=== PATIENT | male | born 1945 | race Caucasian/White ===

== ENCOUNTER → 2017-11-16 10:15 | Outpatient (CLI) | payer MEDICARE, OTHER, SELFPAY ==
[2017-11-16 15:07] LABS: Vitamin D 25 Hydroxy (D3) 57.1 ng/mL (30.0-100.0)
[2017-11-16 15:32] LABS: Appearance Urine UA CLEAR; Bilirubin Urine UA NEGATIVE (NEGATIVE); Color Urine UA YELLOW; Glucose Urine UA NEGATIVE (NEGATIVE); Ketones Urine UA NEGATIVE (NEGATIVE); Leukocyte Esterase Urine UA NEGATIVE (NEGATIVE); Nitrite Urine UA NEGATIVE (NEGATIVE); Occult Blood Urine UA NEGATIVE (NEGATIVE); Protein Urine UA NEGATIVE (NEGATIVE); Urobilinogen Urine UA 0.2 E.U./dL (0.2)
[2017-11-16 15:42] LABS: Culture Indicated Urine Cult Not Indicated; Urine Comments Microscopic Normal
== END ==
PROVIDERS: Family Provider Family Medicine; PCP Internal Medicine Pulmonary Disease; Visit Provider Internal Medicine
DX: N18.3 Chronic kidney disease, stage 3 (moderate) (principal)
CPT/HCPCS: 36415; 81001; 82306

== ENCOUNTER → 2017-12-16 10:58 | Outpatient (CLI) | payer MEDICARE, OTHER, SELFPAY ==
[2017-12-16 13:50] LABS: Alanine Aminotransferase 36 IU/L (21-72); Albumin Globulin Ratio 1.4 (1.0-2.8); Alkaline Phosphatase 66 U/L (38-126); Aspartate Aminotransferase 28 IU/L (17-59); BUN Creatinine Ratio 21.4 (6-22); Bilirubin Total 0.4 mg/dL (0.2-1.3); Blood Urea Nitrogen 45 mg/dL (9-20); Calcium 10.9 mg/dL (8.4-10.2); Carbon Dioxide 27 mmol/L (22-32); Chloride 103 mmol/L (98-107); Estimated Glomerular Filt Rate 31.4 mL/min (>60); Globulin 2.8 g/dL (1.7-4.1); Glucose 79 mg/dL (80-110); HEMOLYSIS < 15 (0-50); Potassium 4.8 mmol/L (3.4-5.1); Sodium 144 mmol/L (137-145); Total Protein 6.8 g/dL (6.3-8.2)
[2017-12-16 19:04] LABS: Creatinine Urine Random 26.7 mg/dL; Protein (Total) Urine Random 11 mg/dL (0-12); Protein Creatinine Ratio Urine 0.41 GRAM/24H
== END ==
PROVIDERS: Family Provider Family Medicine; PCP Internal Medicine Pulmonary Disease; Referring Provider Internal Medicine Pulmonary Disease; Visit Provider Internal Medicine
DX: N18.3 Chronic kidney disease, stage 3 (moderate) (principal)
CPT/HCPCS: 36415; 80053; 82570; 84156

== ENCOUNTER → 2017-12-17 06:54 | Outpatient (CLI) | payer MEDICARE, OTHER, SELFPAY ==
--- NOTE | 2017-12-17 | DI.US.S_ITS ---
PROCEDURE: US RENAL COMPLETE INDICATIONS: CHRONIC KIDNEY DISEASE TECHNIQUE: Real-time scanning was performed of the kidneys and bladder, with image documentation. COMPARISON: [facility], CT, CT ABD PELVIS W CON, 02/14/2017, 13:17. FINDINGS: Kidneys: Kidneys are normal in size. Right kidney measures 11 cm long; left kidney measures 11.9 cm long. Right renal cortical thickness is 1.7 cm; left renal cortical thickness is 2.3 cm. Renal cortical echotexture is normal. No hydronephrosis or nephrolithiasis. No suspicious solid mass lesions. Midpole left renal cyst redemonstrated measuring up to 2.9 cm. Bladder: Pre-void bladder volume is 227 mL. Post-void residual is 0 mL. Pre-void images demonstrate no intraluminal masses or stones. On pre-void images, neither ureteral jets are noted with color Doppler interrogation. (Of note, ureteral jets may not be detectable in up to 25% of cases due to insufficient differences in specific gravity between ureteral and bladder urine). Miscellaneous: No free pelvic fluid. IMPRESSION: Left renal cyst redemonstrated otherwise normal appearance the kidneys. Dictated by: Oliverio RIOS Interpreted: Khris Valentin MD on 12/17/2017 at 9:00 Approved by: Shahzad Valentin M.D. on 12/20/2017 at 9:22
== END ==
PROVIDERS: Family Provider Family Medicine; PCP Internal Medicine Pulmonary Disease; Visit Provider Internal Medicine
DX: N18.9 Chronic kidney disease, unspecified (principal); N28.1 Cyst of kidney, acquired
CPT/HCPCS: 76770

== ENCOUNTER → 2018-01-04 07:06 | Outpatient (CLI) | payer MEDICARE, OTHER, SELFPAY ==
[2018-01-04 09:40] LABS: Calcium 11.4 mg/dL (8.4-10.2); Phosphorous 4.8 mg/dL (2.3-3.7)
[2018-01-04 09:57] LABS: Vitamin D 25 Hydroxy (D3) 63.1 ng/mL (30.0-100.0)
[2018-01-06 13:50] LABS: Parathyroid Hormone Int 10 pg/mL (14-64)
[2018-01-06 20:26] LABS: Alkaline Phosphatase, Bone Spe 8.3 mcg/L
== END ==
PROVIDERS: Family Provider Family Medicine; PCP Internal Medicine Pulmonary Disease; Visit Provider Internal Medicine Endocrinology, Diabetes & Metabolism
DX: M81.8 Other osteoporosis without current pathological fracture (principal)
CPT/HCPCS: 36415; 82306; 82310; 82565; 83970; 84075; 84100

== ENCOUNTER → 2018-01-07 13:50 | Outpatient (CLI) | payer MEDICARE, OTHER, SELFPAY | PROVIDERS: Family Provider Neurological Surgery; PCP Family Medicine; Referring Provider Physical Medicine & Rehabilitation; Visit Provider Internal Medicine Endocrinology, Diabetes & Metabolism | DX: M85.851 Other specified disorders of bone density and structure, right thigh (principal); E11.9 Type 2 diabetes mellitus without complications; R29.890 Loss of height; Z85.118 Personal history of other malignant neoplasm of bronchus and lung | CPT/HCPCS: 77080 ==

== ENCOUNTER 2018-01-10 10:29 | Emergency (ER) | payer MEDICARE, OTHER, SELFPAY ==
[2018-01-10 10:40] VITALS: BP 98/59; PULSE 67; RESP 18; TEMP 36.4; O2SAT 99; BMI 37.7
--- NOTE | 2018-01-10 10:44 | ED_ITS ---
HPI - Skin/Abscess/Foreign Bdy General Chief complaint: Skin/Abscess/Foreign Body Stated complaint: INFECTION IN ABDOMEN,PAINFUL Time Seen by Provider: 01/10/18 10:30 Source: patient Mode of arrival: ambulatory Limitations: no limitations History of Present Illness HPI narrative: 72-year-old male here for evaluation of a skin wound to his left lower abdomen. Patient was seen in the walk-in clinic 2 days ago was diagnosed with a cellulitis. Is on doxycycline. Has been on 1.5 days of that medication. Is here because he feels like the cellulitis is worsening. No fevers. No change in pain. Related Data Home Medications Medication Instructions Recorded Confirmed NITROGLYCERIN (#NITROSTAT) 0.4 mg SUBLINGUAL PRN #0 11/19/10 01/10/18 [CO Q 10] PO QDAY #0 09/16/12 01/08/18 dofetilide [Tikosyn] 0.25 mg PO BID #0 04/08/16 01/10/18 olmesartan [Benicar] 20 mg BID #0 04/08/16 01/08/18 lorazepam [Ativan] 0.5 mg PO PRN PRN #0 06/28/16 01/08/18 vitamin B complex [B 1 tab PO HS #0 06/28/16 01/08/18 Complex-Vitamin B12] modafinil [Provigil] 200 mg PO QDAY #0 01/17/17 01/08/18 [Contour test strips] BID #0 07/30/17 01/08/18 diltiazem HCl 360 mg PO QDAY #0 07/30/17 01/10/18 insulin glargine [Lantus Solostar 50 unit SQ BID 90 Days #0 07/30/17 01/10/18 U-100 Insulin] alendronate [Fosamax] 70 mg PO QWEEK #0 09/01/17 01/10/18 ascorbic acid (vitamin C) 1,000 mg 1 gram PO BID tab 01/04/18 01/08/18 tablet furosemide 20 mg tablet 20 mg PO DAILY 01/04/18 01/08/18 gabapentin 600 mg tablet 600 mg PO TID 01/04/18 01/10/18 Lactobacillus acidophilus capsule 1,000 mmu cells PO DAILY 01/08/18 01/08/18 ascorbic acid (vitamin C) 500 mg mg PO cap 01/08/18 01/08/18 capsule albuterol sulfate [ProAir HFA] 01/10/18 01/10/18 apixaban [Eliquis] 5 mg PO BID 01/10/18 01/10/18 atorvastatin 40 mg PO DAILY 01/10/18 01/10/18 diclofenac sodium DIRECTED 01/10/18 ferrous sulfate 325 mg PO DAILY 01/10/18 01/10/18 metformin 2 tab PO BID 01/10/18 01/10/18 metoprolol tartrate 50 mg PO DAILY 01/10/18 01/10/18 ofloxacin 01/10/18 01/10/18 omeprazole 01/10/18 oxycodone-acetaminophen 01/10/18 01/10/18 prednisolone acetate 01/10/18 01/10/18 torsemide 20 mg PO DAILY 01/10/18 01/10/18 Previous Rx's Medication Instructions Recorded prednisone 10 mg PO SEE INSTRUCTIONS #20 tab 07/30/17 budesonide-formoterol [Symbicort] 2 inh INH BID #1 inh 09/14/17 oxycodone-acetaminophen 5 mg-325 1 tab PO QDAY PRN #30 tab 12/01/17 mg tablet epinephrine 0.3 mg/0.3 mL 0.3 mg IM ONCE #2 each 01/04/18 injection, auto-injector calcitonin (salmon) 200 1 spray INTRANASAL (ALT) DAILY 01/08/18 unit/actuation nasal spray #3.7 ml doxycycline hyclate 100 mg capsule 100 mg PO BID 20 Days #40 cap 01/08/18 Allergies Allergy/AdvReac Type Severity Reaction Status Date / Time venom-honey bee Allergy Unknown Verified 01/04/18 11:20 [BEE VENOM (HONEY BEE)] Sulfa (Sulfonamide AdvReac Unknown KIDNEY Verified 01/04/18 11:20 Antibiotics) FAILURE [SULFA (SULFONAMIDE ANTIBIOTICS)] Review of Systems Constitutional Denies fatigue, Denies fever(s) and Denies headache(s) ENT Ears, Nose, Mouth, and Throat: Denies headache(s) Cardiovascular Denies chest pain Respiratory Denies cough Gastrointestinal Gastrointestinal: Denies diarrhea, Denies nausea and Denies vomiting Integumentary/Breasts Reports lesions ( Left lower abdomen), Denies rash and Denies wounds Neurologic Denies headache(s) Endocrine Denies fatigue [facility] Medical History Renal insufficiency (Acute) Atrial fibrillation (Chronic Unknown) Chronic low back pain (Chronic Unknown) Coronary artery disease (Chronic Unknown) Diabetes (Chronic Unknown) GERD (gastroesophageal reflux disease) (Chronic Unknown) Hearing loss (Chronic Unknown) Hyperlipemia (Chronic Unknown) Hypertension (Chronic Unknown) Sarcoidosis (Chronic 11/2007) Acne (Resolved Unknown) Actinic keratosis (Resolved ~2017) Hx of coronary angiogram (Resolved Unknown) Squamous cell carcinoma (Resolved Unknown) Surgical History History of arthroplasty of left shoulder (Resolved Unknown) History of arthroplasty of right shoulder (Resolved Unknown) Hx of knee surgery (Resolved Unknown) Hx of prior ablation treatment (Resolved ~05/2013) Family History Father Diabetes mellitus Mother No problems noted. Social History Smoking Status: Never smoker alcohol intake: current Exam Initial Vital Signs Initial Vital Signs: Vital Signs Temperature 97.6 F 01/10/18 10:40 Pulse Rate 67 01/10/18 10:40 Respiratory Rate 18 01/10/18 10:40 Blood Pressure 98/59 L 01/10/18 10:40 Pulse Oximetry 99 01/10/18 10:40 Const General: cooperative, healthy appearing, comfortable, well developed, well groomed and No acute distress Orientation: alert, awake and oriented x3 Resp Effort & Inspection: normal respiratory effort and able to speak in complete sentences Skin Other: patient with 2-1/2 cm area is of fluctuation left lower abdomen just under his pannus with a total of 5 cm surrounding erythema. No drainage from these areas. Minimal pain to palpation. Neuro General: alert, awake and oriented x3 Extrem General: normal to inspection, capillary refill normal and normal exam except as noted Course Vital Signs - 8 hr 01/10/18 10:40 Temperature 97.6 F Pulse Rate 67 Respiratory Rate 18 Blood Pressure 98/59 L Pulse Oximetry 99 MDM - Skin/Abscess/Foreign Bdy MDM Narrative Medical decision making narrative: Patient is nontoxic appearing here in the emergency department. Bedside ultrasound over the area in question does not show any fluid collections. I feel that incising this area or doing a needle aspiration would have minimal benefit now. Patient has only been on 1.5 days of the doxycycline which is an appropriate antibiotic for this type of infection. Informed him that we should give this more time before any further interventions are made. He was given return precautions. He expressed understanding and agreement with plan. Discharge Plan Departure Patient Disposition: Home, Self-Care Clinical Impression: Cellulitis Discharge Date/Time: 01/10/18 11:30 Interventions: ED Discharge Assessment Last Done: 01/10/18 11:29 Instructions: DI for Cellulitis -- Adult Activity Restrictions/Additional Instructions: I would recommend that you continue with the doxycycline as prescribed. You can continue to shower like normal. Keep the area covered as needed. If over the next 48 hr your symptoms worsen you do need to return to the emergency department for further evaluation. Call your primary care doctor for follow-up. Prescriptions: No Action furosemide 20 mg tablet 20 mg PO DAILY RF: 0 gabapentin 600 mg tablet 600 mg PO TID RF: 0 ascorbic acid (vitamin C) 1,000 mg tablet 1 gram PO BID RF: 0 epinephrine [EpiPen 2-Abhijeet] 0.3 mg/0.3 mL auto-injector 0.3 mg IM ONCE Qty: 2 RF: 0 ascorbic acid (vitamin C) 500 mg capsule PO RF: 0 Lactobacillus acidophilus capsule 1,000 mmu cells PO DAILY RF: 0 doxycycline hyclate 100 mg capsule 100 mg PO BID 20 Days Qty: 40 RF: 0 calcitonin (salmon) 200 unit/actuation spray,non-aerosol 1 spray Intranasal (ALT) DAILY Qty: 3.7 RF: 0 NITROGLYCERIN (#NITROSTAT) 0.4 mg Sublingual PRN Qty: 0 RF: 0 [CO Q 10] PO QDAY Qty: 0 RF: 0 olmesartan [Benicar] 20 MG tablet 20 mg BID Qty: 0 RF: 0 dofetilide [Tikosyn] 250 MCG capsule 0.25 mg PO BID Qty: 0 RF: 0 lorazepam [Ativan] 0.5 MG tablet 0.5 mg PO PRN PRN (Reason: Anxiety) Qty: 0 RF: 0 vitamin B complex [B Complex-Vitamin B12] 1 EACH tablet 1 tab PO HS Qty: 0 RF: 0 modafinil [Provigil] 200 MG tablet 200 mg PO QDAY Qty: 0 RF: 0 [Contour test strips] BID Qty: 0 RF: 0 insulin glargine [Lantus Solostar U-100 Insulin] 100 UNIT/1 ML insulin pen 50 unit SQ BID 90 Days Qty: 0 RF: 0 diltiazem HCl 360 MG capsule,extended release 24 hr 360 mg PO QDAY Qty: 0 RF: 0 prednisone 10 MG tablet 10 mg PO SEE INSTRUCTIONS Qty: 20 RF: 0 alendronate [Fosamax] 70 MG tablet 70 mg PO QWEEK Qty: 0 RF: 0 budesonide-formoterol [Symbicort] 160 MCG/4.5 MCG HFA aerosol inhaler 2 inh INH BID Qty: 1 RF: 6 oxycodone-acetaminophen [Percocet] 5-325 mg tablet 1 tab PO QDAY PRN (Reason: pain) Qty: 30 RF: 0 atorvastatin 40 mg tablet 40 mg PO DAILY RF: 0 metformin 500 mg tablet 2 tab PO BID RF: 0 torsemide 20 mg tablet 20 mg PO DAILY RF: 0 ofloxacin 0.3 % drops RF: 0 oxycodone-acetaminophen 5-325 mg tablet RF: 0 prednisolone acetate 1 % drops,suspension RF: 0 ferrous sulfate 325 mg (65 mg iron) tablet 325 mg PO DAILY RF: 0 diclofenac sodium 0.1 % drops DIRECTED RF: 0 metoprolol tartrate 50 mg tablet 50 mg PO DAILY RF: 0 omeprazole 20 mg capsule,delayed release(DR/EC) RF: 0 albuterol sulfate [ProAir HFA] 90 mcg/actuation HFA aerosol inhaler RF: 0 apixaban [Eliquis] 5 mg tablet 5 mg PO BID RF: 0
== END 2018-01-10 11:30 | disposition home or self-care (01) ==
PROVIDERS: Emergency Provider Emergency Medicine; Family Provider Neurological Surgery; PCP Family Medicine
DX: L03.311 Cellulitis of abdominal wall (principal)
CPT/HCPCS: 99282

== ENCOUNTER → 2018-03-17 10:28 | Outpatient (CLI) | payer MEDICARE, OTHER, SELFPAY ==
--- NOTE | 2018-03-17 10:43 | DI.RAD.S_ITS ---
PROCEDURE: XR LUMBAR SPINE 2-3V INDICATIONS: back pain TECHNIQUE: 3 views of the lumbar spine were acquired. COMPARISON: [facility], [place], XR LUMBAR SPINE WITH OBLIQUES, 08/04/2017, 7:53. [facility], [place], L-SPINE 2-3 VIEWS, 11/12/2016, 12:12. FINDINGS: Bones: 5 [id number] vertebrae are present. There is stable appearing bony alignment. No new vertebral body compression fractures. Prior vertebroplasty/kyphoplasty bone cement at the thoracolumbar junction appear stable over time No suspicious bony lesions. Soft tissues: Overlying bowel gas pattern is normal. No suspicious soft tissue calcifications. IMPRESSION: Focal kyphosis and slight convex rightward scoliosis centered at the thoracolumbar spine where previously present compression fractures have not worsened in no new fracture has developed. Kyphoplasty bone cement in those areas is visible as has been previously the kidneys. Dictated by: Albino Jean-Baptiste M.D. on 03/17/2018 at 11:54 Approved by: Albino Jean-Baptiste M.D. on 03/17/2018 at 11:55
--- NOTE | 2018-03-17 10:43 | DI.RAD.S_ITS ---
PROCEDURE: XR THORACIC SPINE 3V INDICATIONS: back pain TECHNIQUE: 3 views of the thoracic spine were acquired. COMPARISON: [facility], [place], XR LUMBAR SPINE 2-3V, 03/17/2018, 10:21. FINDINGS: Bones: No new fractures or dislocations. Previously present moderately severe thoracolumbar junction compression fractures are present, most pronounced at T12 where vertebral plana can be seen. No suspicious bony lesions. 12 pairs of ribs are noted, and appear intact where visualized. Soft tissues: No paravertebral stripe thickening. IMPRESSION: Stable appearing compression fractures, most pronounced at T12, with kyphoplasty bone cement stable over time. Source of new pain is not seen. Dictated by: Albino Jean-Baptiste M.D. on 03/17/2018 at 11:55 Approved by: Albino Jean-Baptiste M.D. on 03/17/2018 at 11:56
== END ==
PROVIDERS: Family Provider Neurological Surgery; PCP Family Medicine; Referring Provider Internal Medicine Endocrinology, Diabetes & Metabolism; Visit Provider Family Medicine
DX: M54.9 Dorsalgia, unspecified (principal); G89.29 Other chronic pain; M41.85 Other forms of scoliosis, thoracolumbar region; M48.55XD Collapsed vertebra, not elsewhere classified, thoracolumbar region, subsequent encounter for fracture with routine healing; Z98.890 Other specified postprocedural states
CPT/HCPCS: 72072; 72100

== ENCOUNTER → 2018-03-22 07:39 | Outpatient (CLI) | payer MEDICARE, OTHER, SELFPAY ==
[2018-03-22 08:47] LABS: Hemoglobin A1C% w Est Avg Glu 5.7 % (4.0-6.0)
[2018-03-22 09:26] LABS: Alanine Aminotransferase 22 IU/L (21-72); Albumin 4.1 g/dL (3.5-5.0); Albumin Globulin Ratio 1.3 (1.0-2.8); Alkaline Phosphatase 81 U/L (38-126); Aspartate Aminotransferase 28 IU/L (17-59); BUN Creatinine Ratio 13.8 (6-22); Bilirubin Total 0.5 mg/dL (0.2-1.3); Blood Urea Nitrogen 47 mg/dL (9-20); Carbon Dioxide 32 mmol/L (22-32); Chloride 102 mmol/L (98-107); Cholesterol 97 mg/dL (140-199); Globulin 3.2 g/dL (1.7-4.1); Glucose 49 mg/dL (80-110); HDL Cholesterol 32 mg/dL (40-60); HEMOLYSIS < 15 (0-50); LDL Cholesterol Calculated 37 mg/dL (<100); Sodium 144 mmol/L (137-145); Total Protein 7.3 g/dL (6.3-8.2); Triglycerides 141 mg/dL (35-150)
[2018-03-22 09:46] LABS: Calcium 13.1 mg/dL (8.4-10.2)
== END ==
PROVIDERS: PCP Family Medicine; Visit Provider Family Medicine
DX: E11.22 Type 2 diabetes mellitus with diabetic chronic kidney disease (principal); Z79.4 Long term (current) use of insulin
CPT/HCPCS: 36415; 80053; 80061; 83036

== ENCOUNTER → 2018-04-07 13:15 | Outpatient (CLI) | payer MEDICARE, OTHER, SELFPAY | PROVIDERS: Family Provider Neurological Surgery; PCP Family Medicine; Visit Provider Physician Assistant | DX: S31.809A Unspecified open wound of unspecified buttock, initial encounter (principal) | CPT/HCPCS: 87070; 87075; 87077; 87186; 87205 ==

== ENCOUNTER → 2018-04-14 11:17 | Outpatient (CLI) | payer MEDICARE, OTHER, SELFPAY ==
[2018-04-14 12:55] LABS: BUN Creatinine Ratio 13.2 (6-22); Blood Urea Nitrogen 25 mg/dL (9-20); Calcium 8.6 mg/dL (8.4-10.2); Carbon Dioxide 29 mmol/L (22-32); Chloride 102 mmol/L (98-107); Estimated Glomerular Filt Rate 35.2 mL/min (>60); Glucose 94 mg/dL (80-110); HEMOLYSIS < 15 (0-50); Potassium 3.6 mmol/L (3.4-5.1); Sodium 141 mmol/L (137-145)
== END ==
PROVIDERS: Family Provider Internal Medicine Pulmonary Disease; PCP Family Medicine; Visit Provider Internal Medicine
DX: E83.52 Hypercalcemia (principal)
CPT/HCPCS: 36415; 80048

== ENCOUNTER → 2018-04-22 11:05 | Outpatient (CLI) | payer MEDICARE, OTHER, SELFPAY ==
[2018-04-22 13:00] LABS: Alanine Aminotransferase 29 IU/L (21-72); Albumin Globulin Ratio 1.4 (1.0-2.8); Alkaline Phosphatase 91 U/L (38-126); Aspartate Aminotransferase 27 IU/L (17-59); BUN Creatinine Ratio 11.7 (6-22); Bilirubin Total 0.7 mg/dL (0.2-1.3); Blood Urea Nitrogen 21 mg/dL (9-20); Calcium 9.9 mg/dL (8.4-10.2); Carbon Dioxide 30 mmol/L (22-32); Chloride 101 mmol/L (98-107); Estimated Glomerular Filt Rate 37.5 mL/min (>60); Globulin 2.9 g/dL (1.7-4.1); Glucose 73 mg/dL (80-110); HEMOLYSIS < 15 (0-50); Sodium 144 mmol/L (137-145); Total Protein 6.9 g/dL (6.3-8.2)
== END ==
PROVIDERS: Family Provider Internal Medicine Pulmonary Disease; PCP Family Medicine; Referring Provider Internal Medicine; Visit Provider Family Medicine
DX: N18.3 Chronic kidney disease, stage 3 (moderate) (principal); N17.9 Acute kidney failure, unspecified; E83.52 Hypercalcemia; N28.9 Disorder of kidney and ureter, unspecified; R79.0 Abnormal level of blood mineral
CPT/HCPCS: 36415; 80053

== ENCOUNTER → 2018-04-28 08:56 | Outpatient (CLI) | payer MEDICARE, OTHER, SELFPAY ==
[2018-04-28 10:28] LABS: BUN Creatinine Ratio 13.2 (6-22); Blood Urea Nitrogen 25 mg/dL (9-20); Calcium 9.5 mg/dL (8.4-10.2); Carbon Dioxide 28 mmol/L (22-32); Chloride 102 mmol/L (98-107); Estimated Glomerular Filt Rate 35.2 mL/min (>60); Glucose 68 mg/dL (80-110); HEMOLYSIS < 15 (0-50); Phosphorous 3.9 mg/dL (2.3-3.7); Sodium 143 mmol/L (137-145)
== END ==
PROVIDERS: Family Provider Internal Medicine Pulmonary Disease; PCP Family Medicine; Referring Provider Internal Medicine Endocrinology, Diabetes & Metabolism; Visit Provider Internal Medicine
DX: N17.9 Acute kidney failure, unspecified (principal); E83.52 Hypercalcemia
CPT/HCPCS: 36415; 80048; 84100

== ENCOUNTER → 2018-06-07 09:31 | Outpatient (CLI) | payer MEDICARE, OTHER, SELFPAY ==
[2018-06-07 10:46] LABS: BUN Creatinine Ratio 16.3 (6-22); Blood Urea Nitrogen 26 mg/dL (9-20); Calcium 10.4 mg/dL (8.4-10.2); Carbon Dioxide 28 mmol/L (22-32); Chloride 102 mmol/L (98-107); Estimated Glomerular Filt Rate 42.9 mL/min (>60); Glucose 65 mg/dL (80-110); HEMOLYSIS < 15 (0-50); Potassium 3.9 mmol/L (3.4-5.1); Sodium 145 mmol/L (137-145)
== END ==
PROVIDERS: Family Provider Internal Medicine Pulmonary Disease; PCP Family Medicine; Visit Provider Internal Medicine
DX: N18.3 Chronic kidney disease, stage 3 (moderate) (principal)
CPT/HCPCS: 36415; 80048

== ENCOUNTER → 2018-06-15 11:54 | Outpatient (CLI) | payer MEDICARE, OTHER, SELFPAY ==
[2018-06-15 12:13] LABS: Bacteria Urine None Seen; RBC Urine None Seen (0-5/HPF); WBC Urine None Seen (0-5/HPF)
[2018-06-15 12:55] LABS: Add Manual Diff / Slide Review NO; Basophils Percent Auto 0.4 % (0-2); Eosinophils Percent Auto 4.7 % (2-4); Hematocrit 35.2 % (41-53); Hemoglobin 11.7 g/dL (13.5-17.5); Lymphocytes Percent Auto 16.1 % (25-40); Mean Corpuscular HGB Conc 33.3 % (30-36); Mean Corpuscular Volume 84.2 fL (80-100); Monocytes Percent Auto 10.2 % (3-14); Neutrophils Absolute Auto 6300 /uL (3000-5900); Neutrophils Percent Auto 68.6 % (50-75); Platelet Count 278 X10^3/uL (150-400); Red Blood Cell Count 4.18 X10^6/uL (4.5-5.9); White Blood Cell Count 9.2 X10^3/uL (4.5-11.0)
[2018-06-15 13:05] LABS: Appearance Urine UA CLEAR; Bilirubin Urine UA NEGATIVE (NEGATIVE); Color Urine UA YELLOW; Glucose Urine UA NEGATIVE (Normal); Ketones Urine UA NEGATIVE (NEGATIVE); Leukocyte Esterase Urine UA NEGATIVE (NEGATIVE); Nitrite Urine UA NEGATIVE (Negative); Occult Blood Urine UA NEGATIVE (Negative); Protein Urine UA NEGATIVE (Negative); Urobilinogen Urine UA 0.2 E.U./dL (0.2); pH Urine UA 6.5 (4.5-8.0)
[2018-06-15 13:11] LABS: Culture Indicated Urine Cult Not Indicated; Urine Comments Microscopic Normal
[2018-06-15 13:30] LABS: Alanine Aminotransferase 31 IU/L (21-72); Albumin 4.1 g/dL (3.5-5.0); Albumin Globulin Ratio 1.3 (1.0-2.8); Alkaline Phosphatase 104 U/L (38-126); Aspartate Aminotransferase 28 IU/L (17-59); BUN Creatinine Ratio 12.5 (6-22); Bilirubin Total 0.4 mg/dL (0.2-1.3); Blood Urea Nitrogen 20 mg/dL (9-20); Calcium 9.8 mg/dL (8.4-10.2); Carbon Dioxide 29 mmol/L (22-32); Chloride 100 mmol/L (98-107); Estimated Glomerular Filt Rate 42.9 mL/min (>60); Globulin 3.1 g/dL (1.7-4.1); Glucose 63 mg/dL (80-110); HEMOLYSIS < 15 (0-50); Potassium 3.7 mmol/L (3.4-5.1); Sodium 142 mmol/L (137-145); Total Protein 7.2 g/dL (6.3-8.2)
[2018-06-15 15:43] LABS: Creatinine Urine Random 30.1 mg/dL; Protein (Total) Urine Random 12 mg/dL (0-12); Protein Creatinine Ratio Urine 0.39 GRAM/24H
[2018-06-15 16:38] LABS: Hep C Virus Ab w/Reflex Quant NEGATIVE s/c (NEGATIVE)
[2018-06-18 12:25] LABS: Parathyroid Hormone Int 20 pg/mL (14-64)
== END ==
PROVIDERS: Family Provider Internal Medicine Pulmonary Disease; PCP Family Medicine; Referring Provider Internal Medicine Endocrinology, Diabetes & Metabolism; Visit Provider Internal Medicine
DX: N18.3 Chronic kidney disease, stage 3 (moderate) (principal); Z11.59 Encounter for screening for other viral diseases
CPT/HCPCS: 36415; 80053; 81001; 82306; 82570; 83970; 84156; 85025; 86803

== ENCOUNTER 2018-07-24 18:49 | Emergency (ER) | payer MEDICARE, OTHER, SELFPAY ==
[2018-07-24] VITALS (8 sets, daily range): BP systolic 99–113; BP diastolic 59–70; PULSE 73–86; RESP 12–20; TEMP 37.1; O2SAT 93–99
--- NOTE | 2018-07-24 19:06 | ED.CHESTPAIN ---
HPI - Chest Pain General Chief Complaint: Chest Pain Stated Complaint: Chest Pain Time Seen by Provider: 07/24/18 19:06 Source: patient and EMS Mode of arrival: EMS Limitations: no limitations History of Present Illness HPI narrative: Patient is a 72-year-old male with a known history of acute coronary syndrome with history of stent placement. Patient also has a history of atrial fibrillation and has a pacemaker in place. He is currently on Eliquis. He is also on Tikosyn. Is also an insulin-dependent diabetic here for evaluation of chest pain. Patient states that he started to feel some discomfort last evening. He states that he thought that it was his atrial fibrillation. He states that he did feel the pain last night. It did improve/resolve this morning. He is currently having chest pain. He states this episode started some time around noon. He states that it does get better and worse throughout the day. He says when it was at its maximum it did feel like his prior heart attack. He received nitroglycerin and aspirin and morphine by EMS prior to arrival here in the emergency department. He states that his heart rate is now 4/10 down from an 8/10. 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 He states that the chest pain may get a little worse with palpation but he describes it as a ?ache? does not get worse with a deep breath. Does not get worse with movement. Does not radiate. Related Data Home Medications Medication Instructions Recorded Confirmed NITROGLYCERIN (#NITROSTAT) 0.4 mg SUBLINGUAL PRN #0 11/19/10 05/05/18 [CO Q 10] PO QDAY #0 09/16/12 05/05/18 dofetilide [Tikosyn] 0.25 mg PO BID #0 04/08/16 05/05/18 lorazepam [Ativan] 0.5 mg PO PRN PRN #0 06/28/16 05/05/18 vitamin B complex [B 1 tab PO HS #0 06/28/16 05/05/18 Complex-Vitamin B12] modafinil [Provigil] 200 mg PO QDAY #0 01/17/17 05/05/18 diltiazem HCl 360 mg PO QDAY #0 07/30/17 05/05/18 furosemide 20 mg tablet 20 mg PO DAILY 01/04/18 05/05/18 gabapentin 600 mg tablet 600 mg PO TID 01/04/18 05/05/18 Lactobacillus acidophilus capsule 1,000 mmu cells PO DAILY 01/08/18 05/05/18 albuterol sulfate [ProAir HFA] 01/10/18 05/05/18 apixaban [Eliquis] 5 mg PO BID 01/10/18 05/05/18 torsemide 20 mg PO DAILY 01/10/18 05/05/18 denosumab 60 mg/mL subcutaneous 60 mg SUBCUT [id number] 04/29/18 05/05/18 syringe gabapentin 300 mg capsule 300 mg PO BID 04/29/18 05/05/18 insulin glargine (U-100) 100 30 unit SUBCUT BID 90 Days #54 ml 04/29/18 05/05/18 unit/mL (3 mL) subcutaneous pen Previous Rx's Medication Instructions Recorded budesonide-formoterol [Symbicort] 2 inh INH BID #1 inh 09/14/17 epinephrine 0.3 mg/0.3 mL 0.3 mg IM ONCE #2 each 01/04/18 injection, auto-injector [Contour test strips] #300 each 03/07/18 lidocaine 4 % topical gel 1 applictn TOP QD-BID PRN #30 gram 04/07/18 adjuvant AS01B (PF), component 0.5 ml IM ONCE #0.5 ml 04/29/18 vial 1 of 2 intramuscular suspension oxycodone-acetaminophen 5 mg-325 1 tab PO QDAY PRN #30 tab 04/29/18 mg tablet ferrous sulfate 325 mg (65 mg 325 mg PO DAILY #30 tab 05/31/18 iron) tablet atorvastatin 40 mg tablet 40 mg PO DAILY #90 tab 06/15/18 Allergies Allergy/AdvReac Type Severity Reaction Status Date / Time venom-honey bee Allergy Unknown Verified 05/05/18 15:13 [BEE VENOM (HONEY BEE)] Sulfa (Sulfonamide AdvReac Unknown KIDNEY Verified 05/05/18 15:13 Antibiotics) FAILURE [SULFA (SULFONAMIDE ANTIBIOTICS)] Review of Systems Constitutional Denies fever(s) and Denies headache(s) ENT Ears, Nose, Mouth, and Throat: Denies headache(s) Cardiovascular Reports chest pain, Reports chest pain at rest, Denies diaphoresis, Denies syncope, Reports rapid heart rate, Reports pedal edema, Reports edema, Reports leg edema, Denies lightheadedness, Reports palpitations and Reports dyspnea Respiratory Denies excessive phlegm production, Reports dyspnea and Denies wheezing Gastrointestinal Gastrointestinal: Denies abdominal pain, Denies nausea and Denies vomiting Genitourinary Denies dysuria and Denies flank pain Musculoskeletal Denies myalgias, Denies arthralgias and Denies numbness Integumentary/Breasts Denies lesions and Denies rash Neurologic Denies syncope, Denies headache(s), Denies numbness and Denies paresthesias Endocrine Reports palpitations Hematologic/Lymphatic Comments: On Eliquis Allergic/Immunologic Denies wheezing [facility] Social History Smoking Status: Never smoker alcohol intake: current Exam Initial Vital Signs Initial Vital Signs: Vital Signs Temperature 98.7 F 07/24/18 19:00 Pulse Rate 86 07/24/18 19:00 Respiratory Rate 12 07/24/18 19:00 Blood Pressure 111/70 07/24/18 19:00 Pulse Oximetry 99 07/24/18 19:00 Const General: cooperative, healthy appearing, comfortable, well developed, well groomed and No acute distress Orientation: alert, awake and oriented x3 HENMT Head: normal to inspection and normocephalic Chest Chest: normal inspection of the chest, No crepitus, No tenderness and pacemaker Resp Effort & Inspection: no cough, labored, no respiratory distress, no retractions and not tachypneic Auscultation: rhonchi Cardio Rate: regular rate Rhythm: regular rhythm Heart Sounds: no murmurs Pulses: radial pulses present GI Inspection: non-distended Palpation: soft, No firm and No tender Skin Lesions: lesions noted Rashes: rash noted Neuro General: alert, awake and oriented x3 Cognition: normal cognition Speech: speech normal Motor: muscle tone normal throughout Extrem General: normal to inspection, capillary refill normal and edema Psych Appearance: grossly normal and well kempt Mood: congruent mood Affect: normal affect Course Orders Ordered: ED Orders 07/24/18 18:50 B Type Natriuretic Peptide Stat Complete Blood Count AUTO DIFF Stat Comprehensive Metabolic Panel Stat Prothrombin Time INR Stat Troponin I Stat 07/24/18 19:24 XR chest 1V Stat Discontinued Medications Aspirin (Aspirin Chew) 324 mg PO NOW ONE Stop: 07/24/18 19:57 Last Admin: 07/24/18 20:03 Dose: Nitroglycerin (Nitro-Bid) 0.5 inch TOP NOW ONE Stop: 07/24/18 20:09 Last Admin: 07/24/18 20:17 Dose: 0.5 inch Vital Signs - 8 hr 07/24/18 19:00 07/24/18 19:30 07/24/18 20:04 Temperature 98.7 F Pulse Rate 86 74 74 Respiratory Rate 12 16 14 Blood Pressure 111/70 Blood Pressure [Right Arm] 109/62 113/67 Pulse Oximetry 99 94 99 07/24/18 20:17 Temperature Pulse Rate 73 Respiratory Rate Blood Pressure 113/67 Blood Pressure [Right Arm] Pulse Oximetry MDM - Chest Pain Medical Records Data Attestation: I reviewed the patient's medical records. Lab Data Attestation: I reviewed the patient's lab results. Result diagrams: 07/24/18 18:50 07/24/18 18:50 Lab Results 07/24/18 07/24/18 07/24/18 Range/Units 18:50 18:50 18:50 WBC 9.0 (4.5-11.0) X10^3/uL RBC 4.42 L (4.5-5.9) X10^6/uL Hgb 12.5 L (13.5-17.5) g/dL Hct 37.0 L (41-53) % MCV 83.6 (80-100) fL MCH 28.3 (26-34) PG MCHC 33.8 (30-36) % RDW 15.2 H (11.6-14.8) % Plt Count 244 (150-400) X10^3/uL Neut % (Auto) 65.9 (50-75) % Lymph % (Auto) 16.5 L (25-40) % Coleman % (Auto) 9.7 (3-14) % Eos % (Auto) 7.5 H (2-4) % Baso % (Auto) 0.4 (0-2) % Neut # (Auto) 6000 (3578-4926) /uL Lymph # (Auto) 1500 (5592-6957) /uL Coleman # (Auto) 900 (0-900) /uL Eos # (Auto) 700 H (0-450) /uL Baso # (Auto) 0 (0-100) /uL PT 11.3 (10.1-12.7) SECONDS INR 1.0 (0.9-1.3) Sodium 140 (137-145) mmol/L Potassium 4.1 (3.4-5.1) mmol/L Chloride 102 (98-107) mmol/L Carbon Dioxide 26 (22-32) mmol/L BUN 24 H (9-20) mg/dL Creatinine 1.40 H (0.66-1.25) mg/dL Estimated GFR 50.1 L (>60) mL/min BUN/Creatinine Ratio 17.1 (6-22) Glucose 172 H (80-110) mg/dL Calcium 9.3 (8.4-10.2) mg/dL Total Bilirubin 0.4 (0.2-1.3) mg/dL AST 37 (17-59) IU/L ALT 27 (21-72) IU/L Alkaline Phosphatase 120 (38-126) U/L Troponin I 0.755 H* (0.01-0.034) ng/mL B-Natriuretic Peptide (<100) Total Protein 8.0 (6.3-8.2) g/dL Albumin 4.4 (3.5-5.0) g/dL Globulin 3.6 (1.7-4.1) g/dL Albumin/Globulin Ratio 1.2 (1.0-2.8) 07/24/18 Range/Units 18:50 WBC (4.5-11.0) X10^3/uL RBC (4.5-5.9) X10^6/uL Hgb (13.5-17.5) g/dL Hct (41-53) % MCV (80-100) fL MCH (26-34) PG MCHC (30-36) % RDW (11.6-14.8) % Plt Count (150-400) X10^3/uL Neut % (Auto) (50-75) % Lymph % (Auto) (25-40) % Coleman % (Auto) (3-14) % Eos % (Auto) (2-4) % Baso % (Auto) (0-2) % Neut # (Auto) (7550-1015) /uL Lymph # (Auto) (0045-4540) /uL Coleman # (Auto) (0-900) /uL Eos # (Auto) (0-450) /uL Baso # (Auto) (0-100) /uL PT (10.1-12.7) SECONDS INR (0.9-1.3) Sodium (137-145) mmol/L Potassium (3.4-5.1) mmol/L Chloride (98-107) mmol/L Carbon Dioxide (22-32) mmol/L BUN (9-20) mg/dL Creatinine (0.66-1.25) mg/dL Estimated GFR (>60) mL/min BUN/Creatinine Ratio (6-22) Glucose (80-110) mg/dL Calcium (8.4-10.2) mg/dL Total Bilirubin (0.2-1.3) mg/dL AST (17-59) IU/L ALT (21-72) IU/L Alkaline Phosphatase (38-126) U/L Troponin I (0.01-0.034) ng/mL B-Natriuretic Peptide 429 H (<100) Total Protein (6.3-8.2) g/dL Albumin (3.5-5.0) g/dL Globulin (1.7-4.1) g/dL Albumin/Globulin Ratio (1.0-2.8) Imaging Data Chest x-ray: Radiologist's impression: PROCEDURE: XR CHEST 1V INDICATIONS: chest pain TECHNIQUE: One view of the chest was acquired. COMPARISON: [facility], CHEST 1 VIEW, 01/18/2017, 0:19. FINDINGS: Surgical changes and devices: Left chest wall pacemaker leads are seen in the region of right atrium and right ventricle. Lungs and pleura: Small to moderate bilateral pleural effusion is seen with atelectasis of bilateral upper and middle lobes. There is suggestion of pulmonary edema and pulmonary vascular congestion. No gross pneumothorax.. Mediastinum: Mediastinal contours appear normal. Heart size is enlarged. Bones and chest wall: No suspicious bony lesions. Overlying soft tissues appear unremarkable. IMPRESSION: Findings suggestive of CHF changes. No gross pneumothorax. Dictated by: Zaire Flores M.D. on 07/24/2018 at 19:47 Approved by: Zaire Flores M.D. on 07/24/2018 at 19:48 ECG Data Attestation: I personally reviewed and interpreted this ECG as follows: Prior ECG tracings: not available for review Interpretation: Sinus rhythm Ventricular rate 84 First degree AV block as needed oval 2 when to Right bundle branch block Normal QTC White QRS of [address] depression V2 V3 inverted T-waves in [address] T wave changes MDM Narrative Medical decision making narrative: Patient received nitro and aspirin prior to arrival here in the emergency department also received pain medication. He states that his chest pain is now 4/10 down from an 8/10. Upon re-evaluation patient now states that his heart rate is a 2/10. 0.5 in of nitropaste was placed to see if this does not improve his symptoms further. Patient was not hypertensive. Chest x-ray shows no acute pathology. Patient shows no change in his baseline respiratory status. He does have a history of sarcoid. He is not on home oxygen. Patient does have a history of atrial fibrillation however he is in sinus rhythm on his EKG. Our EKG does not show pacer spikes. Does have P waves. Does have ST depression in V2 and V3 but no other ischemic changes. Patient is on Eliquis and has been taking his Eliquis so will hold on heparin. Discussed the case with Dr. Richardson the hospitalist at [facility] with the patient's review consultant is located. She accepts. Discussed the transfer with the patient. He expressed understanding and agreement. Patient is stable for transport. Discharge Plan Departure Patient Disposition: [facility] Clinical Impression: ACS (acute coronary syndrome) Prescriptions: No Action furosemide 20 mg tablet 20 mg PO DAILY RF: 0 gabapentin 600 mg tablet 600 mg PO TID RF: 0 epinephrine [EpiPen 2-Abhijeet] 0.3 mg/0.3 mL auto-injector 0.3 mg IM ONCE Qty: 2 RF: 0 Lactobacillus acidophilus capsule 1,000 mmu cells PO DAILY RF: 0 denosumab [Prolia] 60 mg/mL syringe 60 mg SUBCUT [id number] RF: 0 gabapentin 300 mg capsule 300 mg PO BID RF: 0 oxycodone-acetaminophen [Percocet] 5-325 mg tablet 1 tab PO QDAY PRN (Reason: pain) Qty: 30 RF: 0 adjuvant AS01B (PF)vial 1 of 2 [Shingrix Adjuvant Component-PF] suspension 0.5 ml IM ONCE Qty: 0.5 RF: 0 lidocaine 4 % gel 1 applictn TOP QD-BID PRN (Reason: pain) Qty: 30 RF: 0 NITROGLYCERIN (#NITROSTAT) 0.4 mg Sublingual PRN Qty: 0 RF: 0 [CO Q 10] PO QDAY Qty: 0 RF: 0 dofetilide [Tikosyn] 250 MCG capsule 0.25 mg PO BID Qty: 0 RF: 0 lorazepam [Ativan] 0.5 MG tablet 0.5 mg PO PRN PRN (Reason: Anxiety) Qty: 0 RF: 0 vitamin B complex [B Complex-Vitamin B12] 1 EACH tablet 1 tab PO HS Qty: 0 RF: 0 modafinil [Provigil] 200 MG tablet 200 mg PO QDAY Qty: 0 RF: 0 diltiazem HCl 360 MG capsule,extended release 24 hr 360 mg PO QDAY Qty: 0 RF: 0 budesonide-formoterol [Symbicort] 160 MCG/4.5 MCG HFA aerosol inhaler 2 inh INH BID Qty: 1 RF: 6 [Contour test strips] .Route .MEDSUPPLY Qty: 300 RF: 3 insulin glargine [Lantus Solostar U-100 Insulin] 100 unit/mL (3 mL) insulin pen 30 unit SUBCUT BID 90 Days Qty: 54 RF: 0 ferrous sulfate 325 mg (65 mg iron) tablet 325 mg PO DAILY Qty: 30 RF: 3 atorvastatin 40 mg tablet 40 mg PO DAILY Qty: 90 RF: 1 torsemide 20 mg tablet 20 mg PO DAILY RF: 0 albuterol sulfate [ProAir HFA] 90 mcg/actuation HFA aerosol inhaler RF: 0 apixaban [Eliquis] 5 mg tablet 5 mg PO BID RF: 0
[2018-07-24 19:10] LABS: Add Manual Diff / Slide Review NO; Basophils Absolute Auto 0 /uL (0-100); Basophils Percent Auto 0.4 % (0-2); Eosinophils Absolute Auto 700 /uL (0-450); Eosinophils Percent Auto 7.5 % (2-4); Hemoglobin 12.5 g/dL (13.5-17.5); Lymphocytes Absolute Auto 1500 /uL (1100-4500); Lymphocytes Percent Auto 16.5 % (25-40); Mean Corpuscular HGB Conc 33.8 % (30-36); Mean Corpuscular Hemoglobin 28.3 PG (26-34); Mean Corpuscular Volume 83.6 fL (80-100); Monocytes Absolute Auto 900 /uL (0-900); Monocytes Percent Auto 9.7 % (3-14); Neutrophils Absolute Auto 6000 /uL (1500-7000); Neutrophils Percent Auto 65.9 % (50-75); Platelet Count 244 X10^3/uL (150-400); Red Blood Cell Count 4.42 X10^6/uL (4.5-5.9); Red Cell Distribution Width 15.2 % (11.6-14.8)
[2018-07-24 19:12] LABS: Prothrombin Time 11.3 SECONDS (10.1-12.7)
[2018-07-24 19:15] LABS: Alanine Aminotransferase 27 IU/L (21-72); Albumin 4.4 g/dL (3.5-5.0); Albumin Globulin Ratio 1.2 (1.0-2.8); Alkaline Phosphatase 120 U/L (38-126); Aspartate Aminotransferase 37 IU/L (17-59); BUN Creatinine Ratio 17.1 (6-22); Bilirubin Total 0.4 mg/dL (0.2-1.3); Blood Urea Nitrogen 24 mg/dL (9-20); Calcium 9.3 mg/dL (8.4-10.2); Carbon Dioxide 26 mmol/L (22-32); Chloride 102 mmol/L (98-107); Estimated Glomerular Filt Rate 50.1 mL/min (>60); Globulin 3.6 g/dL (1.7-4.1); Glucose 172 mg/dL (80-110); HEMOLYSIS < 15 (0-50); Potassium 4.1 mmol/L (3.4-5.1); Sodium 140 mmol/L (137-145)
--- NOTE | 2018-07-24 19:24 | DI.RAD.S_ITS ---
PROCEDURE: XR CHEST 1V INDICATIONS: chest pain TECHNIQUE: One view of the chest was acquired. COMPARISON: [facility], , CHEST 1 VIEW, 01/18/2017, 0:19. FINDINGS: Surgical changes and devices: Left chest wall pacemaker leads are seen in the region of right atrium and right ventricle. Lungs and pleura: Small to moderate bilateral pleural effusion is seen with atelectasis of bilateral upper and middle lobes. There is suggestion of pulmonary edema and pulmonary vascular congestion. No gross pneumothorax.. Mediastinum: Mediastinal contours appear normal. Heart size is enlarged. Bones and chest wall: No suspicious bony lesions. Overlying soft tissues appear unremarkable. IMPRESSION: Findings suggestive of CHF changes. No gross pneumothorax. Dictated by: Zaire Flores M.D. on 07/24/2018 at 19:47 Approved by: Zaire Flores M.D. on 07/24/2018 at 19:48
[2018-07-24 19:47] LABS: B Type Natriuretic Peptide 429 (<100)
[2018-07-24 19:51] LABS: Troponin I 0.755 ng/mL (0.01-0.034)
--- NOTE | 2018-07-24 20:03 | PC.NURSE ---
Pt stated I took asprin about an hour ago. Provider aware, not given.
[2018-07-24] MEDS: NITROGLYCERIN OINT 1 INCH/GM OINT...G. 0.5 INCH TOP (20:17)
== END 2018-07-24 22:49 | disposition short-term general hospital (02) ==
PROVIDERS: Emergency Provider Emergency Medicine; Family Provider Internal Medicine Pulmonary Disease; PCP Family Medicine
DX: I24.9 Acute ischemic heart disease, unspecified (principal)
CPT/HCPCS: 36591; 71045; 80053; 83880; 84484; 85025; 85610; 93005; 93010; 99283; 99285

== ENCOUNTER → 2018-08-06 09:07 | Outpatient (CLI) | payer MEDICARE, OTHER, SELFPAY ==
[2018-08-06 09:39] LABS: Hemoglobin 11.7 g/dL (13.5-17.5); Mean Corpuscular HGB Conc 33.4 % (30-36); Mean Corpuscular Hemoglobin 28.3 PG (26-34); Mean Corpuscular Volume 84.8 fL (80-100); Platelet Count 244 X10^3/uL (150-400); Red Blood Cell Count 4.13 X10^6/uL (4.5-5.9); Red Cell Distribution Width 15.9 % (11.6-14.8); White Blood Cell Count 7.5 X10^3/uL (4.5-11.0)
[2018-08-06 09:53] LABS: BUN Creatinine Ratio 20.6 (6-22); Blood Urea Nitrogen 35 mg/dL (9-20); Carbon Dioxide 28 mmol/L (22-32); Chloride 102 mmol/L (98-107); Glucose 114 mg/dL (80-110); HEMOLYSIS < 15 (0-50); Potassium 4.4 mmol/L (3.4-5.1); Sodium 141 mmol/L (137-145)
[2018-08-06 09:55] LABS: Hemoglobin A1C% w Est Avg Glu 5.4 % (4.0-6.0)
[2018-08-06 10:23] LABS: Cholesterol 99 mg/dL (140-199); HDL Cholesterol 37 mg/dL (40-60); LDL Cholesterol Calculated 41 mg/dL (<100); Triglycerides 105 mg/dL (35-150)
[2018-08-06 10:26] LABS: Creatinine Urine Random 103.2 mg/dL
[2018-08-06 10:31] LABS: Microalbumin Urine Random 3.2 mg/dL (0-1.6)
[2018-08-09 15:03] LABS: Parathyroid Hormone Int 9 pg/mL (14-64)
[2018-08-09 17:54] LABS: Ionized Calcium 5.6 mg/dL (4.8-5.6)
== END ==
PROVIDERS: Physician Assistant; Family Provider Internal Medicine Pulmonary Disease; PCP Family Medicine; Referring Provider Internal Medicine Cardiovascular Disease; Visit Provider Student in an Organized Health Care Education/Training Program
DX: E11.22 Type 2 diabetes mellitus with diabetic chronic kidney disease (principal); D86.9 Sarcoidosis, unspecified; M81.0 Age-related osteoporosis without current pathological fracture; Z79.4 Long term (current) use of insulin; Z01.810 Encounter for preprocedural cardiovascular examination
CPT/HCPCS: 36415; 80048; 80061; 82043; 82330; 82570; 83036; 83970; 85027

== ENCOUNTER → 2018-09-19 17:01 | Outpatient (CLI) | payer MEDICARE, OTHER, SELFPAY ==
[2018-09-19 17:17] LABS: Bacteria Urine None Seen; RBC Urine None Seen (0-5/HPF)
[2018-09-19 17:54] LABS: Appearance Urine UA CLEAR; Bilirubin Urine UA NEGATIVE (NEGATIVE); Color Urine UA YELLOW; Glucose Urine UA NEGATIVE (Negative); Ketones Urine UA NEGATIVE (NEGATIVE); Leukocyte Esterase Urine UA NEGATIVE (NEGATIVE); Nitrite Urine UA NEGATIVE (Negative); Occult Blood Urine UA NEGATIVE (Negative); Protein Urine UA NEGATIVE (Negative); Specific Gravity Urine UA 1.015 (1.000-1.035); Urobilinogen Urine UA 0.2 E.U./dL (0.2)
[2018-09-19 17:56] LABS: Alanine Aminotransferase 31 IU/L (21-72); Albumin 4.2 g/dL (3.5-5.0); Albumin Globulin Ratio 1.2 (1.0-2.8); Alkaline Phosphatase 99 U/L (38-126); Aspartate Aminotransferase 28 IU/L (17-59); BUN Creatinine Ratio 21.2 (6-22); Bilirubin Total 0.3 mg/dL (0.2-1.3); Blood Urea Nitrogen 36 mg/dL (9-20); Calcium 9.5 mg/dL (8.4-10.2); Carbon Dioxide 28 mmol/L (22-32); Chloride 101 mmol/L (98-107); Globulin 3.4 g/dL (1.7-4.1); Glucose 168 mg/dL (80-110); HEMOLYSIS < 15 (0-50); Potassium 4.1 mmol/L (3.4-5.1); Sodium 141 mmol/L (137-145); Total Protein 7.6 g/dL (6.3-8.2)
[2018-09-19 18:00] LABS: Hemoglobin A1C% w Est Avg Glu 5.5 % (4.0-6.0)
[2018-09-19 18:02] LABS: Add Manual Diff / Slide Review NO; Basophils Absolute Auto 0 /uL (0-100); Basophils Percent Auto 0.6 % (0-2); Culture Indicated Urine Cult Not Indicated; Eosinophils Absolute Auto 600 /uL (0-450); Eosinophils Percent Auto 7.6 % (2-4); Hematocrit 36.1 % (41-53); Hemoglobin 12.1 g/dL (13.5-17.5); Lymphocytes Absolute Auto 1900 /uL (1100-4500); Mean Corpuscular HGB Conc 33.5 % (30-36); Mean Corpuscular Hemoglobin 28.6 PG (26-34); Mean Corpuscular Volume 85.5 fL (80-100); Monocytes Absolute Auto 900 /uL (0-900); Monocytes Percent Auto 11.6 % (3-14); Neutrophils Absolute Auto 4500 /uL (1500-7000); Neutrophils Percent Auto 56.2 % (50-75); Platelet Count 223 X10^3/uL (150-400); Red Blood Cell Count 4.22 X10^6/uL (4.5-5.9); Red Cell Distribution Width 14.8 % (11.6-14.8); Squamous Epithelial Cell Urine 0-1 /HPF; WBC Urine 0-1/HPF (0-5/HPF)
== END ==
PROVIDERS: Family Provider Family Medicine; PCP Family Medicine; Visit Provider Internal Medicine
DX: E11.49 Type 2 diabetes mellitus with other diabetic neurological complication (principal); N18.3 Chronic kidney disease, stage 3 (moderate)
CPT/HCPCS: 36415; 80053; 81001; 83036; 85025

== ENCOUNTER → 2018-11-21 14:20 | Outpatient (CLI) | payer MEDICARE, OTHER, SELFPAY ==
[2018-11-21 15:29] LABS: Calcium 9.8 mg/dL (8.4-10.2)
== END ==
PROVIDERS: Family Provider Family Medicine; PCP Family Medicine; Visit Provider Internal Medicine Endocrinology, Diabetes & Metabolism
DX: M81.0 Age-related osteoporosis without current pathological fracture (principal)
CPT/HCPCS: 36415; 82310

== ENCOUNTER → 2018-12-22 12:47 | Outpatient (CLI) | payer MEDICARE, OTHER, SELFPAY ==
[2018-12-22 13:35] LABS: Add Manual Diff / Slide Review NO; Basophils Absolute Auto 100 /uL (0-100); Basophils Percent Auto 0.7 % (0-2); Eosinophils Absolute Auto 500 /uL (0-450); Hematocrit 33.4 % (41-53); Hemoglobin 11.8 g/dL (13.5-17.5); Lymphocytes Absolute Auto 1700 /uL (1100-4500); Lymphocytes Percent Auto 23.1 % (25-40); Mean Corpuscular HGB Conc 35.5 % (30-36); Mean Corpuscular Volume 84.7 fL (80-100); Monocytes Absolute Auto 900 /uL (0-900); Monocytes Percent Auto 11.4 % (3-14); Neutrophils Absolute Auto 4500 /uL (1500-7000); Neutrophils Percent Auto 58.8 % (50-75); Platelet Count 228 X10^3/uL (150-400); Red Blood Cell Count 3.95 X10^6/uL (4.5-5.9); White Blood Cell Count 7.6 X10^3/uL (4.5-11.0)
[2018-12-22 13:49] LABS: Alanine Aminotransferase 15 IU/L (21-72); Albumin 4.1 g/dL (3.5-5.0); Albumin Globulin Ratio 1.2 (1.0-2.8); Alkaline Phosphatase 106 U/L (38-126); Aspartate Aminotransferase 24 IU/L (17-59); BUN Creatinine Ratio 18.1 (6-22); Bilirubin Total 0.5 mg/dL (0.2-1.3); Blood Urea Nitrogen 29 mg/dL (9-20); Calcium 9.7 mg/dL (8.4-10.2); Carbon Dioxide 31 mmol/L (22-32); Chloride 98 mmol/L (98-107); Cholesterol 98 mg/dL (140-199); Estimated Glomerular Filt Rate 42.8 mL/min (>60); Globulin 3.5 g/dL (1.7-4.1); Glucose 146 mg/dL (80-110); HDL Cholesterol 28 mg/dL (40-60); HEMOLYSIS < 15 (0-50); LDL Cholesterol Calculated 14 mg/dL (<100); Potassium 3.9 mmol/L (3.4-5.1); Sodium 140 mmol/L (137-145); Total Protein 7.6 g/dL (6.3-8.2); Triglycerides 279 mg/dL (35-150)
[2018-12-22 14:09] LABS: Hemoglobin A1C% w Est Avg Glu 5.7 % (4.0-6.0)
[2018-12-22 14:38] LABS: Thyroid Stimulating Hormone 1.54 uIU/mL (0.47-4.68)
== END ==
PROVIDERS: PCP Family Medicine; Visit Provider Internal Medicine
DX: N18.3 Chronic kidney disease, stage 3 (moderate) (principal); E11.22 Type 2 diabetes mellitus with diabetic chronic kidney disease; N28.9 Disorder of kidney and ureter, unspecified; Z51.81 Encounter for therapeutic drug level monitoring; Z79.4 Long term (current) use of insulin
CPT/HCPCS: 36415; 80053; 80061; 83036; 84443; 85025

== ENCOUNTER → 2019-03-21 10:04 | Outpatient (CLI) | payer MEDICARE, OTHER, SELFPAY ==
[2019-03-21 11:32] LABS: BUN Creatinine Ratio 18.8 (6-22); Blood Urea Nitrogen 30 mg/dL (9-20); Calcium 10.2 mg/dL (8.4-10.2); Carbon Dioxide 31 mmol/L (22-32); Chloride 101 mmol/L (98-107); Estimated Glomerular Filt Rate 42.8 mL/min (>60); Glucose 81 mg/dL (80-110); HEMOLYSIS < 15 (0-50); Potassium 3.9 mmol/L (3.4-5.1); Sodium 141 mmol/L (137-145)
== END ==
PROVIDERS: PCP Family Medicine; Visit Provider Internal Medicine Cardiovascular Disease
DX: Z51.81 Encounter for therapeutic drug level monitoring (principal); Z79.899 Other long term (current) drug therapy
CPT/HCPCS: 36415; 80048

== ENCOUNTER → 2019-03-23 09:03 | Outpatient (CLI) | payer MEDICARE, OTHER, SELFPAY ==
[2019-03-23 09:13] LABS: Bacteria Urine None Seen; RBC Urine None Seen (0-5/HPF); WBC Urine None Seen (0-5/HPF)
[2019-03-23 09:32] LABS: Appearance Urine UA CLEAR; Bilirubin Urine UA NEGATIVE (NEGATIVE); Color Urine UA YELLOW; Glucose Urine UA NEGATIVE (Negative); Ketones Urine UA NEGATIVE (NEGATIVE); Leukocyte Esterase Urine UA NEGATIVE (NEGATIVE); Nitrite Urine UA NEGATIVE (Negative); Occult Blood Urine UA NEGATIVE (Negative); Protein Urine UA NEGATIVE (Negative); Urobilinogen Urine UA 0.2 E.U./dL (0.2); pH Urine UA 5.5 (4.5-8.0)
[2019-03-23 09:38] LABS: Add Manual Diff / Slide Review NO; Basophils Absolute Auto 0 /uL (0-100); Basophils Percent Auto 0.4 % (0-2); Eosinophils Absolute Auto 400 /uL (0-450); Eosinophils Percent Auto 5.3 % (2-4); Hematocrit 33.8 % (41-53); Hemoglobin 11.7 g/dL (13.5-17.5); Lymphocytes Absolute Auto 1400 /uL (1100-4500); Lymphocytes Percent Auto 16.9 % (25-40); Mean Corpuscular HGB Conc 34.7 % (30-36); Mean Corpuscular Hemoglobin 30.2 PG (26-34); Mean Corpuscular Volume 87.1 fL (80-100); Monocytes Absolute Auto 900 /uL (0-900); Monocytes Percent Auto 10.9 % (3-14); Neutrophils Absolute Auto 5500 /uL (1500-7000); Neutrophils Percent Auto 66.5 % (50-75); Platelet Count 219 X10^3/uL (150-400); Red Blood Cell Count 3.87 X10^6/uL (4.5-5.9); Red Cell Distribution Width 14.5 % (11.6-14.8); White Blood Cell Count 8.2 X10^3/uL (4.5-11.0)
[2019-03-23 09:50] LABS: Culture Indicated Urine Cult Not Indicated; Urine Comments Microscopic Normal
[2019-03-23 10:13] LABS: Alanine Aminotransferase 18 IU/L (21-72); Albumin Globulin Ratio 1.3 (1.0-2.8); Alkaline Phosphatase 118 U/L (38-126); Aspartate Aminotransferase 26 IU/L (17-59); BUN Creatinine Ratio 21.3 (6-22); Bilirubin Total 0.4 mg/dL (0.2-1.3); Blood Urea Nitrogen 34 mg/dL (9-20); Calcium 10.1 mg/dL (8.4-10.2); Carbon Dioxide 29 mmol/L (22-32); Chloride 98 mmol/L (98-107); Estimated Glomerular Filt Rate 42.8 mL/min (>60); Globulin 3.2 g/dL (1.7-4.1); Glucose 106 mg/dL (80-110); HEMOLYSIS < 15 (0-50); Potassium 4.1 mmol/L (3.4-5.1); Sodium 140 mmol/L (137-145); Total Protein 7.2 g/dL (6.3-8.2)
== END ==
PROVIDERS: PCP Family Medicine; Visit Provider Internal Medicine
DX: N18.3 Chronic kidney disease, stage 3 (moderate) (principal); E11.49 Type 2 diabetes mellitus with other diabetic neurological complication
CPT/HCPCS: 36415; 80053; 81001; 83036; 85025

== ENCOUNTER → 2019-04-12 12:38 | Outpatient (CLI) | payer MEDICARE, OTHER, SELFPAY ==
[2019-04-12 13:56] LABS: BUN Creatinine Ratio 17.3 (6-22); Blood Urea Nitrogen 26 mg/dL (9-20); Calcium 9.6 mg/dL (8.4-10.2); Carbon Dioxide 29 mmol/L (22-32); Chloride 100 mmol/L (98-107); Estimated Glomerular Filt Rate 46.1 mL/min (>60); Glucose 150 mg/dL (80-110); HEMOLYSIS < 15 (0-50); Sodium 140 mmol/L (137-145)
== END ==
PROVIDERS: Family Provider Family Medicine; PCP Family Medicine
DX: Z51.81 Encounter for therapeutic drug level monitoring (principal); Z79.899 Other long term (current) drug therapy
CPT/HCPCS: 36415; 80048

== ENCOUNTER 2019-04-12 16:25 | Emergency (ER) | payer MEDICARE, OTHER, SELFPAY ==
[2019-04-12 16:34] VITALS: BP 113/63; PULSE 71; RESP 16; TEMP 36.3; O2SAT 99; BMI 29.6
--- NOTE | 2019-04-12 16:40 | DI.RAD.S_ITS ---
PROCEDURE: XR RIBS LT MIN 3V W CXR1V INDICATIONS: fall TECHNIQUE: 2 views of the left ribs were acquired, along with a single view chest. COMPARISON: [facility], CR, XR CHEST 1VW (PORTABLE), 02/12/2017, 19:53. [facility], CR, XR CHEST 1V, 07/24/2018, 19:54. FINDINGS: Surgical changes and devices: Dual-lead cardiac pacer Bones and chest wall: No fractures or dislocations. No suspicious bony lesions. Overlying soft tissues appear unremarkable. Lungs and pleura: No pleural effusions or pneumothorax. Bilateral perihilar and lower lobe ill-defined and patchy groundglass opacities Mediastinum: Mediastinal contours appear normal. Heart size is normal. IMPRESSION: Ill-defined bilateral perihilar and lower lobe opacities, some of which is related to chronic atelectasis and scarring however cannot exclude superimposed pulmonary edema or infection. If there is persistent clinical diagnostic uncertainty, continued surveillance with short interval chest radiographs after treatment is recommended. No fracture. Dictated by: Johann Wiseman M.D. on 04/12/2019 at 17:31 Approved by: Johann Wiseman M.D. on 04/12/2019 at 17:34
--- NOTE | 2019-04-12 16:41 | DI.RAD.S_ITS ---
PROCEDURE: XR SHOULDER LT MIN 2V INDICATIONS: fall TECHNIQUE: 3 views of the shoulder were acquired. COMPARISON: None. FINDINGS: Bones: No fractures or dislocations. No suspicious bony lesions. Visualized ribs appear intact. 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 Soft tissues: No suspicious soft tissue calcifications. IMPRESSION: No fracture identified. Degenerative changes as above. Dictated by: Johann Wiseman M.D. on 04/12/2019 at 17:29 Approved by: Johann Wiseman M.D. on 04/12/2019 at 17:31
--- NOTE | 2019-04-12 16:43 | DI.RAD.S_ITS ---
PROCEDURE: XR KNEE RT 3V INDICATIONS: fall TECHNIQUE: 3 views of the knee were acquired. COMPARISON: None. FINDINGS: Bones: No fractures or dislocations. No suspicious bony lesions. Expected postoperative alignment of right knee arthroplasty Soft tissues: Small joint effusion. No suspicious soft tissue calcifications. IMPRESSION: No fracture. Expected postoperative alignment Dictated by: Johann Wiseman M.D. on 04/12/2019 at 17:44 Approved by: Johann Wiseman M.D. on 04/12/2019 at 17:45
[2019-04-12] MEDS: ALBUTEROL/IPRATROPIUM 3 ML AMPUL INH (19:11)
[2019-04-12] MEDS: CYCLOBENZAPRINE 5 MG TABLET PO (19:14)
[2019-04-12] MEDS: OXYCODONE/ACETAMINOPHEN 5/325 TABLET 1 TAB PO (19:14)
[2019-04-12] MEDS: ACETAMINOPHEN 325 MG TABLET 650 MG PO (19:14)
--- NOTE | 2019-04-12 19:16 | PC.NURSE ---
RT in for neb and IS teaching. pt medicated for pain per EMR. NAD
[2019-04-12 19:36] VITALS: PULSE 68; RESP 16; O2SAT 98
[2019-04-12 19:59] VITALS: BP 116/78; PULSE 68; RESP 16; O2SAT 97
--- NOTE | 2019-04-13 03:43 | ED.FALL ---
HPI - Fall <Ralf KENISHA Michaels - Last Filed: 04/13/19 04:02> General Chief Complaint: Fall Stated Complaint: lt rib to knee pain s/p fall Time Seen by Provider: 04/12/19 18:41 Source: patient Mode of arrival: Wheelchair Limitations: other (Hard of hearing) History of Present Illness HPI Narrative: This is a 73-year-old gentleman, nonsmoker, who presents with spouse to with chief complain of left rib pain left shoulder pain and right knee pain after he sustained a mechanical fall after his foot got tangled up and landed on his left side body. Patient currently takes anticoagulants due to AFib. He did not his head or injured other areas. He denies headache, neck pain. According to his spouse, patient has neuropathy and decreased sensation on lower extremities. Patient reports pain is severe in his wrist and has difficult time breathing due to pain. Spouse reports patient had not taken any medications at home but has oxycodone which he does not use routinely. Patient has history of bilateral knee surgery. Related Data Home Medications Medication Instructions Recorded Confirmed NITROGLYCERIN (#NITROSTAT) 0.4 mg SUBLINGUAL PRN #0 11/19/10 04/04/19 lorazepam [Ativan] 0.5 mg PO PRN PRN #0 06/28/16 04/04/19 Lactobacillus acidophilus 1,000 mmu cells PO DAILY 01/08/18 04/04/19 CALCIUM 600 mg PO .QDAY 08/03/18 04/04/19 albuterol sulfate 90 mcg/actuation 2 puff INHALATION BID PRN gram 08/03/18 04/04/19 aerosol inhaler clopidogrel 75 mg tablet 75 mg PO DAILY 08/03/18 04/04/19 dofetilide 125 mcg capsule 125 mcg PO BID cap 08/03/18 04/04/19 metoprolol tartrate 25 mg tablet 25 mg PO BID 08/03/18 04/04/19 urea 40 % topical cream 1 applictn TOP BID 08/03/18 04/04/19 torsemide 20 mg tablet 30 mg PO DAILY tab 10/04/18 04/04/19 apixaban 5 mg tablet 5 mg PO BID 01/03/19 04/04/19 cyclobenzaprine 10 mg tablet 10 mg PO BEDTIME 01/03/19 04/04/19 gabapentin 600 mg tablet 1,800 mg PO BID tab 01/03/19 04/04/19 teriparatide 20 mcg/dose (600 20 mcg SUBCUT DAILY 01/03/19 04/04/19 mcg/2.4 mL) subcutaneous pen injector Previous Rx's Medication Instructions Recorded budesonide-formoterol [Symbicort] 2 inh INH BID #1 inh 09/14/17 [Contour test strips] #300 each 03/07/18 adjuvant AS01B (PF)vial 1 of 2 0.5 ml IM ONCE #0.5 ml 04/29/18 pen needle, diabetic 29 gauge x #30 each 09/29/18/ Fast click lancet cartridge #1 ea 10/04/18 atorvastatin 40 mg tablet 40 mg PO DAILY #90 tab 10/04/18 ferrous sulfate 325 mg (65 mg 325 mg PO DAILY #90 tab 10/04/18 iron) tablet insulin glargine 100 unit/mL (3 30 unit SUBCUT DAILY #15 ml 10/04/18 mL) subcutaneous pen Lactobacil rhamnosus GG 10 billion 1 tab PO .QD #100 tab 01/03/19 cell-inulin 200 mg chewable tablet vitamin B complex 1 tab PO HS #100 tab 01/03/19 epinephrine 0.3 mg/0.3 mL 0.3 mg IM ONCE #2 each 04/04/19 injection, auto-injector oxycodone-acetaminophen 5 mg-325 1 tab PO QDAY PRN #30 tab 04/04/19 mg tablet Allergies Allergy/AdvReac Type Severity Reaction Status Date / Time venom-honey bee Allergy Severe shut down Verified 04/04/19 10:04 [BEE VENOM (HONEY BEE)] my respiratory system. Sulfa (Sulfonamide AdvReac Severe KIDNEY Verified 04/04/19 10:04 Antibiotics) FAILURE [SULFA (SULFONAMIDE ANTIBIOTICS)] Review of Systems <KENISHA Felder - Last Filed: 04/13/19 04:02> Review of Systems ROS Unobtainable: All systems reviewed & are unremarkable except as noted in HPI and below Exam <HATTIE FelderP - Last Filed: 04/13/19 04:02> Narrative Exam Narrative: General appearance: well developed, well nourished, in moderate distress. Head: normocephalic, atraumatic, no scalp lesions, non-tender. Eye: pupil equal, round. EOMI. Nose: nares patent. Oral: mucosa moist. Neck/Thyroid: neck supple, full range of motion, no visible masses. Skin: no suspicious rashes, lesions over visible areas. Warm and dry. Heart: no clubbing, no cyanosis, no edema. Lungs: Breathing even and unlabored. Fine wheezing on bilateral lower lobes. No stridor. No accessory muscles used. Chest: normal shape and expansion. Tender to palpate and left lateral ribs without ecchymosis, crepitus or swelling Abdomen: non-obese, non-distended. Neurologic: alert and oriented. 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 Psych: good eye contact, normal affect. Initial Vital Signs Initial Vital Signs: Vital Signs Temperature 97.4 F L 04/12/19 16:34 Pulse Rate 71 04/12/19 16:34 Respiratory Rate 16 04/12/19 16:34 Blood Pressure 113/63 04/12/19 16:34 Pulse Oximetry 99 04/12/19 16:34 Extrem Right upper extremity: shoulder/upper arm Details: normal to inspection, tenderness, axillary nerve sensory function normal and abnormal ROM Details: pain with active ROM and pain with passive ROM; no swelling, no ecchymosis, no crepitus and no unusual warmth Left upper extremity: normal to inspection and full ROM Right lower extremity: knee Details: abnormal to inspection (Healed surgical wound), tenderness, swelling, normal ROM and abrasion; no ecchymosis, no crepitus and no unusual warmth Left lower extremity: normal to inspection and full ROM <Helena Dorsey DO - Last Filed: 04/17/19 19:40> Initial Vital Signs Initial Vital Signs: Vital Signs Temperature 97.4 F L 04/12/19 16:34 Pulse Rate 71 04/12/19 16:34 Respiratory Rate 16 04/12/19 16:34 Blood Pressure 113/63 04/12/19 16:34 Pulse Oximetry 99 04/12/19 16:34 PFSH <KENISHA Felder - Last Filed: 04/13/19 04:02> Medical History Acne (Resolved Unknown) Actinic keratosis (Resolved ~2017) Atrial fibrillation (Chronic Unknown) Chronic low back pain (Chronic Unknown) Coronary artery disease (Chronic Unknown) Diabetes (Chronic Unknown) GERD (gastroesophageal reflux disease) (Chronic Unknown) Hearing loss (Chronic Unknown) Hx of coronary angiogram (Resolved Unknown) Hyperlipemia (Chronic Unknown) Hypertension (Chronic Unknown) Renal insufficiency (Acute) Sarcoidosis (Chronic 11/2007) Squamous cell carcinoma (Resolved Unknown) Surgical History History of arthroplasty of left shoulder (Resolved Unknown) History of arthroplasty of right shoulder (Resolved Unknown) Hx of knee surgery (Resolved Unknown) Hx of prior ablation treatment (Resolved ~05/2013) Family History Father Diabetes mellitus Mother No problems noted. Social History Smoking Status: Never smoker second hand exposure: Yes alcohol intake: current substance use type: does not use Family History Father Diabetes mellitus Mother No problems noted. Social History Smoking Status: Never smoker second hand exposure: Yes alcohol intake: current substance use type: does not use Course <KENISHA Felder - Last Filed: 04/13/19 04:02> Orders Ordered: Discontinued Medications Acetaminophen (Tylenol) 650 mg PO NOW ONE Stop: 04/12/19 18:52 Last Admin: 04/12/19 19:14 Dose: 650 mg Documented by: ESTUARDO Albuterol/Ipratropium (Duoneb) 3 ml INH NOW ONE Stop: 04/12/19 18:52 Last Admin: 04/12/19 19:11 Dose: 3 ml Documented by: REINA Cyclobenzaprine HCl (Flexeril) 5 mg PO NOW ONE Stop: 04/12/19 18:52 Last Admin: 04/12/19 19:14 Dose: 5 mg Documented by: ESTUARDO Oxycodone/Acetaminophen (Percocet 5/325) 1 tab PO NOW ONE Stop: 04/12/19 18:52 Last Admin: 04/12/19 19:14 Dose: 1 tab Documented by: ESTUARDO Vital Signs Vital signs: Vital Signs - 8 hr 04/12/19 19:59 Pulse Rate 68 Respiratory Rate 16 Blood Pressure 116/78 Pulse Oximetry 97 <DO Mary Sweeney Last Filed: 04/17/19 19:40> Orders Ordered: Discontinued Medications Acetaminophen (Tylenol) 650 mg PO NOW ONE Stop: 04/12/19 18:52 Last Admin: 04/12/19 19:14 Dose: 650 mg Documented by: ESTUARDO Albuterol/Ipratropium (Duoneb) 3 ml INH NOW ONE Stop: 04/12/19 18:52 Last Admin: 04/12/19 19:11 Dose: 3 ml Documented by: REINA Cyclobenzaprine HCl (Flexeril) 5 mg PO NOW ONE Stop: 04/12/19 18:52 Last Admin: 04/12/19 19:14 Dose: 5 mg Documented by: ESTUARDO Oxycodone/Acetaminophen (Percocet 5/325) 1 tab PO NOW ONE Stop: 04/12/19 18:52 Last Admin: 04/12/19 19:14 Dose: 1 tab Documented by: ESTUARDO Vital Signs Vital signs: Vital Signs - 8 hr 04/12/19 19:59 Pulse Rate 68 Respiratory Rate 16 Blood Pressure 116/78 Pulse Oximetry 97 MDM - Fall <[facility] - Last Filed: 04/13/19 04:02> Differential Diagnosis Differential diagnosis: Likely other (Mechanical fall, contusion to left rib, pneumothorax, rib fracture, right knee contusion, left shoulder strain, Dislocation of shoulder) Medical Records Attestation: I reviewed the patient's medical records. Imaging Data XR-Knee RT: Radiologist's impression: [address] [address] XRay Report Signed Patient: Berny Ott [facility]#: [id number] : 8Acct:[id number] Age/Sex: 73 / MDate of Service: 04/12/19 Loc: ED Accession Number: [id number] Procedure: XR knee RT 3V Ordering Provider: Helena Dorsey D.O. PROCEDURE: XR KNEE RT 3V INDICATIONS: fall TECHNIQUE: 3 views of the knee were acquired. COMPARISON: None. FINDINGS: Bones: No fractures or dislocations. No suspicious bony lesions. Expected postoperative alignment of right knee arthroplasty Soft tissues: Small joint effusion. No suspicious soft tissue calcifications. IMPRESSION: No fracture. Expected postoperative alignment Dictated by: Johann Wiseman M.D. on 04/12/2019 at 17:44 Approved by: Johann Wiseman M.D. on 04/12/2019 at 17:45 XR-Shoulder LT: Radiologist's impression: [address] [address] XRay Report Signed Patient: Berny Ott [facility]#: [id number] : 8Acct:[id number] Age/Sex: 73 / MDate of Service: 04/12/19 Loc: ED Accession Number: [id number] Procedure: XR shoulder LT min 2V Ordering Provider: Helena Dorsey D.O. PROCEDURE: XR SHOULDER LT MIN 2V INDICATIONS: fall TECHNIQUE: 3 views of the shoulder were acquired. COMPARISON: None. FINDINGS: Bones: No fractures or dislocations. No suspicious bony lesions. Visualized ribs appear intact. 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 Soft tissues: No suspicious soft tissue calcifications. IMPRESSION: No fracture identified. Degenerative changes as above. Dictated by: Johann Wiseman M.D. on 04/12/2019 at 17:29 Approved by: Johann Wiseman M.D. on 04/12/2019 at 17:31 XR-Ribs LT: Radiologist's impression: [address] [address] XRay Report Signed Patient: Berny Ott [facility]#: [id number] : 8Acct:[id number] Age/Sex: 73 / MDate of Service: 04/12/19 Loc: ED Accession Number: [id number] Procedure: XR ribs LT min 3V w CXR1V Ordering Provider: Helena Dorsey D.O. PROCEDURE: XR RIBS LT MIN 3V W CXR1V INDICATIONS: fall TECHNIQUE: 2 views of the left ribs were acquired, along with a single view chest. COMPARISON: [facility], , XR CHEST 1VW (PORTABLE), 02/12/2017, 19:53. [facility], CR, XR CHEST 1V, 07/24/2018, 19:54. FINDINGS: Surgical changes and devices: Dual-lead cardiac pacer Bones and chest wall: No fractures or dislocations. No suspicious bony lesions. Overlying soft tissues appear unremarkable. Lungs and pleura: No pleural effusions or pneumothorax. Bilateral perihilar and lower lobe ill-defined and patchy groundglass opacities Mediastinum: Mediastinal contours appear normal. Heart size is normal. IMPRESSION: Ill-defined bilateral perihilar and lower lobe opacities, some of which is related to chronic atelectasis and scarring however cannot exclude superimposed pulmonary edema or infection. If there is persistent clinical diagnostic uncertainty, continued surveillance with short interval chest radiographs after treatment is recommended. No fracture. Dictated by: Johann Wiseman M.D. on 04/12/2019 at 17:31 Approved by: Johann Wiseman M.D. on 04/12/2019 at 17:34 MDM Narrative Medical decision making narrative: This is a 73-year-old gentleman who presents to ED with spouse after sustained a mechanical fall and landed on his left side of upper body and right knee due to his history of diabetes and neuropathy. Patient is taking currently anticoagulants and modified trauma was called. Patient denies hitting his head or injuring other areas. There is no headache or cervical tenderness to report. Knee and shoulder x-ray does not show any acute findings such as fractures or dislocation. There is a small effusion in right knee joint. Patient states painful to taking a deep breath due to the rib pain. Find wheezing was auscultated in bilateral lower lobes and patient has history of sarcodosis. Provided on neb treatment to patient as requested and patient reports breathing is easier at this time. Rib x-ray shows no for bony fractures or lesions but ill-defined bilateral perihilar and lower lobe opacities. Patient does not endorses constitutional symptoms or respiratory distress and patient has not prescribed with antibiotic medications at this time. Patient teaching provided to use I/S machine 10 time every hour while awake to prevent pneumonia and atelectasis and the machine provided for home use. The patient and spouse to declines crutches, walker or [place] wraps at this time. Patient was medicated with oxycodone and Tylenol while in ED. Ice pack was used on affected sites for pain and inflammation. Return precautions were discussed with the patient and spouse and advised to follow up with PCP in 2-3 days and patient and spouse verbalized the understanding and agree with treatment plan. Discharge Plan Departure Patient Disposition: Home Clinical Impression: Contusion of rib Qualifiers: Encounter type: initial encounter Laterality: left Qualified Code(s): S20.212A - Contusion of left front wall of thorax, initial encounter Acute knee pain Qualifiers: Laterality: right Qualified Code(s): M25.561 - Pain in right knee Acute shoulder pain Qualifiers: Laterality: left Qualified Code(s): M25.512 - Pain in left shoulder Discharge Date/Time: 04/12/19 20:00 Instructions: DI for Contusion, How to Prevent Falls Activity Restrictions/Additional Instructions: You have been diagnosed with [contusion to left ribs, left shoulder, right knee from fall. Per x-ray tests today, there was no acute findings such as fractures. Your chest x-ray showed lower lobe-defined patchy opacities and this may due to the your chronic lung conditions. ]. What to do: *Take your medications as directed. You can take your own Percocet that you have 1-2 tabs for severe pain or [id number] Tylenol for mild to moderate pain as needed. You can take upto 4000 mg/24 hr period for Tylenol. Please use breathing I/S machine that has been provided for every hour 10x while awake. Use RICE therapy for knee and shoulder injuries. *Follow up with your primary care provider in 2-3 days, call for an appointment. Let them know you were seen in the ED and that we asked you to be seen in follow up. *Return to ED if you have any new, worsening, or concerning symptoms, such as [increasing chest pain, breathing difficulty, productive cough, fever, unable to tolerate fluids, weakness/numbness/tingling on extremities, or any acute concerns]. Prescriptions: No Action gabapentin 600 mg tablet 1,800 mg PO BID RF: 0 Lactobacillus acidophilus capsule 1,000 mmu cells PO DAILY RF: 0 adjuvant AS01B (PF)vial 1 of 2 [Shingrix Adjuvant Component-PF] suspension 0.5 ml IM ONCE Qty: 0.5 RF: 0 albuterol sulfate 90 mcg/actuation HFA aerosol inhaler 2 puff INHALATION BID PRNRF: 0 dofetilide [Tikosyn] 125 mcg capsule 125 mcg PO BID RF: 0 clopidogrel [Plavix] 75 mg tablet 75 mg PO DAILY RF: 0 metoprolol tartrate 25 mg tablet 25 mg PO BID RF: 0 urea 40 % cream 1 applictn TOP BID RF: 0 CALCIUM 600 mg PO .QDAY RF: 0 Lantus Solostar U-100 Insulin 100 unit/mL (3 mL) insulin pen 30 unit SUBCUT DAILY Qty: 15 RF: 6 ferrous sulfate 325 mg (65 mg iron) tablet 325 mg PO DAILY Qty: 90 RF: 3 atorvastatin 40 mg tablet 40 mg PO DAILY Qty: 90 RF: 3 (DME) Fast click lancet cartridge Qty: 1 RF: 0 NITROGLYCERIN (#NITROSTAT) 0.4 mg Sublingual PRN Qty: 0 RF: 0 lorazepam [Ativan] 0.5 MG tablet 0.5 mg PO PRN PRN (Reason: Anxiety) Qty: 0 RF: 0 budesonide-formoterol [Symbicort] 160 MCG/4.5 MCG HFA aerosol inhaler 2 inh INH BID Qty: 1 RF: 6 (DME) [Contour test strips] 0 .Route .MEDSUPPLY Qty: 300 RF: 3 (DME) pen needle, diabetic [BD Ultra-Fine Orig Pen Needle] 29 gauge x 1/2 needle See Dose Instructions .ROUTE .MEDSUPPLY Qty: 30 RF: 5 Forteo 20 mcg/dose - 600 mcg/2.4 mL pen injector 20 mcg SUBCUT DAILY RF: 0 Eliquis 5 mg tablet 5 mg PO BID RF: 0 cyclobenzaprine 10 mg tablet 10 mg PO BEDTIME RF: 0 vitamin B complex [B Complex-Vitamin B12] tablet 1 tab PO HS Qty: 100 RF: 4 Culturelle [employer] 10 billion cell -200 mg tablet,chewable 1 tab PO .QD Qty: 100 RF: 4 epinephrine [EpiPen 2-Abhijeet] 0.3 mg/0.3 mL auto-injector 0.3 mg IM ONCE Qty: 2 RF: 0 oxycodone-acetaminophen [Percocet] 5-325 mg tablet 1 tab PO QDAY PRN (Reason: pain) Qty: 30 RF: 0 torsemide 20 mg tablet 30 mg PO DAILY RF: 0 Referrals: Jordin,Nay, DO [Primary Care Provider] -
== END 2019-04-12 20:00 | disposition home or self-care (01) ==
PROVIDERS: Emergency Provider Nurse Practitioner Family; Family Provider Family Medicine; PCP Family Medicine
DX: S20.212A Contusion of left front wall of thorax, initial encounter (principal); M25.561 Pain in right knee; M25.512 Pain in left shoulder; W18.30XA Fall on same level, unspecified, initial encounter; Z79.01 Long term (current) use of anticoagulants
CPT/HCPCS: 71101; 73030; 73562; 94640; 99283

== ENCOUNTER → 2019-04-19 12:14 | Outpatient (CLI) | payer MEDICARE, OTHER, SELFPAY ==
--- NOTE | 2019-04-19 12:19 | DI.RAD.S_ITS ---
PROCEDURE: XR THORACIC SPINE 3V INDICATIONS: Thoracic Back Pain TECHNIQUE: 3 views of the thoracic spine were acquired. COMPARISON: [facility], CR, XR LUMBAR SPINE 2-3V, 03/17/2018, 10:21. [facility], CR, XR THORACIC SPINE 3V, 03/17/2018, 10:21. FINDINGS: Bones: Unchanged T12 compression fracture, status post vertebroplasty. Additional L1 vertebroplasty also unchanged. Mild anterior wedging of the T11 vertebral body which appears unchanged. The remaining visualized vertebral body heights demonstrate no definite change. Soft tissues: No paravertebral stripe thickening. IMPRESSION: Unchanged examination since 03/17/18. Redemonstration of severe T12 compression fracture, status post kyphoplasty/vertebroplasty. If the patient's pain or other symptoms persist, consider further evaluation with MRI Dictated by: Johann Wiseman M.D. on 04/19/2019 at 12:47 Approved by: Johann Wiseman M.D. on 04/19/2019 at 12:49
== END ==
PROVIDERS: Family Provider Family Medicine; PCP Family Medicine; Visit Provider Family Medicine
DX: M54.6 Pain in thoracic spine (principal); M48.54XA Collapsed vertebra, not elsewhere classified, thoracic region, initial encounter for fracture
CPT/HCPCS: 72072

== ENCOUNTER → 2019-05-30 10:50 | Outpatient (CLI) | payer MEDICARE, OTHER, SELFPAY ==
[2019-05-30 11:05] LABS: RBC Urine None Seen (0-5/HPF); WBC Urine None Seen (0-5/HPF)
[2019-05-30 11:58] LABS: Add Manual Diff / Slide Review NO; Basophils Absolute Auto 0 /uL (0-100); Basophils Percent Auto 0.4 % (0-2); Eosinophils Absolute Auto 600 /uL (0-450); Eosinophils Percent Auto 6.3 % (2-4); Hematocrit 36.8 % (41-53); Hemoglobin 12.7 g/dL (13.5-17.5); Lymphocytes Absolute Auto 1800 /uL (1100-4500); Lymphocytes Percent Auto 19.2 % (25-40); Mean Corpuscular HGB Conc 34.6 % (30-36); Mean Corpuscular Hemoglobin 30.2 PG (26-34); Mean Corpuscular Volume 87.2 fL (80-100); Monocytes Absolute Auto 900 /uL (0-900); Monocytes Percent Auto 9.8 % (3-14); Neutrophils Absolute Auto 6200 /uL (1500-7000); Neutrophils Percent Auto 64.3 % (50-75); Platelet Count 237 X10^3/uL (150-400); Red Blood Cell Count 4.22 X10^6/uL (4.5-5.9); Red Cell Distribution Width 14.2 % (11.6-14.8); White Blood Cell Count 9.6 X10^3/uL (4.5-11.0)
[2019-05-30 12:04] LABS: Appearance Urine UA CLEAR; Bilirubin Urine UA NEGATIVE (NEGATIVE); Color Urine UA YELLOW; Glucose Urine UA NEGATIVE (Negative); Ketones Urine UA NEGATIVE (NEGATIVE); Leukocyte Esterase Urine UA NEGATIVE (NEGATIVE); Nitrite Urine UA NEGATIVE (Negative); Occult Blood Urine UA NEGATIVE (Negative); Protein Urine UA NEGATIVE (Negative); Specific Gravity Urine UA <=1.005 (1.000-1.035); Urobilinogen Urine UA 0.2 E.U./dL (0.2)
[2019-05-30 12:10] LABS: Hemoglobin A1C% w Est Avg Glu 5.8 % (4.0-6.0)
[2019-05-30 12:21] LABS: Bacteria Urine Occasional (0-1); Culture Indicated Urine Cult Not Indicated; Hyaline Casts Urine 1-5/LPF
[2019-05-30 13:25] LABS: Alanine Aminotransferase 15 IU/L (<50); Albumin 4.2 g/dL (3.5-5.0); Albumin Globulin Ratio 1.2 (1.0-2.8); Alkaline Phosphatase 172 U/L (38-126); Aspartate Aminotransferase 28 IU/L (17-59); BUN Creatinine Ratio 24.1 (6-22); Bilirubin Total 0.6 mg/dL (0.2-1.3); Blood Urea Nitrogen 41 mg/dL (9-20); Carbon Dioxide 32 mmol/L (22-32); Chloride 98 mmol/L (98-107); Estimated Glomerular Filt Rate 39.9 mL/min (>60); Globulin 3.4 g/dL (1.7-4.1); Glucose 178 mg/dL (80-110); HEMOLYSIS < 15 (0-50); Potassium 4.2 mmol/L (3.4-5.1); Sodium 141 mmol/L (137-145); Total Protein 7.6 g/dL (6.3-8.2)
== END ==
PROVIDERS: Family Provider Family Medicine; PCP Family Medicine; Visit Provider Internal Medicine
DX: E11.49 Type 2 diabetes mellitus with other diabetic neurological complication (principal); N18.3 Chronic kidney disease, stage 3 (moderate)
CPT/HCPCS: 36415; 80053; 81001; 83036; 85025

== ENCOUNTER → 2019-06-21 11:15 | Outpatient (CLI) | payer MEDICARE, OTHER, SELFPAY ==
[2019-06-21 12:27] LABS: Vitamin D 25 Hydroxy (D3) 42.7 ng/mL (30.0-100.0)
[2019-06-21 16:20] LABS: Microalbumi Creatinin Ratio Ur 35.8 ug/mg CR (<30); Microalbumin Urine Random 1.9 mg/dL (0-1.6)
[2019-06-24 14:09] LABS: Parathyroid Hormone Int 15 pg/mL (14-64)
== END ==
PROVIDERS: PCP Family Medicine; Visit Provider Internal Medicine
DX: N18.3 Chronic kidney disease, stage 3 (moderate) (principal)
CPT/HCPCS: 36415; 82043; 82306; 82570; 83970

== ENCOUNTER → 2019-08-08 14:22 | Outpatient (CLI) | payer MEDICARE, OTHER, SELFPAY | PROVIDERS: PCP Family Medicine; Visit Provider Family Medicine | DX: E11.622 Type 2 diabetes mellitus with other skin ulcer (principal); L89.153 Pressure ulcer of sacral region, stage 3; L89.323 Pressure ulcer of left buttock, stage 3; E11.40 Type 2 diabetes mellitus with diabetic neuropathy, unspecified; Z79.4 Long term (current) use of insulin | CPT/HCPCS: 87070; 87075; 87077; 87186; 87205; 97597; 99203; 99214 ==

== ENCOUNTER → 2019-08-15 08:58 | Outpatient (CLI) | payer MEDICARE, OTHER, SELFPAY | PROVIDERS: PCP Family Medicine; Referring Provider Family Medicine; Visit Provider Family Medicine | DX: E11.622 Type 2 diabetes mellitus with other skin ulcer (principal); L89.323 Pressure ulcer of left buttock, stage 3; L89.153 Pressure ulcer of sacral region, stage 3; E11.40 Type 2 diabetes mellitus with diabetic neuropathy, unspecified; Z79.4 Long term (current) use of insulin | CPT/HCPCS: 97597 ==

== ENCOUNTER → 2019-08-22 08:39 | Outpatient (CLI) | payer MEDICARE, OTHER, SELFPAY | PROVIDERS: PCP Family Medicine; Referring Provider Family Medicine; Visit Provider Family Medicine | DX: E11.622 Type 2 diabetes mellitus with other skin ulcer (principal); L89.153 Pressure ulcer of sacral region, stage 3; L89.323 Pressure ulcer of left buttock, stage 3; Z79.4 Long term (current) use of insulin | CPT/HCPCS: 99212; 99214 ==

== ENCOUNTER → 2019-09-23 08:34 | Outpatient (CLI) | payer MEDICARE, OTHER, SELFPAY ==
[2019-09-23 09:36] LABS: Hemoglobin A1C% w Est Avg Glu 5.7 % (4.0-6.0)
[2019-09-23 09:41] LABS: Alanine Aminotransferase 16 IU/L (<50); Albumin 4.4 g/dL (3.5-5.0); Albumin Globulin Ratio 1.2 (1.0-2.8); Alkaline Phosphatase 140 U/L (38-126); Aspartate Aminotransferase 28 IU/L (17-59); BUN Creatinine Ratio 22.1 (6-22); Bilirubin Total 0.3 mg/dL (0.2-1.3); Blood Urea Nitrogen 31 mg/dL (9-20); Calcium 10.3 mg/dL (8.4-10.2); Carbon Dioxide 28 mmol/L (22-32); Chloride 102 mmol/L (98-107); Cholesterol 107 mg/dL (140-199); Globulin 3.7 g/dL (1.7-4.1); Glucose 119 mg/dL (80-110); HDL Cholesterol 33 mg/dL (40-60); HEMOLYSIS < 15 (0-50); LDL Cholesterol Calculated 49 mg/dL (<100); Potassium 4.8 mmol/L (3.4-5.1); Sodium 139 mmol/L (137-145); Total Protein 8.1 g/dL (6.3-8.2); Triglycerides 125 mg/dL (35-150)
[2019-09-23 10:13] LABS: TSH w/ Reflex to FT4 1.57 uIU/mL (0.47-4.68)
== END ==
PROVIDERS: PCP Family Medicine; Referring Provider Family Medicine; Visit Provider Family Medicine
DX: Z51.81 Encounter for therapeutic drug level monitoring (principal); E11.22 Type 2 diabetes mellitus with diabetic chronic kidney disease; Z79.4 Long term (current) use of insulin; N28.9 Disorder of kidney and ureter, unspecified
CPT/HCPCS: 36415; 80053; 80061; 83036; 84443

== ENCOUNTER → 2019-09-30 08:41 | Outpatient (CLI) | payer MEDICARE, OTHER, SELFPAY ==
[2019-09-30 10:41] LABS: Creatinine Urine Random 50.5 mg/dL
[2019-09-30 10:47] LABS: Microalbumi Creatinin Ratio Ur 45.5 ug/mg CR (<30); Microalbumin Urine Random 2.3 mg/dL (0-1.6)
[2019-09-30 11:00] LABS: Vitamin D 25 Hydroxy (D3) 30.4 ng/mL (30.0-100.0)
[2019-10-01 12:22] LABS: Parathyroid Hormone Int 19 pg/mL (15-65)
== END ==
PROVIDERS: PCP Family Medicine; Referring Provider Internal Medicine; Visit Provider Internal Medicine
DX: N18.3 Chronic kidney disease, stage 3 (moderate) (principal)
CPT/HCPCS: 36415; 82043; 82306; 82570; 83970

== ENCOUNTER → 2019-11-01 11:43 | Outpatient (CLI) | payer MEDICARE, OTHER, SELFPAY ==
[2019-11-01 13:20] LABS: BUN Creatinine Ratio 23.7 (6-22); Blood Urea Nitrogen 36 mg/dL (9-20); Calcium 10.4 mg/dL (8.4-10.2); Carbon Dioxide 27 mmol/L (22-32); Chloride 104 mmol/L (98-107); Estimated Glomerular Filt Rate 45.4 mL/min (>60); Glucose 120 mg/dL (80-110); HEMOLYSIS < 15 (0-50); Potassium 4.1 mmol/L (3.4-5.1); Sodium 141 mmol/L (137-145)
== END ==
PROVIDERS: PCP Family Medicine; Referring Provider Family Medicine; Visit Provider Nurse Practitioner Family
DX: Z51.81 Encounter for therapeutic drug level monitoring (principal); Z79.899 Other long term (current) drug therapy
CPT/HCPCS: 36415; 80048

== ENCOUNTER → 2019-11-22 11:59 | Outpatient (CLI) | payer MEDICARE, OTHER, SELFPAY ==
[2019-11-22 12:50] LABS: Bacteria Urine None Seen; RBC Urine None Seen (0-5/HPF); WBC Urine None Seen (0-5/HPF)
[2019-11-22 13:22] LABS: Add Manual Diff / Slide Review NO; Basophils Absolute Auto 100 /uL (0-100); Basophils Percent Auto 0.7 % (0-2); Eosinophils Absolute Auto 500 /uL (0-450); Eosinophils Percent Auto 6.3 % (2-4); Hematocrit 35.9 % (41-53); Hemoglobin 12.1 g/dL (13.5-17.5); Lymphocytes Absolute Auto 1700 /uL (1100-4500); Mean Corpuscular HGB Conc 33.7 % (30-36); Mean Corpuscular Hemoglobin 28.9 PG (26-34); Mean Corpuscular Volume 85.6 fL (80-100); Monocytes Absolute Auto 800 /uL (0-900); Monocytes Percent Auto 10.7 % (3-14); Neutrophils Absolute Auto 4600 /uL (1500-7000); Neutrophils Percent Auto 60.3 % (50-75); Platelet Count 213 X10^3/uL (150-400); White Blood Cell Count 7.6 X10^3/uL (4.5-11.0)
[2019-11-22 13:40] LABS: Hemoglobin A1C% w Est Avg Glu 6.1 % (4.0-6.0)
[2019-11-22 13:45] LABS: Appearance Urine UA CLEAR; Bilirubin Urine UA NEGATIVE (NEGATIVE); Color Urine UA YELLOW; Glucose Urine UA NEGATIVE (Negative); Ketones Urine UA NEGATIVE (NEGATIVE); Leukocyte Esterase Urine UA NEGATIVE (NEGATIVE); Nitrite Urine UA NEGATIVE (Negative); Occult Blood Urine UA NEGATIVE (Negative); Protein Urine UA NEGATIVE (Negative); Urobilinogen Urine UA 0.2 E.U./dL (0.2)
[2019-11-22 13:47] LABS: Culture Indicated Urine Cult Not Indicated
[2019-11-22 15:04] LABS: Alanine Aminotransferase 19 IU/L (<50); Albumin 4.2 g/dL (3.5-5.0); Albumin Globulin Ratio 1.2 (1.0-2.8); Alkaline Phosphatase 112 U/L (38-126); Aspartate Aminotransferase 30 IU/L (17-59); BUN Creatinine Ratio 19.2 (6-22); Bilirubin Total 0.4 mg/dL (0.2-1.3); Blood Urea Nitrogen 29 mg/dL (9-20); Calcium 10.1 mg/dL (8.4-10.2); Carbon Dioxide 26 mmol/L (22-32); Chloride 104 mmol/L (98-107); Estimated Glomerular Filt Rate 45.8 mL/min (>60); Globulin 3.4 g/dL (1.7-4.1); Glucose 139 mg/dL (80-110); HEMOLYSIS < 15 (0-50); Sodium 139 mmol/L (137-145); Total Protein 7.6 g/dL (6.3-8.2)
[2019-11-22 16:27] LABS: Vitamin D 25 Hydroxy (D3) 36.6 ng/mL (30.0-100.0)
== END ==
PROVIDERS: PCP Family Medicine; Referring Provider Internal Medicine; Visit Provider Internal Medicine
DX: E83.52 Hypercalcemia (principal); M81.0 Age-related osteoporosis without current pathological fracture; E11.21 Type 2 diabetes mellitus with diabetic nephropathy
CPT/HCPCS: 36415; 80053; 81001; 82306; 83036; 85025

== ENCOUNTER → 2020-01-23 10:49 | Outpatient (CLI) | payer MEDICARE, OTHER, SELFPAY ==
[2020-01-23 11:37] LABS: Add Manual Diff / Slide Review NO; Basophils Absolute Auto 0 /uL (0-100); Basophils Percent Auto 0.5 % (0-2); Eosinophils Absolute Auto 500 /uL (0-450); Eosinophils Percent Auto 5.9 % (2-4); Hematocrit 34.9 % (41-53); Hemoglobin 11.9 g/dL (13.5-17.5); Lymphocytes Absolute Auto 1500 /uL (1100-4500); Mean Corpuscular HGB Conc 34.2 % (30-36); Mean Corpuscular Hemoglobin 29.8 PG (26-34); Mean Corpuscular Volume 87.2 fL (80-100); Monocytes Absolute Auto 700 /uL (0-900); Monocytes Percent Auto 8.5 % (3-14); Neutrophils Absolute Auto 5900 /uL (1500-7000); Neutrophils Percent Auto 68.1 % (50-75); Platelet Count 200 X10^3/uL (150-400); Red Cell Distribution Width 15.4 % (11.6-14.8); White Blood Cell Count 8.7 X10^3/uL (4.5-11.0)
[2020-01-23 11:48] LABS: Hemoglobin A1C% w Est Avg Glu 5.8 % (4.0-6.0)
[2020-01-23 12:06] LABS: Alanine Aminotransferase 19 IU/L (<50); Albumin 4.1 g/dL (3.5-5.0); Albumin Globulin Ratio 1.5 (1.0-2.8); Alkaline Phosphatase 112 U/L (38-126); Aspartate Aminotransferase 28 IU/L (17-59); Bilirubin Total 0.5 mg/dL (0.2-1.3); Blood Urea Nitrogen 35 mg/dL (9-20); Calcium 10.3 mg/dL (8.4-10.2); Carbon Dioxide 29 mmol/L (22-32); Chloride 101 mmol/L (98-107); Estimated Glomerular Filt Rate 45.3 mL/min (>60); Globulin 2.8 g/dL (1.7-4.1); Glucose 223 mg/dL (80-110); HEMOLYSIS < 15 (0-50); Potassium 4.1 mmol/L (3.4-5.1); Sodium 138 mmol/L (137-145); Total Protein 6.9 g/dL (6.3-8.2)
[2020-01-23 12:38] LABS: Prostate Specific Antigen 0.332 ng/mL (0.10-4.00)
== END ==
PROVIDERS: PCP Family Medicine; Referring Provider Family Medicine; Visit Provider Family Medicine
DX: E78.5 Hyperlipidemia, unspecified (principal); R52 Pain, unspecified
CPT/HCPCS: 36415; 80053; 83036; 84153; 85025

== ENCOUNTER → 2020-04-11 08:58 | Outpatient (CLI) | payer MEDICARE, OTHER, SELFPAY ==
[2020-04-11 10:12] LABS: BUN Creatinine Ratio 21.1 (6-22); Blood Urea Nitrogen 30 mg/dL (9-20); Calcium 9.7 mg/dL (8.4-10.2); Carbon Dioxide 26 mmol/L (22-32); Chloride 104 mmol/L (98-107); Glucose 90 mg/dL (80-110); HEMOLYSIS < 15 (0-50); Potassium 4.1 mmol/L (3.4-5.1); Sodium 140 mmol/L (137-145)
[2020-04-12 11:10] LABS: Parathyroid Hormone Int 14 pg/mL (15-65)
== END ==
PROVIDERS: PCP Family Medicine; Referring Provider Nurse Practitioner Family; Visit Provider Nurse Practitioner Family
DX: Z51.81 Encounter for therapeutic drug level monitoring (principal); Z79.899 Other long term (current) drug therapy; E83.52 Hypercalcemia
CPT/HCPCS: 36415; 80048; 83970

== ENCOUNTER → 2020-06-12 11:07 | Outpatient (CLI) | payer MEDICARE, OTHER, SELFPAY ==
[2020-06-12 11:44] LABS: Add Manual Diff / Slide Review NO; Basophils Absolute Auto 100 /uL (0-100); Basophils Percent Auto 0.7 % (0-2); Eosinophils Absolute Auto 500 /uL (0-450); Eosinophils Percent Auto 6.3 % (2-4); Hematocrit 33.6 % (41-53); Hemoglobin 10.9 g/dL (13.5-17.5); Lymphocytes Absolute Auto 1200 /uL (1100-4500); Lymphocytes Percent Auto 13.7 % (25-40); Mean Corpuscular HGB Conc 32.4 % (30-36); Mean Corpuscular Hemoglobin 28.1 PG (26-34); Mean Corpuscular Volume 86.8 fL (80-100); Monocytes Absolute Auto 800 /uL (0-900); Neutrophils Absolute Auto 5900 /uL (1500-7000); Neutrophils Percent Auto 69.3 % (50-75); Platelet Count 271 X10^3/uL (150-400); Red Blood Cell Count 3.87 X10^6/uL (4.5-5.9); Red Cell Distribution Width 15.4 % (11.6-14.8); White Blood Cell Count 8.5 X10^3/uL (4.5-11.0)
[2020-06-12 12:01] LABS: Alanine Aminotransferase 17 IU/L (<50); Albumin 4.1 g/dL (3.5-5.0); Albumin Globulin Ratio 1.1 (1.0-2.8); Alkaline Phosphatase 136 U/L (38-126); Aspartate Aminotransferase 28 IU/L (17-59); BUN Creatinine Ratio 19.1 (6-22); Bilirubin Total 0.5 mg/dL (0.2-1.3); Blood Urea Nitrogen 26 mg/dL (9-20); Calcium 9.8 mg/dL (8.4-10.2); Carbon Dioxide 30 mmol/L (22-32); Chloride 103 mmol/L (98-107); Estimated Glomerular Filt Rate 51.5 mL/min (>60); Globulin 3.6 g/dL (1.7-4.1); Glucose 123 mg/dL (80-110); HEMOLYSIS < 15 (0-50); Phosphorous 4.2 mg/dL (2.3-3.7); Potassium 4.5 mmol/L (3.4-5.1); Sodium 138 mmol/L (137-145); Total Protein 7.7 g/dL (6.3-8.2)
[2020-06-12 12:27] LABS: Creatinine Urine Random 64.9 mg/dL
[2020-06-12 12:31] LABS: Microalbumi Creatinin Ratio Ur 21.5 ug/mg CR (<30); Microalbumin Urine Random 1.4 mg/dL (0-1.6)
[2020-06-12 12:40] LABS: Vitamin D 25 Hydroxy (D3) 33.2 ng/mL (30.0-100.0)
[2020-06-13 07:09] LABS: Parathyroid Hormone Int 18 pg/mL (15-65)
== END ==
PROVIDERS: PCP Family Medicine; Referring Provider Internal Medicine; Visit Provider Internal Medicine
DX: N18.30 Chronic kidney disease, stage 3 unspecified (principal)
CPT/HCPCS: 36415; 80053; 82043; 82306; 82570; 83970; 84100; 85025

== ENCOUNTER → 2020-09-03 13:38 | Outpatient (CLI) | payer MEDICARE, OTHER, SELFPAY ==
[2020-09-03 14:59] LABS: BUN Creatinine Ratio 18.7 (6-22); Blood Urea Nitrogen 26 mg/dL (9-20); Carbon Dioxide 32 mmol/L (22-32); Chloride 104 mmol/L (98-107); Estimated Glomerular Filt Rate 50.2 mL/min (>60); Glucose 152 mg/dL (80-110); HEMOLYSIS < 15 (0-50); Potassium 4.3 mmol/L (3.4-5.1); Sodium 139 mmol/L (137-145)
== END ==
PROVIDERS: PCP Family Medicine; Referring Provider Internal Medicine Cardiovascular Disease; Visit Provider Internal Medicine Cardiovascular Disease
DX: Z51.81 Encounter for therapeutic drug level monitoring (principal); Z79.899 Other long term (current) drug therapy
CPT/HCPCS: 36415; 80048

== ENCOUNTER → 2020-11-26 08:59 | Outpatient (CLI) | payer MEDICARE, OTHER, SELFPAY ==
[2020-11-26 10:24] LABS: Blood Urea Nitrogen 27 mg/dL (9-20); Calcium 9.8 mg/dL (8.4-10.2); Carbon Dioxide 24 mmol/L (22-32); Chloride 107 mmol/L (98-107); Estimated Glomerular Filt Rate 42.9 mL/min (>60); Glucose 97 mg/dL (80-110); HEMOLYSIS < 15 (0-50); Potassium 4.1 mmol/L (3.4-5.1); Sodium 141 mmol/L (137-145)
== END ==
PROVIDERS: PCP Family Medicine; Referring Provider Internal Medicine Cardiovascular Disease; Visit Provider Internal Medicine Cardiovascular Disease
DX: Z51.81 Encounter for therapeutic drug level monitoring (principal); Z79.899 Other long term (current) drug therapy
CPT/HCPCS: 36415; 80048

== ENCOUNTER → 2021-01-27 12:09 | Outpatient (CLI) | payer MEDICARE, OTHER, SELFPAY ==
[2021-01-27 13:19] LABS: BUN Creatinine Ratio 22.7 (6-22); Blood Urea Nitrogen 35 mg/dL (9-20); Calcium 9.6 mg/dL (8.4-10.2); Carbon Dioxide 25 mmol/L (22-32); Chloride 105 mmol/L (98-107); Estimated Glomerular Filt Rate 44.5 mL/min (>60); Glucose 139 mg/dL (80-110); HEMOLYSIS < 15 (0-50); Potassium 4.2 mmol/L (3.4-5.1); Sodium 138 mmol/L (137-145)
== END ==
PROVIDERS: PCP Family Medicine; Referring Provider Internal Medicine Cardiovascular Disease; Visit Provider Internal Medicine Cardiovascular Disease
DX: Z51.81 Encounter for therapeutic drug level monitoring (principal); Z79.899 Other long term (current) drug therapy
CPT/HCPCS: 36415; 80048

== ENCOUNTER → 2021-03-31 12:54 | Outpatient (CLI) | payer MEDICARE, OTHER, SELFPAY ==
[2021-03-31 13:47] LABS: BUN Creatinine Ratio 19.3 (6-22); Blood Urea Nitrogen 31 mg/dL (9-20); Carbon Dioxide 30 mmol/L (22-32); Chloride 106 mmol/L (98-107); Estimated Glomerular Filt Rate 42.3 mL/min (>60); Glucose 166 mg/dL (80-110); HEMOLYSIS < 15 (0-50); Potassium 4.1 mmol/L (3.4-5.1); Sodium 141 mmol/L (137-145)
== END ==
PROVIDERS: PCP Family Medicine; Referring Provider Nurse Practitioner Acute Care; Visit Provider Nurse Practitioner Acute Care
DX: Z51.81 Encounter for therapeutic drug level monitoring (principal); Z79.899 Other long term (current) drug therapy
CPT/HCPCS: 36415; 80048

== ENCOUNTER → 2021-04-30 08:56 | Outpatient (CLI) | payer MEDICARE, OTHER, SELFPAY ==
[2021-04-30 11:15] LABS: BUN Creatinine Ratio 15.3 (6-22); Blood Urea Nitrogen 26 mg/dL (9-20); Calcium 10.4 mg/dL (8.4-10.2); Carbon Dioxide 30 mmol/L (22-32); Chloride 102 mmol/L (98-107); Estimated Glomerular Filt Rate 39.7 mL/min (>60); Glucose 76 mg/dL (80-110); HEMOLYSIS < 15 (0-50); Potassium 4.7 mmol/L (3.4-5.1); Sodium 140 mmol/L (137-145)
== END ==
PROVIDERS: PCP Family Medicine; Referring Provider Nurse Practitioner Acute Care; Visit Provider Nurse Practitioner Acute Care
DX: Z51.81 Encounter for therapeutic drug level monitoring (principal); Z79.899 Other long term (current) drug therapy
CPT/HCPCS: 36415; 80048

== ENCOUNTER → 2021-05-08 08:06 | Outpatient (CLI) | payer MEDICARE, OTHER, SELFPAY ==
[2021-05-08 09:17] LABS: Add Manual Diff / Slide Review NO; Basophils Absolute Auto 0 /uL (0-100); Basophils Percent Auto 0.4 % (0-2); Eosinophils Absolute Auto 400 /uL (0-450); Hematocrit 34.8 % (41-53); Hemoglobin 11.6 g/dL (13.5-17.5); Lymphocytes Absolute Auto 1200 /uL (1100-4500); Lymphocytes Percent Auto 13.8 % (25-40); Mean Corpuscular HGB Conc 33.3 % (30-36); Mean Corpuscular Hemoglobin 29.5 PG (26-34); Mean Corpuscular Volume 88.7 fL (80-100); Monocytes Absolute Auto 900 /uL (0-900); Monocytes Percent Auto 10.5 % (3-14); Neutrophils Absolute Auto 6100 /uL (1500-7000); Neutrophils Percent Auto 70.3 % (50-75); Platelet Count 201 X10^3/uL (150-400); Red Blood Cell Count 3.92 X10^6/uL (4.5-5.9); Red Cell Distribution Width 14.6 % (11.6-14.8); White Blood Cell Count 8.6 X10^3/uL (4.5-11.0)
[2021-05-08 09:34] LABS: Albumin 3.9 g/dL (3.5-5.0); BUN Creatinine Ratio 18.5 (6-22); Blood Urea Nitrogen 27 mg/dL (9-20); Calcium 10.2 mg/dL (8.4-10.2); Carbon Dioxide 24 mmol/L (22-32); Chloride 108 mmol/L (98-107); Estimated Glomerular Filt Rate 47.3 mL/min (>60); Glucose 99 mg/dL (80-110); HEMOLYSIS < 15 (0-50); Phosphorous 3.3 mg/dL (2.3-3.7); Potassium 4.5 mmol/L (3.4-5.1); Sodium 142 mmol/L (137-145)
[2021-05-08 09:49] LABS: Vitamin D 25 Hydroxy (D3) 41.1 ng/mL (30.0-100.0)
[2021-05-08 15:20] LABS: Creatinine Urine Random 195.3 mg/dL
[2021-05-08 15:24] LABS: Microalbumi Creatinin Ratio Ur 33.2 ug/mg CR (<30); Microalbumin Urine Random 6.5 mg/dL (0-1.6)
[2021-05-09 07:43] LABS: Parathyroid Hormone Int 14 pg/mL (15-65)
== END ==
PROVIDERS: PCP Family Medicine; Referring Provider Internal Medicine Nephrology; Visit Provider Internal Medicine Nephrology
DX: E83.39 Other disorders of phosphorus metabolism (principal); N25.81 Secondary hyperparathyroidism of renal origin; N18.32 Chronic kidney disease, stage 3b; D63.1 Anemia in chronic kidney disease
CPT/HCPCS: 36415; 80069; 82043; 82306; 82570; 83970; 85025

== ENCOUNTER → 2021-05-15 18:22 | Outpatient (CLI) | payer MEDICARE, OTHER, SELFPAY ==
--- NOTE | 2021-05-15 | DI.RAD.S_ITS ---
PROCEDURE: XR CHEST 2V INDICATIONS: shortness of breath TECHNIQUE: 2 views of the chest were acquired. COMPARISON: [facility], , XR CHEST 1V, 07/24/2018, 19:54. FINDINGS: Surgical changes and devices: Left chest wall pacemaker leads are in the region of right atrium and right ventricle. Extensive fixation of mid to lower thoracic spine and lumbar spine is seen with multiple level of prior vertebroplasty. Lungs and pleura: There is blunting of right costophrenic angle suggestive of trace right pleural effusion. Ill-defined airspace opacities are noted scattered in bilateral lung velasquez more prominent in bilateral lower lobes suggestive of multilobar infiltrates. There is no gross pneumothorax. Mild pulmonary edema is also seen. Mediastinum: Mediastinal contours are normal. Heart size is enlarged. Bones and chest wall: No suspicious bony abnormalities. Soft tissues appear unremarkable. IMPRESSION: Trace right pleural effusion and patchy infiltrate/atelectasis scattered in bilateral lung velasquez more prominent in lower lobes. There is also suggestion of pulmonary edema. No gross pneumothorax. Dictated by: Zaire Flores M.D. on 05/15/2021 at 21:32 Approved by: Zaire Flores M.D. on 05/15/2021 at 21:34
== END ==
PROVIDERS: PCP Family Medicine; Referring Provider Internal Medicine Pulmonary Disease; Visit Provider Internal Medicine Pulmonary Disease
DX: R06.02 Shortness of breath (principal); D86.9 Sarcoidosis, unspecified
CPT/HCPCS: 71046

== ENCOUNTER 2021-05-17 10:41 | Inpatient (IN) | payer MEDICARE, OTHER, SELFPAY ==
[2021-05-17] VITALS (37 sets, daily range): BP systolic 98–168; BP diastolic 55–83; PULSE 68–130; RESP 16–36; TEMP 36.8–37; O2SAT 89–99; BMI 28.7
--- NOTE | 2021-05-17 11:07 | DI.RAD.S_ITS ---
PROCEDURE: XR CHEST 1V INDICATIONS: COVID TECHNIQUE: One view of the chest was acquired. COMPARISON: [facility], CR, XR CHEST 2V, 05/15/2021, 18:23. FINDINGS: Surgical changes and devices: A pacer device is seen. The leads are seen in stable positions. Thoracolumbar fixation hardware is partially seen. Lungs and pleura: Low lung volumes can be seen, with patchy/confluent interstitial infiltrates, left worse than right. Likely small pleural effusions are seen. No large pneumothorax can be seen on this semiupright study. Mediastinum: Cardiac and mediastinal silhouettes are partially obscured, yet are regarded to be stable. Bones and chest wall: No suspicious bony lesions. Age-appropriate bony degenerative changes are seen. Overlying soft tissues appear unremarkable. IMPRESSION: Bilateral interstitial infiltrates are seen, which are slightly more prominent on the current study than on the prior and are consistent with worsening COVID pneumonia. Likely small bilateral pleural effusions. Postoperative and degenerative changes are seen. Dictated by: Efraín Briones M.D. on 05/17/2021 at 10:39 Approved by: Efraín Briones M.D. on 05/17/2021 at 10:40
[2021-05-17 11:32] LABS: D Dimer 818 ng/mL (<230); Lactate (Lactic Acid) 1.4 mmol/L (0.7-2.1)
[2021-05-17 11:34] LABS: Add Manual Diff / Slide Review NO; Basophils Absolute Auto 0 /uL (0-100); Basophils Percent Auto 0.9 % (0-2); Eosinophils Absolute Auto 0 /uL (0-450); Hematocrit 37.1 % (41-53); Hemoglobin 12.5 g/dL (13.5-17.5); Lymphocytes Absolute Auto 700 /uL (1100-4500); Mean Corpuscular HGB Conc 33.7 % (30-36); Mean Corpuscular Hemoglobin 29.5 PG (26-34); Mean Corpuscular Volume 87.7 fL (80-100); Monocytes Absolute Auto 300 /uL (0-900); Monocytes Percent Auto 6.3 % (3-14); Neutrophils Absolute Auto 3900 /uL (1500-7000); Neutrophils Percent Auto 78.8 % (50-75); Platelet Count 168 X10^3/uL (150-400); Red Blood Cell Count 4.23 X10^6/uL (4.5-5.9); Red Cell Distribution Width 14.7 % (11.6-14.8); White Blood Cell Count 4.9 X10^3/uL (4.5-11.0)
[2021-05-17 11:36] LABS: Alanine Aminotransferase 28 IU/L (<50); Albumin 4.3 g/dL (3.5-5.0); Albumin Globulin Ratio 1.2 (1.0-2.8); Alkaline Phosphatase 97 U/L (38-126); Aspartate Aminotransferase 62 IU/L (17-59); Bilirubin Total 0.5 mg/dL (0.2-1.3); Blood Urea Nitrogen 38 mg/dL (9-20); C-Reactive Protein Quant 4.4 mg/dL (<1.0); Calcium 8.8 mg/dL (8.4-10.2); Carbon Dioxide 21 mmol/L (22-32); Chloride 107 mmol/L (98-107); Creatine Kinase 277 U/L (55-170); Estimated Glomerular Filt Rate 41.1 mL/min (>60); Globulin 3.7 g/dL (1.7-4.1); Glucose 84 mg/dL (80-110); HEMOLYSIS < 15 (0-50); Lactate Dehydrogenase 813 U/L (313-618); Sodium 139 mmol/L (137-145)
[2021-05-17] MEDS: ALBUTEROL 2.5 MG/3 ML NEB (ADULT) INH (11:43)
[2021-05-17 11:46] LABS: NT-proBNP (BNP-Adult 18+) 2450 pg/mL (<125); Troponin I 0.047 ng/mL (0.01-0.034)
--- NOTE | 2021-05-17 11:46 | ED.SOB ---
HPI - SOB/Dyspnea General Chief Complaint: Shortness of Breath/Dyspnea Stated Complaint: COVID+ Resp distress, trouble walking Time Seen by Provider: 05/17/21 11:06 Source: patient and family Mode of arrival: Family Vehicle Limitations: no limitations History of Present Illness HPI Narrative: Patient is a male history of sarcoidosis currently on prednisone, renal insufficiency, coronary artery disease, atrial fibrillation on Eliquis presenting today with known COVID positive and increasing shortness of breath. He was found to be 88% on 4 L of oxygen with acute respiratory distress. 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 He has had 3 shots of Moderna vaccine. However over the last evening why says that he has increasing shortness of breath and has progressively gone down. Related Data Home Medications Medication Instructions Recorded Confirmed CALCIUM 600 mg PO .QDAY 08/03/18 03/25/21 albuterol sulfate 90 mcg/actuation 2 puff INHALATION BID PRN gram 08/03/18 03/25/21 aerosol inhaler dofetilide 125 mcg capsule 125 mcg PO BID cap 08/03/18 03/25/21 (Tikosyn) apixaban 5 mg tablet (Eliquis) 5 mg PO BID 01/03/19 03/25/21 teriparatide 20 mcg/dose (600 20 mcg SUBCUT DAILY 01/03/19 03/25/21 mcg/2.4 mL) subcutaneous pen injector (Forteo) aspirin 81 mg tablet,delayed 81 mg PO DAILY 08/02/19 03/25/21 release torsemide 20 mg tablet 20 mg PO DAILY tab 12/25/19 03/25/21 metoprolol succinate 50 mg 50 mg PO BID tab 03/25/21 03/25/21 tablet,extended release 24 hr nitroglycerin 0.4 mg sublingual 0.4 mg SUBLINGUAL Q5-15M PRN 03/25/21 03/25/21 tablet (Nitrostat) Previous Rx's Medication Instructions Recorded budesonide-formoterol HFA 160 2 inh INH BID #1 inh 09/14/17 mcg-4.5 mcg/actuation aerosol inhaler (Symbicort) Fast click lancet cartridge #1 ea 10/04/18 epinephrine 0.3 mg/0.3 mL 0.3 mg IM ONCE #2 each 04/04/19 injection, auto-injector (EpiPen 2-Abhijeet) epinephrine 0.3 mg/0.3 mL 0.3 mg IM ONCE #1 each 09/26/19 injection, auto-injector (EpiPen 2-Abhijeet) alprazolam 0.5 mg tablet (Xanax) 0.25 mg PO BID PRN #60 tab 03/13/20 atorvastatin 40 mg tablet 40 mg PO DAILY #90 tab 06/28/20 metoprolol succinate 25 mg 25 mg PO BID #180 tab 07/08/20 tablet,extended release 24 hr [Contour test strips] #300 each 08/20/20 tramadol 50 mg tablet 50 mg PO QID PRN #120 tab 08/28/20 pen needle, diabetic 29 gauge x #30 each 09/17/2007/13 (BD Ultra-Fine Original Pen Needle) insulin glargine 100 unit/mL (3 30 unit SUBCUT DAILY #15 ml 10/07/20 mL) subcutaneous pen (Lantus Solostar U-100 Insulin) Disabled Parking Permit #1 ea 10/22/20 Lactobacil rhamnosus GG 10 billion See Rx Instructions .ROUTE 01/16/21 cell-inulin 200 mg sprinkle .COMPLEX #100 cap capsule ([facility]) ferrous sulfate 325 mg (65 mg See Rx Instructions .ROUTE 03/10/21 iron) tablet .COMPLEX #90 tab gel-matrix pad dress, silicone 2 #4 ea 03/25/21 X 5.5 topical pads pregabalin 100 mg capsule (Lyrica) 100 mg PO BID #180 cap 03/31/21 vitamin B complex (B 1 tab PO HS #100 tab 03/31/21 Complex-Vitamin B12) polydimethylsiloxanes-silicon See Rx Instructions TOPICAL 04/03/21 dioxide topical gel (Kelo-Anton) .COMPLEX #10 g Allergies Allergy/AdvReac Type Severity Reaction Status Date / Time venom-honey bee Allergy Severe shut down Verified 07/03/20 13:12 [BEE VENOM (HONEY BEE)] my respiratory system. Sulfa (Sulfonamide AdvReac Severe KIDNEY Verified 07/03/20 13:12 Antibiotics) FAILURE [SULFA (SULFONAMIDE ANTIBIOTICS)] Review of Systems Review of Systems Narrative: GENERAL: Denies chills, fatigue, malaise, fever, sweats, travel HEENT: Denies sinus pain, ear pain, sore throat, difficulty swallowing, neck pain RESPIRATORY: See HPI CARDIOVASCULAR: Denies chest pain, palpitations, orthopnea, edema GASTROINTESTINAL: Denies nausea, vomiting, abdominal pain, diarrhea, constipation, melena. : Denies dysuria, frequency, incontinence, hematuria, urinary retention, flank pain. MUSCULOSKELETAL: Denies weakness, joint pain, or bony pain SKIN: No rash, no erythema, no pruritus NEUROLOGIC: Denies weakness, dizziness, headache, numbness, change in speech, confusion PSYCHIATRIC: No concerning psychosocial issues. 12 point review of systems is negative except for those stated above and HPI Patient History Medical History (Updated 05/17/21 @ 17:19 by Padmaja Keating DO) Acne (Unknown) Actinic keratosis (~2017) Anemia Atrial fibrillation (Unknown) Chronic low back pain (Unknown) Closed compression fracture of third lumbar vertebra Coronary artery disease (Unknown) Diabetes (Unknown) GERD (gastroesophageal reflux disease) (Unknown) Hearing loss (Unknown) Hx of coronary angiogram (Unknown) Hyperlipemia (Unknown) Hypertension (Unknown) Keloid Osteoporosis Pacemaker Renal insufficiency Sarcoidosis (11/2007) Squamous cell carcinoma (Unknown) Visit for suture removal Surgical History H/O left wrist surgery H/O toe surgery History of arthroplasty of left shoulder (Unknown) History of arthroplasty of right shoulder (Unknown) History of fusion of thoracic spine History of lumbar fusion Hx of knee surgery (Unknown) Hx of left knee surgery Hx of prior ablation treatment (~05/2013) Status post lumbar and lumbosacral fusion by anterior technique Family History Father Diabetes mellitus Mother No problems noted. Social History Smoking Status: Never smoker second hand exposure: Yes alcohol intake: current substance use type: does not use Smoking Status: Never smoker alcohol intake frequency: holidays/special occasions only Substance Use Type: does not use Exam Initial Vital Signs Initial Vital Signs: Vital Signs Blood Pressure 168/77 H 05/17/21 10:52 GENERAL: The patient 75-year-old male in acute respiratory distress HEENT: Head atraumatic,EOMI, pupils reactive, face symmetric, moist mucous membranes CARDIOVASCULAR: Regular rate and rhythm without murmurs, rubs or gallops. RESPIRATORY: Tachypneic audible coarse breath sounds mode rales bilaterally no wheezing unable to speak in full sentence ABDOMEN: Soft, nontender. Normoactive bowel sounds all 4 quadrants. No guarding or rebound. EXTREMITIES: Normal range of motion, no clubbing or edema. Neurovascularly intact NEUROLOGICAL: Alert and oriented x4.Normal gait and speech. SKIN: Warm, dry, no laceration, no petechiae, no rashes or lesions. Course Orders Ordered: ED Orders 05/17/21 11:05 C-Reactive Protein Quant Stat COVID19 - ADMIT (OTHER SPATIAL SCIENTIST swab/PCR) Stat Complete Blood Count AUTO DIFF Stat Comprehensive Metabolic Panel Stat D Dimer Stat Ferritin Stat Lactate (Lactic Acid) Stat Lactate Dehydrogenase Stat NT-proBNP (BNP-Adult 18+) Stat Procalcitonin Stat Troponin & CK Cardiac Panel Stat 05/17/21 11:06 High flow/High humidity nasal STAT 05/17/21 11:07 XR chest 1V Stat EKG-12 Lead Stat 05/17/21 11:48 Blood Culture Stat 05/17/21 12:35 COVID19 -Nasal swab/Pre-Proc Stat 05/17/21 13:53 Troponin I Stat 05/17/21 17:02 EKG-12 Lead Stat 05/17/21 17:15 Troponin I Stat Acetaminophen (Acetaminophen 325 Mg Tablet) 650 mg PO Q6HR PRN PRN Reason: Fever Albuterol (Albuterol Hfa Mdi 60 Puff/8 Gm Inhaler) 2 puff INH BID PRN PRN Reason: Shortness Of Breath Apixaban (Apixaban 5 Mg Tablet) 5 mg PO BID [facility] Aspirin (Aspirin Ec 81 Mg Tablet) 81 mg PO DAILY [facility] Atorvastatin Calcium (Atorvastatin 20 Mg Tablet) 40 mg PO DAILY [facility] Dexamethasone (Dexamethasone 10 Mg/Ml Vial) 6 mg IV DAILY [facility] Stop: 05/27/21 12:00 Ferrous Sulfate (Ferrous Sulfate 325 Mg Tablet) 0 mg PO .COMPLEX JUAREZ Sodium Chloride (Normal Saline 0.9%) 1,000 mls @ 75 mls/hr IV CONT JUAREZ Remdesivir 100 mg/ Sodium (Chloride) 250 mls @ 250 mls/hr IV DAILY [facility] Stop: 05/21/21 09:59 Insulin Glargine (Insulin Glargine 100 Unit/Ml 3ml Pen) 15 unit SUBCUT BID [facility] Metoprolol Succinate (Metoprolol Er 50 Mg Tablet) 50 mg PO BID [facility] Naloxone HCl (Naloxone 0.4 Mg/Ml Vial) 0.2 mg IV Q2MIN PRN PRN Reason: Opiate Reversal Nitroglycerin (Nitroglycerin 0.4 Mg Sl Tab) 0.4 mg SL Q5-15M PRN PRN Reason: Chest Pain Non-Formulary Medication (Dofetilide [Tikosyn]) 125 mcg PO BID JUAREZ Non-Formulary Medication (Budesonide-Formoterol [Symbicort]) 2 inhalation INH BID JU[facility]Z Torsemide (Torsemide 10 Mg Tablet) 20 mg PO DAILY JUAREZ Discontinued Medications Albuterol (Albuterol 2.5 Mg/3 Ml Neb (Adult)) 2.5 mg INH NOW ONE Stop: 05/17/21 11:22 Last Admin: 05/17/21 11:43 Dose: 2.5 mg Documented by: ROMANA Dexamethasone (Dexamethasone 10 Mg/Ml Vial) 6 mg IV NOW ONE Stop: 05/17/21 11:12 Last Admin: 05/17/21 11:49 Dose: 6 mg Documented by: CINDY Furosemide (Furosemide 40 Mg/4 Ml Vial) 40 mg IV NOW ONE Stop: 05/17/21 12:04 Last Admin: 05/17/21 12:32 Dose: 40 mg Documented by: CINDY Remdesivir 200 mg/ Sodium (Chloride) 250 mls @ 250 mls/hr IV NOW ONE Stop: 05/17/21 11:12 Last Infusion: 05/17/21 12:50 Dose: 0 mls/hr Documented by: Admin: 05/17/21 11:48 Dose: 250 mls/hr Documented by: CINDY Ondansetron HCl (Ondansetron 4 Mg/2 Ml Inj) 4 mg IV NOW ONE Stop: 05/17/21 12:35 Last Admin: 05/17/21 12:36 Dose: 4 mg Documented by: ZEFERINO Pantoprazole Sodium (Pantoprazole 40 Mg Vial) 40 mg IV NOW ONE Stop: 05/17/21 17:03 Last Admin: 05/17/21 17:06 Dose: 40 mg Documented by: CINDY Vital Signs Vital signs: Vital Signs - 8 hr 05/17/21 10:52 05/17/21 10:58 05/17/21 11:00 Temperature 98.3 F Pulse Rate 77 79 Respiratory Rate 18 36 H Blood Pressure 168/77 H 168/77 H 157/78 H Pulse Oximetry 89 L 97 05/17/21 11:30 05/17/21 11:45 05/17/21 11:48 Temperature Pulse Rate 74 76 76 Respiratory Rate 23 32 H 32 H Blood Pressure 148/69 H 148/69 H Pulse Oximetry 98 96 96 05/17/21 12:00 05/17/21 12:30 05/17/21 13:00 Temperature Pulse Rate 75 75 79 Respiratory Rate 26 H 21 21 Blood Pressure 136/66 138/66 165/83 H Pulse Oximetry 98 99 97 05/17/21 13:30 05/17/21 13:47 05/17/21 14:00 Temperature Pulse Rate 77 77 74 Respiratory Rate 20 20 17 Blood Pressure 130/74 130/74 121/65 Pulse Oximetry 97 97 95 05/17/21 14:30 05/17/21 15:00 05/17/21 15:30 Temperature Pulse Rate 73 72 71 Respiratory Rate 17 18 17 Blood Pressure 124/67 121/59 L 98/57 L Pulse Oximetry 95 90 L 05/17/21 15:37 05/17/21 15:44 05/17/21 16:00 Temperature Pulse Rate 68 73 69 Respiratory Rate 19 17 19 Blood Pressure 101/59 L 124/67 111/60 Pulse Oximetry 97 97 96 05/17/21 16:30 05/17/21 16:31 05/17/21 17:00 Temperature Pulse Rate 68 68 68 Respiratory Rate 20 18 19 Blood Pressure 128/62 119/62 Pulse Oximetry 96 96 97 05/17/21 17:30 Temperature Pulse Rate 68 Respiratory Rate 16 Blood Pressure 118/61 Pulse Oximetry 96 MDM - SOB/Dyspnea Lab Data Result diagrams: 05/17/21 11:05 05/17/21 11:05 Labs: Lab Results 05/17/21 05/17/21 05/17/21 Range/Units 11:05 11:05 11:05 WBC 4.9 (4.5-11.0) X10^3/uL RBC 4.23 L (4.5-5.9) X10^6/uL Hgb 12.5 L (13.5-17.5) g/dL Hct 37.1 L (41-53) % MCV 87.7 (80-100) fL MCH 29.5 (26-34) PG MCHC 33.7 (30-36) % RDW 14.7 (11.6-14.8) % Plt Count 168 (150-400) X10^3/uL Neut % (Auto) 78.8 H (50-75) % Lymph % (Auto) 14.0 L (25-40) % [place] % (Auto) 6.3 (3-14) % Eos % (Auto) 0.0 L (2-4) % Baso % (Auto) 0.9 (0-2) % Neut # (Auto) 3900 (7881-0545) /uL Lymph # (Auto) 700 L (6629-9950) /uL [place] # (Auto) 300 (0-900) /uL Eos # (Auto) 0 (0-450) /uL Baso # (Auto) 0 (0-100) /uL D-Dimer 818 H (<230) ng/mL Sodium (137-145) mmol/L Potassium (3.4-5.1) mmol/L Chloride (98-107) mmol/L Carbon Dioxide (22-32) mmol/L BUN (9-20) mg/dL Creatinine (0.66-1.25) mg/dL Estimated GFR (>60) mL/min BUN/Creatinine Ratio (6-22) Glucose (80-110) mg/dL Lactate (0.7-2.1) mmol/L Calcium (8.4-10.2) mg/dL Ferritin (18-464) ng/mL Total Bilirubin (0.2-1.3) mg/dL AST (17-59) IU/L ALT (<50) IU/L Alkaline Phosphatase (38-126) U/L Lactate Dehydrogenase (313-618) U/L Total Creatine Kinase (55-170) U/L CK-MB (CK-2) (<2.37) ng/mL CK-MB (CK-2) Rel Index (1.5-5.0) % Troponin I (0.01-0.034) ng/mL C-Reactive Protein (<1.0) mg/dL NT-Pro-B Natriuret Pep (<125) pg/mL Total Protein (6.3-8.2) g/dL Albumin (3.5-5.0) g/dL Globulin (1.7-4.1) g/dL Albumin/Globulin Ratio (1.0-2.8) Procalcitonin 0.15 (<0.5) ng/mL SARS-CoV-2 (PCR) (Negative) 05/17/21 05/17/21 05/17/21 Range/Units 11:05 11:05 11:05 WBC (4.5-11.0) X10^3/uL RBC (4.5-5.9) X10^6/uL Hgb (13.5-17.5) g/dL Hct (41-53) % MCV (80-100) fL MCH (26-34) PG MCHC (30-36) % RDW (11.6-14.8) % Plt Count (150-400) X10^3/uL Neut % (Auto) (50-75) % Lymph % (Auto) (25-40) % [place] % (Auto) (3-14) % Eos % (Auto) (2-4) % Baso % (Auto) (0-2) % Neut # (Auto) (1345-3584) /uL Lymph # (Auto) (1532-2585) /uL [place] # (Auto) (0-900) /uL Eos # (Auto) (0-450) /uL Baso # (Auto) (0-100) /uL D-Dimer (<230) ng/mL Sodium 139 (137-145) mmol/L Potassium 5.0 (3.4-5.1) mmol/L Chloride 107 (98-107) mmol/L Carbon Dioxide 21 L (22-32) mmol/L BUN 38 H (9-20) mg/dL Creatinine 1.65 H (0.66-1.25) mg/dL Estimated GFR 41.1 L (>60) mL/min BUN/Creatinine Ratio 23.0 H (6-22) Glucose 84 (80-110) mg/dL Lactate 1.4 (0.7-2.1) mmol/L Calcium 8.8 (8.4-10.2) mg/dL Ferritin 908 H (18-464) ng/mL Total Bilirubin 0.5 (0.2-1.3) mg/dL AST 62 H (17-59) IU/L ALT 28 (<50) IU/L Alkaline Phosphatase 97 (38-126) U/L Lactate Dehydrogenase 813 H (313-618) U/L Total Creatine Kinase 277 H (55-170) U/L CK-MB (CK-2) 2.21 (<2.37) ng/mL CK-MB (CK-2) Rel Index 0.8 L (1.5-5.0) % Troponin I 0.047 H (0.01-0.034) ng/mL C-Reactive Protein 4.4 H (<1.0) mg/dL NT-Pro-B Natriuret Pep 2450 H (<125) pg/mL Total Protein 8.0 (6.3-8.2) g/dL Albumin 4.3 (3.5-5.0) g/dL Globulin 3.7 (1.7-4.1) g/dL Albumin/Globulin Ratio 1.2 (1.0-2.8) Procalcitonin (<0.5) ng/mL SARS-CoV-2 (PCR) Positive H (Negative) 05/17/21 05/17/21 05/17/21 Range/Units 12:35 13:53 17:15 WBC (4.5-11.0) X10^3/uL RBC (4.5-5.9) X10^6/uL Hgb (13.5-17.5) g/dL Hct (41-53) % MCV (80-100) fL MCH (26-34) PG MCHC (30-36) % RDW (11.6-14.8) % Plt Count (150-400) X10^3/uL Neut % (Auto) (50-75) % Lymph % (Auto) (25-40) % [place] % (Auto) (3-14) % Eos % (Auto) (2-4) % Baso % (Auto) (0-2) % Neut # (Auto) (3925-4469) /uL Lymph # (Auto) (9769-1230) /uL [place] # (Auto) (0-900) /uL Eos # (Auto) (0-450) /uL Baso # (Auto) (0-100) /uL D-Dimer (<230) ng/mL Sodium (137-145) mmol/L Potassium (3.4-5.1) mmol/L Chloride (98-107) mmol/L Carbon Dioxide (22-32) mmol/L BUN (9-20) mg/dL Creatinine (0.66-1.25) mg/dL Estimated GFR (>60) mL/min BUN/Creatinine Ratio (6-22) Glucose (80-110) mg/dL Lactate (0.7-2.1) mmol/L Calcium (8.4-10.2) mg/dL Ferritin (18-464) ng/mL Total Bilirubin (0.2-1.3) mg/dL AST (17-59) IU/L ALT (<50) IU/L Alkaline Phosphatase (38-126) U/L Lactate Dehydrogenase (313-618) U/L Total Creatine Kinase (55-170) U/L CK-MB (CK-2) (<2.37) ng/mL CK-MB (CK-2) Rel Index (1.5-5.0) % Troponin I 0.071 H 0.080 H (0.01-0.034) ng/mL C-Reactive Protein (<1.0) mg/dL NT-Pro-B Natriuret Pep (<125) pg/mL Total Protein (6.3-8.2) g/dL Albumin (3.5-5.0) g/dL Globulin (1.7-4.1) g/dL Albumin/Globulin Ratio (1.0-2.8) Procalcitonin (<0.5) ng/mL SARS-CoV-2 (PCR) Positive H (Negative) Imaging Data Chest x-ray: Radiologist's Impression: PROCEDURE:? XR CHEST 1V ? INDICATIONS:? COVID ? TECHNIQUE:? One view of the chest was acquired.? ? COMPARISON:? [facility], , XR CHEST 2V, 05/15/2021, 18:23. ? FINDINGS:? ? Surgical changes and devices:? A pacer device is seen.? The leads are seen in stable positions.? Thoracolumbar fixation hardware is partially seen. ? Lungs and pleura:? Low lung volumes can be seen, with patchy/confluent interstitial infiltrates, left worse than right.? Likely small pleural effusions are seen.? No large pneumothorax can be seen on this semiupright study. ? Mediastinum:? Cardiac and mediastinal silhouettes are partially obscured, yet are regarded to be stable. ? Bones and chest wall:? No suspicious bony lesions.? Age-appropriate bony degenerative changes are seen. ? Overlying soft tissues appear unremarkable.? ? ? IMPRESSION:? Bilateral interstitial infiltrates are seen, which are slightly more prominent on the current study than on the prior and are consistent with worsening COVID pneumonia. ? Likely small bilateral pleural effusions. ? Postoperative and degenerative changes are seen.? ? Dictated by: Efraín Briones M.D. on 05/17/2021 at 10:39 ? ? Approved by: Efraín Briones M.D. on 05/17/2021 at 10:40 ECG Data Interpretation: Sinus rhythm rate 70 [place] interval 196 QRS [address] changes PVC noted right bundle-branch block similar to previous EKG MDM Narrative Medical decision making narrative: The patient overall is doing much better with high-flow nasal cannula. BNP slightly elevated 2400 he is given 1 dose of Lasix he has urinated almost a liter, is overall appearing better. Unlikely pulmonary embolism on Eliquis. Patient is certainly high risk for decompensation. The patient's FiO2 was decreased from 45-40%. Indeterminate troponin rising at the 2nd 1. Significant bed shortage multiple phone calls have been placed waiting list at [facility] and [facility] 1700 patient complaining of heart burn and would like something for acid reflux. At that time repeat EKG repeat troponin is given along with Protonix. Still awaiting bed placement. No change in repeat ekg. Slight increase in troponin. Bed open here, Dr. Rudolph in ED to see and evaluate and accept patient. Discharge Plan Departure Patient Disposition: Admitted As Inpatient Clinical Impression: COVID-19 Admit Date/Time: 05/17/21 17:50 Admit Provider: Earline Rudolph
[2021-05-17] MEDS: REMDESIVIR 200 MG in SODIUM CHLORIDE 0.9% 210 ML 250 ML IV (11:48)
[2021-05-17] MEDS: DEXAMETHASONE 10 MG/ML VIAL 6 MG IV (11:49)
[2021-05-17 11:50] LABS: Procalcitonin 0.15 ng/mL (<0.5)
[2021-05-17 12:03] LABS: CKMB % Relative Index 0.8 % (1.5-5.0); Creatine Kinase MB 2.21 ng/mL (<2.37)
[2021-05-17 12:09] LABS: Ferritin 908 ng/mL (18-464)
[2021-05-17] MEDS: FUROSEMIDE 40 MG/4 ML VIAL IV (12:32)
[2021-05-17] MEDS: ONDANSETRON 4 MG/2 ML INJ IV (12:36)
[2021-05-17 13:05] LABS: COVID19 - ADMIT (NP swab/PCR) POSITIVE (Negative)
[2021-05-17 13:08] LABS: COVID19 -Nasal RAPID POSITIVE (Negative)
[2021-05-17 14:27] LABS: Troponin I 0.071 ng/mL (0.01-0.034)
[2021-05-17] MEDS: PANTOPRAZOLE 40 MG VIAL IV (17:06)
--- NOTE | 2021-05-17 18:29 | P.HP_ITS ---
History of Present Illness History of Present Illness Date Patient Seen: 05/17/21 Time Patient Seen: 18:30 Chief complaint: COVID+ Resp distress, trouble walking Narrative: This is a 75-year-old male chronically ill with sarcoidosis, diabetes mellitus type 2, chronic kidney disease, coronary artery disease, osteoporosis, hyperlipidemia and congestive heart failure who presents now with COVID pneumonia. He is fully immunized x3 with Moderna. 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 Bueno in [place]. He was celebrating his anniversary with his and 2 close friends at a restaurant about 1 week ago. Otherwise he has no other idea where he might have been exposed. His is not ill and the other 2 people at the table are also not ill. His shortness of breath, coughing and intolerance of activity worsened con siderably until this morning when he was unable to speak in normal sentences or to catch his breath. On arrival he was noted to be saturating in the 80s on 4 L nasal cannula. With application of 40 L high-flow nasal cannula his saturations came up into the low 90s. He is feeling much better. He has been started on remdesivir, Baricitinib and dexamethasone. He is full code. His Patient History Medical History (Updated 05/17/21 @ 17:19 by Padmaja Keating DO) Acne (Unknown) Actinic keratosis (~2018) Anemia Atrial fibrillation (Unknown) Chronic low back pain (Unknown) Closed compression fracture of third lumbar vertebra Coronary artery disease (Unknown) Diabetes (Unknown) GERD (gastroesophageal reflux disease) (Unknown) Hearing loss (Unknown) Hx of coronary angiogram (Unknown) Hyperlipemia (Unknown) Hypertension (Unknown) Keloid Osteoporosis Pacemaker Renal insufficiency Sarcoidosis (11/2007) Squamous cell carcinoma (Unknown) Visit for suture removal Surgical History H/O left wrist surgery H/O toe surgery History of arthroplasty of left shoulder (Unknown) History of arthroplasty of right shoulder (Unknown) History of fusion of thoracic spine History of lumbar fusion Hx of knee surgery (Unknown) Hx of left knee surgery Hx of prior ablation treatment (~05/2013) Status post lumbar and lumbosacral fusion by anterior technique Family & Social History Family History Father Diabetes mellitus Mother No problems noted. Safety & Behavioral: Feels Safe in Current Yes Environment Been Physically Hurt or No Threatened By a Person Tobacco & Substance use: Smoking Status Never smoker alcohol intake current alcohol intake frequency holiday/special occasion Substance Use Type does not use Comment: His Nay Leong is his backup decision maker. He Meds Home Medications and Allergies Home Medications Medication Instructions Recorded Confirmed Type budesonide-formoterol HFA 160 2 inh INH BID #1 inh 09/14/17 03/25/21 Rx mcg-4.5 mcg/actuation aerosol inhaler (Symbicort) CALCIUM 600 mg PO .QDAY 08/03/18 03/25/21 History albuterol sulfate 90 mcg/actuation 2 puff INHALATION BID PRN gram 08/03/18 03/25/21 History aerosol inhaler dofetilide 125 mcg capsule 125 mcg PO BID cap 08/03/18 03/25/21 History (Tikosyn) Fast click lancet cartridge #1 ea 10/04/18 03/25/21 Rx apixaban 5 mg tablet (Eliquis) 5 mg PO BID 01/03/19 03/25/21 History teriparatide 20 mcg/dose (600 20 mcg SUBCUT DAILY 01/03/19 03/25/21 History mcg/2.4 mL) subcutaneous pen injector (Forteo) epinephrine 0.3 mg/0.3 mL 0.3 mg IM ONCE #2 each 04/04/19 03/25/21 Rx injection, auto-injector (EpiPen 2-Abhijeet) aspirin 81 mg tablet,delayed 81 mg PO DAILY 08/02/19 03/25/21 History release epinephrine 0.3 mg/0.3 mL 0.3 mg IM ONCE #1 each 09/26/19 03/25/21 Rx injection, auto-injector (EpiPen 2-Abhijeet) torsemide 20 mg tablet 20 mg PO DAILY tab 12/25/19 03/25/21 History alprazolam 0.5 mg tablet (Xanax) 0.25 mg PO BID PRN #60 tab 03/13/20 03/25/21 Rx atorvastatin 40 mg tablet 40 mg PO DAILY #90 tab 06/28/20 03/25/21 Rx metoprolol succinate 25 mg 25 mg PO BID #180 tab 07/08/20 03/25/21 Rx tablet,extended release 24 hr [Contour test strips] #300 each 08/20/20 03/25/21 Rx tramadol 50 mg tablet 50 mg PO QID PRN #120 tab 08/28/20 03/25/21 Rx pen needle, diabetic 29 gauge x #30 each 09/17/20 03/25/21 Rx 1/2 (BD Ultra-Fine Original Pen Needle) insulin glargine 100 unit/mL (3 30 unit SUBCUT DAILY #15 ml 10/07/20 03/25/21 Rx mL) subcutaneous pen (Lantus Solostar U-100 Insulin) Disabled Parking Permit #1 ea 10/22/20 03/25/21 Rx Lactobacil rhamnosus GG 10 billion See Rx Instructions .ROUTE 01/16/21 03/25/21 Rx cell-inulin 200 mg sprinkle .COMPLEX #100 cap capsule ([facility]) ferrous sulfate 325 mg (65 mg See Rx Instructions .ROUTE 03/10/21 03/25/21 Rx iron) tablet .COMPLEX #90 tab gel-matrix pad dress, silicone 2 #4 ea 03/25/21 03/25/21 Rx X 5.5 topical pads metoprolol succinate 50 mg 50 mg PO BID tab 03/25/21 03/25/21 History tablet,extended release 24 hr nitroglycerin 0.4 mg sublingual 0.4 mg SUBLINGUAL Q5-15M PRN 03/25/21 03/25/21 History tablet (Nitrostat) pregabalin 100 mg capsule (Lyrica) 100 mg PO BID #180 cap 03/31/21 Rx vitamin B complex (B 1 tab PO HS #100 tab 03/31/21 Rx Complex-Vitamin B12) polydimethylsiloxanes-silicon See Rx Instructions TOPICAL 04/03/21 Rx dioxide topical gel (Kelo-Anton) .COMPLEX #10 g Allergies Allergy/AdvReac Type Severity Reaction Status Date / Time venom-honey bee Allergy Severe shut down Verified 07/03/20 13:12 [BEE VENOM (HONEY BEE)] my respiratory system. Sulfa (Sulfonamide AdvReac Severe KIDNEY Verified 07/03/20 13:12 Antibiotics) FAILURE [SULFA (SULFONAMIDE ANTIBIOTICS)] Review of Systems Review of Systems Narrative: Positive for shortness of breath, coughing, activity intolerance Negative for fevers, chills, sweats, chest pain, nausea, vomiting, seizures, rashes, headache, sore throat, paralysis. Exam Vital Signs (past 8 hours): - 05/17/21 10:52 05/17/21 10:58 05/17/21 11:00 Temperature 98.3 F Pulse Rate 77 79 Respiratory Rate 18 36 H Blood Pressure 168/77 H 168/77 H 157/78 H Pulse Oximetry 89 L 97 05/17/21 11:30 05/17/21 11:45 05/17/21 11:48 Temperature Pulse Rate 74 76 76 Respiratory Rate 23 32 H 32 H Blood Pressure 148/69 H 148/69 H Pulse Oximetry 98 96 96 05/17/21 12:00 05/17/21 12:30 05/17/21 13:00 Temperature Pulse Rate 75 75 79 Respiratory Rate 26 H 21 21 Blood Pressure 136/66 138/66 165/83 H Pulse Oximetry 98 99 97 05/17/21 13:30 05/17/21 13:47 05/17/21 14:00 Temperature Pulse Rate 77 77 74 Respiratory Rate 20 20 17 Blood Pressure 130/74 130/74 121/65 Pulse Oximetry 97 97 95 05/17/21 14:30 05/17/21 15:00 05/17/21 15:30 Temperature Pulse Rate 73 72 71 Respiratory Rate 17 18 17 Blood Pressure 124/67 121/59 L 98/57 L Pulse Oximetry 95 90 L 05/17/21 15:37 05/17/21 15:44 05/17/21 16:00 Temperature Pulse Rate 68 73 69 Respiratory Rate 19 17 19 Blood Pressure 101/59 L 124/67 111/60 Pulse Oximetry 97 97 96 05/17/21 16:30 05/17/21 16:31 05/17/21 17:00 Temperature Pulse Rate 68 68 68 Respiratory Rate 20 18 19 Blood Pressure 128/62 119/62 Pulse Oximetry 96 96 97 Fraction of Inspired Oxygen 45 Oxygen Delivery Method High Flow Nasal Cannula Oxygen Flow Rate 50 Narrative Exam Narrative: Alert and oriented x3. No apparent distress. Is able to talk in full sentences, conversing with his , understanding the gravity of the situation. Pupils are equally round reactive to light and accommodation. Extraocular muscles are intact. Sclerae are pink and nonicteric. No lymph nodes are felt head, neck, supraclavicular area There is no thyromegaly JVD is less than 6 cm Heart is regular rate and rhythm without murmur No carotid bruits are heard Lungs have wheezing bilaterally Abdomen is soft, bowel sounds positive, nontender, no organomegaly Extremities have no ankle edema Neurological exam Deep tendon reflexes are symmetric Motor function is 5/5 throughout Cranial nerves 2-12 test normally There is no tremor Skin has no rash or jaundice. Objective Labs Result Diagrams: 05/17/21 11:05 05/17/21 11:05 Labs: Laboratory Results - last 24 hr 05/17/21 05/17/21 05/17/21 11:05 11:05 11:05 WBC 4.9 RBC 4.23 L Hgb 12.5 L Hct 37.1 L MCV 87.7 MCH 29.5 MCHC 33.7 RDW 14.7 Plt Count 168 Neut % (Auto) 78.8 H Lymph % (Auto) 14.0 L [place] % (Auto) 6.3 Eos % (Auto) 0.0 L Baso % (Auto) 0.9 Neut # (Auto) 3900 Lymph # (Auto) 700 L [place] # (Auto) 300 Eos # (Auto) 0 Baso # (Auto) 0 D-Dimer 818 H Sodium Potassium Chloride Carbon Dioxide BUN Creatinine Estimated GFR BUN/Creatinine Ratio Glucose Lactate Calcium Ferritin Total Bilirubin AST ALT Alkaline Phosphatase Lactate Dehydrogenase Total Creatine Kinase CK-MB (CK-2) CK-MB (CK-2) Rel Index Troponin I C-Reactive Protein NT-Pro-B Natriuret Pep Total Protein Albumin Globulin Albumin/Globulin Ratio Procalcitonin 0.15 SARS-CoV-2 (PCR) 05/17/21 05/17/21 05/17/21 11:05 11:05 11:05 WBC RBC Hgb Hct MCV MCH MCHC RDW Plt Count Neut % (Auto) Lymph % (Auto) [place] % (Auto) Eos % (Auto) Baso % (Auto) Neut # (Auto) Lymph # (Auto) [place] # (Auto) Eos # (Auto) Baso # (Auto) D-Dimer Sodium 139 Potassium 5.0 Chloride 107 Carbon Dioxide 21 L BUN 38 H Creatinine 1.65 H Estimated GFR 41.1 L BUN/Creatinine Ratio 23.0 H Glucose 84 Lactate 1.4 Calcium 8.8 Ferritin 908 H Total Bilirubin 0.5 AST 62 H ALT 28 Alkaline Phosphatase 97 Lactate Dehydrogenase 813 H Total Creatine Kinase 277 H CK-MB (CK-2) 2.21 CK-MB (CK-2) Rel Index 0.8 L Troponin I 0.047 H C-Reactive Protein 4.4 H NT-Pro-B Natriuret Pep 2450 H Total Protein 8.0 Albumin 4.3 Globulin 3.7 Albumin/Globulin Ratio 1.2 Procalcitonin SARS-CoV-2 (PCR) Positive H 05/17/21 05/17/21 05/17/21 12:35 13:53 17:15 WBC RBC Hgb Hct MCV MCH MCHC RDW Plt Count Neut % (Auto) Lymph % (Auto) [place] % (Auto) Eos % (Auto) Baso % (Auto) Neut # (Auto) Lymph # (Auto) [place] # (Auto) Eos # (Auto) Baso # (Auto) D-Dimer Sodium Potassium Chloride Carbon Dioxide BUN Creatinine Estimated GFR BUN/Creatinine Ratio Glucose Lactate Calcium Ferritin Total Bilirubin AST ALT Alkaline Phosphatase Lactate Dehydrogenase Total Creatine Kinase CK-MB (CK-2) CK-MB (CK-2) Rel Index Troponin I 0.071 H 0.080 H C-Reactive Protein NT-Pro-B Natriuret Pep Total Protein Albumin Globulin Albumin/Globulin Ratio Procalcitonin SARS-CoV-2 (PCR) Positive H Assessment & Plan Assessment & Plan narrative: This is a 75-year-old male with COVID pneumonia. He has significant hypoxemia and is needing significant amounts of high-flow nasal cannula to maintain saturations in the low 90's. He has a history of steroid dependent sarcoidosis, coronary artery disease, CHF and atrial fibrillation. COVID pneumonia, present on admission. Active. -Bilateral viral pneumonia infiltrates on CXR -LDH 813, D-dimer 818 on admission - on Eliquis -High flow NC Oxygen at 40% on admission -IV Remdesivir, Baricitinb, Dexamethasone -Tele-print manager Consult -Full Code Hypoxemic respiratory failure, present on admission. Active. -HFNC oxygen with improved oxygenation and stabilization/improvement of his respiratory distress -Continue Symbicort and Albuterol -Full Code Paroxysmal atrial fibrillation, present on admission. Active. -Continue home medicines of Tikosyn, Metoprolol, Eliquis Coronary Artery Disease, present on admission. Active -Continue Aspirin and Lipitor. -Troponin 0.08 with BNP 2,450 on admission Congestive heart failure, present on admission. Chronic stable -Continue Furosemide and Metoprolol -BNP 2.450 on admission -cautious hydration Diabetes Mellitus Type 2, present on admission. Active. -Continue Glargine 15 units BID and follow blood sugars -Add correctional scale Lispro if needed CKD, present on admission. Active -Creatinine 1.65 on admission History of sarcoidosis, currently in remission. Chronic stable -he had been off Prednisone (finally) until he was resumed at 40 mg daily 4 days ago by Pulmonology -Continue Symbicort and Albuterol Eliquis for DVT/PE prevention His Nay Ott is hs backup decision maker. Time Spent With Patient Critical Care time: I spent a total of [] minutes of critical care time on this patient's care today; this time is exclusive of procedural time.
--- NOTE | 2021-05-17 21:41 | PM.CN.EICU ---
History of Present Illness Consult details Chief complaint: COVID+ Resp distress, trouble walking :: This patient was seen via real time interactive two-way audiovisual telecommunication. 75 y.o. male wih multiple medical co-morbidities admitted to ICU with acute hypoxic respiratory failure due to COVID-19 pneumonia. Treatment has been started with HFNC (which is currently at 50 L/min 40%), remdesivir, dexamethasone and baricitinib. Of note, patient had been immunized with Moderna x 2. Medical comorbidities notable for followin. Pulmonary sarcoidosis 2. HFpEF with mild AI/ on 01/2021 2-D echo. RV was normal and no pulmonary HTN present. 3. Paroxysmal AF on apixaban 4. T2DM complicated by CKD (looks like stage 3) w/ long-term insulin use 5. Hyperlipidemia 6. PPM [facility] Medical History Acne (Unknown) Actinic keratosis (~2017) Anemia Atrial fibrillation (Unknown) Chronic low back pain (Unknown) Closed compression fracture of third lumbar vertebra Coronary artery disease (Unknown) Diabetes (Unknown) GERD (gastroesophageal reflux disease) (Unknown) Hearing loss (Unknown) Hx of coronary angiogram (Unknown) Hyperlipemia (Unknown) Hypertension (Unknown) Keloid Osteoporosis Pacemaker Renal insufficiency Sarcoidosis (11/2007) Squamous cell carcinoma (Unknown) Visit for suture removal Surgical History H/O left wrist surgery H/O toe surgery History of arthroplasty of left shoulder (Unknown) History of arthroplasty of right shoulder (Unknown) History of fusion of thoracic spine History of lumbar fusion Hx of knee surgery (Unknown) Hx of left knee surgery Hx of prior ablation treatment (~05/2013) Status post lumbar and lumbosacral fusion by anterior technique Family History Father Diabetes mellitus Mother No problems noted. Social History household members: spouse and children Smoking Status: Never smoker second hand exposure: Yes alcohol intake: current substance use type: does not use Current Medications Current Medications Medications: Home Medications budesonide-formoterol HFA 160 mcg-4.5 mcg/actuation aerosol inhaler (Symbicort) 2 inh INH BID #1 inh 09/14/17 [Rx Confirmed 05/17/21] CALCIUM 600 mg PO .QDAY 08/03/18 [History Confirmed 05/17/21] albuterol sulfate 90 mcg/actuation aerosol inhaler 2 puff INHALATION BID PRN gram 08/03/18 [History Confirmed 05/17/21] dofetilide 125 mcg capsule (Tikosyn) 125 mcg PO BID cap 08/03/18 [History Confirmed 05/17/21] Fast click lancet cartridge #1 ea 10/04/18 [Rx Confirmed 03/25/21] apixaban 5 mg tablet (Eliquis) 5 mg PO BID 01/03/19 [History Confirmed 05/17/21] teriparatide 20 mcg/dose (600 mcg/2.4 mL) subcutaneous pen injector (Forteo) 20 mcg SUBCUT DAILY 01/03/19 [History Confirmed 03/25/21] epinephrine 0.3 mg/0.3 mL injection, auto-injector (EpiPen 2-Abhijeet) 0.3 mg IM ONCE #2 each 04/04/19 [Rx Confirmed 05/17/21] aspirin 81 mg tablet,delayed release 81 mg PO DAILY 08/02/19 [History Confirmed 05/17/21] epinephrine 0.3 mg/0.3 mL injection, auto-injector (EpiPen 2-Abhijeet) 0.3 mg IM ONCE #1 each 09/26/19 [Rx Confirmed 03/25/21] torsemide 20 mg tablet 20 mg PO DAILY tab 12/25/19 [History Confirmed 05/17/21] alprazolam 0.5 mg tablet (Xanax) 0.25 mg PO BID PRN #60 tab 03/13/20 [Rx Confirmed 03/25/21] atorvastatin 40 mg tablet 40 mg PO DAILY #90 tab 06/28/20 [Rx Confirmed 05/17/21] metoprolol succinate 25 mg tablet,extended release 24 hr 25 mg PO BID #180 tab 07/08/20 [Rx Confirmed 03/25/21] [Contour test strips] #300 each 08/20/20 [Rx Confirmed 03/25/21] tramadol 50 mg tablet 50 mg PO QID PRN #120 tab 08/28/20 [Rx Confirmed 05/17/21] pen needle, diabetic 29 gauge x 1/2 (BD Ultra-Fine Original Pen Needle) #30 each 09/17/20 [Rx Confirmed 03/25/21] insulin glargine 100 unit/mL (3 mL) subcutaneous pen (Lantus Solostar U-100 Insulin) 30 unit SUBCUT DAILY #15 ml 10/07/20 [Rx Confirmed 05/17/21] Disabled Parking Permit #1 ea 10/22/20 [Rx Confirmed 03/25/21] Lactobacil rhamnosus GG 10 billion cell-inulin 200 mg sprinkle capsule ([facility] [facility]) See Rx Instructions .ROUTE .COMPLEX #100 cap 01/16/21 [Rx Confirmed 05/17/21] ferrous sulfate 325 mg (65 mg iron) tablet See Rx Instructions .ROUTE .COMPLEX #90 tab 03/10/21 [Rx Confirmed 05/17/21] gel-matrix pad dress, silicone 2 X 5.5 topical pads #4 ea 03/25/21 [Rx Confirmed 03/25/21] metoprolol succinate 50 mg tablet,extended release 24 hr 50 mg PO BID tab 03/25/21 [History Confirmed 05/17/21] nitroglycerin 0.4 mg sublingual tablet (Nitrostat) 0.4 mg SUBLINGUAL Q5-15M PRN 03/25/21 [History Confirmed 05/17/21] pregabalin 100 mg capsule (Lyrica) 100 mg PO BID #180 cap 03/31/21 [Rx Confirmed 05/17/21] vitamin B complex (B Complex-Vitamin B12) 1 tab PO HS #100 tab 03/31/21 [Rx Confirmed 05/17/21] polydimethylsiloxanes-silicon dioxide topical gel (Kelo-Anton) See Rx Instructions TOPICAL .COMPLEX #10 g 04/03/21 [Rx] Exam Vital Signs (past 8 hours): - 05/17/21 13:47 05/17/21 14:00 05/17/21 14:30 Pulse Rate 77 74 73 Respiratory Rate 20 17 17 Blood Pressure 130/74 121/65 124/67 Pulse Oximetry 97 95 95 05/17/21 15:00 05/17/21 15:30 05/17/21 15:37 Pulse Rate 72 71 68 Respiratory Rate 18 17 19 Blood Pressure 121/59 L 98/57 L 101/59 L Pulse Oximetry 90 L 97 05/17/21 15:44 05/17/21 16:00 05/17/21 16:30 Pulse Rate 73 69 68 Respiratory Rate 17 19 20 Blood Pressure 124/67 111/60 Pulse Oximetry 97 96 96 05/17/21 16:31 05/17/21 17:00 05/17/21 17:30 Pulse Rate 68 68 68 Respiratory Rate 18 19 16 Blood Pressure 128/62 119/62 118/61 Pulse Oximetry 96 97 96 05/17/21 18:00 05/17/21 18:30 05/17/21 19:00 Pulse Rate 69 68 68 Respiratory Rate 20 16 17 Blood Pressure 127/61 119/62 132/58 L Pulse Oximetry 96 96 97 05/17/21 19:03 05/17/21 19:30 05/17/21 20:00 Pulse Rate 68 69 68 Respiratory Rate 24 20 18 Blood Pressure 132/68 115/62 121/63 Pulse Oximetry 97 96 96 05/17/21 20:30 Pulse Rate 91 H Respiratory Rate 21 Blood Pressure 117/67 Pulse Oximetry 95 Fraction of Inspired Oxygen 45 Oxygen Delivery Method High Flow Nasal Cannula Oxygen Flow Rate 50 Narrative Exam Narrative: Just arrived to ICU upon camera activation. RT reports that patient was transported on 15 L/min NRB; currently on HFNC 50L/min 40% FiO2. Does appears to be mildly cushingoid? Chest Other: RT reports diffuse wheezing Resp Other: irregular rhythm seen on monitor; HR in low 100s Neuro Other: alert with fluid speech and normal attention span Objective Imaging Chest x-ray: My impression: Independently reviewed Labs Result Diagrams: 05/17/21 11:05 05/17/21 11:05 Labs: Laboratory Results - last 24 hr 05/17/21 05/17/21 05/17/21 11:05 11:05 11:05 WBC 4.9 RBC 4.23 L Hgb 12.5 L Hct 37.1 L MCV 87.7 MCH 29.5 MCHC 33.7 RDW 14.7 Plt Count 168 Neut % (Auto) 78.8 H Lymph % (Auto) 14.0 L [place] % (Auto) 6.3 Eos % (Auto) 0.0 L Baso % (Auto) 0.9 Neut # (Auto) 3900 Lymph # (Auto) 700 L [place] # (Auto) 300 Eos # (Auto) 0 Baso # (Auto) 0 D-Dimer 818 H Sodium Potassium Chloride Carbon Dioxide BUN Creatinine Estimated GFR BUN/Creatinine Ratio Glucose Lactate Calcium Ferritin Total Bilirubin AST ALT Alkaline Phosphatase Lactate Dehydrogenase Total Creatine Kinase CK-MB (CK-2) CK-MB (CK-2) Rel Index Troponin I C-Reactive Protein NT-Pro-B Natriuret Pep Total Protein Albumin Globulin Albumin/Globulin Ratio Procalcitonin 0.15 SARS-CoV-2 (PCR) 05/17/21 05/17/21 05/17/21 11:05 11:05 11:05 WBC RBC Hgb Hct MCV MCH MCHC RDW Plt Count Neut % (Auto) Lymph % (Auto) [place] % (Auto) Eos % (Auto) Baso % (Auto) Neut # (Auto) Lymph # (Auto) [place] # (Auto) Eos # (Auto) Baso # (Auto) D-Dimer Sodium 139 Potassium 5.0 Chloride 107 Carbon Dioxide 21 L BUN 38 H Creatinine 1.65 H Estimated GFR 41.1 L BUN/Creatinine Ratio 23.0 H Glucose 84 Lactate 1.4 Calcium 8.8 Ferritin 908 H Total Bilirubin 0.5 AST 62 H ALT 28 Alkaline Phosphatase 97 Lactate Dehydrogenase 813 H Total Creatine Kinase 277 H CK-MB (CK-2) 2.21 CK-MB (CK-2) Rel Index 0.8 L Troponin I 0.047 H C-Reactive Protein 4.4 H NT-Pro-B Natriuret Pep 2450 H Total Protein 8.0 Albumin 4.3 Globulin 3.7 Albumin/Globulin Ratio 1.2 Procalcitonin SARS-CoV-2 (PCR) Positive H 05/17/21 05/17/21 05/17/21 12:35 13:53 17:15 WBC RBC Hgb Hct MCV MCH MCHC RDW Plt Count Neut % (Auto) Lymph % (Auto) [place] % (Auto) Eos % (Auto) Baso % (Auto) Neut # (Auto) Lymph # (Auto) [place] # (Auto) Eos # (Auto) Baso # (Auto) D-Dimer Sodium Potassium Chloride Carbon Dioxide BUN Creatinine Estimated GFR BUN/Creatinine Ratio Glucose Lactate Calcium Ferritin Total Bilirubin AST ALT Alkaline Phosphatase Lactate Dehydrogenase Total Creatine Kinase CK-MB (CK-2) CK-MB (CK-2) Rel Index Troponin I 0.071 H 0.080 H C-Reactive Protein NT-Pro-B Natriuret Pep Total Protein Albumin Globulin Albumin/Globulin Ratio Procalcitonin SARS-CoV-2 (PCR) Positive H Assessment & Plan Assessment and plan (1) Type 2 diabetes mellitus with chronic kidney disease, with long-term current use of insulin: Status: Chronic Plan: -Continue SUBQ insulin regimen; watch for dexamethasone-induced hyperglycemia -Watch renal function closely; if deterioriates, may need to be transferred for renal replacement therapy (2) Paroxysmal atrial fibrillation: Status: Chronic Plan: -Continue apixaban, metoprolol, dofetilide (3) Hyperlipemia: Status: Chronic Plan: -Continue statin (4) Acute hypoxemic respiratory failure due to COVID-19: Status: Acute Plan: -Contiue HFNC, remdesevir, dexamethason, baricitinib (5) (HFpEF) heart failure with preserved ejection fraction: Status: Acute Plan: -See AF/CAD plan -Agree with holding of outpatient diuretics for now; would aim for even fluid balance with PRN diuretics (6) Coronary artery disease: Status: Acute Plan: -Continue ASA -See HFpEF (7) Goals of care, counseling/discussion: Status: Acute Plan: -Recommend that this occur at the earliest opportunity (if it has not yet occurred). Given history of Moderna vaccination, mechanical ventilation, if necessary, may prove to be short (hopefully). However his age and co-morbidities (particularly the pulmonary sarcoidosis) put him at high risk for prolonged mechanical ventilation which would probably necessitate tracheostomy/PEG. Therefore, I recommend that initial discussions be oriented towards a time-limited trial invasive mechanical ventilation (if need be) and a DNR status. Time Spent With Patient Critical Care time: I spent a total of 35 minutes of critical care time on this patient's care today; this time is exclusive of procedural time.
[2021-05-17] MEDS: FERROUS SULFATE 325 MG TABLET PO (22:02)
[2021-05-17] MEDS: SODIUM CHLORIDE 0.9% 1,000 ML 75 ML IV (22:02)
[2021-05-17] MEDS: APIXABAN 5 MG TABLET PO (22:03)
[2021-05-17] MEDS: METOPROLOL ER 50 MG TABLET PO (22:05)
[2021-05-17] MEDS: INSULIN GLARGINE 100 UNIT/ML 3ML PEN 15 UNIT SUBCUT (22:05)
--- NOTE | 2021-05-17 23:06 | PC.NURSE ---
Pt admitted to rm 231 from ED per stretcher with dx Covid pneumonia, CHF. Pt with history of Sarcodosis, multiple surgeries on back, shoulders, knees, feet and DMII. Admission assessment completed, pt seems somewhat anxious about diagnosis given history of sarcodosis. Lungs sounds with loud Ins wheezing throughout, on HHFNC 50L 40% sats 95-96%. Pt noted to be in afib and has a pacemaker. Pt instructed to use the call light if he needs the urinal and bed alarms on. SCD's in place, call light in reach.
[2021-05-18] VITALS (35 sets, daily range): BP systolic 89–110; BP diastolic 52–65; PULSE 64–94; RESP 16–28; TEMP 36.8–37.4; O2SAT 90–99
[2021-05-18] MEDS: ALBUTEROL 2.5 MG/3 ML NEB (ADULT) INH ×2 (02:21→11:32)
[2021-05-18 04:48] LABS: Alanine Aminotransferase 28 IU/L (<50); Albumin 3.6 g/dL (3.5-5.0); Albumin Globulin Ratio 1.1 (1.0-2.8); Alkaline Phosphatase 72 U/L (38-126); Aspartate Aminotransferase 62 IU/L (17-59); BUN Creatinine Ratio 24.5 (6-22); Bilirubin Total 0.4 mg/dL (0.2-1.3); Blood Urea Nitrogen 40 mg/dL (9-20); Calcium 8.1 mg/dL (8.4-10.2); Carbon Dioxide 20 mmol/L (22-32); Chloride 107 mmol/L (98-107); Estimated Glomerular Filt Rate 41.7 mL/min (>60); Globulin 3.4 g/dL (1.7-4.1); Glucose 74 mg/dL (80-110); HEMOLYSIS < 15 (0-50); Potassium 4.9 mmol/L (3.4-5.1); Sodium 137 mmol/L (137-145)
[2021-05-18] MEDS: METOPROLOL ER 50 MG TABLET PO ×2 (08:42→20:44)
[2021-05-18] MEDS: APIXABAN 5 MG TABLET PO ×2 (08:42→20:45)
[2021-05-18] MEDS: ASPIRIN EC 81 MG TABLET PO (08:42)
[2021-05-18] MEDS: DOFETILIDE 125 MCG 125 EACH PO ×2 (08:42→20:45)
[2021-05-18] MEDS: DEXAMETHASONE 10 MG/ML VIAL 6 MG IV (08:43)
[2021-05-18] MEDS: FERROUS SULFATE 325 MG TABLET PO (08:43)
[2021-05-18] MEDS: BARICITINIB 2 MG TABLET 4 MG PO (08:44)
[2021-05-18] MEDS: INSULIN GLARGINE 100 UNIT/ML 3ML PEN 15 UNIT SUBCUT ×2 (08:45→20:46)
[2021-05-18 08:49] LABS: Add Manual Diff / Slide Review NO; Basophils Absolute Auto 0 /uL (0-100); Basophils Percent Auto 0.1 % (0-2); Eosinophils Absolute Auto 0 /uL (0-450); Hematocrit 36.2 % (41-53); Hemoglobin 12.1 g/dL (13.5-17.5); Lymphocytes Absolute Auto 1200 /uL (1100-4500); Lymphocytes Percent Auto 21.6 % (25-40); Mean Corpuscular HGB Conc 33.3 % (30-36); Mean Corpuscular Hemoglobin 29.4 PG (26-34); Mean Corpuscular Volume 88.1 fL (80-100); Monocytes Absolute Auto 500 /uL (0-900); Monocytes Percent Auto 9.4 % (3-14); Neutrophils Absolute Auto 3800 /uL (1500-7000); Neutrophils Percent Auto 68.9 % (50-75); Platelet Count 148 X10^3/uL (150-400); Red Blood Cell Count 4.11 X10^6/uL (4.5-5.9); Red Cell Distribution Width 15.3 % (11.6-14.8); White Blood Cell Count 5.5 X10^3/uL (4.5-11.0)
[2021-05-18] MEDS: REMDESIVIR 100 MG in SODIUM CHLORIDE 0.9% 230 ML 250 ML IV (09:55)
[2021-05-18] MEDS: TORSEMIDE 10 MG TABLET 20 MG PO (11:20)
[2021-05-18] MEDS: BUDESONIDE 0.5 MG/2 ML NEB INH (11:32)
--- NOTE | 2021-05-18 12:37 | CM.DANOTE ---
DCP: Case received, EMR reviewed. Patient is positive for COVID 19. Was able to call patient's room and talk to him. Introduced self and role. Was able to obtain information regarding patient's baseline activity level prior to his hospitalization. DCP assessment completed with information currently available. Patient is a 75 year old male who admitted yesterday afternoon to the care of the hospitalist team. PCP: Dr. Palomares. Payer: confirmed: Medicare/[employer]. Patient came to the hospital via private vehicle secondary to some complications of COVID. Patient had been recently diagnosed with COVID by his corporate legal secretary. Patient had already received his three COVID vaccinations, but due his medical history, for patient has history of sarcodosis, renal insufficiancy, and a-fib, he obtained the virus. According to notes, his has not contracted the virus. Patient is here for COVID pneumonia, and is currently on oxygen. Spoke to patient on the phone briefly. He is alert and oriented, and independent at his baseline. He resides here in [place] with his spouse, Nay. He has a corporate legal secretary that he currently sees, and his primary provider, Dr. Palomares, is at [facility]. P: DCP to continue to follow. Patient should be able to go home when he is deemed medically stable. Nay Miller RN/Configurator Discharge Planning/Care Management CM Discharge Assessment Start: 05/18/21 12:34 Freq: Status: Active Protocol: Document 05/18/21 12:34 (Rec: 05/18/21 12:37 [id number]) Discharge Planning Assessment Assigned Middle [employer] Technology Teacher Nay Miller RN/Configurator Advance Directives? No History Provided By Patient,Medical Record Prior Living Arrangements House Household Members spouse,children Type of transporation used prior to Drives own vehicle admit Independent with ADL's Yes Is patient alert and oriented? Yes Discharge Plan Home Transportation Arrangement Spouse Referrals Initiated None needed Whiteboard Updated in Patient Room with No name and ext. # of Middle School Technology Teacher Comment Patient is COVID positive Review Status In Process Next Review Type Continued Stay Review
--- NOTE | 2021-05-18 13:38 | P.TELICUPN_ITS ---
Subjective Subjective :: This patient was seen via real time interactive two-way audiovisual telecommunication. patient remains on high flow at 50%. is comfortable, and on a diet. on appropriate reigmen for COVID Current Medications Current Medications Medications: Home Medications budesonide-formoterol HFA 160 mcg-4.5 mcg/actuation aerosol inhaler (Symbicort) 2 inh INH BID #1 inh 09/14/17 [Rx Confirmed 05/17/21] CALCIUM 600 mg PO .QDAY 08/03/18 [History Confirmed 05/17/21] albuterol sulfate 90 mcg/actuation aerosol inhaler 2 puff INHALATION BID PRN gram 08/03/18 [History Confirmed 05/17/21] dofetilide 125 mcg capsule (Tikosyn) 125 mcg PO BID cap 08/03/18 [History Confirmed 05/17/21] Fast click lancet cartridge #1 ea 10/04/18 [Rx Confirmed 03/25/21] apixaban 5 mg tablet (Eliquis) 5 mg PO BID 01/03/19 [History Confirmed 05/17/21] epinephrine 0.3 mg/0.3 mL injection, auto-injector (EpiPen 2-Abhijeet) 0.3 mg IM ONCE #2 each 04/04/19 [Rx Confirmed 05/17/21] aspirin 81 mg tablet,delayed release 81 mg PO DAILY 08/02/19 [History Confirmed 05/17/21] torsemide 20 mg tablet 20 mg PO DAILY tab 12/25/19 [History Confirmed 05/17/21] alprazolam 0.5 mg tablet (Xanax) 0.25 mg PO BID PRN #60 tab 03/13/20 [Rx Confirmed 05/18/21] atorvastatin 40 mg tablet 40 mg PO DAILY #90 tab 06/28/20 [Rx Confirmed 05/17/21] [Contour test strips] #300 each 08/20/20 [Rx Confirmed 03/25/21] tramadol 50 mg tablet 50 mg PO QID PRN #120 tab 08/28/20 [Rx Confirmed 05/17/21] pen needle, diabetic 29 gauge x 1/2 (BD Ultra-Fine Original Pen Needle) #30 each 09/17/20 [Rx Confirmed 03/25/21] insulin glargine 100 unit/mL (3 mL) subcutaneous pen (Lantus Solostar U-100 Insulin) 30 unit SUBCUT DAILY #15 ml 10/07/20 [Rx Confirmed 05/17/21] Disabled Parking Permit #1 ea 10/22/20 [Rx Confirmed 03/25/21] Lactobacil rhamnosus GG 10 billion cell-inulin 200 mg sprinkle capsule ([facility] [employer] [facility]) See Rx Instructions .ROUTE .COMPLEX #100 cap 01/16/21 [Rx Confirmed 05/17/21] ferrous sulfate 325 mg (65 mg iron) tablet See Rx Instructions .ROUTE .COMPLEX #90 tab 03/10/21 [Rx Confirmed 05/17/21] gel-matrix pad dress, silicone 2 X 5.5 topical pads #4 ea 03/25/21 [Rx Confirmed 03/25/21] metoprolol succinate 50 mg tablet,extended release 24 hr 50 mg PO BID tab 03/25/21 [History Confirmed 05/17/21] nitroglycerin 0.4 mg sublingual tablet (Nitrostat) 0.4 mg SUBLINGUAL Q5-15M PRN 03/25/21 [History Confirmed 05/17/21] pregabalin 100 mg capsule (Lyrica) 100 mg PO BID #180 cap 03/31/21 [Rx Confirmed 05/17/21] vitamin B complex (B Complex-Vitamin B12) 1 tab PO HS #100 tab 03/31/21 [Rx Confirmed 05/17/21] Visit Medications (administered) Generic Name Dose Route Start Last Admin Trade Name Freq PRN Reason Stop Dose Admin Albuterol 2.5 mg 05/18/21 02:00 05/18/21 11:32 Albuterol 2.5 Mg/3 Ml Neb (Adult) INH 2.5 mg [id number] JUAREZ Administration Apixaban 5 mg 05/17/21 21:00 05/18/21 08:42 Apixaban 5 Mg Tablet PO 5 mg BID JUAREZ Administration Aspirin 81 mg 05/18/21 09:00 05/18/21 08:42 Aspirin Ec 81 Mg Tablet PO 81 mg DAILY JUAREZ Administration Atorvastatin Calcium 40 mg 05/18/21 09:00 05/18/21 08:42 Atorvastatin 20 Mg Tablet PO 40 mg DAILY JUAREZ Administration Budesonide 0.5 mg 05/18/21 08:00 05/18/21 11:32 Budesonide 0.5 Mg/2 Ml Neb INH 0.5 mg RTBID JUAREZ Administration Dexamethasone 6 mg 05/18/21 09:00 05/18/21 08:43 Dexamethasone 10 Mg/Ml Vial IV 05/27/21 12:00 6 mg DAILY JUAREZ Administration Ferrous Sulfate 325 mg 05/17/21 18:30 05/18/21 08:43 Ferrous Sulfate 325 Mg Tablet PO 325 mg DAILY JUAREZ Administration Sodium Chloride 1,000 mls @ 75 mls/hr 05/17/21 18:30 05/17/21 22:02 Normal Saline 0.9% IV 75 mls/hr CONT JUAREZ Administration Remdesivir 100 mg/ Sodium 250 mls @ 250 mls/hr 05/18/21 09:00 05/18/21 09:55 Chloride IV 05/21/21 09:59 250 mls/hr DAILY JUAREZ Administration Insulin Glargine 15 unit 05/17/21 21:00 05/18/21 08:45 Insulin Glargine 100 Unit/Ml 3ml Pen SUBCUT 15 unit BID JUAREZ Administration Metoprolol Succinate 50 mg 05/17/21 21:00 05/18/21 08:42 Metoprolol Er 50 Mg Tablet PO 50 mg BID JUAREZ Administration Nf - Dofetilide ( 125 mcg 05/17/21 21:00 05/18/21 08:42 Tikosyn) 125 Mcg PO 125 mcg Capsule BID JUAREZ Administration Torsemide 20 mg 05/18/21 09:00 05/18/21 11:20 Torsemide 10 Mg Tablet PO 20 mg DAILY JUAREZ Administration Objective Ventilator Parameters: Ventilator Settings FiO2 40 Labs Result Diagrams: 05/18/21 08:40 05/18/21 04:15 Labs: Laboratory Results - last 24 hr 05/17/21 05/17/21 05/18/21 17:15 21:30 04:15 WBC RBC Hgb Hct MCV MCH MCHC RDW Plt Count Neut % (Auto) Lymph % (Auto) [place] % (Auto) Eos % (Auto) Baso % (Auto) Neut # (Auto) Lymph # (Auto) [place] # (Auto) Eos # (Auto) Baso # (Auto) Sodium 137 Potassium 4.9 Chloride 107 Carbon Dioxide 20 L BUN 40 H Creatinine 1.63 H Estimated GFR 41.7 L BUN/Creatinine Ratio 24.5 H Glucose 74 L Calcium 8.1 L Total Bilirubin 0.4 AST 62 H ALT 28 Alkaline Phosphatase 72 Troponin I 0.080 H Total Protein 7.0 Albumin 3.6 Globulin 3.4 Albumin/Globulin Ratio 1.1 Nasal Screen MRSA (PCR) Negative for mrsa 05/18/21 08:40 WBC 5.5 RBC 4.11 L Hgb 12.1 L Hct 36.2 L MCV 88.1 MCH 29.4 MCHC 33.3 RDW 15.3 H Plt Count 148 L Neut % (Auto) 68.9 Lymph % (Auto) 21.6 L [place] % (Auto) 9.4 Eos % (Auto) 0.0 L Baso % (Auto) 0.1 Neut # (Auto) 3800 Lymph # (Auto) 1200 [place] # (Auto) 500 Eos # (Auto) 0 Baso # (Auto) 0 Sodium Potassium Chloride Carbon Dioxide BUN Creatinine Estimated GFR BUN/Creatinine Ratio Glucose Calcium Total Bilirubin AST ALT Alkaline Phosphatase Troponin I Total Protein Albumin Globulin Albumin/Globulin Ratio Nasal Screen MRSA (PCR) Exam Vital Signs (past 8 hours): - 05/18/21 06:00 05/18/21 08:00 05/18/21 08:42 Temperature 98.8 F Pulse Rate 89 80 66 Respiratory Rate 17 22 Blood Pressure 99/56 L 90/65 Pulse Oximetry 96 05/18/21 09:44 05/18/21 09:55 05/18/21 10:00 Temperature Pulse Rate 79 74 68 Respiratory Rate 24 18 Blood Pressure 100/52 L Pulse Oximetry 98 93 05/18/21 11:33 05/18/21 11:36 05/18/21 12:00 Temperature Pulse Rate 64 64 80 Respiratory Rate 18 18 18 Blood Pressure 100/52 L 96/54 L Pulse Oximetry 96 93 93 05/18/21 13:00 Temperature Pulse Rate 83 Respiratory Rate 18 Blood Pressure 97/52 L Pulse Oximetry 93 Fraction of Inspired Oxygen 40 Oxygen Delivery Method Room Air Oxygen Flow Rate 50 Narrative Exam Narrative: surrogate for exam is primary team Quality TeleICU VTE Deep Vein Thrombosis/Pulmonary Embolism Present on Admission: No Assessment & Plan Assessment & Plan narrative: Assessment ARDS acute hypoxemic resp failure pulmonary sardoicsos HFpEF - no PH, RV normal as of january DM CKD stage 3 HLD PPM ( unclear if this is due to possible cardiac involement of his sarcoid) afib - on eloiquis Plan continue high flow NC maintain spo2 > 88% mao goal > 65 enrouage po intake tremd bmp cbc monitor UO goal euvolemia, ibrahima need diretics prn, may need to increase diuresis if his hypoxemia worsens on eliquis if his fio2 requiements worsen, I woukd have a low threshold to start empric coverage trend FS inuslin basal bolus CCT 35 min He is at high risk for decompenation given his co-corbidities. If he bebgins to deterioate further I believe GOC should be readdressed Time Spent With Patient Critical Care time: I spent a total of [] minutes of critical care time on this patient's care today; this time is exclusive of procedural time.
--- NOTE | 2021-05-18 18:50 | PC.NURSE ---
Pt Ra with Spo2 93-95% occasional dry cough. Pt states, feeling better, like I am gonna make it PIV flushing well. Call light in reach
--- NOTE | 2021-05-18 19:15 | PM.PN.1 ---
Subjective Subjective Date Patient Seen: 05/18/21 Interval history: 75-year-old male with sarcoidosis, type 2 diabetes, CKD, CAD, AFib fully vaccinated but presented with COVID pneumonia. Patient has had substantial improvement and now off of supplemental O2 with sats of 93% on room air. Breathing remains labored with respiratory rate in the 30s, however. Exam Vital Signs (past 8 hours): - 05/18/21 11:33 05/18/21 11:36 05/18/21 12:00 Temperature Pulse Rate 64 64 80 Respiratory Rate 18 18 18 Blood Pressure 100/52 L 96/54 L Pulse Oximetry 96 93 93 05/18/21 13:00 05/18/21 14:00 05/18/21 15:00 Temperature 98.8 F Pulse Rate 83 64 64 Respiratory Rate 18 18 20 Blood Pressure 97/52 L 102/58 L 99/54 L Pulse Oximetry 93 94 94 05/18/21 15:30 05/18/21 16:00 05/18/21 16:30 Temperature Pulse Rate 64 64 64 Respiratory Rate 26 H 27 H 26 H Blood Pressure 110/59 L Pulse Oximetry 94 92 92 05/18/21 16:56 05/18/21 17:00 05/18/21 17:30 Temperature Pulse Rate 64 64 64 Respiratory Rate 25 H 27 H 25 H Blood Pressure 97/52 L Pulse Oximetry 93 95 93 05/18/21 18:00 05/18/21 18:30 05/18/21 19:00 Temperature Pulse Rate 64 64 64 Respiratory Rate 28 H 25 H 26 H Blood Pressure Pulse Oximetry 90 L 92 92 Fraction of Inspired Oxygen 40 Oxygen Delivery Method Heated High Flow Oxygen Flow Rate 50 Narrative Exam Narrative: General: Alert pleasant with labored breathing and difficulty completing sentences Objective Labs Result Diagrams: 05/18/21 08:40 05/18/21 04:15 Labs: Laboratory Results - last 24 hr 05/17/21 05/18/21 05/18/21 21:30 04:15 08:40 WBC 5.5 RBC 4.11 L Hgb 12.1 L Hct 36.2 L MCV 88.1 MCH 29.4 MCHC 33.3 RDW 15.3 H Plt Count 148 L Neut % (Auto) 68.9 Lymph % (Auto) 21.6 L [place] % (Auto) 9.4 Eos % (Auto) 0.0 L Baso % (Auto) 0.1 Neut # (Auto) 3800 Lymph # (Auto) 1200 [place] # (Auto) 500 Eos # (Auto) 0 Baso # (Auto) 0 Sodium 137 Potassium 4.9 Chloride 107 Carbon Dioxide 20 L BUN 40 H Creatinine 1.63 H Estimated GFR 41.7 L BUN/Creatinine Ratio 24.5 H Glucose 74 L Calcium 8.1 L Total Bilirubin 0.4 AST 62 H ALT 28 Alkaline Phosphatase 72 Total Protein 7.0 Albumin 3.6 Globulin 3.4 Albumin/Globulin Ratio 1.1 Nasal Screen MRSA (PCR) Negative for mrsa COUNTS INCLUDE 234 BEDS AT THE [facility] Medical History Acne (Unknown) Actinic keratosis (~2018) Anemia Atrial fibrillation (Unknown) Chronic low back pain (Unknown) Closed compression fracture of third lumbar vertebra Coronary artery disease (Unknown) Diabetes (Unknown) GERD (gastroesophageal reflux disease) (Unknown) Hearing loss (Unknown) Hx of coronary angiogram (Unknown) Hyperlipemia (Unknown) Hypertension (Unknown) Keloid Osteoporosis Pacemaker Renal insufficiency Sarcoidosis (11/2007) Squamous cell carcinoma (Unknown) Visit for suture removal Surgical History H/O left wrist surgery H/O toe surgery History of arthroplasty of left shoulder (Unknown) History of arthroplasty of right shoulder (Unknown) History of fusion of thoracic spine History of lumbar fusion Hx of knee surgery (Unknown) Hx of left knee surgery Hx of prior ablation treatment (~05/2013) Status post lumbar and lumbosacral fusion by anterior technique Family History Father Diabetes mellitus Mother No problems noted. Social History household members: spouse and children Smoking Status: Never smoker second hand exposure: Yes alcohol intake: current substance use type: does not use Assessment & Plan Assessment & Plan narrative: COVID pneumonia, present on admission. Active. -Bilateral viral pneumonia infiltrates on CXR -LDH 813, D-dimer 818 on admission - on Eliquis -High flow NC Oxygen at 40% on admission--now on room air -IV Remdesivir, Baricitinb, Dexamethasone -Tele-soybean grower Consult -Full Code Hypoxemic respiratory failure, present on admission. Active. -HFNC oxygen with improved oxygenation and stabilization/improvement of his respiratory distress -Continue Symbicort and Albuterol -Full Code Paroxysmal atrial fibrillation, present on admission. Active. -Continue home medicines of Tikosyn, Metoprolol, Eliquis Coronary Artery Disease, present on admission. Active -Continue Aspirin and Lipitor. -Troponin 0.08 with BNP 2,450 on admission Congestive heart failure, present on admission. Chronic stable -Continue torsemide and Metoprolol home meds -BNP 2.450 on admission -cautious hydration Diabetes Mellitus Type 2, present on admission. Active. -Continue Glargine 15 units BID and follow blood sugars -Add correctional scale Lispro if needed CKD, present on admission. Active -Creatinine 1.65 on admission, stable History of sarcoidosis, currently in remission. Chronic stable -he had been off Prednisone (finally) until he was resumed at 40 mg daily 4 days ago by Pulmonology -Continue Symbicort and Albuterol Eliquis for DVT/PE prevention His Nay Ott is hs backup decision maker. Time Spent With Patient Critical Care time: I spent a total of [] minutes of critical care time on this patient's care today; this time is exclusive of procedural time. Quality VTE Deep Vein Thrombosis/Pulmonary Embolism Present on Admission: No
[2021-05-18] MEDS: ATORVASTATIN 20 MG TABLET 40 MG PO (20:45)
[2021-05-19] VITALS: BP 108/59; PULSE 90; RESP 24; TEMP 36.8; O2SAT 93
[2021-05-19 02:16] VITALS: O2SAT 94
[2021-05-19 04:00] VITALS: BP 110/66; PULSE 82; RESP 18; TEMP 36.5; O2SAT 94
[2021-05-19] MEDS: BUDESONIDE 0.5 MG/2 ML NEB INH (07:04)
[2021-05-19] MEDS: ALBUTEROL 2.5 MG/3 ML NEB (ADULT) INH (07:05)
[2021-05-19 07:23] VITALS: PULSE 64; RESP 14
[2021-05-19 07:30] VITALS: O2SAT 93
[2021-05-19 08:00] VITALS: BP 95/55; PULSE 67; RESP 22; TEMP 37.1; O2SAT 94
[2021-05-19] MEDS: TORSEMIDE 10 MG TABLET 20 MG PO (10:16)
[2021-05-19] MEDS: DOFETILIDE 125 MCG 125 EACH PO (10:16)
[2021-05-19] MEDS: APIXABAN 5 MG TABLET PO (10:16)
[2021-05-19] MEDS: ASPIRIN EC 81 MG TABLET PO (10:16)
[2021-05-19] MEDS: DEXAMETHASONE 10 MG/ML VIAL 6 MG IV (10:17)
[2021-05-19] MEDS: BARICITINIB 2 MG TABLET PO (10:17)
[2021-05-19] MEDS: FERROUS SULFATE 325 MG TABLET PO (10:17)
[2021-05-19] MEDS: REMDESIVIR 100 MG in SODIUM CHLORIDE 0.9% 230 ML 250 ML IV (11:57)
[2021-05-19] MEDS: INSULIN GLARGINE 100 UNIT/ML 3ML PEN 15 UNIT SUBCUT (11:58)
--- NOTE | 2021-05-19 12:39 | CM.DPC ---
DCP Discharge Home Per MD, pt is medically stable to d/c home today and discussed O2 concerns with RN and placed orders for RT home assessment for oxygen and RT esau completed assessment and will set up home oxygen for home use for pt prior to d/c home today. No identified barriers to discharge. Plan: Patient to d/c home today via spouse POV and new home oxygen set up for ongoing COVID+ symptoms. KIERA Waddell
--- NOTE | 2021-05-19 12:57 | PC.NURSE ---
Pt is feeling better and will dc home, home 02 set up by RT for use with activity. IV removed. Pt waiting for ride.
--- NOTE | 2021-05-19 15:32 | PM.DS.1 ---
History of Present Illness History of Present Illness Chief complaint: COVID+ Resp distress, trouble walking Narrative: This is a 75-year-old male chronically ill with sarcoidosis, diabetes mellitus type 2, chronic kidney disease, coronary artery disease, osteoporosis, hyperlipidemia and congestive heart failure who presents now with COVID pneumonia.? He is fully immunized x3 with Moderna.? His 1st positive test was about 4 days ago at his featheredge machine operator's office, Dr. uBeno in [place].? He was celebrating his anniversary with his and 2 close friends at a restaurant about 1 week ago.? Otherwise he has no other idea where he might have been exposed.? His is not ill and the other 2 people at the table are also not ill.? His shortness of breath, coughing and intolerance of activity worsened considerably until this morning when he was unable to speak in normal sentences or to catch his breath.? On arrival he was noted to be saturating in the 80s on 4 L nasal cannula.? With application of 40 L high-flow nasal cannula his saturations came up into the low 90s.? He is feeling much better.? He has been started on remdesivir, Baricitinib and dexamethasone.? He is full code.? Discharge Providers Provider Date of admission: 05/17/21 17:50 Discharge Date: 05/19/21 Primary care physician: Alvaro Palomares DO Consults: 05/17/21 18:19 Consult to Tele-shipfitter helper Routine Comment: Consulting Provider: Mary Tele-intensivists Reason for consultation: Site Superintendent services 05/18/21 05:39 Consult to Tele-shipfitter helper Routine Comment: Consulting Provider: Mary Tele-intensivists Reason for consultation: Site Superintendent services Discharge provider: Manuel Rothman MD Summary Hospital Course Discharge Diagnosis: 1. COVID-19 pneumonia with acute hypoxic respiratory failure 2. Congestive heart failure with preserved EF with exacerbation 3. Permanent atrial fibrillation 4. Coronary artery disease 5. Type 2 diabetes insulin required 6. History of sarcoidosis 7. CKD Patient admitted for primary diagnosis of COVID-19 pneumonia with acute hypoxic respiratory failure. He also appeared to have some degree of volume overload with small pleural effusions noted on chest x-ray. For COVID he was treated with dexamethasone, remdesivir and baracitinib. He also got initial IV Lasix with good diuresis. His condition improved from requiring high-flow nasal cannula to where now he has O2 sats of 94% on room air. He does desaturate into low 80s with exertion in room and RT arranged for portable home O2. Status at Discharge Cognitive/behavioral status at discharge: oriented Functional status at discharge: independent ambulation Overall status at discharge: patient is progressing back to baseline Time Spent with Patient Time spent: Greater than 30 minutes Exam Vital Signs (past 8 hours): - 05/19/21 08:00 Temperature 98.8 F Pulse Rate 67 Respiratory Rate 22 Blood Pressure 95/55 L Pulse Oximetry 94 Fraction of Inspired Oxygen 40 Oxygen Delivery Method Room Air Oxygen Flow Rate 0 Narrative Exam Narrative: General: Alert and oriented male appearing comfortable Lungs: Breathing nonlabored and able to speak in full sentences Extremities: No edema Objective Labs Result Diagrams: 05/18/21 08:40 05/18/21 04:15 [facility] Medical History Acne (Unknown) Actinic keratosis (~2017) Anemia Atrial fibrillation (Unknown) Chronic low back pain (Unknown) Closed compression fracture of third lumbar vertebra Coronary artery disease (Unknown) Diabetes (Unknown) GERD (gastroesophageal reflux disease) (Unknown) Hearing loss (Unknown) Hx of coronary angiogram (Unknown) Hyperlipemia (Unknown) Hypertension (Unknown) Keloid Osteoporosis Pacemaker Renal insufficiency Sarcoidosis (11/2007) Squamous cell carcinoma (Unknown) Visit for suture removal Surgical History H/O left wrist surgery H/O toe surgery History of arthroplasty of left shoulder (Unknown) History of arthroplasty of right shoulder (Unknown) History of fusion of thoracic spine History of lumbar fusion Hx of knee surgery (Unknown) Hx of left knee surgery Hx of prior ablation treatment (~05/2013) Status post lumbar and lumbosacral fusion by anterior technique Family History Father Diabetes mellitus Mother No problems noted. Social History household members: spouse and children Smoking Status: Never smoker second hand exposure: Yes alcohol intake: current substance use type: does not use Discharge Plan Discharge Plan Patient Disposition: Home Provider Discharge Comment: You were treated with dexamethasone, Remdesivir and baracitinib for COVID pneumonia and respiratory failure. We also gave you IV Lasix initially to get extra fluid off. You should finish the 2 days of prednisone that you have left over from last Rx (next dose tomorrow AM). You can use your albuterol inhaler every 4 hours as needed. You should quarantine for 10 days from time of your positive COVID test. Monitor your oxygen levels at home if possible. Tele helath follow up with your PCP, featheredge machine operator and advertising director. Discharge orders & Medications Prescriptions: Continued dofetilide [Tikosyn] 125 mcg capsule 125 mcg PO BID RF: 0 CALCIUM 600 mg PO .QDAY RF: 0 budesonide-formoterol [Symbicort] 160 MCG/4.5 MCG HFA aerosol inhaler 2 inh INH BID Qty: 1 RF: 6 atorvastatin 40 mg tablet 40 mg PO DAILY Qty: 90 RF: 3 tramadol 50 mg tablet 50 mg PO QID PRN (Reason: pain) Qty: 120 RF: 1 Lantus Solostar U-100 Insulin 100 unit/mL (3 mL) insulin pen 30 unit SUBCUT DAILY Qty: 15 RF: 6 [facility] 10 billion cell -200 mg capsule, sprinkle See Rx Instructions .ROUTE .COMPLEX Qty: 100 RF: 1 ferrous sulfate 325 mg (65 mg iron) tablet See Rx Instructions .ROUTE .COMPLEX Qty: 90 RF: 0 vitamin B complex [B Complex-Vitamin B12] Tablet 1 tab PO HS Qty: 100 RF: 4 pregabalin [Lyrica] 100 mg capsule 100 mg PO BID Qty: 180 RF: 1 Eliquis 5 mg tablet 5 mg PO BID RF: 0 epinephrine [EpiPen 2-Abhijeet] 0.3 mg/0.3 mL auto-injector 0.3 mg IM ONCE Qty: 2 RF: 0 aspirin 81 mg tablet,delayed release (DR/EC) 81 mg PO DAILY RF: 0 torsemide 20 mg tablet 20 mg PO DAILY RF: 0 metoprolol succinate 50 mg tablet extended release 24 hr 50 mg PO BID RF: 0 nitroglycerin [Nitrostat] 0.4 mg tablet, sublingual 0.4 mg sublingual Q5-15M PRN (Reason: Chest Pain) RF: 0 alprazolam [Xanax] 0.5 mg tablet 0.25 mg PO BID PRN (Reason: anxiety) Qty: 60 RF: 1 Changed albuterol sulfate 90 mcg/actuation HFA aerosol inhaler 2 puff INHALATION Q4H PRN (Reason: wheezing) Qty: 0 RF: 0 No Action (DME) Fast click lancet cartridge Qty: 1 RF: 0 (DME) [Contour test strips] 0 .Route .MEDSUPPLY Qty: 300 RF: 6 (DME) pen needle, diabetic [BD Ultra-Fine Orig Pen Needle] 29 gauge x 1/2 needle See Dose Instructions .ROUTE .MEDSUPPLY Qty: 30 RF: 6 (DME) Disabled Parking Permit See Rx Instructions .ROUTE .MEDSUPPLY Qty: 1 RF: 0 (DME) gel-matrix pad dress, silicone 2 X 5.5 pad See Rx Instructions .Route Qty: 4 RF: 2 Follow up/Referrals: Alvaro Palomares, [Primary Care Provider] - (*Appt on May 28 via Jiberish 3:30pm with . ) Diet/Activity/Treatments Diet: Diet as Tolerated Visit Report/Discharge Packet Instructions: Heart Failure, DI for Respiratory Failure, DI for COVID-19 (Suspected or Confirmed ) Discharge Data Primary Care Provider: Alvaro Palomares Quality VTE Deep Vein Thrombosis/Pulmonary Embolism Present on Admission: No
== END 2021-05-19 14:29 | disposition home or self-care (01) | DRG 177 ==
LOC: ED 17:19 → AC 17:51 → ICU 21:21
PROVIDERS: Internal Medicine; Admitting Provider Family Medicine; Emergency Provider Emergency Medicine; PCP Family Medicine; Referring Provider Emergency Medicine; Visit Provider Family Medicine
DX: U07.1 COVID-19 (principal); J12.82 Pneumonia due to coronavirus disease 2019; J96.01 Acute respiratory failure with hypoxia; I50.23 Acute on chronic systolic (congestive) heart failure; I13.0 Hypertensive heart and chronic kidney disease with heart failure and stage 1 through stage 4 chronic kidney disease, or unspecified chronic kidney disease; I48.21 Permanent atrial fibrillation; N18.9 Chronic kidney disease, unspecified; E11.22 Type 2 diabetes mellitus with diabetic chronic kidney disease; D86.0 Sarcoidosis of lung; I25.10 Atherosclerotic heart disease of native coronary artery without angina pectoris; E78.5 Hyperlipidemia, unspecified; D64.9 Anemia, unspecified; Z79.4 Long term (current) use of insulin; R06.02 Shortness of breath; D86.9 Sarcoidosis, unspecified
CPT/HCPCS: 36415; 71045; 71046; 80053; 82550; 82553; 82728; 82962; 83605; 83615; 83880; 84145; 84484; 85025; 85379; 86140; 87040; 87635; 87797; 93005; 93010; 94618; 94640; 94762; 96365; 96375; 99284; 99285; C9803; C9113; J1100; J1940; J2405; J7613

== ENCOUNTER 2021-05-27 20:12 | Inpatient (IN) | payer MEDICARE, OTHER, SELFPAY ==
[2021-05-17 21:59] VITALS: BMI 28.7
[2021-05-27] VITALS (14 sets, daily range): BP systolic 98–134; BP diastolic 57–75; PULSE 87–132; RESP 22–32; TEMP 36.5–36.9; O2SAT 88–94; BMI 28.0
--- NOTE | 2021-05-27 20:25 | ED_ITS ---
HPI - SOB/Dyspnea General Chief Complaint: Shortness of Breath/Dyspnea Stated Complaint: Covid+, SOB Time Seen by Provider: 05/27/21 20:34 Source: patient and EMS Mode of arrival: EMS Limitations: no limitations History of Present Illness HPI Narrative: This is a 75-year-old male comes emergency department with history of COPD a diagnosed in 2005 and sarcoid and is normally on 2 L nasal cannula. Patient states he tested positive for coronavirus May 14, he had repeat testing 1- 2 weeks later and was still positive. He has had increasing shortness of breath which is rest doubly worsened in the last 2 or 3 days. Patient states he is normally on a steroid inhaler he uses daily. He typically uses his albuterol rescue inhaler 1 to 2 times a week but has been using it 5-6 times daily. He states he is quite short of breath. He has not had fevers or chills. He denies any chest pain or pressure. He does feel very short of breath and wheezy. He did receive partial DuoNeb EN route with EMS which he states was helpful. Patient has had some nausea and some dry heaves. He denies diarrhea or constip ation. Denies any urinary symptoms. No swelling in his lower extremities. Patient denies any abdominal, back or flank pain. Patient states he does not have any known cardiac history. He is allergic to sulfa drugs. Related Data Home Medications Medication Instructions Recorded Confirmed dofetilide 125 mcg capsule 125 mcg PO BID cap 08/03/18 05/27/21 (Tikosyn) apixaban 5 mg tablet (Eliquis) 5 mg PO BID 01/03/19 05/27/21 aspirin 81 mg tablet,delayed 81 mg PO DAILY 08/02/19 05/27/21 release torsemide 20 mg tablet 20 mg PO DAILY tab 12/25/19 05/27/21 metoprolol succinate 50 mg 50 mg PO BID tab 03/25/21 05/27/21 tablet,extended release 24 hr nitroglycerin 0.4 mg sublingual 0.4 mg SUBLINGUAL Q5-15M PRN 03/25/21 05/27/21 tablet (Nitrostat) atorvastatin 40 mg tablet 40 mg PO Q OTHER DAY 05/27/21 05/27/21 calcium carbonate 600 mg (1,500 1 tab PO DAILY 05/27/21 05/27/21 mg)-vitamin D3 200 unit tablet insulin glargine 100 unit/mL (3 15 unit SUBCUT BID 05/27/21 05/27/21 mL) subcutaneous pen (Lantus Solostar U-100 Insulin) lorazepam 0.5 mg tablet (Ativan) 0.5 mg PO TID PRN 05/27/21 05/27/21 oxycodone-acetaminophen 5 mg-325 1 tab PO Q4H PRN 05/27/21 05/27/21 mg tablet tramadol 50 mg tablet 50 mg PO TID 05/27/21 05/27/21 vitamin B complex (B 1 tab PO DAILY 05/27/21 05/27/21 Complex-Vitamin B12) Previous Rx's Medication Instructions Recorded budesonide-formoterol HFA 160 2 inh INH BID #1 inh 09/14/17 mcg-4.5 mcg/actuation aerosol inhaler (Symbicort) Fast click lancet cartridge #1 ea 10/04/18 epinephrine 0.3 mg/0.3 mL 0.3 mg (0.3 mL) IM ONCE #2 each 04/04/19 injection, auto-injector (EpiPen 2-Abhijeet) alprazolam 0.5 mg tablet (Xanax) 0.25 mg PO BID PRN #60 tab 03/13/20 [Contour test strips] #300 each 08/20/20 pen needle, diabetic 29 gauge x #30 each 09/17/2007/13 (BD Ultra-Fine Original Pen Needle) Disabled Parking Permit #1 ea 10/22/20 Lactobacil rhamnosus GG 10 billion See Rx Instructions .ROUTE 01/16/21 cell-inulin 200 mg sprinkle .COMPLEX #100 cap capsule ([employer]) ferrous sulfate 325 mg (65 mg See Rx Instructions .ROUTE 03/10/21 iron) tablet .COMPLEX #90 tab gel-matrix pad dress, silicone 2 #4 ea 03/25/21 X 5.5 topical pads pregabalin 100 mg capsule (Lyrica) 100 mg PO BID #180 cap 03/31/21 albuterol sulfate 90 mcg/actuation 2 puff INHALATION Q4H PRN #0 gram 05/19/21 aerosol inhaler Bleed in valve for CPAP connection #1 ea 05/20/21 to oxygen Allergies Allergy/AdvReac Type Severity Reaction Status Date / Time venom-honey bee Allergy Severe shut down Verified 05/27/21 22:00 [BEE VENOM (HONEY BEE)] my respiratory system. Sulfa (Sulfonamide AdvReac Severe KIDNEY Verified 05/27/21 22:00 Antibiotics) FAILURE [SULFA (SULFONAMIDE ANTIBIOTICS)] Review of Systems Review of Systems ROS Unobtainable: All systems reviewed & are unremarkable except as noted in HPI and below Patient History Medical History Acne (Unknown) Actinic keratosis (~2017) Anemia Atrial fibrillation (Unknown) Chronic low back pain (Unknown) Closed compression fracture of third lumbar vertebra Coronary artery disease (Unknown) Diabetes (Unknown) GERD (gastroesophageal reflux disease) (Unknown) Hearing loss (Unknown) Hx of coronary angiogram (Unknown) Hyperlipemia (Unknown) Hypertension (Unknown) Keloid Osteoporosis Pacemaker Renal insufficiency Sarcoidosis (11/2007) Squamous cell carcinoma (Unknown) Visit for suture removal Surgical History H/O left wrist surgery H/O toe surgery History of arthroplasty of left shoulder (Unknown) History of arthroplasty of right shoulder (Unknown) History of fusion of thoracic spine History of lumbar fusion Hx of knee surgery (Unknown) Hx of left knee surgery Hx of prior ablation treatment (~05/2013) Status post lumbar and lumbosacral fusion by anterior technique Family History Father Diabetes mellitus Mother No problems noted. Social History household members: spouse and children Smoking Status: Never smoker second hand exposure: Yes alcohol intake: current substance use type: does not use Smoking Status: Never smoker alcohol intake frequency: holidays/special occasions only Substance Use Type: does not use Exam Narrative Exam Narrative: GEN: Elderly, ill-appearing male, alert and oriented x 3, patient appears to be in moderate distress. HEENT: Atraumatic, pupils are equal round reactive to light, extraocular movements are intact, nares are clear. HEART: Regular rate and rhythm without murmur, clicks, rubs. LUNGS:Lungs bilateral wheezes, rales, crackles, chest moves symmetrically, positive for tachypnea. Patient speaks in 3-4 word sentences. ABD:bowel sounds normal, soft, non-tender, no guarding, rebound, rigidity, no masses noted, no hepatosplenomegaly :No CVA tenderness MSCL: Non-tender, full range of motion NEURO:CN 2-12 intact, sensation normal SKIN: No rash, erythema or other skin changes noted. Initial Vital Signs Initial Vital Signs: Vital Signs Temperature 98.4 F 05/27/21 20:12 Pulse Rate 87 05/27/21 20:12 Respiratory Rate 32 H 05/27/21 20:12 Blood Pressure 112/71 05/27/21 20:12 Pulse Oximetry 91 05/27/21 20:12 Course Orders Ordered: Acetaminophen (Acetaminophen 325 Mg Tablet) 650 mg PO Q6HR PRN PRN Reason: Fever/Mild Pain (1-3) Last Admin: 06/05/21 15:36 Dose: 650 mg Documented by: Admin: 06/04/21 21:33 Dose: 650 mg Documented by: BELINDA Albuterol/Ipratropium (Albuterol/Ipratropium 3 Ml Ampul) 3 ml INH [id number] JUAREZ Last Admin: 06/08/21 08:59 Dose: 3 ml Documented by: Admin: 06/08/21 01:25 Dose: Not Given Documented by: JOSÉ MIGUEL Admin: 06/07/21 20:20 Dose: 3 ml Documented by: Admin: 06/07/21 15:06 Dose: 3 ml Documented by: Admin: 06/07/21 12:30 Dose: Not Given Documented by: Admin: 06/07/21 10:15 Dose: Not Given Documented by: Admin: 06/07/21 09:49 Dose: 3 ml Documented by: Admin: 06/06/21 17:30 Dose: 3 ml Documented by: Admin: 06/06/21 17:27 Dose: Not Given Documented by: Admin: 06/06/21 12:36 Dose: 3 ml Documented by: Admin: 06/06/21 08:40 Dose: 3 ml Documented by: Admin: 06/06/21 00:18 Dose: 3 ml Documented by: Admin: 06/05/21 20:10 Dose: 3 ml Documented by: Admin: 06/05/21 16:28 Dose: 3 ml Documented by: Admin: 06/05/21 11:25 Dose: 3 ml Documented by: Admin: 06/05/21 06:57 Dose: 3 ml Documented by: Admin: 06/04/21 22:32 Dose: 3 ml Documented by: Admin: 06/04/21 20:20 Dose: 3 ml Documented by: Admin: 06/04/21 15:23 Dose: 3 ml Documented by: Admin: 06/04/21 11:08 Dose: Not Given Documented by: Admin: 06/04/21 08:16 Dose: 3 ml Documented by: Admin: 06/03/21 22:50 Dose: 3 ml Documented by: Admin: 06/03/21 21:22 Dose: 3 ml Documented by: Admin: 06/03/21 15:28 Dose: 3 ml Documented by: Admin: 06/03/21 12:08 Dose: 3 ml Documented by: Admin: 06/03/21 08:32 Dose: 3 ml Documented by: Admin: 06/02/21 22:16 Dose: Not Given Documented by: Admin: 06/02/21 20:04 Dose: 3 ml Documented by: Admin: 06/02/21 17:23 Dose: Not Given Documented by: Admin: 06/02/21 11:50 Dose: 3 ml Documented by: Admin: 06/02/21 05:58 Dose: 3 ml Documented by: Admin: 06/01/21 23:49 Dose: 3 ml Documented by: Admin: 06/01/21 19:28 Dose: 3 ml Documented by: Admin: 06/01/21 15:34 Dose: 3 ml Documented by: Admin: 06/01/21 11:18 Dose: 3 ml Documented by: Admin: 06/01/21 07:59 Dose: 3 ml Documented by: Admin: 06/01/21 00:26 Dose: 3 ml Documented by: Admin: 05/31/21 20:34 Dose: 3 ml Documented by: Admin: 05/31/21 15:17 Dose: 3 ml Documented by: Admin: 05/31/21 10:48 Dose: 3 ml Documented by: Admin: 05/31/21 07:13 Dose: 3 ml Documented by: Admin: 05/31/21 01:22 Dose: Not Given Documented by: Admin: 05/31/21 00:33 Dose: 3 ml Documented by: Admin: 05/30/21 21:40 Dose: 3 ml Documented by: Admin: 05/30/21 08:50 Dose: 3 ml Documented by: Admin: 05/30/21 02:27 Dose: 3 ml Documented by: Admin: 05/29/21 22:28 Dose: 3 ml Documented by: Admin: 05/29/21 19:29 Dose: 3 ml Documented by: Admin: 05/29/21 14:25 Dose: 3 ml Documented by: DHARMESH Apixaban (Apixaban 5 Mg Tablet) 5 mg PO BID JUAREZ Last Admin: 06/08/21 08:47 Dose: 5 mg Documented by: Admin: 06/07/21 22:12 Dose: 5 mg Documented by: Admin: 06/07/21 10:41 Dose: 5 mg Documented by: Admin: 06/06/21 20:03 Dose: 5 mg Documented by: Admin: 06/06/21 08:52 Dose: 5 mg Documented by: Admin: 06/05/21 20:43 Dose: 5 mg Documented by: Admin: 06/05/21 08:16 Dose: 5 mg Documented by: Admin: 06/04/21 20:58 Dose: 5 mg Documented by: Admin: 06/04/21 08:52 Dose: 5 mg Documented by: Admin: 06/03/21 20:53 Dose: 5 mg Documented by: Admin: 06/03/21 08:28 Dose: 5 mg Documented by: Admin: 06/02/21 21:03 Dose: 5 mg Documented by: Admin: 06/02/21 08:56 Dose: 5 mg Documented by: Admin: 06/01/21 21:04 Dose: 5 mg Documented by: Admin: 06/01/21 08:57 Dose: 5 mg Documented by: Admin: 05/31/21 21:08 Dose: 5 mg Documented by: Admin: 05/31/21 08:53 Dose: 5 mg Documented by: Admin: 05/30/21 21:30 Dose: 5 mg Documented by: BELINDA Ascorbic Acid (Ascorbic Acid 500 Mg Tablet) 500 mg PO BID [facility] Admin: 06/08/21 08:49 Dose: 500 mg Documented by: Admin: 06/07/21 22:31 Dose: 500 mg Documented by: Admin: 06/07/21 10:41 Dose: 500 mg Documented by: Admin: 06/06/21 20:04 Dose: 500 mg Documented by: Admin: 06/06/21 08:52 Dose: 500 mg Documented by: Admin: 06/05/21 20:46 Dose: 500 mg Documented by: Admin: 06/05/21 08:15 Dose: 500 mg Documented by: Admin: 06/04/21 20:58 Dose: 500 mg Documented by: Admin: 06/04/21 08:52 Dose: 500 mg Documented by: Admin: 06/03/21 21:22 Dose: 500 mg Documented by: Admin: 06/03/21 09:56 Dose: 500 mg Documented by: Admin: 06/02/21 21:05 Dose: 500 mg Documented by: Admin: 06/02/21 08:56 Dose: 500 mg Documented by: REBECCA Aspirin (Aspirin Ec 81 Mg Tablet) 81 mg PO DAILY [facility] Admin: 06/08/21 08:47 Dose: 81 mg Documented by: Admin: 06/07/21 10:41 Dose: 81 mg Documented by: Admin: 06/06/21 08:52 Dose: 81 mg Documented by: Admin: 06/05/21 08:14 Dose: 81 mg Documented by: Admin: 06/04/21 08:52 Dose: 81 mg Documented by: Admin: 06/03/21 08:28 Dose: 81 mg Documented by: Admin: 06/02/21 08:57 Dose: 81 mg Documented by: Admin: 06/01/21 08:56 Dose: 81 mg Documented by: Admin: 05/31/21 08:53 Dose: 81 mg Documented by: Admin: 05/30/21 10:36 Dose: 81 mg Documented by: Admin: 05/29/21 09:08 Dose: 81 mg Documented by: Admin: 05/28/21 10:19 Dose: 81 mg Documented by: REBECCA Atorvastatin Calcium (Atorvastatin 20 Mg Tablet) 40 mg PO Q48H [facility] Last Admin: 06/06/21 23:58 Dose: 40 mg Documented by: Admin: 06/04/21 20:58 Dose: 40 mg Documented by: Admin: 06/03/21 07:43 Dose: Not Given Documented by: Admin: 05/31/21 21:16 Dose: 40 mg Documented by: Admin: 05/29/21 21:56 Dose: 40 mg Documented by: BELINDA Bisacodyl (Bisacodyl 10 Mg Supp) 10 mg NH DAILY PRN PRN Reason: Constipation Last Admin: 06/05/21 15:37 Dose: 10 mg Documented by: ALPHONSO Budesonide (Budesonide 0.5 Mg/2 Ml Neb) 0.5 mg INH RTBID [facility] Last Admin: 06/08/21 08:59 Dose: 0.5 mg Documented by: Admin: 06/07/21 20:20 Dose: 0.5 mg Documented by: Admin: 06/07/21 09:49 Dose: 0.5 mg Documented by: Admin: 06/06/21 17:30 Dose: 0.5 mg Documented by: Admin: 06/06/21 08:41 Dose: 0.5 mg Documented by: Admin: 06/05/21 20:10 Dose: 0.5 mg Documented by: Admin: 06/05/21 06:57 Dose: 0.5 mg Documented by: Admin: 06/04/21 20:20 Dose: 0.5 mg Documented by: Admin: 06/04/21 08:16 Dose: 0.5 mg Documented by: Admin: 06/03/21 21:22 Dose: 0.5 mg Documented by: Admin: 06/03/21 08:32 Dose: 0.5 mg Documented by: Admin: 06/02/21 20:04 Dose: 0.5 mg Documented by: Admin: 06/02/21 06:00 Dose: 0.5 mg Documented by: Admin: 06/01/21 19:28 Dose: 0.5 mg Documented by: Admin: 06/01/21 08:00 Dose: 0.5 mg Documented by: Admin: 05/31/21 20:34 Dose: 0.5 mg Documented by: Admin: 05/31/21 07:13 Dose: 0.5 mg Documented by: Admin: 05/30/21 21:40 Dose: 0.5 mg Documented by: Admin: 05/30/21 08:55 Dose: 0.5 mg Documented by: Admin: 05/29/21 19:29 Dose: 0.5 mg Documented by: Admin: 05/29/21 11:08 Dose: Not Given Documented by: Admin: 05/28/21 20:31 Dose: 0.5 mg Documented by: Admin: 05/28/21 09:15 Dose: 0.5 mg Documented by: DHARMESH Buspirone HCl (Buspirone 5 Mg Tablet) 10 mg PO BID [facility] Admin: 06/08/21 08:46 Dose: 10 mg Documented by: Admin: 06/07/21 22:00 Dose: 10 mg Documented by: Admin: 06/07/21 10:41 Dose: 10 mg Documented by: Admin: 06/06/21 23:56 Dose: 10 mg Documented by: LETY Cefdinir (Cefdinir 300 Mg Capsule) 300 mg PO BID [facility] Last Admin: 06/08/21 08:48 Dose: 300 mg Documented by: Admin: 06/07/21 22:15 Dose: 300 mg Documented by: Admin: 06/07/21 10:42 Dose: 300 mg Documented by: COURT Dextrose (Dextrose 50 % In Water 25 Gm/50 Ml Syringe) 25 gm IV PRN PRN PRN Reason: Hypoglycemia Last Admin: 06/08/21 06:42 Dose: 25 gm Documented by: Admin: 06/06/21 05:27 Dose: 25 gm Documented by: SUKHJINDER Docusate Sodium (Docusate 100 Mg Capsule) 100 mg PO BID [facility] Last Admin: 06/08/21 08:47 Dose: 100 mg Documented by: Admin: 06/07/21 22:18 Dose: 100 mg Documented by: Admin: 06/07/21 10:42 Dose: 100 mg Documented by: Admin: 06/06/21 20:03 Dose: 100 mg Documented by: Admin: 06/06/21 08:53 Dose: 100 mg Documented by: Admin: 06/05/21 20:43 Dose: 100 mg Documented by: Admin: 06/05/21 08:15 Dose: 100 mg Documented by: Admin: 06/04/21 20:58 Dose: 100 mg Documented by: Admin: 06/04/21 08:54 Dose: 100 mg Documented by: Admin: 06/03/21 20:55 Dose: 100 mg Documented by: Admin: 06/03/21 08:28 Dose: 100 mg Documented by: Admin: 06/02/21 21:03 Dose: 100 mg Documented by: Admin: 06/02/21 08:57 Dose: 100 mg Documented by: REBECCA Doxycycline Hyclate (Doxycycline Hyclate 100 Mg Tablet) 100 mg PO BID JUAREZ Stop: 06/10/21 21:01 Last Admin: 06/08/21 08:48 Dose: 100 mg Documented by: Admin: 06/07/21 22:17 Dose: 100 mg Documented by: Admin: 06/07/21 10:42 Dose: 100 mg Documented by: Admin: 06/06/21 20:02 Dose: 100 mg Documented by: Admin: 06/06/21 08:53 Dose: 100 mg Documented by: Admin: 06/05/21 20:42 Dose: 100 mg Documented by: Admin: 06/05/21 08:16 Dose: 100 mg Documented by: Admin: 06/04/21 20:58 Dose: 100 mg Documented by: Admin: 06/04/21 08:55 Dose: 100 mg Documented by: CARTER Famotidine (Famotidine 20 Mg Tablet) 20 mg PO BID [facility] Admin: 06/08/21 08:46 Dose: 20 mg Documented by: Admin: 06/07/21 22:17 Dose: 20 mg Documented by: Admin: 06/07/21 10:42 Dose: 20 mg Documented by: Admin: 06/06/21 20:03 Dose: 20 mg Documented by: Admin: 06/06/21 08:53 Dose: 20 mg Documented by: Admin: 06/05/21 20:42 Dose: 20 mg Documented by: Admin: 06/05/21 08:16 Dose: 20 mg Documented by: Admin: 06/04/21 21:00 Dose: 20 mg Documented by: BELINDA Ferrous Sulfate (Ferrous Sulfate 325 Mg Tablet) 325 mg PO DAILY [facility] Admin: 06/08/21 08:48 Dose: 325 mg Documented by: Admin: 06/07/21 10:42 Dose: 325 mg Documented by: Admin: 06/06/21 08:51 Dose: 325 mg Documented by: Admin: 06/05/21 08:16 Dose: 325 mg Documented by: Admin: 06/04/21 08:55 Dose: 325 mg Documented by: Admin: 06/03/21 08:26 Dose: 325 mg Documented by: Admin: 06/02/21 08:57 Dose: 325 mg Documented by: Admin: 06/01/21 08:57 Dose: 325 mg Documented by: Admin: 05/31/21 08:53 Dose: 325 mg Documented by: Admin: 05/30/21 10:37 Dose: 325 mg Documented by: Admin: 05/29/21 09:10 Dose: 325 mg Documented by: Admin: 05/28/21 10:22 Dose: 325 mg Documented by: REBECCA Insulin Human Lispro (Insulin Lispro 100 Unit/Ml 3ml Vial) 0 unit [facility]; Protocol Last Admin: 06/08/21 07:57 Dose: Not Given Documented by: Admin: 06/05/21 20:55 Dose: 2 unit Documented by: SUKHJINDER Cosigned by: MIKE Admin: 06/05/21 16:50 Dose: 3 unit Documented by: ALPHONSO Cosigned by: CLIF Admin: 06/05/21 12:24 Dose: 1 unit Documented by: CLIF Cosigned by: ALPHONSO Admin: 06/05/21 08:17 Dose: Not Given Documented by: Admin: 06/04/21 21:11 Dose: Not Given Documented by: Admin: 06/04/21 17:00 Dose: Not Given Documented by: Admin: 06/04/21 12:39 Dose: Not Given Documented by: Admin: 06/04/21 08:51 Dose: Not Given Documented by: Admin: 06/03/21 21:26 Dose: Not Given Documented by: Admin: 06/03/21 16:39 Dose: 3 unit Documented by: ELEANOR Cosigned by: JOHN Admin: 06/03/21 11:56 Dose: 5 unit Documented by: ELEANOR Cosigned by: JOHN Admin: 06/03/21 08:25 Dose: 1 unit Documented by: ELEANOR Cosigned by: CARTER Admin: 06/02/21 21:06 Dose: 2 unit Documented by: BELINDA Cosigned by: SHADI Admin: 06/02/21 17:16 Dose: 3 unit Documented by: REBECCA Cosigned by: JOHN Admin: 06/02/21 12:49 Dose: 5 unit Documented by: REBECCA Cosigned by: JOHN Admin: 06/02/21 08:45 Dose: 1 unit Documented by: REBECCA Cosigned by: JOHN Admin: 06/01/21 21:02 Dose: 3 unit Documented by: CHRISTIN Cosigned by: RUBÉN Admin: 06/01/21 16:51 Dose: 7 unit Documented by: REBECCA Cosigned by: CLIF Admin: 06/01/21 12:31 Dose: 5 unit Documented by: REBECCA Cosigned by: CLIF Admin: 06/01/21 08:12 Dose: Not Given Documented by: Admin: 05/31/21 21:02 Dose: 5 unit Documented by: CHRISTIN Cosigned by: RUBÉN Admin: 05/31/21 17:32 Dose: 8 unit Documented by: REBECCA Cosigned by: CLIF Lactobacillus Acidophilus (Lactobacillus Acidophilus Tablet) 1 each PO TIDWM [facility] Last Admin: 06/07/21 18:22 Dose: Not Given Documented by: Admin: 06/07/21 15:44 Dose: Not Given Documented by: Admin: 06/07/21 13:44 Dose: Not Given Documented by: Admin: 06/06/21 16:13 Dose: 1 each Documented by: Admin: 06/06/21 12:53 Dose: 1 each Documented by: Admin: 06/06/21 08:51 Dose: 1 each Documented by: Admin: 06/05/21 17:35 Dose: 1 each Documented by: Admin: 06/05/21 12:21 Dose: 1 each Documented by: Admin: 06/05/21 08:15 Dose: 1 each Documented by: Admin: 06/04/21 17:16 Dose: 1 each Documented by: Admin: 06/04/21 12:42 Dose: 1 each Documented by: CARTER Lorazepam (Lorazepam 0.5 Mg Tablet) 0.5 mg PO QID PRN PRN Reason: Anxiety Last Admin: 06/08/21 08:48 Dose: 0.5 mg Documented by: Admin: 06/07/21 19:46 Dose: 0.5 mg Documented by: Admin: 06/07/21 10:55 Dose: 0.5 mg Documented by: COURT Melatonin (Melatonin 3 Mg Tablet) 6 mg PO BEDTIME [facility] Last Admin: 06/07/21 22:13 Dose: 6 mg Documented by: Admin: 06/06/21 23:56 Dose: 6 mg Documented by: LETY Metoprolol Succinate (Metoprolol Er 50 Mg Tablet) 50 mg PO BID JUAREZ Last Admin: 06/08/21 08:46 Dose: 50 mg Documented by: Admin: 06/07/21 22:13 Dose: 50 mg Documented by: Admin: 06/07/21 10:42 Dose: 50 mg Documented by: Admin: 06/06/21 20:04 Dose: 50 mg Documented by: Admin: 06/06/21 08:53 Dose: 50 mg Documented by: Admin: 06/05/21 20:42 Dose: 50 mg Documented by: Admin: 06/05/21 08:16 Dose: 50 mg Documented by: Admin: 06/04/21 20:58 Dose: 50 mg Documented by: Admin: 06/04/21 09:25 Dose: Not Given Documented by: Admin: 06/03/21 20:56 Dose: 50 mg Documented by: Admin: 06/03/21 08:26 Dose: 50 mg Documented by: Admin: 06/02/21 21:04 Dose: 50 mg Documented by: Admin: 06/02/21 08:59 Dose: 50 mg Documented by: Admin: 06/01/21 21:04 Dose: 50 mg Documented by: Admin: 06/01/21 08:56 Dose: 50 mg Documented by: Admin: 05/31/21 21:08 Dose: 50 mg Documented by: Admin: 05/31/21 08:53 Dose: 50 mg Documented by: Admin: 05/30/21 21:31 Dose: 50 mg Documented by: Admin: 05/30/21 10:37 Dose: 50 mg Documented by: Admin: 05/29/21 21:46 Dose: 50 mg Documented by: Admin: 05/29/21 09:08 Dose: 50 mg Documented by: Admin: 05/28/21 21:32 Dose: 50 mg Documented by: Admin: 05/28/21 10:20 Dose: 50 mg Documented by: REBECCA Metronidazole (Metronidazole 500 Mg Tablet) 250 mg PO TID JUAREZ Stop: 06/10/21 21:01 Last Admin: 06/07/21 22:30 Dose: 250 mg Documented by: Admin: 06/07/21 15:43 Dose: 250 mg Documented by: Admin: 06/07/21 10:43 Dose: 250 mg Documented by: Admin: 06/06/21 23:59 Dose: 250 mg Documented by: Admin: 06/06/21 16:13 Dose: 250 mg Documented by: Admin: 06/06/21 08:53 Dose: 250 mg Documented by: Admin: 06/05/21 20:49 Dose: 250 mg Documented by: Admin: 06/05/21 15:37 Dose: 250 mg Documented by: Admin: 06/05/21 08:14 Dose: 250 mg Documented by: Admin: 06/04/21 20:57 Dose: 250 mg Documented by: Admin: 06/04/21 14:13 Dose: 250 mg Documented by: Admin: 06/04/21 08:56 Dose: 250 mg Documented by: CARTER Morphine Sulfate (Morphine 4 Mg/Ml Inj) 4 mg IV Q4HR PRN PRN Reason: Pain, Severe (7-10) Last Admin: 06/07/21 22:11 Dose: 4 mg Documented by: Admin: 06/07/21 10:55 Dose: 4 mg Documented by: Admin: 06/06/21 23:53 Dose: 4 mg Documented by: Admin: 06/06/21 20:15 Dose: 4 mg Documented by: Admin: 06/05/21 12:20 Dose: 4 mg Documented by: CLIF Naloxone HCl (Naloxone 0.4 Mg/Ml Vial) 0.2 mg IV Q2MIN PRN PRN Reason: Opiate Reversal Tikosyn 125 Mcg 125 mcg PO BID [facility] Last Admin: 06/08/21 08:52 Dose: 125 mcg Documented by: Admin: 06/07/21 22:11 Dose: 125 mcg Documented by: Admin: 06/07/21 10:49 Dose: 125 mcg Documented by: Admin: 06/06/21 23:55 Dose: 125 mcg Documented by: Admin: 06/06/21 09:00 Dose: 125 mcg Documented by: Admin: 06/05/21 20:44 Dose: 125 mcg Documented by: Admin: 06/05/21 08:17 Dose: 125 mcg Documented by: Admin: 06/04/21 20:58 Dose: 125 mcg Documented by: Admin: 06/04/21 08:59 Dose: 125 mcg Documented by: Admin: 06/03/21 21:27 Dose: 125 mcg Documented by: Admin: 06/03/21 10:03 Dose: 125 mcg Documented by: Admin: 06/02/21 21:02 Dose: 125 mcg Documented by: Admin: 06/02/21 08:53 Dose: 125 mcg Documented by: Admin: 06/01/21 21:05 Dose: 125 mcg Documented by: Admin: 06/01/21 08:55 Dose: 125 mcg Documented by: Admin: 05/31/21 21:10 Dose: 125 mcg Documented by: Admin: 05/31/21 08:52 Dose: 125 mcg Documented by: Admin: 05/30/21 21:33 Dose: 125 mcg Documented by: Admin: 05/30/21 10:41 Dose: 125 mcg Documented by: Admin: 05/29/21 21:45 Dose: 125 mcg Documented by: Admin: 05/29/21 09:10 Dose: 125 mcg Documented by: Admin: 05/28/21 21:33 Dose: 125 mcg Documented by: Admin: 05/28/21 10:25 Dose: 125 mcg Documented by: REBECCA Oxycodone/Acetaminophen (Oxycodone/Acetaminophen 5/325 Tablet) 1 tab PO Q4H PRN PRN Reason: Pain, Moderate Last Admin: 06/08/21 08:48 Dose: 1 tab Documented by: Admin: 06/04/21 21:33 Dose: 1 tab Documented by: Admin: 06/03/21 16:31 Dose: 1 tab Documented by: Admin: 06/03/21 09:55 Dose: 1 tab Documented by: Admin: 05/31/21 01:22 Dose: 1 tab Documented by: Admin: 05/30/21 17:14 Dose: 1 tab Documented by: Admin: 05/29/21 16:52 Dose: 1 tab Documented by: Admin: 05/29/21 10:55 Dose: 1 tab Documented by: ELEANOR Polyethylene Glycol (Polyethylene Glycol 3350 17 Gm Powd.Pack) 17 gm PO BID [facility] Admin: 06/08/21 08:50 Dose: 17 gm Documented by: Admin: 06/07/21 22:12 Dose: 17 gm Documented by: Admin: 06/07/21 10:46 Dose: 17 gm Documented by: Admin: 06/06/21 20:04 Dose: 17 gm Documented by: Admin: 06/06/21 08:51 Dose: 17 gm Documented by: Admin: 06/05/21 20:41 Dose: 17 gm Documented by: Admin: 06/05/21 08:16 Dose: 17 gm Documented by: Admin: 06/04/21 21:01 Dose: 17 gm Documented by: Admin: 06/04/21 08:58 Dose: 17 gm Documented by: Admin: 06/03/21 20:52 Dose: 17 gm Documented by: Admin: 06/03/21 09:55 Dose: 17 gm Documented by: Admin: 06/03/21 02:43 Dose: Not Given Documented by: Admin: 06/02/21 08:55 Dose: 17 gm Documented by: REBECCA Prednisone (Prednisone 20 Mg Tablet) 10 mg PO DAILY [facility] Admin: 06/08/21 08:49 Dose: 10 mg Documented by: Admin: 06/07/21 10:46 Dose: 10 mg Documented by: Admin: 06/06/21 08:52 Dose: 10 mg Documented by: Admin: 06/05/21 08:16 Dose: 10 mg Documented by: ALPHONSO Pregabalin (Pregabalin 50 Mg Capsule) 100 mg PO BID [facility] Admin: 06/08/21 08:49 Dose: 100 mg Documented by: Admin: 06/07/21 22:23 Dose: 100 mg Documented by: Admin: 06/07/21 10:48 Dose: 100 mg Documented by: Admin: 06/06/21 20:03 Dose: 100 mg Documented by: Admin: 06/06/21 08:53 Dose: 100 mg Documented by: Admin: 06/05/21 20:42 Dose: 100 mg Documented by: Admin: 06/05/21 08:15 Dose: 100 mg Documented by: Admin: 06/04/21 20:59 Dose: 100 mg Documented by: Admin: 06/04/21 08:59 Dose: 100 mg Documented by: Admin: 06/03/21 20:55 Dose: 100 mg Documented by: Admin: 06/03/21 08:26 Dose: 100 mg Documented by: Admin: 06/02/21 21:02 Dose: 100 mg Documented by: Admin: 06/02/21 08:56 Dose: 100 mg Documented by: Admin: 06/01/21 21:04 Dose: 100 mg Documented by: Admin: 06/01/21 08:56 Dose: 100 mg Documented by: Admin: 05/31/21 21:08 Dose: 100 mg Documented by: Admin: 05/31/21 08:53 Dose: 100 mg Documented by: Admin: 05/30/21 21:30 Dose: 100 mg Documented by: Admin: 05/30/21 10:38 Dose: 100 mg Documented by: Admin: 05/29/21 21:45 Dose: 100 mg Documented by: Admin: 05/29/21 09:09 Dose: 100 mg Documented by: Admin: 05/28/21 21:34 Dose: 100 mg Documented by: Admin: 05/28/21 10:20 Dose: 100 mg Documented by: REBECCA Quetiapine Fumarate (Quetiapine 25 Mg Tablet) 12.5 mg PO BEDTIME [facility] Last Admin: 06/07/21 22:17 Dose: 12.5 mg Documented by: Admin: 06/07/21 00:00 Dose: Not Given Documented by: LETY Risperidone (Risperidone 0.25 Mg Tablet) 0.25 mg PO BID [facility] Last Admin: 06/07/21 22:39 Dose: 0.25 mg Documented by: Admin: 06/07/21 10:52 Dose: 0.25 mg Documented by: Admin: 06/06/21 23:54 Dose: 0.25 mg Documented by: LETY Sennosides (Sennosides 8.6 Mg Tablet) 17.2 mg PO DAILY [facility] Last Admin: 06/07/21 10:48 Dose: 17.2 mg Documented by: Admin: 06/06/21 08:52 Dose: 17.2 mg Documented by: Admin: 06/05/21 08:14 Dose: 17.2 mg Documented by: Admin: 06/04/21 08:59 Dose: 17.2 mg Documented by: Admin: 06/03/21 09:55 Dose: 17.2 mg Documented by: Admin: 06/02/21 08:56 Dose: 17.2 mg Documented by: REBECCA Sertraline HCl (Sertraline 50 Mg Tablet) 50 mg PO BEDTIME [facility] Last Admin: 06/07/21 22:13 Dose: 50 mg Documented by: Admin: 06/06/21 23:55 Dose: 50 mg Documented by: LETY Sodium Biphosphate/Sodium Phosphate (Fleets Enema) 1 each [place] DAILY PRN PRN Reason: Constipation Sodium Chloride (Sodium Chloride 0.9% Flush) 10 ml IV PRN PRN PRN Reason: Flush Last Admin: 06/06/21 08:54 Dose: 10 ml Documented by: Admin: 05/30/21 05:52 Dose: 10 ml Documented by: BELINDA Sodium Chloride (Sodium Chloride 0.9% Flush) 10 ml IV BID [facility] Last Admin: 06/08/21 06:43 Dose: 10 ml Documented by: Admin: 06/07/21 22:35 Dose: 10 ml Documented by: Admin: 06/07/21 10:50 Dose: 10 ml Documented by: Admin: 06/07/21 00:00 Dose: 10 ml Documented by: Admin: 06/06/21 08:54 Dose: 10 ml Documented by: Admin: 06/05/21 20:45 Dose: 10 ml Documented by: Admin: 06/05/21 08:17 Dose: 10 ml Documented by: Admin: 06/04/21 21:00 Dose: 10 ml Documented by: Admin: 06/04/21 08:59 Dose: 10 ml Documented by: Admin: 06/03/21 21:04 Dose: 10 ml Documented by: Admin: 06/03/21 10:01 Dose: 10 ml Documented by: Admin: 06/02/21 21:02 Dose: 10 ml Documented by: Admin: 06/02/21 08:59 Dose: 10 ml Documented by: Admin: 06/01/21 21:05 Dose: 10 ml Documented by: Admin: 06/01/21 08:55 Dose: 10 ml Documented by: Admin: 05/31/21 21:08 Dose: 10 ml Documented by: Admin: 05/31/21 08:52 Dose: 10 ml Documented by: Admin: 05/30/21 21:32 Dose: 10 ml Documented by: Admin: 05/30/21 10:42 Dose: 10 ml Documented by: Admin: 05/29/21 21:49 Dose: 10 ml Documented by: Admin: 05/29/21 10:45 Dose: Not Given Documented by: Admin: 05/28/21 21:35 Dose: 10 ml Documented by: BELINDA Sucralfate (Sucralfate 1 Gm Tablet) 1 gm PO ACHS [facility] Admin: 06/08/21 08:00 Dose: 1 gm Documented by: Admin: 06/07/21 22:39 Dose: 1 gm Documented by: Admin: 06/07/21 18:23 Dose: 1 gm Documented by: Admin: 06/07/21 15:43 Dose: 1 gm Documented by: Admin: 06/07/21 13:43 Dose: Not Given Documented by: Admin: 06/06/21 20:03 Dose: 1 gm Documented by: Admin: 06/06/21 16:13 Dose: 1 gm Documented by: Admin: 06/06/21 12:53 Dose: 1 gm Documented by: Admin: 06/06/21 08:52 Dose: 1 gm Documented by: Admin: 06/05/21 20:41 Dose: 1 gm Documented by: Admin: 06/05/21 16:50 Dose: 1 gm Documented by: Admin: 06/05/21 12:20 Dose: 1 gm Documented by: Admin: 06/05/21 08:16 Dose: 1 gm Documented by: Admin: 06/04/21 20:58 Dose: 1 gm Documented by: Admin: 06/04/21 17:16 Dose: 1 gm Documented by: Admin: 06/04/21 12:42 Dose: 1 gm Documented by: Admin: 06/04/21 08:52 Dose: 1 gm Documented by: Admin: 06/03/21 20:52 Dose: 1 gm Documented by: Admin: 06/03/21 16:30 Dose: 1 gm Documented by: Admin: 06/03/21 11:51 Dose: 1 gm Documented by: Admin: 06/03/21 08:27 Dose: 1 gm Documented by: Admin: 06/03/21 02:41 Dose: Not Given Documented by: Admin: 06/02/21 16:13 Dose: Not Given Documented by: Admin: 06/02/21 12:47 Dose: Not Given Documented by: Admin: 06/02/21 08:53 Dose: 1 gm Documented by: REBECCA Tramadol HCl (Tramadol 50 Mg Tablet) 50 mg PO TID [facility] Last Admin: 06/08/21 08:49 Dose: 50 mg Documented by: Admin: 06/07/21 22:16 Dose: 50 mg Documented by: Admin: 06/07/21 15:45 Dose: 50 mg Documented by: Admin: 06/07/21 10:49 Dose: 50 mg Documented by: Admin: 06/06/21 20:02 Dose: 50 mg Documented by: Admin: 06/06/21 16:14 Dose: 50 mg Documented by: Admin: 06/06/21 08:52 Dose: 50 mg Documented by: Admin: 06/05/21 20:42 Dose: 50 mg Documented by: Admin: 06/05/21 15:37 Dose: 50 mg Documented by: Admin: 06/05/21 08:15 Dose: 50 mg Documented by: Admin: 06/04/21 20:59 Dose: 50 mg Documented by: Admin: 06/04/21 14:14 Dose: 50 mg Documented by: Admin: 06/04/21 08:59 Dose: 50 mg Documented by: Admin: 06/03/21 20:56 Dose: 50 mg Documented by: Admin: 06/03/21 15:28 Dose: 50 mg Documented by: Admin: 06/03/21 08:27 Dose: 50 mg Documented by: Admin: 06/02/21 21:04 Dose: 50 mg Documented by: Admin: 06/02/21 16:13 Dose: 50 mg Documented by: Admin: 06/02/21 08:57 Dose: 50 mg Documented by: Admin: 06/01/21 21:04 Dose: 50 mg Documented by: Admin: 06/01/21 16:52 Dose: 50 mg Documented by: Admin: 06/01/21 08:57 Dose: 50 mg Documented by: Admin: 05/31/21 21:09 Dose: 50 mg Documented by: Admin: 05/31/21 14:54 Dose: 50 mg Documented by: Admin: 05/31/21 08:54 Dose: 50 mg Documented by: Admin: 05/30/21 21:30 Dose: 50 mg Documented by: Admin: 05/30/21 15:00 Dose: Not Given Documented by: Admin: 05/30/21 10:38 Dose: 50 mg Documented by: Admin: 05/29/21 21:47 Dose: 50 mg Documented by: Admin: 05/29/21 16:05 Dose: Not Given Documented by: LUANAESEQUIEL Admin: 05/29/21 09:10 Dose: 50 mg Documented by: Admin: 05/28/21 21:34 Dose: 50 mg Documented by: Admin: 05/28/21 17:30 Dose: 50 mg Documented by: Admin: 05/28/21 10:21 Dose: 50 mg Documented by: REBECCA Trazodone HCl (Trazodone 50 Mg Tablet) 25 mg PO BEDTIME [facility] Admin: 06/07/21 22:15 Dose: 25 mg Documented by: Admin: 06/07/21 00:01 Dose: 25 mg Documented by: LETY Vitamin D (Cholecalciferol (Vitamin D3) 400 Unit Tablet) 400 unit PO BID [facility] Admin: 06/08/21 08:48 Dose: 400 unit Documented by: Admin: 06/07/21 22:31 Dose: 400 unit Documented by: Admin: 06/07/21 10:42 Dose: 400 unit Documented by: Admin: 06/06/21 20:02 Dose: 400 unit Documented by: Admin: 06/06/21 08:52 Dose: 400 unit Documented by: Admin: 06/05/21 20:42 Dose: 400 unit Documented by: Admin: 06/05/21 08:15 Dose: 400 unit Documented by: Admin: 06/04/21 21:00 Dose: 400 unit Documented by: Admin: 06/04/21 08:53 Dose: 400 unit Documented by: Admin: 06/03/21 21:22 Dose: 400 unit Documented by: Admin: 06/03/21 09:55 Dose: 400 unit Documented by: Admin: 06/02/21 21:05 Dose: 400 unit Documented by: Admin: 06/02/21 08:56 Dose: 400 unit Documented by: REBECCA Discontinued Medications Hydrocodone Bitart/Acetaminophen (Hydrocodone/Acet 5/325 Tablet) 2 tab PO Q4HR PRN PRN Reason: Pain, Moderate (4-6) Albuterol (Albuterol Hfa Mdi 60 Puff/8 Gm Inhaler) 2 puff INH RTQ4HR PRN PRN Reason: Shortness Of Breath Albuterol (Albuterol Hfa Mdi 60 Puff/8 Gm Inhaler) 2 puff INH Q4H PRN PRN Reason: wheezing Albuterol (Albuterol Hfa Mdi 60 Puff/8 Gm Inhaler) 2 puff INH Q4HRWA [facility] Last Admin: 05/28/21 09:12 Dose: 2 puff Documented by: DHARMESH Albuterol (Albuterol Hfa Mdi 60 Puff/8 Gm Inhaler) 2 puff INH Q2H PRN PRN Reason: Shortness Of Breath Albuterol/Ipratropium (Albuterol/Ipratropium 3 Ml Ampul) 3 ml INH NOW ONE Stop: 05/27/21 20:36 Last Admin: 05/27/21 21:17 Dose: 3 ml Documented by: FARHAT Apixaban (Apixaban 5 Mg Tablet) 5 mg PO BID [facility] Last Admin: 05/28/21 11:00 Dose: Not Given Documented by: Admin: 05/28/21 02:45 Dose: 5 mg Documented by: REGGIE Dexamethasone (Dexamethasone 10 Mg/Ml Vial) 6 mg IV NOW ONE Stop: 05/27/21 20:45 Last Admin: 05/27/21 21:01 Dose: 6 mg Documented by: AUSTIN Dexamethasone (Dexamethasone 4 Mg Tablet) 6 mg PO DAILY [facility] Stop: 06/04/21 08:59 Last Admin: 05/28/21 11:00 Dose: Not Given Documented by: REBECCA Dexamethasone (Dexamethasone 4 Mg Tablet) 6 mg PO BID [facility] Stop: 06/04/21 09:44 Last Admin: 06/04/21 08:53 Dose: 6 mg Documented by: Admin: 06/03/21 20:55 Dose: 6 mg Documented by: Admin: 06/03/21 08:28 Dose: 6 mg Documented by: Admin: 06/02/21 21:03 Dose: 6 mg Documented by: Admin: 06/02/21 08:56 Dose: 6 mg Documented by: Admin: 06/01/21 21:03 Dose: 6 mg Documented by: Admin: 06/01/21 08:55 Dose: 6 mg Documented by: Admin: 05/31/21 21:09 Dose: 6 mg Documented by: Admin: 05/31/21 08:53 Dose: 6 mg Documented by: Admin: 05/30/21 21:31 Dose: 6 mg Documented by: Admin: 05/30/21 10:38 Dose: 6 mg Documented by: Admin: 05/29/21 21:47 Dose: 6 mg Documented by: Admin: 05/29/21 09:10 Dose: 6 mg Documented by: Admin: 05/28/21 21:32 Dose: 6 mg Documented by: Admin: 05/28/21 10:20 Dose: 6 mg Documented by: REBECCA Diltiazem HCl (Diltiazem 5 Mg/Ml Sdv) 20 mg IV NOW ONE Stop: 05/27/21 21:12 Last Admin: 05/27/21 21:14 Dose: 20 mg Documented by: AUSTIN Famotidine (Famotidine 20 Mg Tablet) 20 mg PO BID [facility] Last Admin: 06/03/21 20:56 Dose: 20 mg Documented by: Admin: 06/03/21 08:27 Dose: 20 mg Documented by: Admin: 06/02/21 21:03 Dose: 20 mg Documented by: Admin: 06/02/21 08:56 Dose: 20 mg Documented by: REBECCA Famotidine (Famotidine 20 Mg Tablet) 40 mg PO BID [facility] Last Admin: 06/04/21 08:55 Dose: 40 mg Documented by: CARTER Furosemide (Furosemide 100 Mg/10 Ml Vial) 60 mg IV NOW ONE Stop: 05/27/21 21:12 Last Admin: 05/27/21 21:16 Dose: 60 mg Documented by: AUSTIN Furosemide (Furosemide 20 Mg/2 Ml Vial) 40 mg IV BID [facility] Last Admin: 05/29/21 21:45 Dose: 40 mg Documented by: Admin: 05/29/21 09:11 Dose: 40 mg Documented by: Admin: 05/28/21 21:33 Dose: 40 mg Documented by: Admin: 05/28/21 10:28 Dose: 40 mg Documented by: REBECCA Furosemide (Furosemide 40 Mg/4 Ml Vial) 40 mg IV BID [facility] Last Admin: 05/30/21 21:32 Dose: 40 mg Documented by: Admin: 05/30/21 10:40 Dose: Not Given Documented by: ELEANOR Heparin Sodium (Porcine) (Heparin 5,000 Unit/Ml Vial) 6,600 unit 80 unit/kg (6600 unit) IV NOW ONE Stop: 05/28/21 07:29 Last Admin: 05/28/21 10:27 Dose: 6,600 unit Documented by: REBECCA Remdesivir 200 mg/ Sodium (Chloride) 250 mls @ 250 mls/hr IV NOW ONE Stop: 05/27/21 21:43 Last Infusion: 05/27/21 22:27 Dose: 0 mls/hr Documented by: Admin: 05/27/21 21:01 Dose: 250 mls/hr Documented by: AUSTIN Diltiazem HCl 125 mg/ Dextrose 125 mls @ 5 mls/hr IV TITRATE [facility]; Protocol Last Titration: 05/28/21 06:38 Dose: 2.5 mg/hr, 2.5 mls/hr Documented by: Titration: 05/27/21 23:22 Dose: 0 mg/hr, 0 mls/hr Documented by: Admin: 05/27/21 21:15 Dose: 5 mg/hr, 5 mls/hr Documented by: AUSTIN Remdesivir 100 mg/ Sodium (Chloride) 250 mls @ 250 mls/hr IV DAILY [facility] Stop: 06/04/21 08:59 Last Infusion: 05/30/21 11:43 Dose: 0 mls/hr Documented by: Admin: 05/30/21 10:43 Dose: 250 mls/hr Documented by: Infusion: 05/30/21 10:43 Dose: 0 mls/hr Documented by: Infusion: 05/29/21 11:15 Dose: 0 mls/hr Documented by: Admin: 05/29/21 10:55 Dose: 250 mls/hr Documented by: Infusion: 05/28/21 16:47 Dose: 0 mls/hr Documented by: Admin: 05/28/21 10:22 Dose: 250 mls/hr Documented by: CSHOOK Heparin Sodium/Dextrose (Heparin Drip) 25,000 unit in 500 mls @ 29.7 mls/hr IV CONT [facility]; Protocol Last Admin: 05/30/21 04:17 Dose: 14.36 units/kg/hr, 23.7 mls/hr Documented by: Titration: 05/30/21 04:17 Dose: 14.36 units/kg/hr, 23.7 mls/hr Documented by: Admin: 05/29/21 08:11 Dose: 14.36 units/kg/hr, 23.7 mls/hr Documented by: Titration: 05/29/21 08:04 Dose: 14.36 units/kg/hr, 23.7 mls/hr Documented by: Titration: 05/28/21 16:40 Dose: 14.36 units/kg/hr, 23.7 mls/hr Documented by: Titration: 05/28/21 15:40 Dose: 0 units/kg/hr, 0 mls/hr Documented by: Admin: 05/28/21 10:26 Dose: 18 units/kg/hr, 29.7 mls/hr Documented by: REBECCA Azithromycin 500 mg/ Dextrose 250 mls @ 250 mls/hr IV Q24H [facility] Stop: 06/03/21 10:59 Last Admin: 06/03/21 09:56 Dose: 250 mls/hr Documented by: Infusion: 06/02/21 17:07 Dose: 0 mls/hr Documented by: Admin: 06/02/21 10:21 Dose: 250 mls/hr Documented by: Infusion: 06/01/21 12:59 Dose: 0 mls/hr Documented by: Admin: 06/01/21 10:52 Dose: 250 mls/hr Documented by: ERENDIRALANDENTON Infusion: 05/31/21 14:27 Dose: 0 mls/hr Documented by: Admin: 05/31/21 10:36 Dose: 250 mls/hr Documented by: Infusion: 05/30/21 14:53 Dose: 0 mls/hr Documented by: Admin: 05/30/21 13:51 Dose: 250 mls/hr Documented by: MSTEWART Ceftriaxone Sodium 1,000 mg/ (Sodium Chloride) 100 mls @ 200 mls/hr IV Q24H [facility] Stop: 06/03/21 09:29 Last Infusion: 06/03/21 10:43 Dose: 0 mls/hr Documented by: Admin: 06/03/21 10:02 Dose: 200 mls/hr Documented by: Infusion: 06/02/21 09:26 Dose: 0 mls/hr Documented by: Admin: 06/02/21 08:54 Dose: 200 mls/hr Documented by: Infusion: 06/01/21 12:59 Dose: 0 mls/hr Documented by: Admin: 06/01/21 08:57 Dose: 200 mls/hr Documented by: Infusion: 05/31/21 10:36 Dose: 0 mls/hr Documented by: Admin: 05/31/21 08:55 Dose: 200 mls/hr Documented by: Infusion: 05/30/21 11:03 Dose: 0 mls/hr Documented by: Admin: 05/30/21 10:33 Dose: 200 mls/hr Documented by: ELEANOR Insulin Glargine (Insulin Glargine 100 Unit/Ml 3ml Pen) 15 unit SUBCUT BID [facility] Last Admin: 05/31/21 07:30 Dose: Not Given Documented by: Admin: 05/29/21 21:48 Dose: 15 unit Documented by: BELINDA Cosigned by: GALINA Admin: 05/29/21 09:11 Dose: 15 unit Documented by: ELEANOR Cosigned by: ALPHONSO Admin: 05/28/21 21:35 Dose: 15 unit Documented by: BELINDA Cosigned by: SUKHJINDER Admin: 05/28/21 10:24 Dose: 15 unit Documented by: REBECCA Cosigned by: ALPHONSO Insulin Glargine (Insulin Glargine 100 Unit/Ml 3ml Pen) 20 unit SUBCUT BID [facility] Last Admin: 05/31/21 08:51 Dose: 20 unit Documented by: REBECCA Cosigned by: CLIF Admin: 05/30/21 21:33 Dose: 20 unit Documented by: BELINDA Cosigned by: GALINA Insulin Glargine (Insulin Glargine 100 Unit/Ml 3ml Pen) 30 unit SUBCUT BID [facility] Last Admin: 06/01/21 21:00 Dose: 30 unit Documented by: CHRISTIN Cosigned by: RUBÉN Admin: 06/01/21 08:56 Dose: 30 unit Documented by: REBECCA Cosigned by: CLIF Admin: 05/31/21 21:00 Dose: 30 unit Documented by: CHRISTIN Cosoracio by: RUBÉN Insulin Glargine (Insulin Glargine 100 Unit/Ml 3ml Pen) 40 unit SUBCUT BID [facility] Last Admin: 06/06/21 08:59 Dose: Not Given Documented by: Admin: 06/04/21 21:02 Dose: 40 unit Documented by: BELINDA Cosigned by: REGLA Admin: 06/04/21 08:48 Dose: 40 unit Documented by: CARTER Cosigned by: CLIF Admin: 06/03/21 21:23 Dose: 40 unit Documented by: REGGIE Cosigned by: DUSTY Admin: 06/03/21 09:57 Dose: 40 unit Documented by: ELEANOR Cosigned by: JOHN Admin: 06/02/21 21:06 Dose: 40 unit Documented by: BELINDA Cosigned by: SHADI Admin: 06/02/21 08:49 Dose: 40 unit Documented by: REBECCA Cosigned by: JOHN Insulin Human Lispro (Insulin Lispro 100 Unit/Ml 3ml Vial) 0 unit SUBCUT ACHS [facility]; Protocol Last Admin: 05/31/21 13:03 Dose: 5 unit Documented by: CLIF Cosigned by: REBECCA Admin: 05/31/21 08:51 Dose: 2 unit Documented by: REBECCA Cosigned by: CLIF Admin: 05/30/21 21:34 Dose: 1 unit Documented by: BELINDA Cosigned by: GALINA Admin: 05/30/21 17:14 Dose: 2 unit Documented by: ELEANOR Cosigned by: ALPHONSO Admin: 05/30/21 13:37 Dose: Not Given Documented by: Admin: 05/30/21 08:30 Dose: 3 unit Documented by: ELEANOR Cosigned by: ALPHONSO Admin: 05/29/21 21:48 Dose: 1 unit Documented by: BELINDA Kinney by: GALINA Admin: 05/29/21 16:52 Dose: 3 unit Documented by: ELEANOR Cosigned by: ALPHONSO Admin: 05/29/21 12:43 Dose: Not Given Documented by: Admin: 05/29/21 07:50 Dose: 2 unit Documented by: ELEANOR Cosigned by: ALPHONSO Admin: 05/28/21 21:35 Dose: 1 unit Documented by: BELINDA Cosoracio by: SUKHJINDER Admin: 05/28/21 17:29 Dose: 2 unit Documented by: REBECCA Kinney by: ALPHONSO Admin: 05/28/21 12:48 Dose: 3 unit Documented by: REBECCA Kinney by: ALPHONSO Admin: 05/28/21 10:32 Dose: 2 unit Documented by: REBECCA Kinney by: ALPHONSO Insulin Human Regular (Insulin Regular 100 Unit/Ml 3 Ml Vial) 3 unit SUBCUT TIDWM [facility] Admin: 06/04/21 17:23 Dose: Not Given Documented by: Admin: 06/04/21 12:43 Dose: Not Given Documented by: Admin: 06/04/21 08:50 Dose: 3 unit Documented by: CARTER Cosoracio by: CLIF Admin: 06/03/21 16:31 Dose: 3 unit Documented by: ELEANOR Cosigned by: JOHN Admin: 06/03/21 12:04 Dose: 3 unit Documented by: ELEANOR Kinney by: JOHN Admin: 06/03/21 09:13 Dose: 3 unit Documented by: ELEANOR Cosigned by: CARTER Admin: 06/02/21 17:16 Dose: 3 unit Documented by: REBECCA Kinney by: JOHN Admin: 06/02/21 12:48 Dose: 3 unit Documented by: REBECCA Kinney by: JOHN Admin: 06/02/21 08:49 Dose: 3 unit Documented by: REBECCA Kinney by: JOHN Ipratropium [place] (Ipratropium 0.5 Mg/2.5 Ml Neb) 0.5 mg INH RTQ4HR [facility] Last Admin: 05/29/21 10:45 Dose: Not Given Documented by: Admin: 05/29/21 10:20 Dose: 0.5 mg Documented by: Admin: 05/29/21 03:46 Dose: Not Given Documented by: Admin: 05/28/21 23:33 Dose: 0.5 mg Documented by: Admin: 05/28/21 20:30 Dose: 0.5 mg Documented by: Admin: 05/28/21 15:24 Dose: 0.5 mg Documented by: Admin: 05/28/21 12:39 Dose: 0.5 mg Documented by: DHARMESH Levofloxacin (Levofloxacin 250 Mg Tablet) 750 mg PO 0700 [facility] Stop: 06/11/21 07:01 Last Admin: 06/05/21 10:32 Dose: Not Given Documented by: ALPHONSO Levofloxacin (Levofloxacin 250 Mg Tablet) 750 mg PO 1500 [facility] Stop: 06/11/21 15:01 Last Admin: 06/06/21 16:14 Dose: 750 mg Documented by: Admin: 06/05/21 15:37 Dose: 750 mg Documented by: ALPHONSO Lorazepam (Lorazepam 0.5 Mg Tablet) 0.5 mg PO Q4HR PRN PRN Reason: Anxiety Lorazepam (Lorazepam 0.5 Mg Tablet) 0.5 mg PO TID PRN PRN Reason: Anxiety Last Admin: 05/29/21 10:55 Dose: 0.5 mg Documented by: ELEANOR Lorazepam (Lorazepam 0.5 Mg Tablet) 0.5 mg PO NOW ONE Stop: 05/29/21 13:17 Last Admin: 05/29/21 13:22 Dose: 0.5 mg Documented by: ELEANOR Lorazepam (Lorazepam 0.5 Mg Tablet) 0.5 mg PO QID [facility] Last Admin: 06/06/21 16:13 Dose: 0.5 mg Documented by: Admin: 06/06/21 12:54 Dose: 0.5 mg Documented by: Admin: 06/06/21 08:53 Dose: 0.5 mg Documented by: Admin: 06/05/21 20:41 Dose: 0.5 mg Documented by: Admin: 06/05/21 17:35 Dose: 0.5 mg Documented by: Admin: 06/05/21 12:20 Dose: 0.5 mg Documented by: Admin: 06/05/21 08:16 Dose: 0.5 mg Documented by: Admin: 06/04/21 21:00 Dose: 0.5 mg Documented by: Admin: 06/04/21 17:16 Dose: 0.5 mg Documented by: Admin: 06/04/21 14:14 Dose: 0.5 mg Documented by: Admin: 06/04/21 08:55 Dose: 0.5 mg Documented by: Admin: 06/03/21 20:55 Dose: 0.5 mg Documented by: Admin: 06/03/21 16:31 Dose: 0.5 mg Documented by: Admin: 06/03/21 14:08 Dose: Not Given Documented by: Admin: 06/03/21 09:55 Dose: 0.5 mg Documented by: Admin: 06/02/21 21:03 Dose: 0.5 mg Documented by: Admin: 06/02/21 16:13 Dose: 0.5 mg Documented by: Admin: 06/02/21 12:48 Dose: 0.5 mg Documented by: Admin: 06/02/21 08:56 Dose: 0.5 mg Documented by: Admin: 06/01/21 21:03 Dose: 0.5 mg Documented by: Admin: 06/01/21 16:53 Dose: 0.5 mg Documented by: Admin: 06/01/21 12:33 Dose: 0.5 mg Documented by: Admin: 06/01/21 08:57 Dose: 0.5 mg Documented by: Admin: 05/31/21 21:09 Dose: 0.5 mg Documented by: Admin: 05/31/21 16:53 Dose: Not Given Documented by: Admin: 05/31/21 14:55 Dose: 0.5 mg Documented by: Admin: 05/31/21 08:54 Dose: 0.5 mg Documented by: Admin: 05/30/21 21:30 Dose: 0.5 mg Documented by: Admin: 05/30/21 17:14 Dose: 0.5 mg Documented by: Admin: 05/30/21 13:52 Dose: 0.5 mg Documented by: Admin: 05/30/21 10:36 Dose: 0.5 mg Documented by: Admin: 05/29/21 21:46 Dose: 0.5 mg Documented by: Admin: 05/29/21 16:51 Dose: 0.5 mg Documented by: ELEANOR Lorazepam (Lorazepam 0.5 Mg Tablet) 0.5 mg PO NOW ONE Stop: 06/02/21 06:19 Last Admin: 06/02/21 06:32 Dose: 0.5 mg Documented by: CHRISTIN Magnesium Citrate (Magnesium Citrate 300 Ml Solution) 150 ml PO NOW ONE Stop: 05/28/21 09:43 Last Admin: 05/28/21 10:18 Dose: 150 ml Documented by: REBECCA Magnesium Citrate (Magnesium Citrate 300 Ml Solution) 150 ml PO NOW ONE Stop: 05/29/21 08:49 Last Admin: 05/29/21 09:16 Dose: 150 ml Documented by: ELEANOR Morphine Sulfate (Morphine 4 Mg/Ml Inj) 4 mg IV TID PRN PRN Reason: Shortness Of Breath Or Wheezing Last Admin: 06/03/21 23:39 Dose: 4 mg Documented by: Admin: 05/30/21 13:52 Dose: 4 mg Documented by: Admin: 05/30/21 05:51 Dose: 4 mg Documented by: Admin: 05/29/21 21:47 Dose: 4 mg Documented by: Admin: 05/29/21 13:47 Dose: 4 mg Documented by: ELEANOR Morphine Sulfate (Morphine 4 Mg/Ml Inj) 4 mg IV Q4HR JUAREZ Last Admin: 06/04/21 08:56 Dose: 4 mg Documented by: CARTER Non-Formulary Medication (Budesonide-Formoterol [Symbicort]) 2 inhalation INH BID JUAREZ Pantoprazole Sodium (Pantoprazole Dr 20 Mg Tablet) 20 mg PO 0600 JUAREZ Last Admin: 05/30/21 05:51 Dose: 20 mg Documented by: Admin: 05/29/21 06:18 Dose: 20 mg Documented by: Admin: 05/28/21 10:21 Dose: 20 mg Documented by: REBECCA Pantoprazole Sodium (Pantoprazole 40 Mg Vial) 20 mg IV DAILY [facility] Last Admin: 05/31/21 08:54 Dose: 20 mg Documented by: Admin: 05/30/21 10:36 Dose: 20 mg Documented by: ELEANOR Pantoprazole Sodium (Pantoprazole Dr 20 Mg Tablet) 20 mg PO 0600 [facility] Last Admin: 06/02/21 05:30 Dose: 20 mg Documented by: Admin: 06/01/21 05:14 Dose: 20 mg Documented by: CHRISTIN Pantoprazole Sodium (Pantoprazole Dr 20 Mg Tablet) 20 mg PO 0600 ONE Stop: 06/02/21 06:24 Last Admin: 06/02/21 06:59 Dose: 20 mg Documented by: CHRISTIN Potassium Phos/Sodium Phos (Sodium,Potassium Phosphates Packet) 2 each PO NOW ONE Stop: 06/03/21 11:18 Last Admin: 06/03/21 11:51 Dose: 2 each Documented by: ELEANOR Potassium Phos/Sodium Phos (Sodium,Potassium Phosphates Packet) 2 each PO Q4H [facility] Stop: 06/06/21 12:46 Last Admin: 06/06/21 12:54 Dose: 2 each Documented by: Admin: 06/06/21 08:59 Dose: 2 each Documented by: AVIVA Potassium Phos/Sodium Phos (Sodium,Potassium Phosphates Packet) 2 each PO NOW ONE Stop: 06/07/21 15:23 Last Admin: 06/07/21 15:45 Dose: 2 each Documented by: COURT Prednisone (Prednisone 20 Mg Tablet) 20 mg PO DAILY [facility] Last Admin: 06/04/21 08:59 Dose: 20 mg Documented by: CARTER Tramadol HCl (Tramadol 50 Mg Tablet) 50 mg PO NOW ONE Stop: 06/02/21 06:18 Last Admin: 06/02/21 06:31 Dose: 50 mg Documented by: CHRISTIN Trazodone HCl (Trazodone 100 Mg Tablet) 100 mg PO BEDTIME [facility] Vital Signs Vital signs: Vital Signs - 8 hr 05/27/21 20:12 05/27/21 20:40 Temperature 98.4 F Pulse Rate 87 Respiratory Rate 32 H Blood Pressure 112/71 Pulse Oximetry 91 92 MDM - SOB/Dyspnea Lab Data Result diagrams: 06/08/21 05:03 06/08/21 05:03 Labs: Lab Results 05/27/21 05/27/21 05/27/21 Range/Units 20:20 20:20 20:20 WBC 22.0 H (4.5-11.0) X10^3/uL RBC 4.23 L (4.5-5.9) X10^6/uL Hgb 12.2 L (13.5-17.5) g/dL Hct 36.2 L (41-53) % MCV 85.7 (80-100) fL MCH 28.8 (26-34) PG MCHC 33.7 (30-36) % RDW 14.4 (11.6-14.8) % Plt Count 527 H (150-400) X10^3/uL Neut % (Auto) 90.5 H (50-75) % Lymph % (Auto) 4.7 L (25-40) % Pacific % (Auto) 4.0 (3-14) % Eos % (Auto) 0.2 L (2-4) % Baso % (Auto) 0.6 (0-2) % Neut # (Auto) 28911 H (8939-7048) /uL Lymph # (Auto) 1000 L (1711-4491) /uL Pacific # (Auto) 900 (0-900) /uL Eos # (Auto) 0 (0-450) /uL Baso # (Auto) 100 (0-100) /uL D-Dimer 2221 H (<230) ng/mL Sodium 132 L (137-145) mmol/L Potassium 4.1 (3.4-5.1) mmol/L Chloride 92 L (98-107) mmol/L Carbon Dioxide 30 (22-32) mmol/L BUN 40 H (9-20) mg/dL Creatinine 1.48 H (0.66-1.25) mg/dL Estimated GFR 46.6 L (>60) mL/min BUN/Creatinine Ratio 27.0 H (6-22) Glucose 167 H (80-110) mg/dL Lactate (0.7-2.1) mmol/L Calcium 8.8 (8.4-10.2) mg/dL Magnesium (1.6-2.3) mg/dL Ferritin 2080 H (18-464) ng/mL Total Bilirubin 1.3 (0.2-1.3) mg/dL AST 42 (17-59) IU/L ALT 27 (<50) IU/L Alkaline Phosphatase 106 (38-126) U/L Lactate Dehydrogenase (313-618) U/L Total Creatine Kinase 98 (55-170) U/L CK-MB (CK-2) TNP CK-MB (CK-2) Rel Index TNP Troponin I 0.038 H (0.01-0.034) ng/mL C-Reactive Protein 24.8 H (<1.0) mg/dL NT-Pro-B Natriuret Pep 5660 H (<125) pg/mL Total Protein 8.0 (6.3-8.2) g/dL Albumin 3.9 (3.5-5.0) g/dL Globulin 4.1 (1.7-4.1) g/dL Albumin/Globulin Ratio 1.0 (1.0-2.8) Procalcitonin 0.21 (<0.5) ng/mL Chlamy pneumoniae PCR (Not Detect) Adenovirus (PCR) (Not Detect) B. pertussis DNA (PCR) (Not Detecte) B.parapertussis DNA PCR (Not Detecte) Coronavirus OC43 (PCR) (Not Detect) Coronavirus HKU1 (PCR) (Not Detect) Coronavirus 229E (PCR) (Not Detect) SARS-CoV-2 (PCR) (Not Detecte) Coronavirus NL63 (PCR) (Not Detect) Human Metapneumovir PCR (Not Detect) Influenza Type A (PCR) (Not Detect) Influenza Type B (PCR) (Not Detect) M. pneumoniae (PCR) (Not Detect) Parainfluenza 1 (PCR) (Not Detect) Parainfluenza 2 (PCR) (Not Detect) Parainfluenza 3 (PCR) (Not Detect) Parainfluenza 4 (PCR) (Not Detect) RSV (PCR) (Not Detect) Entero/Rhino (PCR) (Not Detect) 05/27/21 05/27/21 05/27/21 Range/Units 20:20 20:20 20:20 WBC (4.5-11.0) X10^3/uL RBC (4.5-5.9) X10^6/uL Hgb (13.5-17.5) g/dL Hct (41-53) % MCV (80-100) fL MCH (26-34) PG MCHC (30-36) % RDW (11.6-14.8) % Plt Count (150-400) X10^3/uL Neut % (Auto) (50-75) % Lymph % (Auto) (25-40) % Pacific % (Auto) (3-14) % Eos % (Auto) (2-4) % Baso % (Auto) (0-2) % Neut # (Auto) (8416-4507) /uL Lymph # (Auto) (6767-1507) /uL Pacific # (Auto) (0-900) /uL Eos # (Auto) (0-450) /uL Baso # (Auto) (0-100) /uL D-Dimer (<230) ng/mL Sodium (137-145) mmol/L Potassium (3.4-5.1) mmol/L Chloride (98-107) mmol/L Carbon Dioxide (22-32) mmol/L BUN (9-20) mg/dL Creatinine (0.66-1.25) mg/dL Estimated GFR (>60) mL/min BUN/Creatinine Ratio (6-22) Glucose (80-110) mg/dL Lactate 2.9 H (0.7-2.1) mmol/L Calcium (8.4-10.2) mg/dL Magnesium 2.3 (1.6-2.3) mg/dL Ferritin (18-464) ng/mL Total Bilirubin (0.2-1.3) mg/dL AST (17-59) IU/L ALT (<50) IU/L Alkaline Phosphatase (38-126) U/L Lactate Dehydrogenase 1053 H (313-618) U/L Total Creatine Kinase (55-170) U/L CK-MB (CK-2) CK-MB (CK-2) Rel Index Troponin I (0.01-0.034) ng/mL C-Reactive Protein (<1.0) mg/dL NT-Pro-B Natriuret Pep (<125) pg/mL Total Protein (6.3-8.2) g/dL Albumin (3.5-5.0) g/dL Globulin (1.7-4.1) g/dL Albumin/Globulin Ratio (1.0-2.8) Procalcitonin (<0.5) ng/mL Chlamy pneumoniae PCR (Not Detect) Adenovirus (PCR) (Not Detect) B. pertussis DNA (PCR) (Not Detecte) B.parapertussis DNA PCR (Not Detecte) Coronavirus OC43 (PCR) (Not Detect) Coronavirus HKU1 (PCR) (Not Detect) Coronavirus 229E (PCR) (Not Detect) SARS-CoV-2 (PCR) (Not Detecte) Coronavirus NL63 (PCR) (Not Detect) Human Metapneumovir PCR (Not Detect) Influenza Type A (PCR) (Not Detect) Influenza Type B (PCR) (Not Detect) M. pneumoniae (PCR) (Not Detect) Parainfluenza 1 (PCR) (Not Detect) Parainfluenza 2 (PCR) (Not Detect) Parainfluenza 3 (PCR) (Not Detect) Parainfluenza 4 (PCR) (Not Detect) RSV (PCR) (Not Detect) Entero/Rhino (PCR) (Not Detect) 05/27/21 Range/Units 20:43 WBC (4.5-11.0) X10^3/uL RBC (4.5-5.9) X10^6/uL Hgb (13.5-17.5) g/dL Hct (41-53) % MCV (80-100) fL MCH (26-34) PG MCHC (30-36) % RDW (11.6-14.8) % Plt Count (150-400) X10^3/uL Neut % (Auto) (50-75) % Lymph % (Auto) (25-40) % Pacific % (Auto) (3-14) % Eos % (Auto) (2-4) % Baso % (Auto) (0-2) % Neut # (Auto) (9269-8293) /uL Lymph # (Auto) (7865-0675) /uL Pacific # (Auto) (0-900) /uL Eos # (Auto) (0-450) /uL Baso # (Auto) (0-100) /uL D-Dimer (<230) ng/mL Sodium (137-145) mmol/L Potassium (3.4-5.1) mmol/L Chloride (98-107) mmol/L Carbon Dioxide (22-32) mmol/L BUN (9-20) mg/dL Creatinine (0.66-1.25) mg/dL Estimated GFR (>60) mL/min BUN/Creatinine Ratio (6-22) Glucose (80-110) mg/dL Lactate (0.7-2.1) mmol/L Calcium (8.4-10.2) mg/dL Magnesium (1.6-2.3) mg/dL Ferritin (18-464) ng/mL Total Bilirubin (0.2-1.3) mg/dL AST (17-59) IU/L ALT (<50) IU/L Alkaline Phosphatase (38-126) U/L Lactate Dehydrogenase (313-618) U/L Total Creatine Kinase (55-170) U/L CK-MB (CK-2) CK-MB (CK-2) Rel Index Troponin I (0.01-0.034) ng/mL C-Reactive Protein (<1.0) mg/dL NT-Pro-B Natriuret Pep (<125) pg/mL Total Protein (6.3-8.2) g/dL Albumin (3.5-5.0) g/dL Globulin (1.7-4.1) g/dL Albumin/Globulin Ratio (1.0-2.8) Procalcitonin (<0.5) ng/mL Chlamy pneumoniae PCR Not detected (Not Detect) Adenovirus (PCR) Not detected (Not Detect) B. pertussis DNA (PCR) Not detected (Not Detecte) B.parapertussis DNA PCR Not detected (Not Detecte) Coronavirus OC43 (PCR) Not detected (Not Detect) Coronavirus HKU1 (PCR) Not detected (Not Detect) Coronavirus 229E (PCR) Not detected (Not Detect) SARS-CoV-2 (PCR) Detected H (Not Detecte) Coronavirus NL63 (PCR) Not detected (Not Detect) Human Metapneumovir PCR Not detected (Not Detect) Influenza Type A (PCR) Not detected (Not Detect) Influenza Type B (PCR) Not detected (Not Detect) M. pneumoniae (PCR) Not detected (Not Detect) Parainfluenza 1 (PCR) Not detected (Not Detect) Parainfluenza 2 (PCR) Not detected (Not Detect) Parainfluenza 3 (PCR) Not detected (Not Detect) Parainfluenza 4 (PCR) Not detected (Not Detect) RSV (PCR) Not detected (Not Detect) Entero/Rhino (PCR) Not detected (Not Detect) Imaging Data CT scan - chest: Radiologist's Impression: [address] [address] [address] Scan Report Signed Patient: Berny Ott MR#: [id number] : 1945 Acct:[id number] Age/Sex: 75 / M Date of Service: 05/27/21 Loc: [facility] 230-1 Accession Number: [id number] ?? Procedure: CT angio chest PE protocol Ordering Provider: Helena Dorsey D.O. PROCEDURE:? CT ANGIO CHEST PE PROTOCOL ? INDICATIONS:? COVID, congestive heart failure, elevated D-dimer ? TECHNIQUE:? After the administration of intravenous contrast, 2 mm thick sections acquired from the pulmonary apices to the posterior costophrenic angles.? 3-dimensional maximum intensity projection (MIP) coronal and sagittal reformats were then acquired through the thorax.? For radiation dose reduction, the following was used:? automated exposure control, adjustment of mA and/or kV according to patient size.? ? COMPARISON:? [facility], CT, PE STUDY (CTA CHEST), 09/27/2012, 15:43.? [facility], CT, PE STUDY (CTA CHEST), 06/28/2016, 14:57.? [facility], CT, CT CHEST WO CON, 11/17/2016, 20:26.? [facility], CR, XR CHEST 1V, 05/17/2021, 11:10.? [facility], CR, XR CHEST 1V, 05/27/2021, 20:51. ? FINDINGS:? Image quality:? Excellent.? ? Pulmonary arteries:? Pulmonary arteries are normal in size, and demonstrate no intraluminal filling defects to suggest central pulmonary embolism.? ? Lungs and pleura:? Patchy bilateral interstitial type) classify opacities can be seen, which are worst peripherally.? Small bilateral pleural effusions are seen, right worse than left.? No pneumothorax is seen.? The central airways are patent.? Several calcified pulmonary granulomas are seen. ? Mediastinum:? Heart size is normal, without pericardial effusion.? Moderate to prominent coronary artery calcification is seen.? No mediastinal or hilar adenopathy.? Extensive lymph node calcifications can be seen.? Thoracic aorta is normal in caliber and enhancement.? Prominent tortuosity is seen involving the descending thoracic aorta.? Esophagus is normal in caliber, without hiatal hernia.? ? Bones and chest wall:? No suspicious bony lesions.? A left-sided pacer device is seen.? Thoracolumbar fixation hardware is partially seen.? Several levels of vertebroplasty cement can be seen.? Age-appropriate bony degenerative changes are seen.? ? Ribs and thoracic spine appear intact throughout.? Accentuated thoracic kyphosis is seen.? Thyroid gland demonstrates no significant abnormality.? No axillary or supraclavicular adenopathy.? ? Abdomen:? Visualized upper abdominal solid organs appear normal in the early arterial phase of enhancement.? ? ? IMPRESSION:? Negative for pulmonary embolism. ? Patchy bilateral interstitial infiltrates are seen, which are consistent with the known clinical history of COVID pneumonia.? ? Small bilateral pleural effusions are seen, right worse than left. ? ? ? Incidental note is made of: Prior granulomatous exposure.? Moderate to prominent coronary artery calcification Pacer device Prominent tortuosity of the descending thoracic aorta focal Thoracolumbar fixation hardware ? Dictated by: Efraín Briones M.D. on 05/27/2021 at 22:09 ? ? Approved by: Efraín Briones M.D. on 05/27/2021 at 22:15?? ECG Data Attestation: I personally reviewed and interpreted this ECG as follows: Prior ECG tracings: not available for review Interpretation: Sinus rhythm, right bundle branch. Left intake alert fascicular block. MDM Narrative Medical decision making narrative: This is a 75-year-old male with acute on chronic respiratory failure he does normally require 2 L O2 but is requiring significantly more. He is positive for COVID, BNP is elevated at 5000 range D-dimer is also significantly elevated in the [address] angio does not show PE. Patient was admitted to the hospitalist given Lasix started on appropriate medications. Discharge Plan Departure Patient Disposition: Admitted As Inpatient Clinical Impression: 2019 novel coronavirus-infected pneumonia (NCIP), Acute exacerbation of congestive heart failure, Acute and chronic respiratory failure with hypoxia Admit Date/Time: 05/27/21 23:04 Admit Provider: Veronica Quiñones
[2021-05-27 20:39] LABS: Add Manual Diff / Slide Review NO; Basophils Absolute Auto 100 /uL (0-100); Basophils Percent Auto 0.6 % (0-2); Eosinophils Absolute Auto 0 /uL (0-450); Eosinophils Percent Auto 0.2 % (2-4); Hematocrit 36.2 % (41-53); Hemoglobin 12.2 g/dL (13.5-17.5); Lymphocytes Absolute Auto 1000 /uL (1100-4500); Lymphocytes Percent Auto 4.7 % (25-40); Mean Corpuscular HGB Conc 33.7 % (30-36); Mean Corpuscular Hemoglobin 28.8 PG (26-34); Mean Corpuscular Volume 85.7 fL (80-100); Monocytes Absolute Auto 900 /uL (0-900); Neutrophils Absolute Auto 19900 /uL (1500-7000); Neutrophils Percent Auto 90.5 % (50-75); Platelet Count 527 X10^3/uL (150-400); Red Blood Cell Count 4.23 X10^6/uL (4.5-5.9); Red Cell Distribution Width 14.4 % (11.6-14.8)
[2021-05-27 20:48] LABS: Lactate Dehydrogenase 1053 U/L (313-618)
[2021-05-27 20:49] LABS: Lactate (Lactic Acid) 2.9 mmol/L (0.7-2.1)
[2021-05-27 20:50] LABS: Alanine Aminotransferase 27 IU/L (<50); Albumin 3.9 g/dL (3.5-5.0); Alkaline Phosphatase 106 U/L (38-126); Aspartate Aminotransferase 42 IU/L (17-59); Bilirubin Total 1.3 mg/dL (0.2-1.3); Blood Urea Nitrogen 40 mg/dL (9-20); Calcium 8.8 mg/dL (8.4-10.2); Carbon Dioxide 30 mmol/L (22-32); Chloride 92 mmol/L (98-107); Creatine Kinase 98 U/L (55-170); Estimated Glomerular Filt Rate 46.6 mL/min (>60); Globulin 4.1 g/dL (1.7-4.1); Glucose 167 mg/dL (80-110); HEMOLYSIS < 15 (0-50); Potassium 4.1 mmol/L (3.4-5.1); Sodium 132 mmol/L (137-145)
[2021-05-27 20:53] LABS: D Dimer 2221 ng/mL (<230)
[2021-05-27 21:00] LABS: NT-proBNP (BNP-Adult 18+) 5660 pg/mL (<125); Troponin I 0.038 ng/mL (0.01-0.034)
[2021-05-27 21:01] LABS: C-Reactive Protein Quant 24.8 mg/dL (<1.0)
[2021-05-27] MEDS: DEXAMETHASONE 10 MG/ML VIAL 6 MG IV (21:01)
[2021-05-27] MEDS: REMDESIVIR 200 MG in SODIUM CHLORIDE 0.9% 210 ML 250 ML IV (21:01)
[2021-05-27 21:05] LABS: Procalcitonin 0.21 ng/mL (<0.5)
[2021-05-27] MEDS: dilTIAZem 5 MG/ML SDV 20 MG IV (21:14)
[2021-05-27] MEDS: dilTIAZem 125 MG in DEXTROSE 5 % IN WATER 100 ML IV (21:15)
[2021-05-27] MEDS: FUROSEMIDE 100 MG/10 ML VIAL 60 MG IV (21:16)
[2021-05-27] MEDS: ALBUTEROL/IPRATROPIUM 3 ML AMPUL INH (21:17)
[2021-05-27 21:37] LABS: Adenovirus Not Detected (Not Detect); B. parapertussis Not Detected (Not Detecte); Bordetella pertussis Not Detected (Not Detecte); Chlamydophila pneumoniae Not Detected (Not Detect); Coronavirus 229E Not Detected (Not Detect); Coronavirus HKU1 Not Detected (Not Detect); Coronavirus NL 63 Not Detected (Not Detect); Coronavirus OC43 Not Detected (Not Detect); Human Metapneumovirus Not Detected (Not Detect); Human Rhinovirus/Enterovirus Not Detected (Not Detect); Influenza A Not Detected (Not Detect); Influenza B Not Detected (Not Detect); Parainfluenza Virus 1 Not Detected (Not Detect); Parainfluenza Virus 2 Not Detected (Not Detect); Parainfluenza Virus 3 Not Detected (Not Detect); Parainfluenza Virus 4 Not Detected (Not Detect); Respiratory Syncytial Virus Not Detected (Not Detect); SARS- CoV-2 Detected (Not Detecte)
[2021-05-27 21:38] LABS: Mycoplasma pneumoniae Not Detected (Not Detect)
[2021-05-27 22:16] LABS: Ferritin 2080 ng/mL (18-464)
[2021-05-27 22:27] LABS: Reflexed Lactate in 2 Hours Y
--- NOTE | 2021-05-27 22:27 | DI.CT.S_ITS ---
PROCEDURE: CT ANGIO CHEST PE PROTOCOL INDICATIONS: COVID, congestive heart failure, elevated D-dimer TECHNIQUE: After the administration of intravenous contrast, 2 mm thick sections acquired from the pulmonary apices to the posterior costophrenic angles. 3-dimensional maximum intensity projection (MIP) coronal and sagittal reformats were then acquired through the thorax. For radiation dose reduction, the following was used: automated exposure control, adjustment of mA and/or kV according to patient size. COMPARISON: [facility], CT, PE STUDY (CTA CHEST), 09/27/2012, 15:43. [facility], CT, PE STUDY (CTA CHEST), 06/28/2016, 14:57. [facility], CT, CT CHEST WO CON, 11/17/2016, 20:26. [facility], CR, XR CHEST 1V, 05/17/2021, 11:10. [facility], CR, XR CHEST 1V, 05/27/2021, 20:51. FINDINGS: Image quality: Excellent. Pulmonary arteries: Pulmonary arteries are normal in size, and demonstrate no intraluminal filling defects to suggest central pulmonary embolism. Lungs and pleura: Patchy bilateral interstitial type) classify opacities can be seen, which are worst peripherally. Small bilateral pleural effusions are seen, right worse than left. No pneumothorax is seen. The central airways are patent. Several calcified pulmonary granulomas are seen. Mediastinum: Heart size is normal, without pericardial effusion. Moderate to prominent coronary artery calcification is seen. No mediastinal or hilar adenopathy. Extensive lymph node calcifications can be seen. Thoracic aorta is normal in caliber and enhancement. Prominent tortuosity is seen involving the descending thoracic aorta. Esophagus is normal in caliber, without hiatal hernia. Bones and chest wall: No suspicious bony lesions. A left-sided pacer device is seen. Thoracolumbar fixation hardware is partially seen. Several levels of vertebroplasty cement can be seen. Age-appropriate bony degenerative changes are seen. Ribs and thoracic spine appear intact throughout. Accentuated thoracic kyphosis is seen. Thyroid gland demonstrates no significant abnormality. No axillary or supraclavicular adenopathy. Abdomen: Visualized upper abdominal solid organs appear normal in the early arterial phase of enhancement. IMPRESSION: Negative for pulmonary embolism. Patchy bilateral interstitial infiltrates are seen, which are consistent with the known clinical history of COVID pneumonia. Small bilateral pleural effusions are seen, right worse than left. Incidental note is made of: Prior granulomatous exposure. Moderate to prominent coronary artery calcification Pacer device Prominent tortuosity of the descending thoracic aorta focal Thoracolumbar fixation hardware Dictated by: Efraín Briones M.D. on 05/27/2021 at 22:09 Approved by: Efraín Briones M.D. on 05/27/2021 at 22:15
--- NOTE | 2021-05-27 23:22 | PC.NURSE ---
Diltiazem continued upon transfer to ICU and passed off to Caterina SEAMAN.
--- NOTE | 2021-05-27 23:30 | PC.NURSE ---
PATIENT ARRIVED ON STRETCHER FROM ER WITH RN. ARRIVED TO BED 230 IN ICU. HOME MEDICATION TIKOSYN BROUGHT WITH PATIENT AND LEFT IN ROOM. CALL CLAUDIO PROVIDED. BED IN LOW POSITION, 30 DEGREES HEAD OF BED ELEVATED. ORIENTED PATIENT TO ROOM AND EXPLAINED ISOLATION PRECAUTIONS TO PATIENT. PATIENT VERBALIZED UNDERSTANDING.
[2021-05-27 23:43] LABS: Magnesium 2.3 mg/dL (1.6-2.3)
--- NOTE | 2021-05-27 23:55 | P.TELICUCN_ITS ---
History of Present Illness Consult details Chief complaint: Covid+, SOB :: This patient was seen via real time interactive two-way audiovisual telecommunication. Narrative: Patient is a 75 year old male with history of sarcoidosis, DM, CKD, CAD, and CHF who was vaccinated with the Moderna vaccine and recently admitted to [facility] on 05/17/2021-05/19/2021 for acute hypoxemia respiratory failure failure secondary to COVID pneumonia. He was treated with baricitinib, decadron, and remdesivir therapy. He was discharged home on 4 liters NC. Since hospital [facility] he developed worsening shortness of breath which he presents back to ER. In ER, he was found to have worsening hypoxemia requiring 7 liters nasal cannula. CTA chest showed patchy bilateral periphery alveolar filling process, small bilateral pleural effusion, and no evidence of filling defect. Tele- radio mechanic helper consulted for further management. [facility] Medical History Acne (Unknown) Actinic keratosis (~2017) Anemia Atrial fibrillation (Unknown) Chronic low back pain (Unknown) Closed compression fracture of third lumbar vertebra Coronary artery disease (Unknown) Diabetes (Unknown) GERD (gastroesophageal reflux disease) (Unknown) Hearing loss (Unknown) Hx of coronary angiogram (Unknown) Hyperlipemia (Unknown) Hypertension (Unknown) Keloid Osteoporosis Pacemaker Renal insufficiency Sarcoidosis (11/2007) Squamous cell carcinoma (Unknown) Visit for suture removal Surgical History H/O left wrist surgery H/O toe surgery History of arthroplasty of left shoulder (Unknown) History of arthroplasty of right shoulder (Unknown) History of fusion of thoracic spine History of lumbar fusion Hx of knee surgery (Unknown) Hx of left knee surgery Hx of prior ablation treatment (~05/2013) Status post lumbar and lumbosacral fusion by anterior technique Family History Father Diabetes mellitus Mother No problems noted. Social History household members: spouse and children Smoking Status: Never smoker second hand exposure: Yes alcohol intake: current substance use type: does not use Current Medications Current Medications Medications: Home Medications budesonide-formoterol HFA 160 mcg-4.5 mcg/actuation aerosol inhaler (Symbicort) 2 inh INH BID #1 inh 09/14/17 [Rx Confirmed 05/27/21] CALCIUM 600 mg PO .QDAY 08/03/18 [History Confirmed 05/17/21] dofetilide 125 mcg capsule (Tikosyn) 125 mcg PO BID cap 08/03/18 [History Confirmed 05/27/21] Fast click lancet cartridge #1 ea 10/04/18 [Rx Confirmed 03/25/21] apixaban 5 mg tablet (Eliquis) 5 mg PO BID 01/03/19 [History Confirmed 05/27/21] epinephrine 0.3 mg/0.3 mL injection, auto-injector (EpiPen 2-Abhijeet) 0.3 mg (0.3 mL) IM ONCE #2 each 04/04/19 [Rx Confirmed 05/27/21] aspirin 81 mg tablet,delayed release 81 mg PO DAILY 08/02/19 [History Confirmed 05/27/21] torsemide 20 mg tablet 20 mg PO DAILY tab 12/25/19 [History Confirmed 05/27/21] alprazolam 0.5 mg tablet (Xanax) 0.25 mg PO BID PRN #60 tab 03/13/20 [Rx Confirmed 05/18/21] [Contour test strips] #300 each 08/20/20 [Rx Confirmed 03/25/21] pen needle, diabetic 29 gauge x 1/2 (BD Ultra-Fine Original Pen Needle) #30 each 09/17/20 [Rx Confirmed 03/25/21] Disabled Parking Permit #1 ea 10/22/20 [Rx Confirmed 03/25/21] Lactobacil rhamnosus GG 10 billion cell-inulin 200 mg sprinkle capsule ([facility] Ancera) See Rx Instructions .ROUTE .COMPLEX #100 cap 01/16/21 [Rx Confirmed 05/27/21] ferrous sulfate 325 mg (65 mg iron) tablet See Rx Instructions .ROUTE .COMPLEX #90 tab 03/10/21 [Rx Confirmed 05/27/21] gel-matrix pad dress, silicone 2 X 5.5 topical pads #4 ea 03/25/21 [Rx Confirmed 03/25/21] metoprolol succinate 50 mg tablet,extended release 24 hr 50 mg PO BID tab 03/25/21 [History Confirmed 05/27/21] nitroglycerin 0.4 mg sublingual tablet (Nitrostat) 0.4 mg SUBLINGUAL Q5-15M PRN 03/25/21 [History Confirmed 05/27/21] pregabalin 100 mg capsule (Lyrica) 100 mg PO BID #180 cap 03/31/21 [Rx Confirmed 05/27/21] vitamin B complex (B Complex-Vitamin B12) 1 tab PO HS #100 tab 03/31/21 [Rx Confirmed 05/17/21] albuterol sulfate 90 mcg/actuation aerosol inhaler 2 puff INHALATION Q4H PRN #0 gram 05/19/21 [Rx Confirmed 05/27/21] Bleed in valve for CPAP connection to oxygen #1 ea 05/20/21 [Rx] atorvastatin 40 mg tablet 40 mg PO Q OTHER DAY 05/27/21 [History Confirmed 05/27/21] calcium carbonate 600 mg (1,500 mg)-vitamin D3 200 unit tablet 1 tab PO DAILY 05/27/21 [History Confirmed 05/27/21] insulin glargine 100 unit/mL (3 mL) subcutaneous pen (Lantus Solostar U-100 Insulin) 15 unit SUBCUT BID 05/27/21 [History Confirmed 05/27/21] lorazepam 0.5 mg tablet (Ativan) 0.5 mg PO TID PRN 05/27/21 [History Confirmed 05/27/21] oxycodone-acetaminophen 5 mg-325 mg tablet 1 tab PO Q4H PRN 05/27/21 [History Confirmed 05/27/21] tramadol 50 mg tablet 50 mg PO TID 05/27/21 [History Confirmed 05/27/21] vitamin B complex (B Complex-Vitamin B12) 1 tab PO DAILY 05/27/21 [History Confirmed 05/27/21] Visit Medications (administered) Generic Name Dose Route Start Last Admin Trade Name Freq PRN Reason Stop Dose Admin Diltiazem HCl 125 mg/ Dextrose 125 mls @ 5 mls/hr 05/27/21 21:11 05/27/21 23:22 IV Infused TITRATE JUAREZ Titration Protocol 5 MG/HR Exam Vital Signs (past 8 hours): - 05/27/21 20:12 05/27/21 20:38 05/27/21 20:40 Temperature 98.4 F Pulse Rate 87 118 H Respiratory Rate 32 H Blood Pressure 112/71 Pulse Oximetry 91 94 92 05/27/21 20:49 05/27/21 21:00 05/27/21 21:18 Temperature Pulse Rate 123 H 132 H 102 H Respiratory Rate 27 H 29 H 26 H Blood Pressure 112/71 113/74 98/64 Pulse Oximetry 91 91 88 L 05/27/21 21:22 05/27/21 21:24 05/27/21 21:30 Temperature Pulse Rate 112 H 106 H 116 H Respiratory Rate 28 H 27 H 28 H Blood Pressure 103/69 115/69 125/60 Pulse Oximetry 88 L 88 L 88 L 05/27/21 21:45 05/27/21 22:00 05/27/21 22:15 Temperature Pulse Rate 109 H 95 H 95 H Respiratory Rate 29 H 28 H 27 H Blood Pressure 134/75 111/57 L 131/62 Pulse Oximetry 89 L 90 L 92 05/27/21 22:30 05/27/21 23:05 Temperature 97.9 F Pulse Rate 87 103 H Respiratory Rate 22 27 H Blood Pressure 131/64 132/67 Pulse Oximetry 90 L Oxygen Delivery Method Nasal Cannula Oxygen Flow Rate 7 Narrative Exam Narrative: Sleeping comfortably on HFNC with signs of respiratory distress Objective Labs Result Diagrams: 05/27/21 20:20 05/27/21 20:20 Labs: Laboratory Results - last 24 hr 05/27/21 05/27/21 05/27/21 20:20 20:20 20:20 WBC 22.0 H RBC 4.23 L Hgb 12.2 L Hct 36.2 L MCV 85.7 MCH 28.8 MCHC 33.7 RDW 14.4 Plt Count 527 H Neut % (Auto) 90.5 H Lymph % (Auto) 4.7 L Evangeline % (Auto) 4.0 Eos % (Auto) 0.2 L Baso % (Auto) 0.6 Neut # (Auto) 62892 H Lymph # (Auto) 1000 L Evangeline # (Auto) 900 Eos # (Auto) 0 Baso # (Auto) 100 D-Dimer 2221 H Sodium 132 L Potassium 4.1 Chloride 92 L Carbon Dioxide 30 BUN 40 H Creatinine 1.48 H Estimated GFR 46.6 L BUN/Creatinine Ratio 27.0 H Glucose 167 H Lactate Calcium 8.8 Magnesium Ferritin 2080 H Total Bilirubin 1.3 AST 42 ALT 27 Alkaline Phosphatase 106 Lactate Dehydrogenase Total Creatine Kinase 98 CK-MB (CK-2) TNP CK-MB (CK-2) Rel Index TNP Troponin I 0.038 H C-Reactive Protein 24.8 H NT-Pro-B Natriuret Pep 5660 H Total Protein 8.0 Albumin 3.9 Globulin 4.1 Albumin/Globulin Ratio 1.0 Procalcitonin 0.21 Chlamy pneumoniae PCR Adenovirus (PCR) B. pertussis DNA (PCR) B.parapertussis DNA PCR Coronavirus OC43 (PCR) Coronavirus HKU1 (PCR) Coronavirus 229E (PCR) SARS-CoV-2 (PCR) Coronavirus NL63 (PCR) Human Metapneumovir PCR Influenza Type A (PCR) Influenza Type B (PCR) M. pneumoniae (PCR) Parainfluenza 1 (PCR) Parainfluenza 2 (PCR) Parainfluenza 3 (PCR) Parainfluenza 4 (PCR) RSV (PCR) Entero/Rhino (PCR) 05/27/21 05/27/21 05/27/21 20:20 20:20 20:20 WBC RBC Hgb Hct MCV MCH MCHC RDW Plt Count Neut % (Auto) Lymph % (Auto) Evangeline % (Auto) Eos % (Auto) Baso % (Auto) Neut # (Auto) Lymph # (Auto) Evangeline # (Auto) Eos # (Auto) Baso # (Auto) D-Dimer Sodium Potassium Chloride Carbon Dioxide BUN Creatinine Estimated GFR BUN/Creatinine Ratio Glucose Lactate 2.9 H Calcium Magnesium 2.3 Ferritin Total Bilirubin AST ALT Alkaline Phosphatase Lactate Dehydrogenase 1053 H Total Creatine Kinase CK-MB (CK-2) CK-MB (CK-2) Rel Index Troponin I C-Reactive Protein NT-Pro-B Natriuret Pep Total Protein Albumin Globulin Albumin/Globulin Ratio Procalcitonin Chlamy pneumoniae PCR Adenovirus (PCR) B. pertussis DNA (PCR) B.parapertussis DNA PCR Coronavirus OC43 (PCR) Coronavirus HKU1 (PCR) Coronavirus 229E (PCR) SARS-CoV-2 (PCR) Coronavirus NL63 (PCR) Human Metapneumovir PCR Influenza Type A (PCR) Influenza Type B (PCR) M. pneumoniae (PCR) Parainfluenza 1 (PCR) Parainfluenza 2 (PCR) Parainfluenza 3 (PCR) Parainfluenza 4 (PCR) RSV (PCR) Entero/Rhino (PCR) 05/27/21 20:43 WBC RBC Hgb Hct MCV MCH MCHC RDW Plt Count Neut % (Auto) Lymph % (Auto) Evangeline % (Auto) Eos % (Auto) Baso % (Auto) Neut # (Auto) Lymph # (Auto) Evangeline # (Auto) Eos # (Auto) Baso # (Auto) D-Dimer Sodium Potassium Chloride Carbon Dioxide BUN Creatinine Estimated GFR BUN/Creatinine Ratio Glucose Lactate Calcium Magnesium Ferritin Total Bilirubin AST ALT Alkaline Phosphatase Lactate Dehydrogenase Total Creatine Kinase CK-MB (CK-2) CK-MB (CK-2) Rel Index Troponin I C-Reactive Protein NT-Pro-B Natriuret Pep Total Protein Albumin Globulin Albumin/Globulin Ratio Procalcitonin Chlamy pneumoniae PCR Not detected Adenovirus (PCR) Not detected B. pertussis DNA (PCR) Not detected B.parapertussis DNA PCR Not detected Coronavirus OC43 (PCR) Not detected Coronavirus HKU1 (PCR) Not detected Coronavirus 229E (PCR) Not detected SARS-CoV-2 (PCR) Detected H Coronavirus NL63 (PCR) Not detected Human Metapneumovir PCR Not detected Influenza Type A (PCR) Not detected Influenza Type B (PCR) Not detected M. pneumoniae (PCR) Not detected Parainfluenza 1 (PCR) Not detected Parainfluenza 2 (PCR) Not detected Parainfluenza 3 (PCR) Not detected Parainfluenza 4 (PCR) Not detected RSV (PCR) Not detected Entero/Rhino (PCR) Not detected Assessment & Plan Assessment & Plan narrative: NEURO: # At risk for decondition -- Seek PT/OT and OOB as tolerated RESP: # Acute hypoxemia respiratory failure -- Secondary to COVID pneumonia and query component of pulmonary edema -- On HFNC 50/50% -- Recommend starting lasix 40 mg IV BID to seek net negative fluid balance -- COVID rx as below -- RT to titrate flpw and FiO2 to maintain goal SpO2 > 88% -- Monitor closely for need for endotracheal intubation # Sarcoidosis -- On decadron CVS: # Hx of CHF -- Start diuresis to seek net negative fluid balance -- Strict I/O -- Check TTE # Hx of A fib -- Resume apixiban and diltiazem -- High lytes goal -- Monitor on telemetry ID: #COVID Pneumonia -- Restart decadron and baricitinib -- Check CRP, D dimer, ferritin, and LFTs -- PCT negative, making bacterial PNA less likely -- Check venous duplex -- On strict contact and airbrone precautions : # CKD -- Start diuresis to seek net negative fluid balance -- Avoid nephrotoxin agents -- Daily BMP -- Monitor UOP ENDO: -- Goal BS < 180 Time Spent With Patient Critical Care time: I spent a total of [] minutes of critical care time on this patient's care today; this time is exclusive of procedural time.
[2021-05-28] VITALS (67 sets, daily range): BP systolic 84–121; BP diastolic 55–76; PULSE 64–110; RESP 17–30; TEMP 35.8–37; O2SAT 88–96
--- NOTE | 2021-05-28 00:15 | DI.US.S_ITS ---
PROCEDURE: US PERIPH VENOUS LOW EXTREM BI INDICATIONS: EDEMA TECHNIQUE: Real-time imaging, as well as color and pulse Doppler interrogation, were performed of the deep veins of both legs from the inguinal ligament to the popliteal fossa. COMPARISON: None. FINDINGS: Right: The common femoral, femoral and popliteal veins are normally compressible, and free of intraluminal thrombus. Color and pulse Doppler demonstrate normal phasic intravascular flow. There is normal augmentation response to distal compression maneuver. Left: The common femoral, femoral and popliteal veins are normally compressible, and free of intraluminal thrombus. Color and pulse Doppler demonstrate normal phasic intravascular flow. There is normal augmentation response to distal compression maneuver. IMPRESSION: Negative for deep venous thrombosis. Dictated by: Efraín Briones M.D. on 05/28/2021 at 9:23 Approved by: Efraín Briones M.D. on 05/28/2021 at 9:24
--- NOTE | 2021-05-28 01:15 | PM.HP.1 ---
History of Present Illness History of Present Illness Date Patient Seen: 05/27/21 Time Patient Seen: 23:13 Chief complaint: Covid+, SOB Narrative: Berny Ott is a 75-year-old male chronically ill with sarcoidosis, diabetes mellitus type 2, chronic kidney disease, coronary artery disease, osteoporosis, hyperlipidemia and congestive heart failure who presents now with COVID pneumonia for the second time.? He is fully immunized x3 with Moderna.? His 1st positive test was about 2 weeks ago at his principal trainer's office, Dr. Bueno in [place].? Which was followed by his admit for COVID ammonia from 05/17-05/19/21. His shortness of breath, coughing and intolerance of activity worsened considerably until this morning when he was unable to speak in normal sentences or to catch his breath.? On arrival he was noted to be saturating in the 80s on 4 L nasal cannula.? Upon admit to the floorpatient with application of 50L/50% high-flow nasal cannula his saturations came up into the low 90s.? He is feeling much better.? He has been restarted on remdesivir, Baricitinib and dexamethasone.? He had completed 3 days on previous admission will restart him for a 7 day course. Patient states that he had been previously on prednisone per his principal trainer but stopped over a week ago. Patient has notably increased work of breathing, shortness of breath, and is extremely fatigued. Upon admit patient's vitals were stable temp 98.4?, BP 131/62, HR 95, RR 27, O2 saturation 96 2% on 50 L at the 50%. Patient's ABGs on high-flow pH 7.436, pCO2 37.8, PO2 85, HC03 25.5, total CO2 27, O2 saturation 97%. Patient's WBC 22, with a left shift neutrophils 19,900, HGB 122, HCT 36.2, PLT 527. Noted ROSA, Sodium 132, chloride 92, BUN 40, creatinine 1.48, glucose 167, GFR 46.6. Patient's baseline chemistries BUN 25-35, creatinine 1.3 9-1.70, GFR 39.7-50.2. Patient had a normal but slightly elevated troponin 0.038 on last admit peaked at 0.080. Patient's D-dimer 2221, CTA was negative for PE, lactate 2.9, ferritin 2080, lactate D 1053, CRP 24.8, BNP 5660, procalcitonin WNL, respiratory panel WNL. Patient admitted for COVID pneumonia secondary to acute on chronic respiratory failure in the setting of sarcoidosis. Patient History Medical History Acne (Unknown) Actinic keratosis (~2018) Anemia Atrial fibrillation (Unknown) Chronic low back pain (Unknown) Closed compression fracture of third lumbar vertebra Coronary artery disease (Unknown) Diabetes (Unknown) GERD (gastroesophageal reflux disease) (Unknown) Hearing loss (Unknown) Hx of coronary angiogram (Unknown) Hyperlipemia (Unknown) Hypertension (Unknown) Keloid Osteoporosis Pacemaker Renal insufficiency Sarcoidosis (11/2007) Squamous cell carcinoma (Unknown) Visit for suture removal Surgical History H/O left wrist surgery H/O toe surgery History of arthroplasty of left shoulder (Unknown) History of arthroplasty of right shoulder (Unknown) History of fusion of thoracic spine History of lumbar fusion Hx of knee surgery (Unknown) Hx of left knee surgery Hx of prior ablation treatment (~05/2013) Status post lumbar and lumbosacral fusion by anterior technique Family & Social History Family History Father Diabetes mellitus Mother No problems noted. Social History: household members spouse,children Prior Living Arrangements House Safety & Behavioral: Feels Safe in Current Yes Environment Been Physically Hurt or No Threatened By a Person Suicidal Ideation Description None Suicide Plan Description No Plan Tobacco & Substance use: Smoking Status Never smoker alcohol intake current alcohol intake frequency holiday/special occasion Substance Use Type does not use Meds Home Medications and Allergies Home Medications Medication Instructions Recorded Confirmed Type budesonide-formoterol HFA 160 2 inh INH BID #1 inh 09/14/17 05/27/21 Rx mcg-4.5 mcg/actuation aerosol inhaler (Symbicort) dofetilide 125 mcg capsule 125 mcg PO BID cap 08/03/18 05/27/21 History (Tikosyn) Fast click lancet cartridge #1 ea 10/04/18 05/28/21 Rx apixaban 5 mg tablet (Eliquis) 5 mg PO BID 01/03/19 05/27/21 History epinephrine 0.3 mg/0.3 mL 0.3 mg (0.3 mL) IM ONCE #2 each 04/04/19 05/27/21 Rx injection, auto-injector (EpiPen 2-Abhijeet) aspirin 81 mg tablet,delayed 81 mg PO DAILY 08/02/19 05/27/21 History release torsemide 20 mg tablet 20 mg PO DAILY tab 12/25/19 05/27/21 History alprazolam 0.5 mg tablet (Xanax) 0.25 mg PO BID PRN #60 tab 03/13/20 05/28/21 Rx [Contour test strips] #300 each 08/20/20 05/28/21 Rx pen needle, diabetic 29 gauge x #30 each 09/17/20 05/28/21 Rx 1/2 (BD Ultra-Fine Original Pen Needle) Disabled Parking Permit #1 ea 10/22/20 05/28/21 Rx Lactobacil rhamnosus GG 10 billion See Rx Instructions .ROUTE 01/16/21 05/27/21 Rx cell-inulin 200 mg sprinkle .COMPLEX #100 cap [facility]) ferrous sulfate 325 mg (65 mg See Rx Instructions .ROUTE 03/10/21 05/27/21 Rx iron) tablet .COMPLEX #90 tab gel-matrix pad dress, silicone 2 #4 ea 03/25/21 05/28/21 Rx X 5.5 topical pads metoprolol succinate 50 mg 50 mg PO BID tab 03/25/21 05/27/21 History tablet,extended release 24 hr nitroglycerin 0.4 mg sublingual 0.4 mg SUBLINGUAL Q5-15M PRN 03/25/21 05/27/21 History tablet (Nitrostat) pregabalin 100 mg capsule (Lyrica) 100 mg PO BID #180 cap 03/31/21 05/27/21 Rx albuterol sulfate 90 mcg/actuation 2 puff INHALATION Q4H PRN #0 gram 05/19/21 05/27/21 Rx aerosol inhaler Bleed in valve for CPAP connection #1 ea 05/20/21 05/28/21 Rx to oxygen atorvastatin 40 mg tablet 40 mg PO Q OTHER DAY 05/27/21 05/27/21 History calcium carbonate 600 mg (1,500 1 tab PO DAILY 05/27/21 05/27/21 History mg)-vitamin D3 200 unit tablet insulin glargine 100 unit/mL (3 15 unit SUBCUT BID 05/27/21 05/27/21 History mL) subcutaneous pen (Lantus Solostar U-100 Insulin) lorazepam 0.5 mg tablet (Ativan) 0.5 mg PO TID PRN 05/27/21 05/27/21 History oxycodone-acetaminophen 5 mg-325 1 tab PO Q4H PRN 05/27/21 05/27/21 History mg tablet tramadol 50 mg tablet 50 mg PO TID 05/27/21 05/27/21 History vitamin B complex (B 1 tab PO DAILY 05/27/21 05/27/21 History Complex-Vitamin B12) Allergies Allergy/AdvReac Type Severity Reaction Status Date / Time venom-honey bee Allergy Severe shut down Verified 05/27/21 22:00 [BEE VENOM (HONEY BEE)] my respiratory system. Sulfa (Sulfonamide AdvReac Severe KIDNEY Verified 05/27/21 22:00 Antibiotics) FAILURE [SULFA (SULFONAMIDE ANTIBIOTICS)] Review of Systems Review of Systems Narrative: All 12 point systems reviewed with the patient and are negative except otherwise documented. Exam Vital Signs (past 8 hours): - 05/27/21 20:12 05/27/21 20:38 05/27/21 20:40 Temperature 98.4 F Pulse Rate 87 118 H Respiratory Rate 32 H Blood Pressure 112/71 Pulse Oximetry 91 94 92 05/27/21 20:49 05/27/21 21:00 05/27/21 21:18 Temperature Pulse Rate 123 H 132 H 102 H Respiratory Rate 27 H 29 H 26 H Blood Pressure 112/71 113/74 98/64 Pulse Oximetry 91 91 88 L 05/27/21 21:22 05/27/21 21:24 05/27/21 21:30 Temperature Pulse Rate 112 H 106 H 116 H Respiratory Rate 28 H 27 H 28 H Blood Pressure 103/69 115/69 125/60 Pulse Oximetry 88 L 88 L 88 L 05/27/21 21:45 05/27/21 22:00 05/27/21 22:15 Temperature Pulse Rate 109 H 95 H 95 H Respiratory Rate 29 H 28 H 27 H Blood Pressure 134/75 111/57 L 131/62 Pulse Oximetry 89 L 90 L 92 05/27/21 22:30 05/27/21 23:05 05/28/21 00:06 Temperature 97.9 F Pulse Rate 87 103 H Respiratory Rate 22 27 H Blood Pressure 131/64 132/67 Pulse Oximetry 90 L 94 Fraction of Inspired Oxygen 50 Oxygen Delivery Method High Flow Nasal Cannula,Heated High Flow Oxygen Flow Rate 50 Narrative Exam Narrative: General: Patient is a well-developed, well-nourished male in moderate distress at this time. HEENT: Normocephalic, atraumatic, extraocular muscles intact, oral pharynx is clear and mucous membranes are dry. Neck is supple and symmetric, trachea is midline, no adenopathy, no thyroid enlargement, nontender, no masses palpated. Negative for JVD Chest: Positive nasal flaring, retractions, tachypneic labored breathing, increased work of breathing. Lungs: Auscultation of all lung velasquez are decreased, coarse with poor air exchange gross expiratory wheezing. Cardio: Irregular rate and rhythm without murmur, rubs, or gallops, no carotid bruit, no cardiac pulsations present. Abdomen: Soft nontender, negative for organomegaly, or masses. Bowel sounds are present in all 4 quadrants without guarding or rebound, no CVA tenderness. Musculoskeletal: Muscle strength and tone are equal, decreased, no deformity, crepitus, effusions, cyanosis, clubbing or edema present. Full range of motion intact radial and pedal pulses are normal. Skin: Warm dry and intact without rashes, ulcerations or petechiae. Neuro: Alert and orientated x3, sensation to touch intact, no gross deficits noted of cranial nerves. Psych: Patient has a well-kept appearance, appropriate affect, mental status attitude thought context and judgment are appropriate for age. Objective Labs Result Diagrams: 05/28/21 05:00 05/28/21 05:00 Labs: Laboratory Results - last 24 hr 05/27/21 05/27/21 05/27/21 20:20 20:20 20:20 WBC 22.0 H RBC 4.23 L Hgb 12.2 L Hct 36.2 L MCV 85.7 MCH 28.8 MCHC 33.7 RDW 14.4 Plt Count 527 H Neut % (Auto) 90.5 H Lymph % (Auto) 4.7 L Montgomery % (Auto) 4.0 Eos % (Auto) 0.2 L Baso % (Auto) 0.6 Neut # (Auto) 80167 H Lymph # (Auto) 1000 L Montgomery # (Auto) 900 Eos # (Auto) 0 Baso # (Auto) 100 D-Dimer 2221 H Sodium 132 L Potassium 4.1 Chloride 92 L Carbon Dioxide 30 BUN 40 H Creatinine 1.48 H Estimated GFR 46.6 L BUN/Creatinine Ratio 27.0 H Glucose 167 H Lactate Calcium 8.8 Magnesium Ferritin 2080 H Total Bilirubin 1.3 AST 42 ALT 27 Alkaline Phosphatase 106 Lactate Dehydrogenase Total Creatine Kinase 98 CK-MB (CK-2) TNP CK-MB (CK-2) Rel Index TNP Troponin I 0.038 H C-Reactive Protein 24.8 H NT-Pro-B Natriuret Pep 5660 H Total Protein 8.0 Albumin 3.9 Globulin 4.1 Albumin/Globulin Ratio 1.0 Procalcitonin 0.21 Chlamy pneumoniae PCR Adenovirus (PCR) B. pertussis DNA (PCR) B.parapertussis DNA PCR Coronavirus OC43 (PCR) Coronavirus HKU1 (PCR) Coronavirus 229E (PCR) SARS-CoV-2 (PCR) Coronavirus NL63 (PCR) Human Metapneumovir PCR Influenza Type A (PCR) Influenza Type B (PCR) M. pneumoniae (PCR) Parainfluenza 1 (PCR) Parainfluenza 2 (PCR) Parainfluenza 3 (PCR) Parainfluenza 4 (PCR) RSV (PCR) Entero/Rhino (PCR) 05/27/21 05/27/21 05/27/21 20:20 20:20 20:20 WBC RBC Hgb Hct MCV MCH MCHC RDW Plt Count Neut % (Auto) Lymph % (Auto) Montgomery % (Auto) Eos % (Auto) Baso % (Auto) Neut # (Auto) Lymph # (Auto) Montgomery # (Auto) Eos # (Auto) Baso # (Auto) D-Dimer Sodium Potassium Chloride Carbon Dioxide BUN Creatinine Estimated GFR BUN/Creatinine Ratio Glucose Lactate 2.9 H Calcium Magnesium 2.3 Ferritin Total Bilirubin AST ALT Alkaline Phosphatase Lactate Dehydrogenase 1053 H Total Creatine Kinase CK-MB (CK-2) CK-MB (CK-2) Rel Index Troponin I C-Reactive Protein NT-Pro-B Natriuret Pep Total Protein Albumin Globulin Albumin/Globulin Ratio Procalcitonin Chlamy pneumoniae PCR Adenovirus (PCR) B. pertussis DNA (PCR) B.parapertussis DNA PCR Coronavirus OC43 (PCR) Coronavirus HKU1 (PCR) Coronavirus 229E (PCR) SARS-CoV-2 (PCR) Coronavirus NL63 (PCR) Human Metapneumovir PCR Influenza Type A (PCR) Influenza Type B (PCR) M. pneumoniae (PCR) Parainfluenza 1 (PCR) Parainfluenza 2 (PCR) Parainfluenza 3 (PCR) Parainfluenza 4 (PCR) RSV (PCR) Entero/Rhino (PCR) 05/27/21 20:43 WBC RBC Hgb Hct MCV MCH MCHC RDW Plt Count Neut % (Auto) Lymph % (Auto) Montgomery % (Auto) Eos % (Auto) Baso % (Auto) Neut # (Auto) Lymph # (Auto) Montgomery # (Auto) Eos # (Auto) Baso # (Auto) D-Dimer Sodium Potassium Chloride Carbon Dioxide BUN Creatinine Estimated GFR BUN/Creatinine Ratio Glucose Lactate Calcium Magnesium Ferritin Total Bilirubin AST ALT Alkaline Phosphatase Lactate Dehydrogenase Total Creatine Kinase CK-MB (CK-2) CK-MB (CK-2) Rel Index Troponin I C-Reactive Protein NT-Pro-B Natriuret Pep Total Protein Albumin Globulin Albumin/Globulin Ratio Procalcitonin Chlamy pneumoniae PCR Not detected Adenovirus (PCR) Not detected B. pertussis DNA (PCR) Not detected B.parapertussis DNA PCR Not detected Coronavirus OC43 (PCR) Not detected Coronavirus HKU1 (PCR) Not detected Coronavirus 229E (PCR) Not detected SARS-CoV-2 (PCR) Detected H Coronavirus NL63 (PCR) Not detected Human Metapneumovir PCR Not detected Influenza Type A (PCR) Not detected Influenza Type B (PCR) Not detected M. pneumoniae (PCR) Not detected Parainfluenza 1 (PCR) Not detected Parainfluenza 2 (PCR) Not detected Parainfluenza 3 (PCR) Not detected Parainfluenza 4 (PCR) Not detected RSV (PCR) Not detected Entero/Rhino (PCR) Not detected Assessment & Plan Assessment & Plan narrative: Berny Ott is a 75-year-old male chronically ill with sarcoidosis, diabetes mellitus type 2, chronic kidney disease, coronary artery disease, osteoporosis, hyperlipidemia and congestive heart failure who presents now with COVID pneumonia for the second time.? He is fully immunized x3 with Moderna.? His 1st positive test was about 2 weeks ago at his principal trainer's office, Dr. Bueno in [place].? Which was followed by his admit for COVID from 05/17-05/19/21. His shortness of breath, coughing and intolerance of activity worsened considerably until this morning when he was unable to speak in normal sentences or to catch his breath.? On arrival he was noted to be saturating in the 80s on 4 L nasal cannula.? Upon admit to the floorpatient with application of 50L/50% high-flow nasal cannula his saturations came up into the low 90s.? Patient Readmitted for COVID pneumonia secondary to acute on chronic respiratory failure in the setting of sarcoidosis, proximal fibrillation and CHF exacerbation, resulting in ROSA. 1. COVID pneumonia with secondary acute on chronic respiratory failure, in the setting of sarcoidosis, resulting in ROSA, acute, present on admission - RR 27, O2 saturation 96% on 50 L at the 50%. -ABGs on high-flow pH 7.436, pCO2 37.8, PO2 85, HC03 25.5, total CO2 27, O2 saturation 94%. - Resp. consult -WBC 22, with a left shift neutrophils 19,900, possibly r/t chronic pulse steriod use? HGB 12.2, HCT 36.2- baseline, PLT 527-elevated. -lactate 2.9, ferritin 2080, lactate D 1053, CRP 24.8. Possibly r/t to chronic sarcoidosis and steroid use -procalcitonin WNL, respiratory panel WNL-lower threshold for bacterial infection. -Sodium 132, chloride 92, BUN 40, creatinine 1.48, glucose 167, GFR 46.6. baseline chemistries BUN 25-35, creatinine 1.3 9-1.70, GFR 39.7-50.2. -7 day course barcinib, remdesivir dexamethasone -Albuterol HFA inhaler, pain management to encourage proning, anxiety management. -Tele ICU consult -avoiding nebulizer aerosol treatments, if signs and symptoms are worsening order chest x-ray and echo -monitor patient for acute NH, ischemic stroke, PE, DVT, venous thrombosis, hyperglycemia an increased risk of bacterial infections, fungal and strongyloides -Continue Symbicort and Albuterol -Full Code 2. Paroxysmal atrial fibrillation, acute on chronic, present on admission- uncontrolled -patient placed on Cardizem drip for rate control. -D-dimer 2221, CTA was negative for PE -Continue home Eliquis -Hold Tikosyn, Metoprolol while on drip 3.Coronary Artery Disease, in the setting of hyperlipidemia, chronic, present on admission.? -Continue Aspirin and Lipitor. - Last admission 05/17/21:Troponin 0.08 Peak with BNP 2,450 -Today: BNP 5660,-troponin 0.038 - Will trend troponin 4. Congestive heart failure, acute on chronic, exacerbation,present on admission.? -Jalil Vasc score:5 -Continue Furosemide and Metoprolol -Previous BNP 2.450 on admission,BNP 5660 -Lasix 40 mg IV BID -fluid restriction to 2000 units q.day, accurate I&O Qshift, monitor for increasing fluid overload 5. Diabetes Mellitus Type 2, acute on chronic ,present on admission. -Continue Glargine 15 units BID and follow blood sugars -correctional scale Lispro low dose PRN -A1C ordered 6. CKD, G3b, acute on chronic, present on admission -Sodium 132, chloride 92, BUN 40, creatinine 1.48, glucose 167, GFR 46.6. baseline chemistries BUN 25-35, creatinine 1.3 9-1.70, GFR 39.7-50.2. 7. sarcoidosis, chronic, present on admission -pulse treatments of Prednisone 40 mg daily by Pulmonology, last treatment was completed 7 days ago. -Consider AM Cortisol to r/o adrenal insufficiency. -Continue Symbicort and Albuterol Code status:Full Surrogate decision maker: Nay Ott COVID PCR:Positive COVID vaccination: Moderna x2 + Booster 2020 DVT/VTE prophylaxis: Eliquis and SCDs Disposition: Patient admitted to the ICU for COVID pneumonia resulting in acute on chronic respiratory failure, in the setting of uncontrolled rate proximal atrial fibrillation with CHF exacerbation. I have utilized all available immediate resources to obtain, update, or review the patient's current medications. I confirmed that the patient's advanced care plan is present, Code status is documented and/or surrogate decision maker is listed in the patient's medical record. Time Spent With Patient Critical Care time: I spent a total of [] minutes of critical care time on this patient's care today; this time is exclusive of procedural time. Quality VTE Deep Vein Thrombosis/Pulmonary Embolism Present on Admission: No
[2021-05-28 01:35] LABS: HCO3 ABG 26 mmol/L (22-26); PCO2 ABG 37.8 mmHg (35-45); PO2 ABG 85 mmHg (80-100); pH ABG 7.44 (7.35-7.45)
[2021-05-28 01:36] LABS: Fractionated Inspired Oxygen 50; Oxygen Saturation ABG 97 % (95-100); TCO2 ABG 27 mmol/L (21-31)
--- NOTE | 2021-05-28 02:11 | PC.NURSE ---
PATIENT ASPIRATED WHILE TRYING TO SWALLOW A PILL AND A SIP OF WATER.
[2021-05-28] MEDS: APIXABAN 5 MG TABLET PO (02:45)
[2021-05-28 05:25] LABS: Add Manual Diff / Slide Review NO; Basophils Absolute Auto 0 /uL (0-100); Eosinophils Absolute Auto 0 /uL (0-450); Hematocrit 32.1 % (41-53); Hemoglobin 10.8 g/dL (13.5-17.5); Lymphocytes Absolute Auto 400 /uL (1100-4500); Lymphocytes Percent Auto 3.6 % (25-40); Mean Corpuscular HGB Conc 33.6 % (30-36); Mean Corpuscular Hemoglobin 28.6 PG (26-34); Mean Corpuscular Volume 85.2 fL (80-100); Monocytes Absolute Auto 400 /uL (0-900); Monocytes Percent Auto 3.5 % (3-14); Neutrophils Absolute Auto 10500 /uL (1500-7000); Neutrophils Percent Auto 92.9 % (50-75); Platelet Count 352 X10^3/uL (150-400); Red Blood Cell Count 3.77 X10^6/uL (4.5-5.9); White Blood Cell Count 11.3 X10^3/uL (4.5-11.0)
[2021-05-28 05:32] LABS: Lactate 2HR (Lactic Acid Rflx) 1.4 mmol/L (0.7-2.1)
[2021-05-28 05:35] LABS: Alanine Aminotransferase 24 IU/L (<50); Albumin 3.2 g/dL (3.5-5.0); Albumin Globulin Ratio 0.9 (1.0-2.8); Alkaline Phosphatase 84 U/L (38-126); Aspartate Aminotransferase 36 IU/L (17-59); BUN Creatinine Ratio 27.5 (6-22); Bilirubin Total 0.7 mg/dL (0.2-1.3); Blood Urea Nitrogen 39 mg/dL (9-20); Calcium 8.2 mg/dL (8.4-10.2); Carbon Dioxide 27 mmol/L (22-32); Chloride 95 mmol/L (98-107); Estimated Glomerular Filt Rate 48.9 mL/min (>60); Globulin 3.5 g/dL (1.7-4.1); Glucose 241 mg/dL (80-110); HEMOLYSIS < 15 (0-50); Potassium 3.7 mmol/L (3.4-5.1); Sodium 131 mmol/L (137-145); Total Protein 6.7 g/dL (6.3-8.2)
[2021-05-28 05:42] LABS: NT-proBNP (BNP-Adult 18+) 5610 pg/mL (<125)
[2021-05-28 08:42] LABS: PTT Partial Thromboplastin Tim 30 SECONDS (26.4-36.2)
[2021-05-28] MEDS: ALBUTEROL HFA MDI 60 PUFF/8 GM INHALER INH (09:12)
[2021-05-28] MEDS: BUDESONIDE 0.5 MG/2 ML NEB INH ×2 (09:15→20:31)
[2021-05-28] MEDS: MAGNESIUM CITRATE 300 ML SOLUTION 150 ML PO (10:18)
[2021-05-28] MEDS: BARICITINIB 2 MG TABLET 4 MG PO (10:19)
[2021-05-28] MEDS: ASPIRIN EC 81 MG TABLET PO (10:19)
[2021-05-28] MEDS: PREGABALIN 50 MG CAPSULE 100 MG PO ×2 (10:20→21:34)
[2021-05-28] MEDS: dexAMETHasone 4 MG TABLET 6 MG PO ×2 (10:20→21:32)
[2021-05-28] MEDS: METOPROLOL ER 50 MG TABLET PO ×2 (10:20→21:32)
[2021-05-28] MEDS: TRAMADOL 50 MG TABLET PO ×3 (10:21→21:34)
[2021-05-28] MEDS: PANTOPRAZOLE DR 20 MG TABLET PO (10:21)
[2021-05-28] MEDS: FERROUS SULFATE 325 MG TABLET PO (10:22)
[2021-05-28] MEDS: REMDESIVIR 100 MG in SODIUM CHLORIDE 0.9% 230 ML 250 ML IV (10:22)
[2021-05-28] MEDS: INSULIN GLARGINE 100 UNIT/ML 3ML PEN 15 UNIT SUBCUT ×2 (10:24→21:35)
[2021-05-28] MEDS: DOFETILIDE 125 MCG 125 EACH PO ×2 (10:25→21:33)
[2021-05-28] MEDS: HEPARIN DRIP 25,000 UNIT/500 ML IV.SOLN 29.7 UNIT IV (10:26)
[2021-05-28] MEDS: HEPARIN 5,000 UNIT/ML VIAL 6600 UNIT IV (10:27)
[2021-05-28] MEDS: FUROSEMIDE 20 MG/2 ML VIAL 40 MG IV ×2 (10:28→21:33)
[2021-05-28] MEDS: INSULIN LISPRO 100 UNIT/ML 3ML VIAL SUBCUT ×4 (10:32→21:35)
--- NOTE | 2021-05-28 12:02 | PM.PN.EICU ---
Subjective Subjective :: This patient was seen via real time interactive two-way audiovisual telecommunication. 75 y.o. male with acute on chronic hypoxic respiratory failure due to COVID-19, ROSA superimposed on stage 3B CKD, and uncontrolled AF. Has history of HFpEF, T2DM, pulmonary sarcoidosis on prednisone 10 mg. Current Medications Current Medications Medications: Home Medications budesonide-formoterol HFA 160 mcg-4.5 mcg/actuation aerosol inhaler (Symbicort) 2 inh INH BID #1 inh 09/14/17 [Rx Confirmed 05/27/21] dofetilide 125 mcg capsule (Tikosyn) 125 mcg PO BID cap 08/03/18 [History Confirmed 05/27/21] Fast click lancet cartridge #1 ea 10/04/18 [Rx Confirmed 05/28/21] apixaban 5 mg tablet (Eliquis) 5 mg PO BID 01/03/19 [History Confirmed 05/27/21] epinephrine 0.3 mg/0.3 mL injection, auto-injector (EpiPen 2-Abhijeet) 0.3 mg (0.3 mL) IM ONCE #2 each 04/04/19 [Rx Confirmed 05/27/21] aspirin 81 mg tablet,delayed release 81 mg PO DAILY 08/02/19 [History Confirmed 05/27/21] torsemide 20 mg tablet 20 mg PO DAILY tab 12/25/19 [History Confirmed 05/27/21] alprazolam 0.5 mg tablet (Xanax) 0.25 mg PO BID PRN #60 tab 03/13/20 [Rx Confirmed 05/28/21] [Contour test strips] #300 each 08/20/20 [Rx Confirmed 05/28/21] pen needle, diabetic 29 gauge x 1/2 (BD Ultra-Fine Original Pen Needle) #30 each 09/17/20 [Rx Confirmed 05/28/21] Disabled Parking Permit #1 ea 10/22/20 [Rx Confirmed 05/28/21] Lactobacil rhamnosus GG 10 billion cell-inulin 200 mg sprinkle capsule (pluriSelect) See Rx Instructions .ROUTE .COMPLEX #100 cap 01/16/21 [Rx Confirmed 05/27/21] ferrous sulfate 325 mg (65 mg iron) tablet See Rx Instructions .ROUTE .COMPLEX #90 tab 03/10/21 [Rx Confirmed 05/27/21] gel-matrix pad dress, silicone 2 X 5.5 topical pads #4 ea 03/25/21 [Rx Confirmed 05/28/21] metoprolol succinate 50 mg tablet,extended release 24 hr 50 mg PO BID tab 03/25/21 [History Confirmed 05/27/21] nitroglycerin 0.4 mg sublingual tablet (Nitrostat) 0.4 mg SUBLINGUAL Q5-15M PRN 03/25/21 [History Confirmed 05/27/21] pregabalin 100 mg capsule (Lyrica) 100 mg PO BID #180 cap 03/31/21 [Rx Confirmed 05/27/21] albuterol sulfate 90 mcg/actuation aerosol inhaler 2 puff INHALATION Q4H PRN #0 gram 05/19/21 [Rx Confirmed 05/27/21] Bleed in valve for CPAP connection to oxygen #1 ea 05/20/21 [Rx Confirmed 05/28/21] atorvastatin 40 mg tablet 40 mg PO Q OTHER DAY 05/27/21 [History Confirmed 05/27/21] calcium carbonate 600 mg (1,500 mg)-vitamin D3 200 unit tablet 1 tab PO DAILY 05/27/21 [History Confirmed 05/27/21] insulin glargine 100 unit/mL (3 mL) subcutaneous pen (Lantus Solostar U-100 Insulin) 15 unit SUBCUT BID 05/27/21 [History Confirmed 05/27/21] lorazepam 0.5 mg tablet (Ativan) 0.5 mg PO TID PRN 05/27/21 [History Confirmed 05/27/21] oxycodone-acetaminophen 5 mg-325 mg tablet 1 tab PO Q4H PRN 05/27/21 [History Confirmed 05/27/21] tramadol 50 mg tablet 50 mg PO TID 05/27/21 [History Confirmed 05/27/21] vitamin B complex (B Complex-Vitamin B12) 1 tab PO DAILY 05/27/21 [History Confirmed 05/27/21] Visit Medications (administered) Generic Name Dose Route Start Last Admin Trade Name Freq PRN Reason Stop Dose Admin Aspirin 81 mg 05/28/21 09:00 05/28/21 10:19 Aspirin Ec 81 Mg Tablet PO 81 mg DAILY JUAREZ Administration Budesonide 0.5 mg 05/28/21 08:00 05/28/21 09:15 Budesonide 0.5 Mg/2 Ml Neb INH 0.5 mg RTBID JUAREZ Administration Dexamethasone 6 mg 05/28/21 09:45 05/28/21 10:20 Dexamethasone 4 Mg Tablet PO 06/04/21 09:44 6 mg BID JUAREZ Administration Ferrous Sulfate 325 mg 05/28/21 09:00 05/28/21 10:22 Ferrous Sulfate 325 Mg Tablet PO 325 mg DAILY JUAREZ Administration Furosemide 40 mg 05/28/21 09:00 05/28/21 10:28 Furosemide 20 Mg/2 Ml Vial IV 40 mg BID JUAREZ Administration Diltiazem HCl 125 mg/ Dextrose 125 mls @ 5 mls/hr 05/27/21 21:11 05/28/21 06:38 IV Infused TITRATE JUAREZ Titration Protocol 5 MG/HR Remdesivir 100 mg/ Sodium 250 mls @ 250 mls/hr 05/28/21 09:00 05/28/21 10:22 Chloride IV 06/04/21 08:59 250 mls/hr DAILY JUAREZ Administration Heparin Sodium/Dextrose 25,000 unit in 500 mls @ 29.7 mls/hr 05/28/21 07:30 05/28/21 10:26 Heparin Drip IV 18 units/kg/hr CONT JUAREZ 29.7 mls/hr Administration Protocol 18 UNITS/KG/HR Insulin Glargine 15 unit 05/28/21 09:00 05/28/21 10:24 Insulin Glargine 100 Unit/Ml 3ml Pen SUBCUT 15 unit BID JUAREZ Administration Insulin Human Lispro 0 unit 05/28/21 11:45 05/28/21 10:32 Insulin Lispro 100 Unit/Ml 3ml Vial SUBCUT 2 unit ACHS [facility] Administration Protocol Metoprolol Succinate 50 mg 05/28/21 09:00 05/28/21 10:20 Metoprolol Er 50 Mg Tablet PO 50 mg BID JUAREZ Administration Tikosyn 125 Mcg 125 mcg 05/28/21 09:15 05/28/21 10:25 PO 125 mcg BID JUAREZ Administration Pantoprazole Sodium 20 mg 05/28/21 06:00 05/28/21 10:[address] 20 Mg Tablet PO 20 mg 0600 JUAREZ Administration Pregabalin 100 mg 05/28/21 09:00 05/28/21 10:20 Pregabalin 50 Mg Capsule PO 100 mg BID JUAREZ Administration Tramadol HCl 50 mg 05/28/21 09:00 05/28/21 10:21 Tramadol 50 Mg Tablet PO 50 mg TID JUAREZ Administration Objective Labs Result Diagrams: 05/28/21 05:00 05/28/21 05:00 Labs: Laboratory Results - last 24 hr 05/27/21 05/27/21 05/27/21 20:20 20:20 20:20 WBC 22.0 H RBC 4.23 L Hgb 12.2 L Hct 36.2 L MCV 85.7 MCH 28.8 MCHC 33.7 RDW 14.4 Plt Count 527 H Neut % (Auto) 90.5 H Lymph % (Auto) 4.7 L Bledsoe % (Auto) 4.0 Eos % (Auto) 0.2 L Baso % (Auto) 0.6 Neut # (Auto) 46923 H Lymph # (Auto) 1000 L Bledsoe # (Auto) 900 Eos # (Auto) 0 Baso # (Auto) 100 APTT D-Dimer 2221 H ABG pH ABG pCO2 ABG pO2 ABG HCO3 ABG Total CO2 ABG O2 Saturation ABG Base Excess FiO2 Sodium 132 L Potassium 4.1 Chloride 92 L Carbon Dioxide 30 BUN 40 H Creatinine 1.48 H Estimated GFR 46.6 L BUN/Creatinine Ratio 27.0 H Glucose 167 H Lactate Calcium 8.8 Magnesium Ferritin 2080 H Total Bilirubin 1.3 AST 42 ALT 27 Alkaline Phosphatase 106 Lactate Dehydrogenase Total Creatine Kinase 98 CK-MB (CK-2) TNP CK-MB (CK-2) Rel Index TNP Troponin I 0.038 H C-Reactive Protein 24.8 H NT-Pro-B Natriuret Pep 5660 H Total Protein 8.0 Albumin 3.9 Globulin 4.1 Albumin/Globulin Ratio 1.0 Procalcitonin 0.21 Nasal Screen MRSA (PCR) Chlamy pneumoniae PCR Adenovirus (PCR) B. pertussis DNA (PCR) B.parapertussis DNA PCR Coronavirus OC43 (PCR) Coronavirus HKU1 (PCR) Coronavirus 229E (PCR) SARS-CoV-2 (PCR) Coronavirus NL63 (PCR) Human Metapneumovir PCR Influenza Type A (PCR) Influenza Type B (PCR) M. pneumoniae (PCR) Parainfluenza 1 (PCR) Parainfluenza 2 (PCR) Parainfluenza 3 (PCR) Parainfluenza 4 (PCR) RSV (PCR) Entero/Rhino (PCR) 05/27/21 05/27/21 05/27/21 20:20 20:20 20:20 WBC RBC Hgb Hct MCV MCH MCHC RDW Plt Count Neut % (Auto) Lymph % (Auto) Bledsoe % (Auto) Eos % (Auto) Baso % (Auto) Neut # (Auto) Lymph # (Auto) Bledsoe # (Auto) Eos # (Auto) Baso # (Auto) APTT D-Dimer ABG pH ABG pCO2 ABG pO2 ABG HCO3 ABG Total CO2 ABG O2 Saturation ABG Base Excess FiO2 Sodium Potassium Chloride Carbon Dioxide BUN Creatinine Estimated GFR BUN/Creatinine Ratio Glucose Lactate 2.9 H Calcium Magnesium 2.3 Ferritin Total Bilirubin AST ALT Alkaline Phosphatase Lactate Dehydrogenase 1053 H Total Creatine Kinase CK-MB (CK-2) CK-MB (CK-2) Rel Index Troponin I C-Reactive Protein NT-Pro-B Natriuret Pep Total Protein Albumin Globulin Albumin/Globulin Ratio Procalcitonin Nasal Screen MRSA (PCR) Chlamy pneumoniae PCR Adenovirus (PCR) B. pertussis DNA (PCR) B.parapertussis DNA PCR Coronavirus OC43 (PCR) Coronavirus HKU1 (PCR) Coronavirus 229E (PCR) SARS-CoV-2 (PCR) Coronavirus NL63 (PCR) Human Metapneumovir PCR Influenza Type A (PCR) Influenza Type B (PCR) M. pneumoniae (PCR) Parainfluenza 1 (PCR) Parainfluenza 2 (PCR) Parainfluenza 3 (PCR) Parainfluenza 4 (PCR) RSV (PCR) Entero/Rhino (PCR) 05/27/21 05/28/21 05/28/21 20:43 00:12 00:25 WBC RBC Hgb Hct MCV MCH MCHC RDW Plt Count Neut % (Auto) Lymph % (Auto) Bledsoe % (Auto) Eos % (Auto) Baso % (Auto) Neut # (Auto) Lymph # (Auto) Bledsoe # (Auto) Eos # (Auto) Baso # (Auto) APTT D-Dimer ABG pH 7.44 ABG pCO2 37.8 ABG pO2 85 ABG HCO3 26 ABG Total CO2 27 ABG O2 Saturation 97 ABG Base Excess 1.0 FiO2 50 Sodium Potassium Chloride Carbon Dioxide BUN Creatinine Estimated GFR BUN/Creatinine Ratio Glucose Lactate Calcium Magnesium Ferritin Total Bilirubin AST ALT Alkaline Phosphatase Lactate Dehydrogenase Total Creatine Kinase CK-MB (CK-2) CK-MB (CK-2) Rel Index Troponin I C-Reactive Protein NT-Pro-B Natriuret Pep Total Protein Albumin Globulin Albumin/Globulin Ratio Procalcitonin Nasal Screen MRSA (PCR) Negative for mrsa Chlamy pneumoniae PCR Not detected Adenovirus (PCR) Not detected B. pertussis DNA (PCR) Not detected B.parapertussis DNA PCR Not detected Coronavirus OC43 (PCR) Not detected Coronavirus HKU1 (PCR) Not detected Coronavirus 229E (PCR) Not detected SARS-CoV-2 (PCR) Detected H Coronavirus NL63 (PCR) Not detected Human Metapneumovir PCR Not detected Influenza Type A (PCR) Not detected Influenza Type B (PCR) Not detected M. pneumoniae (PCR) Not detected Parainfluenza 1 (PCR) Not detected Parainfluenza 2 (PCR) Not detected Parainfluenza 3 (PCR) Not detected Parainfluenza 4 (PCR) Not detected RSV (PCR) Not detected Entero/Rhino (PCR) Not detected 05/28/21 05/28/21 05/28/21 05:00 05:00 05:00 WBC 11.3 H RBC 3.77 L Hgb 10.8 L Hct 32.1 L MCV 85.2 MCH 28.6 MCHC 33.6 RDW 14.0 Plt Count 352 Neut % (Auto) 92.9 H Lymph % (Auto) 3.6 L Bledsoe % (Auto) 3.5 Eos % (Auto) 0.0 L Baso % (Auto) 0.0 Neut # (Auto) 90810 H Lymph # (Auto) 400 L Bledsoe # (Auto) 400 Eos # (Auto) 0 Baso # (Auto) 0 APTT D-Dimer ABG pH ABG pCO2 ABG pO2 ABG HCO3 ABG Total CO2 ABG O2 Saturation ABG Base Excess FiO2 Sodium 131 L Potassium 3.7 Chloride 95 L Carbon Dioxide 27 BUN 39 H Creatinine 1.42 H Estimated GFR 48.9 L BUN/Creatinine Ratio 27.5 H Glucose 241 H Lactate 1.4 Calcium 8.2 L Magnesium Ferritin Total Bilirubin 0.7 AST 36 ALT 24 Alkaline Phosphatase 84 Lactate Dehydrogenase Total Creatine Kinase CK-MB (CK-2) CK-MB (CK-2) Rel Index Troponin I C-Reactive Protein NT-Pro-B Natriuret Pep 5610 H Total Protein 6.7 Albumin 3.2 L Globulin 3.5 Albumin/Globulin Ratio 0.9 L Procalcitonin Nasal Screen MRSA (PCR) Chlamy pneumoniae PCR Adenovirus (PCR) B. pertussis DNA (PCR) B.parapertussis DNA PCR Coronavirus OC43 (PCR) Coronavirus HKU1 (PCR) Coronavirus 229E (PCR) SARS-CoV-2 (PCR) Coronavirus NL63 (PCR) Human Metapneumovir PCR Influenza Type A (PCR) Influenza Type B (PCR) M. pneumoniae (PCR) Parainfluenza 1 (PCR) Parainfluenza 2 (PCR) Parainfluenza 3 (PCR) Parainfluenza 4 (PCR) RSV (PCR) Entero/Rhino (PCR) 05/28/21 08:05 WBC RBC Hgb Hct MCV MCH MCHC RDW Plt Count Neut % (Auto) Lymph % (Auto) Bledsoe % (Auto) Eos % (Auto) Baso % (Auto) Neut # (Auto) Lymph # (Auto) Bledsoe # (Auto) Eos # (Auto) Baso # (Auto) APTT 30 D-Dimer ABG pH ABG pCO2 ABG pO2 ABG HCO3 ABG Total CO2 ABG O2 Saturation ABG Base Excess FiO2 Sodium Potassium Chloride Carbon Dioxide BUN Creatinine Estimated GFR BUN/Creatinine Ratio Glucose Lactate Calcium Magnesium Ferritin Total Bilirubin AST ALT Alkaline Phosphatase Lactate Dehydrogenase Total Creatine Kinase CK-MB (CK-2) CK-MB (CK-2) Rel Index Troponin I C-Reactive Protein NT-Pro-B Natriuret Pep Total Protein Albumin Globulin Albumin/Globulin Ratio Procalcitonin Nasal Screen MRSA (PCR) Chlamy pneumoniae PCR Adenovirus (PCR) B. pertussis DNA (PCR) B.parapertussis DNA PCR Coronavirus OC43 (PCR) Coronavirus HKU1 (PCR) Coronavirus 229E (PCR) SARS-CoV-2 (PCR) Coronavirus NL63 (PCR) Human Metapneumovir PCR Influenza Type A (PCR) Influenza Type B (PCR) M. pneumoniae (PCR) Parainfluenza 1 (PCR) Parainfluenza 2 (PCR) Parainfluenza 3 (PCR) Parainfluenza 4 (PCR) RSV (PCR) Entero/Rhino (PCR) Exam Vital Signs (past 8 hours): - 05/28/21 04:30 05/28/21 05:00 05/28/21 05:30 Temperature Pulse Rate 69 88 78 Respiratory Rate 21 19 22 Blood Pressure 104/59 L 118/62 84/57 L Pulse Oximetry 95 91 94 05/28/21 05:33 05/28/21 05:34 05/28/21 06:00 Temperature Pulse Rate 80 86 81 Respiratory Rate 22 21 22 Blood Pressure 84/58 L 105/60 112/55 L Pulse Oximetry 94 94 93 05/28/21 06:30 05/28/21 06:35 05/28/21 07:00 Temperature Pulse Rate 81 82 79 Respiratory Rate 24 23 24 Blood Pressure 85/60 L 93/59 L 105/56 L Pulse Oximetry 94 94 93 05/28/21 07:30 05/28/21 08:00 05/28/21 08:06 Temperature Pulse Rate 94 H 93 H 98 H Respiratory Rate 25 H 25 H 26 H Blood Pressure 116/76 102/64 Pulse Oximetry 89 L 90 L 88 L 05/28/21 08:30 05/28/21 08:41 05/28/21 09:00 Temperature 98.6 F Pulse Rate 95 H 98 H Respiratory Rate 24 22 Blood Pressure 92/64 Pulse Oximetry 89 L 91 05/28/21 09:15 05/28/21 09:39 05/28/21 10:00 Temperature Pulse Rate 97 H 100 H Respiratory Rate 24 19 Blood Pressure 92/64 104/58 L Pulse Oximetry 91 91 92 05/28/21 11:00 Temperature Pulse Rate 102 H Respiratory Rate 17 Blood Pressure 119/62 Pulse Oximetry 90 L Fraction of Inspired Oxygen 50 Oxygen Delivery Method Heated High Flow Oxygen Flow Rate 50 Narrative Exam Narrative: -sleeping Resp Effort & Inspection: tachypneic Quality TeleICU VTE Deep Vein Thrombosis/Pulmonary Embolism Present on Admission: No Assessment & Plan Assessment and plan (1) Acute and chronic respiratory failure with hypoxia: Status: Acute Plan: -Continue HFNC; titrate to O2 saturation >=88% -Continue remdesivir/dexamethasone/baricitinib -Watch glycemic control on dexamethasone (2) 2019 novel coronavirus-infected pneumonia (NCIP): Status: Acute Plan: -see diagnosis #1 (3) (HFpEF) heart failure with preserved ejection fraction: Status: Acute Plan: -Would keep even fluid balance (4) Type 2 diabetes mellitus with chronic kidney disease, with long-term current use of insulin: Status: Chronic Plan: -Continue insulin glargine -Add insulin correctional scale (5) Acute renal failure superimposed on chronic kidney disease: Status: Acute Plan: -Adjusted baricitinib dose (6) Paroxysmal atrial fibrillation: Status: Chronic Plan: -Continue IV heparin -Wean IV diltiazem as PO metoprolol is resumed -Continue PO dofetilide Time Spent With Patient Critical Care time: I spent a total of [] minutes of critical care time on this patient's care today; this time is exclusive of procedural time.
[2021-05-28] MEDS: IPRATROPIUM 0.5 MG/2.5 ML NEB INH ×4 (12:39→23:33)
--- NOTE | 2021-05-28 14:48 | CM.DANOTE ---
Patient is a 75 yo male who was a READMIT on 05/27/21 for COVID+/SOB. Pt has [facility] and [facility] for insurance and his PCP is Dr. Alvaro Palomares. EMR was reviewed. Per MD, pt with ongoing COVID pneumonia and multiple medical comorbidities and currently on 50LHHFNC at 50% oxygenation and discussed with pt regarding poor prognosis if he needs to be intubated and pt decided on DNR/DNI. Per RN, pt remained stable today and not quite medically stable for PT/OT yet today. RN states she spoke to spouse who was quite frustrated with lack of communication with her during pt's last admission a week ago and sudden discharge. 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. Patient had already received his three COVID vaccinations, but due his medical history of sarcodosis, renal insufficiancy, and a-fib he obtained the virus. SW called pt's spouse Nay and explained role and she confirms that she felt very out of the loop and not communicated with during pt's last admission a week ago. She states that previously pt had been independent with ADL's and has a hx of SNF after a knee surgery a few years ago but had a very bad experience there and would not want to go back. Spouse denies that they have any hx with HH. Spouse states that she and her adult son are still covid negative and have done well with setting up a good space for pt at home and assisting him while keeping up COVID precautions for themselves. Spouse states that pt just continued to decline in health and oxygen levels and fatigue while he has been home and spouse is very concerned with pt discharging too soon. Spouse is aware that pt has chosen not to be intubated if needed and she states preference is to return home with HH RN/PT/OT or if pt does not improve she understands that home with Hospice may be needed and she is agreeable. Spouse does not have any HH preference and therefore referral made to [facility] based on Vendor calendar and F2F completed but needs MD signature. Spouse would appreciate communication on pt progress and PT/OT recommendations when appropriate to confirm safe d/c home with HH. Spouse states that she is close to [facility] and is willing to stop work if necessary to care for pt at home if needed but hopeful that pt will improve some. Plan: SW to follow closely for PT/OT to be ordered towards confirming safe plan of home with new [facility] referral and regular coordination with spouse on d/c plan. SW to follow for plan of hospice if pt does not improve in his oxygen needs and declines in his health. KIERA Waddell Discharge Planning/Care Management Advanced directive, confirm from FAMILY Start: 05/28/21 00:38 Freq: Q24H Status: Complete Protocol: Document 05/28/21 00:38 CW (Rec: 05/28/21 01:14 CW [id number]) Advance Directive, confirm on record Time 00:00 Person contacted PATIENT Copy received No Advanced directive available on record No CM Discharge Assessment Start: 05/28/21 14:41 Freq: Status: Active Protocol: Document 05/28/21 14:41 BF (Rec: 05/28/21 14:48 BF [id number]) Discharge Planning Assessment Assigned Potline Monitor KIERA Bethea DPOA/Assigned Designee Name spouse Nay Contact Information [phone] Advance Directives? Yes Advance Directives on File No History Provided By Patient,Significant Other, Medical Record Has Patient been admitted in last 30 Yes days? Comment Recent d/c home with new oxygen on 05/19/21 Prior Living Arrangements House Household Members spouse,children Type of transporation used prior to Relies on Others admit Independent with ADL's Yes Is patient alert and oriented? Yes Caregiver for Another No Community Services used prior to Oxygen Therapy admission: DME Already Rented / Owned FWW / Walker Patient/Family Preference Home with Home Health Comment PT/OT to be ordered when medically appropriate Barriers to Discharge Yes Comment COVID+ readmit Discharge Plan Home with Home Health Community Services Oxygen Therapy Transportation Arrangement Spouse Referrals Initiated Home Health If patient plan is home with home health Yes : Has signed face to face form been completed? Medicare Choice List Provided Yes SNF/HH Preference [facility] based on Vendor Calendar Whiteboard Updated in Patient Room with Yes name and ext. # of Potline Monitor Review Status In Process Please Provide Date Initial DC 05/28/21 Assessment Was Performed Next Review Type Continued Stay Review
--- NOTE | 2021-05-28 15:02 | CM.DPNOTE ---
Faxed referral packet to [facility] per Neema and received fax conf. Suly Farrell CM Asst.
[2021-05-28 15:38] LABS: PTT Partial Thromboplastin Tim 161 SECONDS (26.4-36.2)
--- NOTE | 2021-05-28 18:15 | PC.NURSE ---
Day Shift Note Pt on heated HFNC 50L and 50% FiO2 all shift, SpO2 92-96%. Does desat with activity (80s) on these settings but did well getting up to BSC with several 100% O2 flushes before transfer and after - SpO2 remained above 92%. Dilt gtt off one hour after PO metoprolol administered this morning. HR in the 70s at this time, aflutter/afib with occ paced beats. Heparin gtt infusing for anticoagulation. Did well with all pills today, no s/sx of aspiration noted, swallowed whole with water. Uses urinal independently. , Blanca, updated twice this shift on plan of care per pt and request. Call light within reach and using appropriately to make needs known.
--- NOTE | 2021-05-28 19:41 | PM.ICURNDS ---
- Note: Pt discussed on rounds w bedside nurse, pt remains on HFNC 50L/50% and breathing comfortable, he is on baricitinib/decadron/remdesivir. He is also on heparin drip for PAF. Plan to continue current care
[2021-05-28] MEDS: SODIUM CHLORIDE 0.9% FLUSH 10 ML IV (21:35)
[2021-05-28 21:37] LABS: PTT Partial Thromboplastin Tim 74 SECONDS (26.4-36.2)
[2021-05-29] VITALS (69 sets, daily range): BP systolic 92–114; BP diastolic 46–64; PULSE 64–106; RESP 11–46; TEMP 31.5–36.7; O2SAT 83–99
[2021-05-29] MEDS: PANTOPRAZOLE DR 20 MG TABLET PO (06:18)
[2021-05-29] MEDS: INSULIN LISPRO 100 UNIT/ML 3ML VIAL SUBCUT ×3 (07:50→21:48)
[2021-05-29 08:11] LABS: Add Manual Diff / Slide Review NO; Basophils Absolute Auto 100 /uL (0-100); Basophils Percent Auto 0.4 % (0-2); Eosinophils Absolute Auto 0 /uL (0-450); Hematocrit 31.7 % (41-53); Hemoglobin 10.7 g/dL (13.5-17.5); INR 1.9 (0.9-1.3); Lymphocytes Absolute Auto 500 /uL (1100-4500); Lymphocytes Percent Auto 3.5 % (25-40); Mean Corpuscular HGB Conc 33.8 % (30-36); Mean Corpuscular Hemoglobin 28.8 PG (26-34); Mean Corpuscular Volume 85.3 fL (80-100); Monocytes Absolute Auto 500 /uL (0-900); Monocytes Percent Auto 3.8 % (3-14); Neutrophils Absolute Auto 13000 /uL (1500-7000); Neutrophils Percent Auto 92.3 % (50-75); Platelet Count 422 X10^3/uL (150-400); Prothrombin Time 21.3 SECONDS (10.1-12.7); Red Blood Cell Count 3.72 X10^6/uL (4.5-5.9); Red Cell Distribution Width 14.2 % (11.6-14.8); White Blood Cell Count 14.1 X10^3/uL (4.5-11.0)
[2021-05-29] MEDS: HEPARIN DRIP 25,000 UNIT/500 ML IV.SOLN 23.7 UNIT IV (08:11)
[2021-05-29 08:17] LABS: BUN Creatinine Ratio 37.4 (6-22); Blood Urea Nitrogen 55 mg/dL (9-20); Carbon Dioxide 32 mmol/L (22-32); Chloride 96 mmol/L (98-107); PTT Partial Thromboplastin Tim 82 SECONDS (26.4-36.2); Potassium 3.7 mmol/L (3.4-5.1); Sodium 135 mmol/L (137-145)
[2021-05-29 08:18] LABS: Alanine Aminotransferase 26 IU/L (<50); Albumin 3.2 g/dL (3.5-5.0); Albumin Globulin Ratio 0.9 (1.0-2.8); Alkaline Phosphatase 91 U/L (38-126); Aspartate Aminotransferase 31 IU/L (17-59); Bilirubin Total 0.6 mg/dL (0.2-1.3); Calcium 8.1 mg/dL (8.4-10.2); Globulin 3.4 g/dL (1.7-4.1); Glucose 234 mg/dL (80-110); HEMOLYSIS < 15 (0-50); Total Protein 6.6 g/dL (6.3-8.2)
--- NOTE | 2021-05-29 08:40 | DI.RAD.S_ITS ---
PROCEDURE: XR CHEST 1V INDICATIONS: COVID+ TECHNIQUE: One view of the chest was acquired. COMPARISON: [facility], CR, XR CHEST 1V, 05/27/2021, 20:51. FINDINGS: Surgical changes and devices: Partially visualized posterior spinal fixation hardware. Dual lead cardiac pacer. Lungs and pleura: Small bilateral pleural effusions with adjacent atelectasis are unchanged. Ill-defined consolidative opacities in both lung bases as well as the perihilar regions grossly unchanged. No new focal consolidation. No pneumothorax. Mediastinum: Mediastinal contours appear normal. Heart size is normal. Bones and chest wall: Bilateral shoulder joint degeneration. IMPRESSION: Overall, no interval change since 05/27/21. Dictated by: Johann Wiseman M.D. on 05/29/2021 at 9:47 Approved by: Johann Wiseman M.D. on 05/29/2021 at 9:48
[2021-05-29] MEDS: METOPROLOL ER 50 MG TABLET PO ×2 (09:08→21:46)
[2021-05-29] MEDS: ASPIRIN EC 81 MG TABLET PO (09:08)
[2021-05-29] MEDS: BARICITINIB 2 MG TABLET PO (09:09)
[2021-05-29] MEDS: PREGABALIN 50 MG CAPSULE 100 MG PO ×2 (09:09→21:45)
[2021-05-29] MEDS: dexAMETHasone 4 MG TABLET 6 MG PO ×2 (09:10→21:47)
[2021-05-29] MEDS: FERROUS SULFATE 325 MG TABLET PO (09:10)
[2021-05-29] MEDS: TRAMADOL 50 MG TABLET PO ×2 (09:10→21:47)
[2021-05-29] MEDS: DOFETILIDE 125 MCG 125 EACH PO ×2 (09:10→21:45)
[2021-05-29] MEDS: FUROSEMIDE 20 MG/2 ML VIAL 40 MG IV ×2 (09:11→21:45)
[2021-05-29] MEDS: INSULIN GLARGINE 100 UNIT/ML 3ML PEN 15 UNIT SUBCUT ×2 (09:11→21:48)
[2021-05-29] MEDS: MAGNESIUM CITRATE 300 ML SOLUTION 150 ML PO (09:16)
[2021-05-29] MEDS: IPRATROPIUM 0.5 MG/2.5 ML NEB INH (10:20)
[2021-05-29] MEDS: LORazepam 0.5 MG TABLET PO ×4 (10:55→21:46)
[2021-05-29] MEDS: OXYCODONE/ACETAMINOPHEN 5/325 TABLET 1 TAB PO ×2 (10:55→16:52)
[2021-05-29] MEDS: REMDESIVIR 100 MG in SODIUM CHLORIDE 0.9% 230 ML 250 ML IV (10:55)
--- NOTE | 2021-05-29 12:02 | P.TELICUPN_ITS ---
Subjective Subjective :: This patient was seen via real time interactive two-way audiovisual telecommunication. 75 y.o. male with acute on chronic hypoxic respiratory failure due to COVID-19, ROSA superimposed on stage 3B CKD, and uncontrolled AF.? Has history of HFpEF, T2DM, pulmonary sarcoidosis on prednisone 10 mg. INTERIM EVENTS -Now DNR -Unable to self-prone due to chronic back/neck pain -FiO2 up slightly to 55% -Creatinine unchanged Current Medications Current Medications Medications: Home Medications budesonide-formoterol HFA 160 mcg-4.5 mcg/actuation aerosol inhaler (Symbicort) 2 inh INH BID #1 inh 09/14/17 [Rx Confirmed 05/27/21] dofetilide 125 mcg capsule (Tikosyn) 125 mcg PO BID cap 08/03/18 [History Confirmed 05/27/21] Fast click lancet cartridge #1 ea 10/04/18 [Rx Confirmed 05/28/21] apixaban 5 mg tablet (Eliquis) 5 mg PO BID 01/03/19 [History Confirmed 05/27/21] epinephrine 0.3 mg/0.3 mL injection, auto-injector (EpiPen 2-Abhijeet) 0.3 mg (0.3 mL) IM ONCE #2 each 04/04/19 [Rx Confirmed 05/27/21] aspirin 81 mg tablet,delayed release 81 mg PO DAILY 08/02/19 [History Confirmed 05/27/21] torsemide 20 mg tablet 20 mg PO DAILY tab 12/25/19 [History Confirmed 05/27/21] alprazolam 0.5 mg tablet (Xanax) 0.25 mg PO BID PRN #60 tab 03/13/20 [Rx Confirmed 05/28/21] [Contour test strips] #300 each 08/20/20 [Rx Confirmed 05/28/21] pen needle, diabetic 29 gauge x 1/2 (BD Ultra-Fine Original Pen Needle) #30 each 09/17/20 [Rx Confirmed 05/28/21] Disabled Parking Permit #1 ea 10/22/20 [Rx Confirmed 05/28/21] Lactobacil rhamnosus GG 10 billion cell-inulin 200 mg sprinkle capsule ([email or web address]) See Rx Instructions .ROUTE .COMPLEX #100 cap 01/16/21 [Rx Confirmed 05/27/21] ferrous sulfate 325 mg (65 mg iron) tablet See Rx Instructions .ROUTE .COMPLEX #90 tab 03/10/21 [Rx Confirmed 05/27/21] gel-matrix pad dress, silicone 2 X 5.5 topical pads #4 ea 03/25/21 [Rx Confirmed 05/28/21] metoprolol succinate 50 mg tablet,extended release 24 hr 50 mg PO BID tab 03/25/21 [History Confirmed 05/27/21] nitroglycerin 0.4 mg sublingual tablet (Nitrostat) 0.4 mg SUBLINGUAL Q5-15M PRN 03/25/21 [History Confirmed 05/27/21] pregabalin 100 mg capsule (Lyrica) 100 mg PO BID #180 cap 03/31/21 [Rx Confirmed 05/27/21] albuterol sulfate 90 mcg/actuation aerosol inhaler 2 puff INHALATION Q4H PRN #0 gram 05/19/21 [Rx Confirmed 05/27/21] Bleed in valve for CPAP connection to oxygen #1 ea 05/20/21 [Rx Confirmed 05/28/21] atorvastatin 40 mg tablet 40 mg PO Q OTHER DAY 05/27/21 [History Confirmed 05/27/21] calcium carbonate 600 mg (1,500 mg)-vitamin D3 200 unit tablet 1 tab PO DAILY 05/27/21 [History Confirmed 05/27/21] insulin glargine 100 unit/mL (3 mL) subcutaneous pen (Lantus Solostar U-100 Insulin) 15 unit SUBCUT BID 05/27/21 [History Confirmed 05/27/21] lorazepam 0.5 mg tablet (Ativan) 0.5 mg PO TID PRN 05/27/21 [History Confirmed 05/27/21] oxycodone-acetaminophen 5 mg-325 mg tablet 1 tab PO Q4H PRN 05/27/21 [History Confirmed 05/27/21] tramadol 50 mg tablet 50 mg PO TID 05/27/21 [History Confirmed 05/27/21] vitamin B complex (B Complex-Vitamin B12) 1 tab PO DAILY 05/27/21 [History Confirmed 05/27/21] Visit Medications (administered) Generic Name Dose Route Start Last Admin Trade Name Freq PRN Reason Stop Dose Admin Aspirin 81 mg 05/28/21 09:00 05/29/21 09:08 Aspirin Ec 81 Mg Tablet PO 81 mg DAILY JUAREZ Administration Budesonide 0.5 mg 05/28/21 08:00 05/29/21 11:08 Budesonide 0.5 Mg/2 Ml Neb INH Not Given RTBID JUAREZ Dexamethasone 6 mg 05/28/21 09:45 05/29/21 09:10 Dexamethasone 4 Mg Tablet PO 06/04/21 09:44 6 mg BID JUAREZ Administration Ferrous Sulfate 325 mg 05/28/21 09:00 05/29/21 09:10 Ferrous Sulfate 325 Mg Tablet PO 325 mg DAILY JUAREZ Administration Furosemide 40 mg 05/28/21 09:00 05/29/21 09:11 Furosemide 20 Mg/2 Ml Vial IV 40 mg BID JUAREZ Administration Remdesivir 100 mg/ Sodium 250 mls @ 250 mls/hr 05/28/21 09:00 05/29/21 10:55 Chloride IV 06/04/21 08:59 250 mls/hr DAILY JUAREZ Administration Heparin Sodium/Dextrose 25,000 unit in 500 mls @ 29.7 mls/hr 05/28/21 07:30 05/29/21 08:11 Heparin Drip IV 14.36 units/kg/hr CONT JUAREZ 23.7 mls/hr Administration Protocol 18 UNITS/KG/HR Insulin Glargine 15 unit 05/28/21 09:00 05/29/21 09:11 Insulin Glargine 100 Unit/Ml 3ml Pen SUBCUT 15 unit BID JUAREZ Administration Insulin Human Lispro 0 unit 05/28/21 11:45 05/29/21 07:50 Insulin Lispro 100 Unit/Ml 3ml Vial SUBCUT 2 unit ACHS JUAREZ Administration Protocol Ipratropium [place] 0.5 mg 05/28/21 11:00 05/29/21 10:45 Ipratropium 0.5 Mg/2.5 Ml Neb INH Not Given RTQ4HR JUAREZ Lorazepam 0.5 mg 05/28/21 00:34 05/29/21 10:55 Lorazepam 0.5 Mg Tablet PO 0.5 mg TID PRN Administration Anxiety Metoprolol Succinate 50 mg 05/28/21 09:00 05/29/21 09:08 Metoprolol Er 50 Mg Tablet PO 50 mg BID JUAREZ Administration Tikosyn 125 Mcg 125 mcg 05/28/21 09:15 05/29/21 09:10 PO 125 mcg BID JUAREZ Administration Oxycodone/Acetaminophen 1 tab 05/28/21 00:34 05/29/21 10:55 Oxycodone/Acetaminophen 5/325 Tablet PO 1 tab Q4H PRN Administration Pain, Moderate Pantoprazole Sodium 20 mg 05/28/21 06:00 05/29/21 06:[address] 20 Mg Tablet PO 20 mg 0600 JUAREZ Administration Pregabalin 100 mg 05/28/21 09:00 05/29/21 09:09 Pregabalin 50 Mg Capsule PO 100 mg BID JUAREZ Administration Sodium Chloride 10 ml 05/28/21 21:00 05/29/21 10:45 Sodium Chloride 0.9% Flush IV Not Given BID JUAREZ Tramadol HCl 50 mg 05/28/21 09:00 05/29/21 09:10 Tramadol 50 Mg Tablet PO 50 mg TID JUAREZ Administration Objective Labs Result Diagrams: 05/29/21 07:36 05/29/21 07:36 Labs: Laboratory Results - last 24 hr 05/28/21 05/28/21 05/29/21 14:55 20:55 07:36 WBC 14.1 H RBC 3.72 L Hgb 10.7 L Hct 31.7 L MCV 85.3 MCH 28.8 MCHC 33.8 RDW 14.2 Plt Count 422 H Neut % (Auto) 92.3 H Lymph % (Auto) 3.5 L [place] % (Auto) 3.8 Eos % (Auto) 0.0 L Baso % (Auto) 0.4 Neut # (Auto) 21863 H Lymph # (Auto) 500 L [place] # (Auto) 500 Eos # (Auto) 0 Baso # (Auto) 100 PT INR APTT 161 H* D 74 H* D Sodium Potassium Chloride Carbon Dioxide BUN Creatinine Estimated GFR BUN/Creatinine Ratio Glucose Calcium Total Bilirubin AST ALT Alkaline Phosphatase Total Protein Albumin Globulin Albumin/Globulin Ratio 05/29/21 05/29/21 07:36 07:36 WBC RBC Hgb Hct MCV MCH MCHC RDW Plt Count Neut % (Auto) Lymph % (Auto) [place] % (Auto) Eos % (Auto) Baso % (Auto) Neut # (Auto) Lymph # (Auto) [place] # (Auto) Eos # (Auto) Baso # (Auto) PT 21.3 H INR 1.9 H APTT 82 H* Sodium 135 L Potassium 3.7 Chloride 96 L Carbon Dioxide 32 BUN 55 H Creatinine 1.47 H Estimated GFR 47.0 L BUN/Creatinine Ratio 37.4 H Glucose 234 H Calcium 8.1 L Total Bilirubin 0.6 AST 31 ALT 26 Alkaline Phosphatase 91 Total Protein 6.6 Albumin 3.2 L Globulin 3.4 Albumin/Globulin Ratio 0.9 L Exam Vital Signs (past 8 hours): - 05/29/21 04:30 05/29/21 05:00 05/29/21 05:30 Temperature Pulse Rate 64 65 64 Respiratory Rate 20 19 18 Blood Pressure Pulse Oximetry 93 92 96 05/29/21 05:54 05/29/21 06:00 05/29/21 06:27 Temperature Pulse Rate 88 86 73 Respiratory Rate 18 18 27 H Blood Pressure 108/54 L Pulse Oximetry 95 96 90 L 05/29/21 06:30 05/29/21 07:00 05/29/21 07:30 Temperature Pulse Rate 75 81 64 Respiratory Rate 25 H 19 13 Blood Pressure Pulse Oximetry 88 L 90 L 90 L 05/29/21 07:40 05/29/21 08:00 05/29/21 09:08 Temperature 98.1 F Pulse Rate 64 64 80 Respiratory Rate 20 16 Blood Pressure 108/55 L 108/55 L Pulse Oximetry 89 L 90 L 05/29/21 10:47 Temperature Pulse Rate 65 Respiratory Rate Blood Pressure 101/52 L Pulse Oximetry Fraction of Inspired Oxygen 50 Oxygen Delivery Method Heated High Flow Oxygen Flow Rate 50 Quality TeleICU VTE Deep Vein Thrombosis/Pulmonary Embolism Present on Admission: No Assessment & Plan Assessment and plan (1) Acute and chronic respiratory failure with hypoxia: Status: Acute Plan: -Continue HFNC/remdesivir/baricitinib/dexamethasone/ (2) 2019 novel coronavirus-infected pneumonia (NCIP): Status: Acute Plan: See dignosis #1 (3) (HFpEF) heart failure with preserved ejection fraction: Status: Acute Plan: -Aim for even fluid balance (4) Type 2 diabetes mellitus with chronic kidney disease, with long-term current use of insulin: Status: Chronic Plan: -Glycemic control reviewed and acceptable-->continue present management (5) Acute renal failure superimposed on chronic kidney disease: Status: Acute Plan: -No change iin ROSA today-->continue to avoid nephrotoxic drug and continue to monitor (6) Paroxysmal atrial fibrillation: Status: Chronic Plan: -Continue metoprolol/heparin infusion/Tikosyn Time Spent With Patient Critical Care time: I spent a total of 35 minutes of critical care time on this patient's care today; this time is exclusive of procedural time.
[2021-05-29] MEDS: MORPHINE 4 MG/ML INJ IV ×2 (13:47→21:47)
[2021-05-29] MEDS: ALBUTEROL/IPRATROPIUM 3 ML AMPUL INH ×3 (14:25→22:28)
--- NOTE | 2021-05-29 16:15 | PC.NURSE ---
Addendum entered by Carolyn Randall R.N. 05/29/21 17:25: Pt currently on HHF 50L/50% FiO2 with SpO2 of 89-94% Original Note: Day shift note: Pt currently on HHFNC 40L/55% FiO2, with SpO2 88-94%. Has been side lying with medication but refuses to prone, has required several 100% O2 flushes throughout the shift for desaturations. heparin gtt infusing for anticoagulation, aPTT is at goal (critical lab result of 82). Uses urinal independently. Has been refusing food, only takes small sips of water with pills, has been very tearful and depressed today. Updated Blanca, on pt status and plan of care. Bed low and locked, call light within reach, able to make needs known, will continue to monitor.
[2021-05-29] MEDS: BUDESONIDE 0.5 MG/2 ML NEB INH (19:29)
--- NOTE | 2021-05-29 19:59 | PM.ICURNDS ---
- Note: Pt discussed on rounds w bedside nurse, Pt had some resp distress and anxiety during the day, given morphine and aivan and placed on CPAP. He is currently breathing comfortably. He is on baricitinib/decadron (BID dosing)/remdesivir. He remains on heparin drip for PAF. Plan to continue current care. Consider transition heprain IV to PO. Otherwise cont current care.
[2021-05-29] MEDS: SODIUM CHLORIDE 0.9% FLUSH 10 ML IV (21:49)
[2021-05-29] MEDS: ATORVASTATIN 20 MG TABLET 40 MG PO (21:56)
--- NOTE | 2021-05-29 22:25 | P.PN_ITS ---
Subjective Subjective Interval history: Patient endorses improved SOB with oxygenation. He endorses wanting to be DNR/DNI. He is aware of how bad his pulmonary sarcoidosis is. He reports good PO intake. He denies n/v/d. Denies any new complaints. Exam Vital Signs (past 8 hours): - 05/30/21 14:30 05/30/21 15:52 05/30/21 16:00 Temperature 97.7 F Pulse Rate 64 65 Respiratory Rate 20 18 Blood Pressure 107/60 107/60 107/60 Pulse Oximetry 92 93 05/30/21 16:58 05/30/21 17:01 05/30/21 20:00 Temperature 97.7 F Pulse Rate 64 64 64 Respiratory Rate 20 20 14 Blood Pressure 107/60 114/66 Pulse Oximetry 90 L 92 94 05/30/21 21:31 05/30/21 21:41 05/30/21 22:06 Temperature Pulse Rate 64 64 Respiratory Rate 22 Blood Pressure 114/66 114/66 114/66 Pulse Oximetry 94 Fraction of Inspired Oxygen 65 Oxygen Delivery Method Heated High Flow,CPAP Oxygen Flow Rate 50 Narrative Exam Narrative: General: Patient is a well-developed, well-nourished male in no acute distress at this time. HEENT: Normocephalic, atraumatic. Negative for JVD. No carotid bruits appreciated. Lungs: Coarse breath sounds appreciated diffusely, with dry inspiratory crackles heard best over the lung bases. No wheezing appreciated. Cardio: Irregular rate and rhythm without murmur, rubs, or gallops, no carotid bruit, no cardiac pulsations present. Abdomen: Soft, non-tender, non-distended, bowel sounds present. Musculoskeletal:? Muscle strength and tone are equal, decreased, no deformity, crepitus, effusions, cyanosis, clubbing or edema present.?? Skin:? Warm dry and intact without rashes, ulcerations or petechiae.? Neuro:? Alert and orientated to person, place, time and situation, sensation to touch intact, Psych:? Patient has a well-kept appearance, appropriate affect, mental status attitude thought context and judgment are appropriate for age. Objective Labs Result Diagrams: 05/30/21 05:09 05/30/21 05:09 Labs: Laboratory Results - last 24 hr 05/30/21 05/30/21 05/30/21 05:09 05:09 05:09 WBC 14.8 H RBC 3.68 L Hgb 10.5 L Hct 31.3 L MCV 85.1 MCH 28.7 MCHC 33.7 RDW 14.6 Plt Count 358 Neut % (Auto) 91.7 H Lymph % (Auto) 3.2 L [place] % (Auto) 5.1 Eos % (Auto) 0.0 L Baso % (Auto) 0.0 Neut # (Auto) 29404 H Lymph # (Auto) 500 L [place] # (Auto) 800 Eos # (Auto) 0 Baso # (Auto) 0 APTT 200 H* D ABG pH ABG pCO2 ABG pO2 ABG HCO3 ABG Total CO2 ABG O2 Saturation ABG Base Excess FiO2 Sodium 134 L Potassium 3.8 Chloride 95 L Carbon Dioxide 33 H BUN 59 H Creatinine 1.60 H Estimated GFR 42.6 L BUN/Creatinine Ratio 36.9 H Glucose 293 H Calcium 7.7 L Total Bilirubin 0.5 AST 27 ALT 23 Alkaline Phosphatase 81 Total Protein 6.4 Albumin 3.0 L Globulin 3.4 Albumin/Globulin Ratio 0.9 L 05/30/21 05/30/21 13:40 16:32 WBC RBC Hgb Hct MCV MCH MCHC RDW Plt Count Neut % (Auto) Lymph % (Auto) [place] % (Auto) Eos % (Auto) Baso % (Auto) Neut # (Auto) Lymph # (Auto) [place] # (Auto) Eos # (Auto) Baso # (Auto) APTT 30 D ABG pH 7.46 H ABG pCO2 46.1 H ABG pO2 70 L ABG HCO3 33 H ABG Total CO2 34 H ABG O2 Saturation 94 L ABG Base Excess 9.0 H FiO2 60 Sodium Potassium Chloride Carbon Dioxide BUN Creatinine Estimated GFR BUN/Creatinine Ratio Glucose Calcium Total Bilirubin AST ALT Alkaline Phosphatase Total Protein Albumin Globulin Albumin/Globulin Ratio [facility] Medical History Acne (Unknown) Actinic keratosis (~2018) Anemia Atrial fibrillation (Unknown) Chronic low back pain (Unknown) Closed compression fracture of third lumbar vertebra Coronary artery disease (Unknown) Diabetes (Unknown) GERD (gastroesophageal reflux disease) (Unknown) Hearing loss (Unknown) Hx of coronary angiogram (Unknown) Hyperlipemia (Unknown) Hypertension (Unknown) Keloid Osteoporosis Pacemaker Renal insufficiency Sarcoidosis (11/2007) Squamous cell carcinoma (Unknown) Visit for suture removal Surgical History H/O left wrist surgery H/O toe surgery History of arthroplasty of left shoulder (Unknown) History of arthroplasty of right shoulder (Unknown) History of fusion of thoracic spine History of lumbar fusion Hx of knee surgery (Unknown) Hx of left knee surgery Hx of prior ablation treatment (~05/2013) Status post lumbar and lumbosacral fusion by anterior technique Family History Father Diabetes mellitus Mother No problems noted. Social History household members: spouse and children Smoking Status: Never smoker second hand exposure: Yes alcohol intake: current substance use type: does not use Assessment & Plan Assessment & Plan narrative: Berny Ott is a 75-year-old male chronically ill with sarcoidosis, diabetes mellitus type 2, chronic kidney disease, coronary artery disease, osteoporosis, hyperlipidemia and congestive heart failure who presents now with COVID pneumonia for the second time. He is fully immunized with Moderna and the booster shot. 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 Bueno in [place], which was followed by his admit for COVID from 05/17-05/19/21. His shortness of breath, coughing and intolerance of activity worsened considerably on the morning of presentation, when he was unable to speak in normal sentences or to catch his breath. Patient Readmitted for COVID pneumonia secondary to acute on chronic respiratory failure in the setting of sarcoidosis, paroxysmal atrial fibrillation and CHF exacerbation, resulting in ROSA. ? 1. COVID pneumonia with secondary acute on chronic respiratory failure, in the setting of sarcoidosis, resulting in ROSA, acute, present on admission -RR 27, O2 saturation 96% on 50 L at the 50%.? -ABGs on high-flow pH 7.436, pCO2 37.8, PO2 85, HC03 25.5, total CO2 27, O2 saturation 94%. - Resp. consult -WBC 22, with a left shift neutrophils 19,900, possibly r/t chronic pulse steriod use? HGB 12.2, HCT 36.2- baseline, PLT 527-elevated. ? -Lactate 2.9, ferritin 2080, lactate D 1053, CRP 24.8. Possibly r/t to chronic sarcoidosis and steroid use -Procalcitonin WNL, respiratory panel WNL-lower threshold for bacterial infection. -Sodium 132, chloride 92, BUN 40, creatinine 1.48, glucose 167, GFR 46.6. baseline chemistries BUN 25-35, creatinine 1.3 9-1.70, GFR 39.7-50.2. -7 day course dexamethasone. -Albuterol HFA inhaler, pain management to encourage proning, anxiety management. -Tele-ICU consult -Avoiding nebulizer aerosol treatments, if signs and symptoms are worsening order chest x-ray and echo -Continue Symbicort and breathing treatments -DNR/DNI 2. Paroxysmal atrial fibrillation, acute on chronic, present on admission -Patient placed on diltiazem drip for rate control-CHADSVASc 5 -D-dimer 2221, CTA was negative for PE -IV heparin for now, given ICU status and possible need for procedures -Will resume tikosyn for rate control 3.Coronary Artery Disease, in the setting of hyperlipidemia, chronic, present on admission -Continue Aspirin and Lipitor 4. Congestive heart failure, acute on chronic, exacerbation, present on admission.? -Continue Furosemide and Metoprolol -Previous BNP 2.450 on admission, BNP 5660 -Lasix 40 mg IV BID until evidence of contraction alkalosis and can then discont inue -Fluid restriction to 2000 units daily, accurate I&O Qshift, monitor for increasing fluid overload 5. Diabetes Mellitus Type 2, acute on chronic, present on admission. -Continue Glargine 15 units bid and follow blood sugars -Correctional scale Lispro low dose PRN -A1C ordered 6. CKD, G3b, acute on chronic, present on admission -Sodium 132, chloride 92, BUN 40, creatinine 1.48, glucose 167, GFR 46.6. baseline chemistries BUN 25-35, creatinine 1.3 9-1.70, GFR 39.7-50.2 7. Sarcoidosis, chronic, present on admission -Pulse treatments of Prednisone? 40 mg daily by Pulmonology, last treatment was completed 7 days ago Time Spent With Patient Critical Care time: I spent a total of [] minutes of critical care time on this patient's care today; this time is exclusive of procedural time. Quality VTE Deep Vein Thrombosis/Pulmonary Embolism Present on Admission: No
[2021-05-30] VITALS (46 sets, daily range): BP systolic 80–125; BP diastolic 50–66; PULSE 64–95; RESP 14–25; TEMP 31–36.5; O2SAT 53–97
[2021-05-30] MEDS: ALBUTEROL/IPRATROPIUM 3 ML AMPUL INH ×3 (02:27→21:40)
[2021-05-30] MEDS: HEPARIN DRIP 25,000 UNIT/500 ML IV.SOLN 23.7 UNIT IV (04:17)
[2021-05-30 05:36] LABS: Add Manual Diff / Slide Review NO; Basophils Absolute Auto 0 /uL (0-100); Eosinophils Absolute Auto 0 /uL (0-450); Hematocrit 31.3 % (41-53); Hemoglobin 10.5 g/dL (13.5-17.5); Lymphocytes Absolute Auto 500 /uL (1100-4500); Lymphocytes Percent Auto 3.2 % (25-40); Mean Corpuscular HGB Conc 33.7 % (30-36); Mean Corpuscular Hemoglobin 28.7 PG (26-34); Mean Corpuscular Volume 85.1 fL (80-100); Monocytes Absolute Auto 800 /uL (0-900); Monocytes Percent Auto 5.1 % (3-14); Neutrophils Absolute Auto 13600 /uL (1500-7000); Neutrophils Percent Auto 91.7 % (50-75); Platelet Count 358 X10^3/uL (150-400); Red Blood Cell Count 3.68 X10^6/uL (4.5-5.9); Red Cell Distribution Width 14.6 % (11.6-14.8); White Blood Cell Count 14.8 X10^3/uL (4.5-11.0)
[2021-05-30 05:43] LABS: Alanine Aminotransferase 23 IU/L (<50); Albumin Globulin Ratio 0.9 (1.0-2.8); Alkaline Phosphatase 81 U/L (38-126); Aspartate Aminotransferase 27 IU/L (17-59); BUN Creatinine Ratio 36.9 (6-22); Bilirubin Total 0.5 mg/dL (0.2-1.3); Blood Urea Nitrogen 59 mg/dL (9-20); Calcium 7.7 mg/dL (8.4-10.2); Carbon Dioxide 33 mmol/L (22-32); Chloride 95 mmol/L (98-107); Estimated Glomerular Filt Rate 42.6 mL/min (>60); Globulin 3.4 g/dL (1.7-4.1); Glucose 293 mg/dL (80-110); HEMOLYSIS < 15 (0-50); Potassium 3.8 mmol/L (3.4-5.1); Sodium 134 mmol/L (137-145); Total Protein 6.4 g/dL (6.3-8.2)
[2021-05-30] MEDS: MORPHINE 4 MG/ML INJ IV ×2 (05:51→13:52)
[2021-05-30] MEDS: PANTOPRAZOLE DR 20 MG TABLET PO (05:51)
[2021-05-30] MEDS: SODIUM CHLORIDE 0.9% FLUSH 10 ML IV ×3 (05:52→21:32)
[2021-05-30 05:54] LABS: PTT Partial Thromboplastin Tim 200 SECONDS (26.4-36.2)
--- NOTE | 2021-05-30 06:47 | PC.NURSE ---
Shift Note-Patient wore C-pap most of the night, 40%/10, SpO2 86-97%, otherwise on HHFNC 50L/50%, SpO2 88-92%, IV morphine given prn to ease breathing as ordered, neb tx also given, rhonchi/wheezes auscultated, dry cough has been more persistent. PTT this am is 200, heparin gtt stopped for 1 hour, will resume at 885units/hour per protocol, recheck PTT at 1300, no signs of bleeding.
[2021-05-30] MEDS: INSULIN LISPRO 100 UNIT/ML 3ML VIAL SUBCUT ×3 (08:30→21:34)
[2021-05-30] MEDS: BUDESONIDE 0.5 MG/2 ML NEB INH ×2 (08:55→21:40)
[2021-05-30] MEDS: cefTRIAXone 1,000 MG in SODIUM CHLORIDE 0.9% 100 ML 200 ML IV (10:33)
[2021-05-30] MEDS: ASPIRIN EC 81 MG TABLET PO (10:36)
[2021-05-30] MEDS: LORazepam 0.5 MG TABLET PO ×4 (10:36→21:30)
[2021-05-30] MEDS: PANTOPRAZOLE 40 MG VIAL 20 MG IV (10:36)
[2021-05-30] MEDS: METOPROLOL ER 50 MG TABLET PO ×2 (10:37→21:31)
[2021-05-30] MEDS: FERROUS SULFATE 325 MG TABLET PO (10:37)
[2021-05-30] MEDS: PREGABALIN 50 MG CAPSULE 100 MG PO ×2 (10:38→21:30)
[2021-05-30] MEDS: BARICITINIB 2 MG TABLET PO (10:38)
[2021-05-30] MEDS: dexAMETHasone 4 MG TABLET 6 MG PO ×2 (10:38→21:31)
[2021-05-30] MEDS: TRAMADOL 50 MG TABLET PO ×2 (10:38→21:30)
[2021-05-30] MEDS: DOFETILIDE 125 MCG 125 EACH PO ×2 (10:41→21:33)
[2021-05-30] MEDS: REMDESIVIR 100 MG in SODIUM CHLORIDE 0.9% 230 ML 250 ML IV (10:43)
--- NOTE | 2021-05-30 11:56 | PM.PN.EICU ---
Subjective Subjective :: This patient was seen via real time interactive two-way audiovisual telecommunication. 75 y.o. male with acute on chronic hypoxic respiratory failure due to COVID-19, ROSA superimposed on stage 3B CKD, and uncontrolled AF.? Has history of HFpEF, T2DM, pulmonary sarcoidosis on prednisone 10 mg. INTERIM EVENTS -Now on CPAP 10 cm H20 60%--has history of CPAP @ home -Creatinine slightly up Current Medications Current Medications Medications: Home Medications budesonide-formoterol HFA 160 mcg-4.5 mcg/actuation aerosol inhaler (Symbicort) 2 inh INH BID #1 inh 09/14/17 [Rx Confirmed 05/27/21] dofetilide 125 mcg capsule (Tikosyn) 125 mcg PO BID cap 08/03/18 [History Confirmed 05/27/21] Fast click lancet cartridge #1 ea 10/04/18 [Rx Confirmed 05/28/21] apixaban 5 mg tablet (Eliquis) 5 mg PO BID 01/03/19 [History Confirmed 05/27/21] epinephrine 0.3 mg/0.3 mL injection, auto-injector (EpiPen 2-Abhijeet) 0.3 mg (0.3 mL) IM ONCE #2 each 04/04/19 [Rx Confirmed 05/27/21] aspirin 81 mg tablet,delayed release 81 mg PO DAILY 08/02/19 [History Confirmed 05/27/21] torsemide 20 mg tablet 20 mg PO DAILY tab 12/25/19 [History Confirmed 05/27/21] alprazolam 0.5 mg tablet (Xanax) 0.25 mg PO BID PRN #60 tab 03/13/20 [Rx Confirmed 05/28/21] [Contour test strips] #300 each 08/20/20 [Rx Confirmed 05/28/21] pen needle, diabetic 29 gauge x 1/2 (BD Ultra-Fine Original Pen Needle) #30 each 09/17/20 [Rx Confirmed 05/28/21] Disabled Parking Permit #1 ea 10/22/20 [Rx Confirmed 05/28/21] Lactobacil rhamnosus GG 10 billion cell-inulin 200 mg sprinkle capsule ([employer]) See Rx Instructions .ROUTE .COMPLEX #100 cap 01/16/21 [Rx Confirmed 05/27/21] ferrous sulfate 325 mg (65 mg iron) tablet See Rx Instructions .ROUTE .COMPLEX #90 tab 03/10/21 [Rx Confirmed 05/27/21] gel-matrix pad dress, silicone 2 X 5.5 topical pads #4 ea 03/25/21 [Rx Confirmed 05/28/21] metoprolol succinate 50 mg tablet,extended release 24 hr 50 mg PO BID tab 03/25/21 [History Confirmed 05/27/21] nitroglycerin 0.4 mg sublingual tablet (Nitrostat) 0.4 mg SUBLINGUAL Q5-15M PRN 03/25/21 [History Confirmed 05/27/21] pregabalin 100 mg capsule (Lyrica) 100 mg PO BID #180 cap 03/31/21 [Rx Confirmed 05/27/21] albuterol sulfate 90 mcg/actuation aerosol inhaler 2 puff INHALATION Q4H PRN #0 gram 05/19/21 [Rx Confirmed 05/27/21] Bleed in valve for CPAP connection to oxygen #1 ea 05/20/21 [Rx Confirmed 05/28/21] atorvastatin 40 mg tablet 40 mg PO Q OTHER DAY 05/27/21 [History Confirmed 05/27/21] calcium carbonate 600 mg (1,500 mg)-vitamin D3 200 unit tablet 1 tab PO DAILY 05/27/21 [History Confirmed 05/27/21] insulin glargine 100 unit/mL (3 mL) subcutaneous pen (Lantus Solostar U-100 Insulin) 15 unit SUBCUT BID 05/27/21 [History Confirmed 05/27/21] lorazepam 0.5 mg tablet (Ativan) 0.5 mg PO TID PRN 05/27/21 [History Confirmed 05/27/21] oxycodone-acetaminophen 5 mg-325 mg tablet 1 tab PO Q4H PRN 05/27/21 [History Confirmed 05/27/21] tramadol 50 mg tablet 50 mg PO TID 05/27/21 [History Confirmed 05/27/21] vitamin B complex (B Complex-Vitamin B12) 1 tab PO DAILY 05/27/21 [History Confirmed 05/27/21] Visit Medications (administered) Generic Name Dose Route Start Last Admin Trade Name Freq PRN Reason Stop Dose Admin Albuterol/Ipratropium 3 ml 05/29/21 15:00 05/30/21 02:27 Albuterol/Ipratropium 3 Ml Ampul INH 3 ml [id number] JUAREZ Administration Aspirin 81 mg 05/28/21 09:00 05/30/21 10:36 Aspirin Ec 81 Mg Tablet PO 81 mg DAILY JUAREZ Administration Atorvastatin Calcium 40 mg 05/29/21 21:00 05/29/21 21:56 Atorvastatin 20 Mg Tablet PO 40 mg Q48H JUAREZ Administration Budesonide 0.5 mg 05/28/21 08:00 05/29/21 19:29 Budesonide 0.5 Mg/2 Ml Neb INH 0.5 mg RTBID JUAREZ Administration Dexamethasone 6 mg 05/28/21 09:45 05/30/21 10:38 Dexamethasone 4 Mg Tablet PO 06/04/21 09:44 6 mg BID JUAREZ Administration Ferrous Sulfate 325 mg 05/28/21 09:00 05/30/21 10:37 Ferrous Sulfate 325 Mg Tablet PO 325 mg DAILY JUAREZ Administration Furosemide 40 mg 05/30/21 09:00 05/30/21 10:40 Furosemide 40 Mg/4 Ml Vial IV Not Given BID [facility] Remdesivir 100 mg/ Sodium 250 mls @ 250 mls/hr 05/28/21 09:00 05/30/21 10:43 Chloride IV 06/04/21 08:59 250 mls/hr DAILY [facility] Administration Heparin Sodium/Dextrose 25,000 unit in 500 mls @ 29.7 mls/hr 05/28/21 07:30 05/30/21 04:17 Heparin Drip IV 14.36 units/kg/hr CONT JUAREZ 23.7 mls/hr Administration Protocol 18 UNITS/KG/HR Ceftriaxone Sodium 1,000 mg/ 100 mls @ 200 mls/hr 05/30/21 09:00 05/30/21 10:33 Sodium Chloride IV 200 mls/hr Q24H JUAREZ Administration Insulin Glargine 15 unit 05/28/21 09:00 05/29/21 21:48 Insulin Glargine 100 Unit/Ml 3ml Pen SUBCUT 15 unit BID JUAREZ Administration Insulin Human Lispro 0 unit 05/28/21 11:45 05/30/21 08:30 Insulin Lispro 100 Unit/Ml 3ml Vial SUBCUT 3 unit ACHS JUAREZ Administration Protocol Lorazepam 0.5 mg 05/29/21 17:00 05/30/21 10:36 Lorazepam 0.5 Mg Tablet PO 0.5 mg QID JUAREZ Administration Metoprolol Succinate 50 mg 05/28/21 09:00 05/30/21 10:37 Metoprolol Er 50 Mg Tablet PO 50 mg BID JUAREZ Administration Morphine Sulfate 4 mg 05/29/21 13:32 05/30/21 05:51 Morphine 4 Mg/Ml Inj IV 4 mg TID PRN Administration Shortness Of Breath Or Wheezing Tikosyn 125 Mcg 125 mcg 05/28/21 09:15 05/30/21 10:41 PO 125 mcg BID JUAREZ Administration Oxycodone/Acetaminophen 1 tab 05/28/21 00:34 05/29/21 16:52 Oxycodone/Acetaminophen 5/325 Tablet PO 1 tab Q4H PRN Administration Pain, Moderate Pantoprazole Sodium 20 mg 05/30/21 09:00 05/30/21 10:36 Pantoprazole 40 Mg Vial IV 20 mg DAILY JUAREZ Administration Pregabalin 100 mg 05/28/21 09:00 05/30/21 10:38 Pregabalin 50 Mg Capsule PO 100 mg BID JUAREZ Administration Sodium Chloride 10 ml 05/28/21 19:33 05/30/21 05:52 Sodium Chloride 0.9% Flush IV 10 ml PRN PRN Administration Flush Sodium Chloride 10 ml 05/28/21 21:00 05/30/21 10:42 Sodium Chloride 0.9% Flush IV 10 ml BID JUAREZ Administration Tramadol HCl 50 mg 05/28/21 09:00 05/30/21 10:38 Tramadol 50 Mg Tablet PO 50 mg TID JUAREZ Administration Objective Labs Result Diagrams: 05/30/21 05:09 05/30/21 05:09 Labs: Laboratory Results - last 24 hr 05/30/21 05/30/21 05/30/21 05:09 05:09 05:09 WBC 14.8 H RBC 3.68 L Hgb 10.5 L Hct 31.3 L MCV 85.1 MCH 28.7 MCHC 33.7 RDW 14.6 Plt Count 358 Neut % (Auto) 91.7 H Lymph % (Auto) 3.2 L Pierce % (Auto) 5.1 Eos % (Auto) 0.0 L Baso % (Auto) 0.0 Neut # (Auto) 05260 H Lymph # (Auto) 500 L Pierce # (Auto) 800 Eos # (Auto) 0 Baso # (Auto) 0 APTT 200 H* D Sodium 134 L Potassium 3.8 Chloride 95 L Carbon Dioxide 33 H BUN 59 H Creatinine 1.60 H Estimated GFR 42.6 L BUN/Creatinine Ratio 36.9 H Glucose 293 H Calcium 7.7 L Total Bilirubin 0.5 AST 27 ALT 23 Alkaline Phosphatase 81 Total Protein 6.4 Albumin 3.0 L Globulin 3.4 Albumin/Globulin Ratio 0.9 L Exam Vital Signs (past 8 hours): - 05/30/21 04:00 05/30/21 04:30 05/30/21 04:44 Temperature Pulse Rate 66 69 71 Respiratory Rate 16 18 21 Blood Pressure 125/60 Pulse Oximetry 92 91 88 L 05/30/21 05:00 05/30/21 05:30 05/30/21 06:00 Temperature 97.0 F L Pulse Rate 72 65 70 Respiratory Rate 21 16 22 Blood Pressure 125/60 Pulse Oximetry 89 L 90 L 91 05/30/21 06:30 05/30/21 07:00 05/30/21 07:30 Temperature 95.9 F L Pulse Rate 69 64 71 Respiratory Rate 14 14 19 Blood Pressure 110/64 Pulse Oximetry 91 91 05/30/21 07:48 05/30/21 08:00 05/30/21 08:30 Temperature Pulse Rate 65 77 66 Respiratory Rate 21 25 H 15 Blood Pressure 110/64 Pulse Oximetry 90 L 82 L 85 L 05/30/21 08:52 05/30/21 08:57 05/30/21 09:00 Temperature Pulse Rate 75 76 95 H Respiratory Rate 14 14 15 Blood Pressure 110/64 Pulse Oximetry 89 L 90 L 92 05/30/21 09:30 05/30/21 10:00 05/30/21 10:30 Temperature Pulse Rate 65 70 71 Respiratory Rate 16 24 21 Blood Pressure Pulse Oximetry 90 L 91 92 05/30/21 10:37 05/30/21 11:00 05/30/21 11:07 Temperature 90.5 F L Pulse Rate 64 69 66 Respiratory Rate 22 20 Blood Pressure 110/64 108/62 Pulse Oximetry 53 L 93 05/30/21 11:30 Temperature Pulse Rate 73 Respiratory Rate 25 H Blood Pressure Pulse Oximetry 89 L Fraction of Inspired Oxygen 60 Oxygen Delivery Method Heated High Flow Oxygen Flow Rate 50 Resp Effort & Inspection: normal respiratory effort (on CPAP 10 cm H20 60% FiO2) and audible wheezes (according to RN) Neuro General: patient alert and patient awake (watching TV) Quality TeleICU VTE Deep Vein Thrombosis/Pulmonary Embolism Present on Admission: No Assessment & Plan Assessment and plan (1) Acute renal failure superimposed on chronic kidney disease: Status: Acute Plan: -Continue to avoid nephrotoxic drugs -Given DNR/DNI code status, it may be worth discussing with patient whether he would want renal replacement if it were to become necessary (2) Acute hypoxemic respiratory failure due to COVID-19: Status: Acute Plan: -Continue CPAP, dexamethasone, baricitinib, remdesivir -Code status is DNR/DNI (3) Type 2 diabetes mellitus with chronic kidney disease, with long-term current use of insulin: Status: Chronic Plan: -Glycemic control is suboptimal; I have taken liberty of increasing glargine to 20 units BID (4) Paroxysmal atrial fibrillation: Status: Chronic Plan: -Continue metoprolol, IV heparin, Tikosyn Time Spent With Patient Critical Care time: I spent a total of 35 minutes of critical care time on this patient's care today; this time is exclusive of procedural time.
[2021-05-30] MEDS: AZITHROMYCIN 500 MG in DEXTROSE 5% IN WATER 250 ML IV (13:51)
--- NOTE | 2021-05-30 13:55 | CM.DPC ---
DCP continued: Cm called and LVM with patients Nay to talk about patients progress and discuss the current discharge plan with the patients . Cm wanted to confirm that the discharge plan is still Home with [facility] with coordination with patients to arrange transport home. CM also wanted to talk with the patients to follow up on patients conversation about hospice and get a little more understanding of Discharge plan set up with MANAGER CAR. F2F pending signature from MD pending improvement of patient Lurdes casas RNplaner operator
[2021-05-30 14:04] LABS: PTT Partial Thromboplastin Tim 30 SECONDS (26.4-36.2)
[2021-05-30 17:05] LABS: HCO3 ABG 33 mmol/L (22-26); PCO2 ABG 46.1 mmHg (35-45); PO2 ABG 70 mmHg (80-100); pH ABG 7.46 (7.35-7.45)
[2021-05-30 17:06] LABS: Fractionated Inspired Oxygen 60; Oxygen Saturation ABG 94 % (95-100); TCO2 ABG 34 mmol/L (21-31)
[2021-05-30] MEDS: OXYCODONE/ACETAMINOPHEN 5/325 TABLET 1 TAB PO (17:14)
--- NOTE | 2021-05-30 20:08 | PM.ICURNDS ---
- :: This patient was seen via real time interactive two-way audiovisual telecommunication. Note: Completed multidisciplinary round at bedside. Patient with significant history of sarcoidosis admitted for acute hypoxemia respiratory failure secondary to COVID pneumonia. Currently on HFNC 50/60% alternating with CPAP. Cont supportive care, gentle diuresis, and pain control. Case d/w RN at bedside.
[2021-05-30] MEDS: APIXABAN 5 MG TABLET PO (21:30)
[2021-05-30] MEDS: FUROSEMIDE 40 MG/4 ML VIAL IV (21:32)
[2021-05-30] MEDS: INSULIN GLARGINE 100 UNIT/ML 3ML PEN 20 UNIT SUBCUT (21:33)
--- NOTE | 2021-05-30 22:37 | PM.PN.1 ---
Subjective Subjective Interval history: Patient reports his respiratory status has remained the same today. He denies any new complaints. He reports good PO intake. Exam Vital Signs (past 8 hours): - 05/30/21 15:52 05/30/21 16:00 05/30/21 16:58 Temperature 97.7 F Pulse Rate 64 65 64 Respiratory Rate 20 18 20 Blood Pressure 107/60 107/60 Pulse Oximetry 92 93 90 L 05/30/21 17:01 05/30/21 20:00 05/30/21 21:31 Temperature 97.7 F Pulse Rate 64 64 64 Respiratory Rate 20 14 Blood Pressure 107/60 114/66 114/66 Pulse Oximetry 92 94 05/30/21 21:41 05/30/21 22:06 Temperature Pulse Rate 64 Respiratory Rate 22 Blood Pressure 114/66 114/66 Pulse Oximetry 94 Fraction of Inspired Oxygen 65 Oxygen Delivery Method Heated High Flow,CPAP Oxygen Flow Rate 50 Narrative Exam Narrative: General: Patient is a well-developed, well-nourished male in no acute distress at this time. HEENT: Normocephalic, atraumatic. Negative for JVD. No carotid bruits appreciated. Lungs: Coarse breath sounds appreciated diffusely, with dry inspiratory crackles heard best over the lung bases. No wheezing appreciated. Cardio: Irregular rate and rhythm without murmur, rubs, or gallops, no carotid bruit, no cardiac pulsations present. Abdomen: Soft, non-tender, non-distended, bowel sounds present. Musculoskeletal:? Muscle strength and tone are equal, decreased, no deformity, crepitus, effusions, cyanosis, clubbing or edema present.?? Skin:? Warm dry and intact without rashes, ulcerations or petechiae.? Neuro:? Alert and orientated to person, place, time and situation, sensation to touch intact, Psych:? Patient has a well-kept appearance, appropriate affect, mental status attitude thought context and judgment are appropriate for age. Objective Labs Result Diagrams: 05/30/21 05:09 05/30/21 05:09 Labs: Laboratory Results - last 24 hr 05/30/21 05/30/21 05/30/21 05:09 05:09 05:09 WBC 14.8 H RBC 3.68 L Hgb 10.5 L Hct 31.3 L MCV 85.1 MCH 28.7 MCHC 33.7 RDW 14.6 Plt Count 358 Neut % (Auto) 91.7 H Lymph % (Auto) 3.2 L [place] % (Auto) 5.1 Eos % (Auto) 0.0 L Baso % (Auto) 0.0 Neut # (Auto) 78439 H Lymph # (Auto) 500 L [place] # (Auto) 800 Eos # (Auto) 0 Baso # (Auto) 0 APTT 200 H* D ABG pH ABG pCO2 ABG pO2 ABG HCO3 ABG Total CO2 ABG O2 Saturation ABG Base Excess FiO2 Sodium 134 L Potassium 3.8 Chloride 95 L Carbon Dioxide 33 H BUN 59 H Creatinine 1.60 H Estimated GFR 42.6 L BUN/Creatinine Ratio 36.9 H Glucose 293 H Calcium 7.7 L Total Bilirubin 0.5 AST 27 ALT 23 Alkaline Phosphatase 81 Total Protein 6.4 Albumin 3.0 L Globulin 3.4 Albumin/Globulin Ratio 0.9 L 05/30/21 05/30/21 13:40 16:32 WBC RBC Hgb Hct MCV MCH MCHC RDW Plt Count Neut % (Auto) Lymph % (Auto) [place] % (Auto) Eos % (Auto) Baso % (Auto) Neut # (Auto) Lymph # (Auto) [place] # (Auto) Eos # (Auto) Baso # (Auto) APTT 30 D ABG pH 7.46 H ABG pCO2 46.1 H ABG pO2 70 L ABG HCO3 33 H ABG Total CO2 34 H ABG O2 Saturation 94 L ABG Base Excess 9.0 H FiO2 60 Sodium Potassium Chloride Carbon Dioxide BUN Creatinine Estimated GFR BUN/Creatinine Ratio Glucose Calcium Total Bilirubin AST ALT Alkaline Phosphatase Total Protein Albumin Globulin Albumin/Globulin Ratio [facility] Medical History Acne (Unknown) Actinic keratosis (~2018) Anemia Atrial fibrillation (Unknown) Chronic low back pain (Unknown) Closed compression fracture of third lumbar vertebra Coronary artery disease (Unknown) Diabetes (Unknown) GERD (gastroesophageal reflux disease) (Unknown) Hearing loss (Unknown) Hx of coronary angiogram (Unknown) Hyperlipemia (Unknown) Hypertension (Unknown) Keloid Osteoporosis Pacemaker Renal insufficiency Sarcoidosis (11/2007) Squamous cell carcinoma (Unknown) Visit for suture removal Surgical History H/O left wrist surgery H/O toe surgery History of arthroplasty of left shoulder (Unknown) History of arthroplasty of right shoulder (Unknown) History of fusion of thoracic spine History of lumbar fusion Hx of knee surgery (Unknown) Hx of left knee surgery Hx of prior ablation treatment (~05/2013) Status post lumbar and lumbosacral fusion by anterior technique Family History Father Diabetes mellitus Mother No problems noted. Social History household members: spouse and children Smoking Status: Never smoker second hand exposure: Yes alcohol intake: current substance use type: does not use Assessment & Plan Assessment & Plan narrative: Berny Ott is a 75-year-old male chronically ill with sarcoidosis, diabetes mellitus type 2, chronic kidney disease, coronary artery disease, osteoporosis, hyperlipidemia and congestive heart failure who presents now with COVID pneumonia for the second time. He is fully immunized with Moderna and the booster shot. 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 His shortness of breath, coughing and intolerance of activity worsened considerably on the morning of presentation, when he was unable to speak in normal sentences or to catch his breath. Patient readmitted for COVID pneumonia secondary to acute on chronic respiratory failure in the setting of sarcoidosis, paroxysmal atrial fibrillation and CHF exacerbation. ? 1. COVID pneumonia with secondary acute on chronic respiratory failure, in the setting of sarcoidosis, resulting in ROSA, acute, present on admission -RR 27, O2 saturation 96% on 50 L at the 50%.? -ABGs on high-flow pH 7.436, pCO2 37.8, PO2 85, HC03 25.5, total CO2 27, O2 saturation 94%. - Resp. consult -WBC 22, with a left shift neutrophils 19,900, possibly r/t chronic pulse steriod use? HGB 12.2, HCT 36.2- baseline, PLT 527-elevated. ? -Lactate 2.9, ferritin 2080, lactate D 1053, CRP 24.8. Possibly r/t to chronic sarcoidosis and steroid use -Procalcitonin WNL, respiratory panel WNL-lower threshold for bacterial infection. -Sodium 132, chloride 92, BUN 40, creatinine 1.48, glucose 167, GFR 46.6. baseline chemistries BUN 25-35, creatinine 1.3 9-1.70, GFR 39.7-50.2. -7 day course dexamethasone -Albuterol HFA inhaler, pain management to encourage proning, anxiety management -Tele-ICU consult -Avoiding nebulizer aerosol treatments, if signs and symptoms are worsening order chest x-ray and echo -Continue Symbicort and breathing treatments -DNR/DNI 2. Paroxysmal atrial fibrillation, acute on chronic, present on admission -Patient placed on diltiazem drip for rate control-CHADSVASc 5 -D-dimer 2221, CTA was negative for PE -IV heparin discontinued today, resuming home Eliquis 5 mg bid -Will resume tikosyn for rate control 3.Coronary Artery Disease, in the setting of hyperlipidemia, chronic, present on admission -Continue Aspirin and Lipitor 4. Congestive heart failure, acute on chronic, exacerbation, present on admission.? -Continue Furosemide and Metoprolol -Previous BNP 2.450 on admission, BNP 5660 -Lasix 40 mg IV BID until evidence of contraction alkalosis and can then discontinue -Fluid restriction to 2000 units daily, accurate I&O Qshift, monitor for increasing fluid overload 5. Diabetes Mellitus Type 2, acute on chronic, present on admission. -Continue Glargine 15 units bid and follow blood sugars -Correctional scale Lispro low dose PRN -A1C ordered 6. CKD, G3b, acute on chronic, present on admission -Sodium 132, chloride 92, BUN 40, creatinine 1.48, glucose 167, GFR 46.6. baseline chemistries BUN 25-35, creatinine 1.3 9-1.70, GFR 39.7-50.2- Will discontinue remdesivir today due to CKD 7. Sarcoidosis, chronic, present on admission -Pulse treatments of Prednisone? 40 mg daily by Pulmonology, last treatment was completed 7 days ago 8. Community-acquired pneumonia -IV ceftriaxone and azithromycin on-board -Will have to cautiously watch QTc, given concomitant use of tikosyn for rate control Time Spent With Patient Critical Care time: I spent a total of [] minutes of critical care time on this patient's care today; this time is exclusive of procedural time. Quality VTE Deep Vein Thrombosis/Pulmonary Embolism Present on Admission: No
[2021-05-31] VITALS (57 sets, daily range): BP systolic 96–131; BP diastolic 57–81; PULSE 64–98; RESP 13–36; TEMP 36.4–36.7; O2SAT 64–959
[2021-05-31] MEDS: ALBUTEROL/IPRATROPIUM 3 ML AMPUL INH ×5 (00:33→20:34)
[2021-05-31] MEDS: OXYCODONE/ACETAMINOPHEN 5/325 TABLET 1 TAB PO (01:22)
[2021-05-31] MEDS: BUDESONIDE 0.5 MG/2 ML NEB INH ×2 (07:13→20:34)
[2021-05-31] MEDS: INSULIN LISPRO 100 UNIT/ML 3ML VIAL SUBCUT ×4 (08:51→21:02)
[2021-05-31] MEDS: INSULIN GLARGINE 100 UNIT/ML 3ML PEN 20 UNIT SUBCUT (08:51)
[2021-05-31] MEDS: DOFETILIDE 125 MCG 125 EACH PO ×2 (08:52→21:10)
[2021-05-31] MEDS: SODIUM CHLORIDE 0.9% FLUSH 10 ML IV ×2 (08:52→21:08)
[2021-05-31] MEDS: dexAMETHasone 4 MG TABLET 6 MG PO ×2 (08:53→21:09)
[2021-05-31] MEDS: BARICITINIB 2 MG TABLET PO (08:53)
[2021-05-31] MEDS: FERROUS SULFATE 325 MG TABLET PO (08:53)
[2021-05-31] MEDS: APIXABAN 5 MG TABLET PO ×2 (08:53→21:08)
[2021-05-31] MEDS: PREGABALIN 50 MG CAPSULE 100 MG PO ×2 (08:53→21:08)
[2021-05-31] MEDS: ASPIRIN EC 81 MG TABLET PO (08:53)
[2021-05-31] MEDS: METOPROLOL ER 50 MG TABLET PO ×2 (08:53→21:08)
[2021-05-31] MEDS: PANTOPRAZOLE 40 MG VIAL 20 MG IV (08:54)
[2021-05-31] MEDS: LORazepam 0.5 MG TABLET PO ×3 (08:54→21:09)
[2021-05-31] MEDS: TRAMADOL 50 MG TABLET PO ×3 (08:54→21:09)
[2021-05-31] MEDS: cefTRIAXone 1,000 MG in SODIUM CHLORIDE 0.9% 100 ML 200 ML IV (08:55)
[2021-05-31 09:33] LABS: Add Manual Diff / Slide Review NO; Basophils Absolute Auto 0 /uL (0-100); Basophils Percent Auto 0.1 % (0-2); Eosinophils Absolute Auto 0 /uL (0-450); Hematocrit 32.5 % (41-53); Hemoglobin 10.7 g/dL (13.5-17.5); Lymphocytes Absolute Auto 500 /uL (1100-4500); Lymphocytes Percent Auto 2.8 % (25-40); Mean Corpuscular HGB Conc 33.1 % (30-36); Mean Corpuscular Hemoglobin 28.5 PG (26-34); Monocytes Absolute Auto 700 /uL (0-900); Monocytes Percent Auto 4.2 % (3-14); Neutrophils Absolute Auto 15300 /uL (1500-7000); Neutrophils Percent Auto 92.9 % (50-75); Platelet Count 362 X10^3/uL (150-400); Red Blood Cell Count 3.78 X10^6/uL (4.5-5.9); Red Cell Distribution Width 14.6 % (11.6-14.8); White Blood Cell Count 16.4 X10^3/uL (4.5-11.0)
--- NOTE | 2021-05-31 09:40 | P.TELICUPN_ITS ---
Subjective Subjective :: This patient was seen via real time interactive two-way audiovisual telecommunication. 75 y.o. male with acute on chronic hypoxic respiratory failure due to COVID-19, ROSA superimposed on stage 3B CKD, and uncontrolled AF.? Has history of HFpEF, T2DM, pulmonary sarcoidosis on prednisone 10 mg. INTERIM EVENTS -Now on HFNC 50L & 60%--has history of CPAP @ home -Neg 500 ml in the last 24 hrs, Cr improving Current Medications Current Medications Medications: Home Medications budesonide-formoterol HFA 160 mcg-4.5 mcg/actuation aerosol inhaler (Symbicort) 2 inh INH BID #1 inh 09/14/17 [Rx Confirmed 05/27/21] dofetilide 125 mcg capsule (Tikosyn) 125 mcg PO BID cap 08/03/18 [History Confirmed 05/27/21] Fast click lancet cartridge #1 ea 10/04/18 [Rx Confirmed 05/28/21] apixaban 5 mg tablet (Eliquis) 5 mg PO BID 01/03/19 [History Confirmed 05/27/21] epinephrine 0.3 mg/0.3 mL injection, auto-injector (EpiPen 2-Abhijeet) 0.3 mg (0.3 mL) IM ONCE #2 each 04/04/19 [Rx Confirmed 05/27/21] aspirin 81 mg tablet,delayed release 81 mg PO DAILY 08/02/19 [History Confirmed 05/27/21] torsemide 20 mg tablet 20 mg PO DAILY tab 12/25/19 [History Confirmed 05/27/21] alprazolam 0.5 mg tablet (Xanax) 0.25 mg PO BID PRN #60 tab 03/13/20 [Rx Confirmed 05/28/21] [Contour test strips] #300 each 08/20/20 [Rx Confirmed 05/28/21] pen needle, diabetic 29 gauge x 1/2 (BD Ultra-Fine Original Pen Needle) #30 each 09/17/20 [Rx Confirmed 05/28/21] Disabled Parking Permit #1 ea 10/22/20 [Rx Confirmed 05/28/21] Lactobacil rhamnosus GG 10 billion cell-inulin 200 mg sprinkle capsule (Culture [facility]) See Rx Instructions .ROUTE .COMPLEX #100 cap 01/16/21 [Rx Confirmed 05/27/21] ferrous sulfate 325 mg (65 mg iron) tablet See Rx Instructions .ROUTE .COMPLEX #90 tab 03/10/21 [Rx Confirmed 05/27/21] gel-matrix pad dress, silicone 2 X 5.5 topical pads #4 ea 03/25/21 [Rx Confirm ed 05/28/21] metoprolol succinate 50 mg tablet,extended release 24 hr 50 mg PO BID tab 03/25/21 [History Confirmed 05/27/21] nitroglycerin 0.4 mg sublingual tablet (Nitrostat) 0.4 mg SUBLINGUAL Q5-15M PRN 03/25/21 [History Confirmed 05/27/21] pregabalin 100 mg capsule (Lyrica) 100 mg PO BID #180 cap 03/31/21 [Rx Confirmed 05/27/21] albuterol sulfate 90 mcg/actuation aerosol inhaler 2 puff INHALATION Q4H PRN #0 gram 05/19/21 [Rx Confirmed 05/27/21] Bleed in valve for CPAP connection to oxygen #1 ea 05/20/21 [Rx Confirmed 05/28/21] atorvastatin 40 mg tablet 40 mg PO Q OTHER DAY 05/27/21 [History Confirmed 05/27/21] calcium carbonate 600 mg (1,500 mg)-vitamin D3 200 unit tablet 1 tab PO DAILY 05/27/21 [History Confirmed 05/27/21] insulin glargine 100 unit/mL (3 mL) subcutaneous pen (Lantus Solostar U-100 Insulin) 15 unit SUBCUT BID 05/27/21 [History Confirmed 05/27/21] lorazepam 0.5 mg tablet (Ativan) 0.5 mg PO TID PRN 05/27/21 [History Confirmed 05/27/21] oxycodone-acetaminophen 5 mg-325 mg tablet 1 tab PO Q4H PRN 05/27/21 [History Confirmed 05/27/21] tramadol 50 mg tablet 50 mg PO TID 05/27/21 [History Confirmed 05/27/21] vitamin B complex (B Complex-Vitamin B12) 1 tab PO DAILY 05/27/21 [History Confirmed 05/27/21] Visit Medications (administered) Generic Name Dose Route Start Last Admin Trade Name Freq PRN Reason Stop Dose Admin Albuterol/Ipratropium 3 ml 05/29/21 15:00 05/31/21 07:13 Albuterol/Ipratropium 3 Ml Ampul INH 3 ml [id number] JUAREZ Administration Apixaban 5 mg 05/30/21 21:00 05/31/21 08:53 Apixaban 5 Mg Tablet PO 5 mg BID JUAREZ Administration Aspirin 81 mg 05/28/21 09:00 05/31/21 08:53 Aspirin Ec 81 Mg Tablet PO 81 mg DAILY JUAREZ Administration Atorvastatin Calcium 40 mg 05/29/21 21:00 05/29/21 21:56 Atorvastatin 20 Mg Tablet PO 40 mg Q48H JUAREZ Administration Budesonide 0.5 mg 05/28/21 08:00 05/31/21 07:13 Budesonide 0.5 Mg/2 Ml Neb INH 0.5 mg RTBID JUAREZ Administration Dexamethasone 6 mg 05/28/21 09:45 05/31/21 08:53 Dexamethasone 4 Mg Tablet PO 06/04/21 09:44 6 mg BID JUAREZ Administration Ferrous Sulfate 325 mg 05/28/21 09:00 05/31/21 08:53 Ferrous Sulfate 325 Mg Tablet PO 325 mg DAILY JUAREZ Administration Azithromycin 500 mg/ Dextrose 250 mls @ 250 mls/hr 05/30/21 10:00 05/30/21 14:53 IV 06/03/21 10:59 Infused Q24H JUAREZ Infusion Ceftriaxone Sodium 1,000 mg/ 100 mls @ 200 mls/hr 05/30/21 09:00 05/31/21 08:55 Sodium Chloride IV 06/03/21 09:29 200 mls/hr Q24H JUAREZ Administration Insulin Glargine 20 unit 05/30/21 21:00 05/31/21 08:51 Insulin Glargine 100 Unit/Ml 3ml Pen SUBCUT 20 unit BID JUAREZ Administration Insulin Human Lispro 0 unit 05/28/21 11:45 05/31/21 08:51 Insulin Lispro 100 Unit/Ml 3ml Vial SUBCUT 2 unit ACHS JUAREZ Administration Protocol Lorazepam 0.5 mg 05/29/21 17:00 05/31/21 08:54 Lorazepam 0.5 Mg Tablet PO 0.5 mg QID JUAREZ Administration Metoprolol Succinate 50 mg 05/28/21 09:00 05/31/21 08:53 Metoprolol Er 50 Mg Tablet PO 50 mg BID JUAREZ Administration Morphine Sulfate 4 mg 05/29/21 13:32 11/19/21 13:52 Morphine 4 Mg/Ml Inj IV 4 mg TID PRN Administration Shortness Of Breath Or Wheezing Tikosyn 125 Mcg 125 mcg 05/28/21 09:15 05/31/21 08:52 PO 125 mcg BID JUAREZ Administration Oxycodone/Acetaminophen 1 tab 05/28/21 00:34 05/31/21 01:22 Oxycodone/Acetaminophen 5/325 Tablet PO 1 tab Q4H PRN Administration Pain, Moderate Pantoprazole Sodium 20 mg 05/30/21 09:00 05/31/21 08:54 Pantoprazole 40 Mg Vial IV 20 mg DAILY JUAREZ Administration Pregabalin 100 mg 05/28/21 09:00 05/31/21 08:53 Pregabalin 50 Mg Capsule PO 100 mg BID JUAREZ Administration Sodium Chloride 10 ml 05/28/21 19:33 05/30/21 05:52 Sodium Chloride 0.9% Flush IV 10 ml PRN PRN Administration Flush Sodium Chloride 10 ml 05/28/21 21:00 05/31/21 08:52 Sodium Chloride 0.9% Flush IV 10 ml BID JUAREZ Administration Tramadol HCl 50 mg 05/28/21 09:00 05/31/21 08:54 Tramadol 50 Mg Tablet PO 50 mg TID JUAREZ Administration Objective Labs Result Diagrams: 05/31/21 09:25 05/30/21 05:09 Labs: Laboratory Results - last 24 hr 05/30/21 05/30/21 05/31/21 13:40 16:32 09:25 WBC 16.4 H RBC 3.78 L Hgb 10.7 L Hct 32.5 L MCV 86.0 MCH 28.5 MCHC 33.1 RDW 14.6 Plt Count 362 Neut % (Auto) 92.9 H Lymph % (Auto) 2.8 L [place] % (Auto) 4.2 Eos % (Auto) 0.0 L Baso % (Auto) 0.1 Neut # (Auto) 62957 H Lymph # (Auto) 500 L [place] # (Auto) 700 Eos # (Auto) 0 Baso # (Auto) 0 APTT 30 D ABG pH 7.46 H ABG pCO2 46.1 H ABG pO2 70 L ABG HCO3 33 H ABG Total CO2 34 H ABG O2 Saturation 94 L ABG Base Excess 9.0 H FiO2 60 Exam Vital Signs (past 8 hours): - 05/31/21 04:00 05/31/21 07:15 05/31/21 07:30 Temperature 97.7 F Pulse Rate 81 64 Respiratory Rate 16 20 Blood Pressure 97/57 L 97/57 L 97/57 L Pulse Oximetry 97 91 05/31/21 08:00 Temperature 98.1 F Pulse Rate 64 Respiratory Rate 18 Blood Pressure 109/61 Pulse Oximetry 93 Fraction of Inspired Oxygen 50 Oxygen Delivery Method High Flow Nasal Cannula Oxygen Flow Rate 50 Quality TeleICU VTE Deep Vein Thrombosis/Pulmonary Embolism Present on Admission: No Assessment & Plan Assessment & Plan narrative: Acute hypoxemic respiratory failure due to COVID-19 ROSA on CKD stage II likley ATN 2/2 sepsis & COVIOD PNA H/o of PAF H/o of DMI Rec: Wean off Fio2 as tolerated , Goal sat 92, currntly of HFNC 50L, 60%, CPAP at nigh and as needed Continue dexamethasone and baricitinib ( watch LFT & GFR for dose adjustment or Dc if indicated) , off remdesivir bec of ROSA Cr improving, IV lasix prn for goal of Neg balance, Diamox prn for metabolic alkalosis Continue to avoid nephrotoxic drugs, pharmacy to adjust meds doses to Crcl On metoprolol, Tikosyn & Apixaban On Azithromycin and Ceftrizxone, watch QTc Insulin for BS control 120-180 Code status is DNR/DNI On PPI Time Spent With Patient Critical Care time: I spent a total of 35 minutes of critical care time on this patient's care tod ay; this time is exclusive of procedural time Plan discussed with RN Time Spent With Patient Critical Care time: I spent a total of [] minutes of critical care time on this patient's care today; this time is exclusive of procedural time.
[2021-05-31 09:46] LABS: Alanine Aminotransferase 22 IU/L (<50); Albumin 3.1 g/dL (3.5-5.0); Albumin Globulin Ratio 0.9 (1.0-2.8); Alkaline Phosphatase 80 U/L (38-126); Aspartate Aminotransferase 24 IU/L (17-59); BUN Creatinine Ratio 36.2 (6-22); Bilirubin Total 0.6 mg/dL (0.2-1.3); Blood Urea Nitrogen 51 mg/dL (9-20); Calcium 7.8 mg/dL (8.4-10.2); Carbon Dioxide 35 mmol/L (22-32); Chloride 96 mmol/L (98-107); Estimated Glomerular Filt Rate 49.3 mL/min (>60); Globulin 3.4 g/dL (1.7-4.1); Glucose 259 mg/dL (80-110); HEMOLYSIS < 15 (0-50); Potassium 3.8 mmol/L (3.4-5.1); Sodium 136 mmol/L (137-145); Total Protein 6.5 g/dL (6.3-8.2)
[2021-05-31] MEDS: AZITHROMYCIN 500 MG in DEXTROSE 5% IN WATER 250 ML IV (10:36)
--- NOTE | 2021-05-31 12:57 | CM.DPC ---
DCP Cont: Called patient's spouse, Nay, as she left a message yesterday pm on the care management phone, as Lurdes, case repairer yesterday, left her a message earlier in the day. Introduced self and role to spouse. Asked her if she is still wanting patient to go home with [facility] upon discharge, and spouse indicated, she does, would be a good plan, since nursing can come in and listen to his lungs. Let spouse, Nay, know that she can contact this corporate meeting planner with any questions she may have this weekend. Let her know that she will continue to be updated regarding discharge plan. Patient is currently on high levels of oxygen. Did not bring up hospice, this was discussed briefly upon SAFETY ADMIN ASSISTANT assessment, that had indicated, if he does not improve and gets worse, she would want him on hospice. P: DCP to continue to follow. Plan is for patient go to home with [facility] when he is medically stable. Nay Miller RN/Helmet Binder
--- NOTE | 2021-05-31 14:15 | PM.PN.1 ---
Subjective Subjective Date Patient Seen: 05/31/21 Time Patient Seen: 14:15 Interval history: He is seen today to follow-up his COVID pneumonia and hypoxic respiratory failure. The his white blood count yesterday was 14.8 with a hemoglobin of 10.5. He continues to he be quite fragile, not tolerating much in the way of eating or sleeping or sitting up in the chair. He remains on high-flow nasal cannula at 50% FiO2. Exam Vital Signs (past 8 hours): - 05/31/21 07:15 05/31/21 07:30 05/31/21 08:00 Temperature 98.1 F Pulse Rate 64 64 Respiratory Rate 20 18 Blood Pressure 97/57 L 97/57 L 109/61 Pulse Oximetry 91 93 05/31/21 10:20 05/31/21 11:10 05/31/21 13:00 Temperature 97.6 F Pulse Rate 64 77 64 Respiratory Rate 16 28 H 23 Blood Pressure 109/81 118/58 L Pulse Oximetry 92 90 L 92 05/31/21 13:11 Temperature Pulse Rate 65 Respiratory Rate 21 Blood Pressure Pulse Oximetry 90 L Fraction of Inspired Oxygen 0.80 Oxygen Delivery Method Heated High Flow Oxygen Flow Rate 50 Narrative Exam Narrative: He appears quite weak, fatigued in and sleepy. He tells me that with his recent bed bath he is feeling quite cold and so is comforted with a warm blanket. Heart is regular rate and rhythm without murmur Lungs have wheezing bilaterally Extremities have no ankle edema. Objective Labs Result Diagrams: 05/31/21 09:25 05/31/21 09:25 Labs: Laboratory Results - last 24 hr 05/30/21 05/31/21 05/31/21 16:32 09:25 09:25 WBC 16.4 H RBC 3.78 L Hgb 10.7 L Hct 32.5 L MCV 86.0 MCH 28.5 MCHC 33.1 RDW 14.6 Plt Count 362 Neut % (Auto) 92.9 H Lymph % (Auto) 2.8 L [place] % (Auto) 4.2 Eos % (Auto) 0.0 L Baso % (Auto) 0.1 Neut # (Auto) 59033 H Lymph # (Auto) 500 L [place] # (Auto) 700 Eos # (Auto) 0 Baso # (Auto) 0 ABG pH 7.46 H ABG pCO2 46.1 H ABG pO2 70 L ABG HCO3 33 H ABG Total CO2 34 H ABG O2 Saturation 94 L ABG Base Excess 9.0 H FiO2 60 Sodium 136 L Potassium 3.8 Chloride 96 L Carbon Dioxide 35 H BUN 51 H Creatinine 1.41 H Estimated GFR 49.3 L BUN/Creatinine Ratio 36.2 H Glucose 259 H Calcium 7.8 L Total Bilirubin 0.6 AST 24 ALT 22 Alkaline Phosphatase 80 Total Protein 6.5 Albumin 3.1 L Globulin 3.4 Albumin/Globulin Ratio 0.9 L [facility] Medical History Acne (Unknown) Actinic keratosis (~2018) Anemia Atrial fibrillation (Unknown) Chronic low back pain (Unknown) Closed compression fracture of third lumbar vertebra Coronary artery disease (Unknown) Diabetes (Unknown) GERD (gastroesophageal reflux disease) (Unknown) Hearing loss (Unknown) Hx of coronary angiogram (Unknown) Hyperlipemia (Unknown) Hypertension (Unknown) Keloid Osteoporosis Pacemaker Renal insufficiency Sarcoidosis (11/2007) Squamous cell carcinoma (Unknown) Visit for suture removal Surgical History H/O left wrist surgery H/O toe surgery History of arthroplasty of left shoulder (Unknown) History of arthroplasty of right shoulder (Unknown) History of fusion of thoracic spine History of lumbar fusion Hx of knee surgery (Unknown) Hx of left knee surgery Hx of prior ablation treatment (~05/2013) Status post lumbar and lumbosacral fusion by anterior technique Family History Father Diabetes mellitus Mother No problems noted. Social History household members: spouse and children Smoking Status: Never smoker second hand exposure: Yes alcohol intake: current substance use type: does not use Assessment & Plan Assessment & Plan narrative: Berny Ott is a 75-year-old male chronically ill with sarcoidosis, diabetes mellitus type 2, chronic kidney disease, coronary artery disease, osteoporosis, hyperlipidemia and congestive heart failure who presents now with COVID pneumonia for the second time. He is fully immunized with Moderna and the booster shot. 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 Bueno in [place], which was followed by his admit for COVID from 05/17-05/19/21. His shortness of breath, coughing and intolerance of activity worsened considerably on the morning of presentation, when he was unable to speak in normal sentences or to catch his breath. Patient readmitted for COVID pneumonia secondary to acute on chronic respiratory failure in the setting of sarcoidosis, paroxysmal atrial fibrillation and CHF exacerbation. ? 1. COVID pneumonia with secondary acute on chronic respiratory failure, in the setting of sarcoidosis, resulting in ROSA, acute, present on admission -now off the remdesivir and still on a 7 day course of dexamethasone. High-flow nasal cannula oxygen delivery now for several days. -Albuterol HFA inhaler, pain management to encourage proning, anxiety management -Tele-solutions specialist is following -Baricitinib -Avoiding nebulizer aerosol treatments, if signs and symptoms are worsening order chest x-ray and echo -Continue Symbicort and breathing treatments -DNR/DNI 2. Paroxysmal atrial fibrillation, acute on chronic, present on admission -now weaned off diltiazem drip -D-dimer 2221, CTA was negative for PE -resumed home Eliquis 5 mg bid -resumed tikosyn for rate control 3.Coronary Artery Disease, in the setting of hyperlipidemia, chronic, present on admission -Continue Aspirin and Lipitor 4. Congestive heart failure, acute on chronic, exacerbation, present on admission.? -Continue Furosemide and Metoprolol -Fluid restriction to 2000 units daily, accurate I&O Qshift, monitor for increasing fluid overload 5. Diabetes Mellitus Type 2, acute on chronic, present on admission. -blood sugars in the 200s-400s range so will increase glargine to 30 units bid along with medium dose correctional scale list pro and follow blood sugars -Correctional scale Lispro medium dose PRN 6. CKD, G3b, acute on chronic, present on admission -Sodium 132, chloride 92, BUN 40, creatinine 1.48, glucose 167, GFR 46.6. baseline chemistries BUN 25-35, creatinine 1.3 9-1.70, GFR 39.7-50.2- stopped remdesivir due to CKD 7. Sarcoidosis, chronic, present on admission -Pulse treatments of Prednisone? 40 mg daily by Pulmonology, last treatment was completed 7 days ago 8. Community-acquired pneumonia -IV ceftriaxone and azithromycin on-board who -Will have to cautiously watch QTc, given concomitant use of tikosyn for rate control Time Spent With Patient Critical Care time: I spent a total of [] minutes of critical care time on this patient's care today; this time is exclusive of procedural time. Quality VTE Deep Vein Thrombosis/Pulmonary Embolism Present on Admission: No
[2021-05-31] MEDS: INSULIN GLARGINE 100 UNIT/ML 3ML PEN 30 UNIT SUBCUT (21:00)
[2021-05-31] MEDS: ATORVASTATIN 20 MG TABLET 40 MG PO (21:16)
--- NOTE | 2021-05-31 22:32 | PM.ICURNDS ---
- Date Patient Seen: 05/31/21 Time Patient Seen: 22:32 :: This patient was seen via real time interactive two-way audiovisual telecommunication. Note: Currently on HFNC 50 L/min 70% FiO2. Glycemic control remains suboptimal but his insulin glargine was increased to 30 units earlier today. Continue present plan. Discussed with RN.
[2021-06-01] VITALS (21 sets, daily range): BP systolic 104–143; BP diastolic 58–63; PULSE 64–72; RESP 14–28; TEMP 36.2–36.6; O2SAT 90–99
[2021-06-01] MEDS: ALBUTEROL/IPRATROPIUM 3 ML AMPUL INH ×6 (00:26→23:49)
[2021-06-01] MEDS: PANTOPRAZOLE DR 20 MG TABLET PO (05:14)
[2021-06-01] MEDS: BUDESONIDE 0.5 MG/2 ML NEB INH ×2 (08:00→19:28)
[2021-06-01] MEDS: dexAMETHasone 4 MG TABLET 6 MG PO ×2 (08:55→21:03)
[2021-06-01] MEDS: SODIUM CHLORIDE 0.9% FLUSH 10 ML IV ×2 (08:55→21:05)
[2021-06-01] MEDS: DOFETILIDE 125 MCG 125 EACH PO ×2 (08:55→21:05)
[2021-06-01] MEDS: PREGABALIN 50 MG CAPSULE 100 MG PO ×2 (08:56→21:04)
[2021-06-01] MEDS: BARICITINIB 2 MG TABLET PO (08:56)
[2021-06-01] MEDS: METOPROLOL ER 50 MG TABLET PO ×2 (08:56→21:04)
[2021-06-01] MEDS: ASPIRIN EC 81 MG TABLET PO (08:56)
[2021-06-01] MEDS: INSULIN GLARGINE 100 UNIT/ML 3ML PEN 30 UNIT SUBCUT ×2 (08:56→21:00)
[2021-06-01] MEDS: TRAMADOL 50 MG TABLET PO ×3 (08:57→21:04)
[2021-06-01] MEDS: cefTRIAXone 1,000 MG in SODIUM CHLORIDE 0.9% 100 ML 200 ML IV (08:57)
[2021-06-01] MEDS: FERROUS SULFATE 325 MG TABLET PO (08:57)
[2021-06-01] MEDS: APIXABAN 5 MG TABLET PO ×2 (08:57→21:04)
[2021-06-01] MEDS: LORazepam 0.5 MG TABLET PO ×4 (08:57→21:03)
--- NOTE | 2021-06-01 10:48 | P.TELICUPN_ITS ---
Subjective Subjective :: This patient was seen via real time interactive two-way audiovisual telecommunication. 75 y.o. male with acute on chronic hypoxic respiratory failure due to COVID-19, ROSA superimposed on stage 3B CKD, and uncontrolled AF.? Has history of HFpEF, T2DM, pulmonary sarcoidosis on prednisone 10 mg. INTERIM EVENTS -Now on HFNC 50L & 90%--has history of CPAP @ home -No labs today Current Medications Current Medications Medications: Home Medications budesonide-formoterol HFA 160 mcg-4.5 mcg/actuation aerosol inhaler (Symbicort) 2 inh INH BID #1 inh 09/14/17 [Rx Confirmed 05/27/21] dofetilide 125 mcg capsule (Tikosyn) 125 mcg PO BID cap 08/03/18 [History Confirmed 05/27/21] Fast click lancet cartridge #1 ea 10/04/18 [Rx Confirmed 05/28/21] apixaban 5 mg tablet (Eliquis) 5 mg PO BID 01/03/19 [History Confirmed 05/27/21] epinephrine 0.3 mg/0.3 mL injection, auto-injector (EpiPen 2-Abhijeet) 0.3 mg (0.3 mL) IM ONCE #2 each 04/04/19 [Rx Confirmed 05/27/21] aspirin 81 mg tablet,delayed release 81 mg PO DAILY 08/02/19 [History Confirmed 05/27/21] torsemide 20 mg tablet 20 mg PO DAILY tab 12/25/19 [History Confirmed 05/27/21] alprazolam 0.5 mg tablet (Xanax) 0.25 mg PO BID PRN #60 tab 03/13/20 [Rx Confirmed 05/28/21] [Contour test strips] #300 each 08/20/20 [Rx Confirmed 05/28/21] pen needle, diabetic 29 gauge x 1/2 (BD Ultra-Fine Original Pen Needle) #30 each 09/17/20 [Rx Confirmed 05/28/21] Disabled Parking Permit #1 ea 10/22/20 [Rx Confirmed 05/28/21] Lactobacil rhamnosus GG 10 billion cell-inulin 200 mg sprinkle capsule ([employer]) See Rx Instructions .ROUTE .COMPLEX #100 cap 01/16/21 [Rx Confirmed 05/27/21] ferrous sulfate 325 mg (65 mg iron) tablet See Rx Instructions .ROUTE .COMPLEX #90 tab 03/10/21 [Rx Confirmed 05/27/21] gel-matrix pad dress, silicone 2 X 5.5 topical pads #4 ea 03/25/21 [Rx Confirmed 05/28/21] metoprolol succinate 50 mg tablet,extended release 24 hr 50 mg PO BID tab 03/25/21 [History Confirmed 05/27/21] nitroglycerin 0.4 mg sublingual tablet (Nitrostat) 0.4 mg SUBLINGUAL Q5-15M PRN 03/25/21 [History Confirmed 05/27/21] pregabalin 100 mg capsule (Lyrica) 100 mg PO BID #180 cap 03/31/21 [Rx Confirmed 05/27/21] albuterol sulfate 90 mcg/actuation aerosol inhaler 2 puff INHALATION Q4H PRN #0 gram 05/19/21 [Rx Confirmed 05/27/21] Bleed in valve for CPAP connection to oxygen #1 ea 05/20/21 [Rx Confirmed ] atorvastatin 40 mg tablet 40 mg PO Q OTHER DAY 05/27/21 [History Confirmed 05/27/21] calcium carbonate 600 mg (1,500 mg)-vitamin D3 200 unit tablet 1 tab PO DAILY 05/27/21 [History Confirmed 05/27/21] insulin glargine 100 unit/mL (3 mL) subcutaneous pen (Lantus Solostar U-100 Insulin) 15 unit SUBCUT BID 05/27/21 [History Confirmed 05/27/21] lorazepam 0.5 mg tablet (Ativan) 0.5 mg PO TID PRN 05/27/21 [History Confirmed 05/27/21] oxycodone-acetaminophen 5 mg-325 mg tablet 1 tab PO Q4H PRN 05/27/21 [History Confirmed 05/27/21] tramadol 50 mg tablet 50 mg PO TID 05/27/21 [History Confirmed 05/27/21] vitamin B complex (B Complex-Vitamin B12) 1 tab PO DAILY 05/27/21 [History Confirmed 05/27/21] Visit Medications (administered) Generic Name Dose Route Start Last Admin Trade Name Freq PRN Reason Stop Dose Admin Albuterol/Ipratropium 3 ml 05/29/21 15:00 06/01/21 07:59 Albuterol/Ipratropium 3 Ml Ampul INH 3 ml [id number] JUAREZ Administration Apixaban 5 mg 05/30/21 21:00 06/01/21 08:57 Apixaban 5 Mg Tablet PO 5 mg BID JUAREZ Administration Aspirin 81 mg 05/28/21 09:00 06/01/21 08:56 Aspirin Ec 81 Mg Tablet PO 81 mg DAILY JUAREZ Administration Atorvastatin Calcium 40 mg 05/29/21 21:00 05/31/21 21:16 Atorvastatin 20 Mg Tablet PO 40 mg Q48H JUAREZ Administration Budesonide 0.5 mg 05/28/21 08:00 06/01/21 08:00 Budesonide 0.5 Mg/2 Ml Neb INH 0.5 mg RTBID JUAREZ Administration Dexamethasone 6 mg 05/28/21 09:45 06/01/21 08:55 Dexamethasone 4 Mg Tablet PO 06/04/21 09:44 6 mg BID JUAREZ Administration Ferrous Sulfate 325 mg 05/28/21 09:00 06/01/21 08:57 Ferrous Sulfate 325 Mg Tablet PO 325 mg DAILY JUAREZ Administration Azithromycin 500 mg/ Dextrose 250 mls @ 250 mls/hr 05/30/21 10:00 05/31/21 14:27 IV 06/03/21 10:59 Infused Q24H JUAREZ Infusion Ceftriaxone Sodium 1,000 mg/ 100 mls @ 200 mls/hr 05/30/21 09:00 06/01/21 08:57 Sodium Chloride IV 06/03/21 09:29 200 mls/hr Q24H JUAREZ Administration Insulin Glargine 30 unit 05/31/21 21:00 06/01/21 08:56 Insulin Glargine 100 Unit/Ml 3ml Pen SUBCUT 30 unit BID JUAREZ Administration Insulin Human Lispro 0 unit 05/31/21 16:45 06/01/21 08:12 Insulin Lispro 100 Unit/Ml 3ml Vial SUBCUT Not Given ACHS [facility] Protocol Lorazepam 0.5 mg 05/29/21 17:00 06/01/21 08:57 Lorazepam 0.5 Mg Tablet PO 0.5 mg QID JUAREZ Administration Metoprolol Succinate 50 mg 05/28/21 09:00 06/01/21 08:56 Metoprolol Er 50 Mg Tablet PO 50 mg BID JUAREZ Administration Morphine Sulfate 4 mg 05/29/21 13:32 05/30/21 13:52 Morphine 4 Mg/Ml Inj IV 4 mg TID PRN Administration Shortness Of Breath Or Wheezing Tikosyn 125 Mcg 125 mcg 05/28/21 09:15 06/01/21 08:55 PO 125 mcg BID JUAREZ Administration Oxycodone/Acetaminophen 1 tab 05/28/21 00:34 05/31/21 01:22 Oxycodone/Acetaminophen 5/325 Tablet PO 1 tab Q4H PRN Administration Pain, Moderate Pantoprazole Sodium 20 mg 06/01/21 06:00 06/01/21 05:[address] 20 Mg Tablet PO 20 mg 0600 JUAREZ Administration Pregabalin 100 mg 05/28/21 09:00 06/01/21 08:56 Pregabalin 50 Mg Capsule PO 100 mg BID JUAREZ Administration Sodium Chloride 10 ml 05/28/21 19:33 05/30/21 05:52 Sodium Chloride 0.9% Flush IV 10 ml PRN PRN Administration Flush Sodium Chloride 10 ml 05/28/21 21:00 06/01/21 08:55 Sodium Chloride 0.9% Flush IV 10 ml BID JUAREZ Administration Tramadol HCl 50 mg 05/28/21 09:00 06/01/21 08:57 Tramadol 50 Mg Tablet PO 50 mg TID JUAREZ Administration Objective Labs Result Diagrams: 05/31/21 09:25 05/31/21 09:25 Exam Vital Signs (past 8 hours): - 06/01/21 03:30 06/01/21 04:00 06/01/21 08:00 Temperature 97.2 F L 97.3 F L Pulse Rate 64 64 Respiratory Rate 21 15 Blood Pressure 104/62 114/58 L 129/61 Pulse Oximetry 93 92 06/01/21 08:20 Temperature Pulse Rate 64 Respiratory Rate 18 Blood Pressure 129/61 Pulse Oximetry 90 L Fraction of Inspired Oxygen 0.70 Oxygen Delivery Method CPAP Oxygen Flow Rate 50 Quality TeleICU VTE Deep Vein Thrombosis/Pulmonary Embolism Present on Admission: No Assessment & Plan Assessment & Plan narrative: [address] [address] Teleintensivist Progress Note Patient: Berny Ott MR#: [id number] : 1945 Acct:[id number] Age/Sex: 75 / M ? Date of Service: 05/27/21 Provider:?Marti Eaton MD Subjective Subjective :: This patient was seen via real time interactive two-way audiovisual telecommunication. 75 y.o. male with acute on chronic hypoxic respiratory failure due to COVID-19, ROSA superimposed on stage 3B CKD, and uncontrolled AF.? Has history of HFpEF, T2DM, pulmonary sarcoidosis on prednisone 10 mg. INTERIM EVENTS -Now on HFNC 50L & 60%--has history of CPAP @ home -Neg 500 ml in the last 24 hrs, Cr improving Current Medications Current Medications Medications: Home Medications budesonide-formoterol HFA 160 mcg-4.5 mcg/actuation aerosol inhaler (Symbicort) 2 inh INH BID #1 inh 09/14/17 [Rx Confirmed 05/27/21] dofetilide 125 mcg capsule (Tikosyn) 125 mcg PO BID? cap 08/03/18 [History Confirmed 05/27/21] Fast click lancet cartridge #1 ea 10/04/18 [Rx Confirmed 05/28/21] apixaban 5 mg tablet (Eliquis) 5 mg PO BID 01/03/19 [History Confirmed 05/27/21] epinephrine 0.3 mg/0.3 mL injection, auto-injector (EpiPen 2-Abhijeet) 0.3 mg (0.3 mL) IM ONCE #2 each 04/04/19 [Rx Confirmed 05/27/21] aspirin 81 mg tablet,delayed release 81 mg PO DAILY 08/02/19 [History Confirmed 05/27/21] torsemide 20 mg tablet 20 mg PO DAILY? tab 12/25/19 [History Confirmed 05/27/21] alprazolam 0.5 mg tablet (Xanax) 0.25 mg PO BID PRN #60 tab 03/13/20 [Rx Confirmed 05/28/21] [Contour test strips] #300 each 08/20/20 [Rx Confirmed 05/28/21] pen needle, diabetic 29 gauge x 1/2 (BD Ultra-Fine Original Pen Needle) #30 each 09/17/20 [Rx Confirmed 05/28/21] Disabled Parking Permit #1 ea 10/22/20 [Rx Confirmed 05/28/21] Lactobacil rhamnosus GG 10 billion cell-inulin 200 mg sprinkle capsule ([facility] [employer]) See Rx Instructions .ROUTE .COMPLEX #100 cap 01/16/21 [Rx Confirmed 05/27/21] ferrous sulfate 325 mg (65 mg iron) tablet See Rx Instructions .ROUTE .COMPLEX #90 tab 03/10/21 [Rx Confirmed 05/27/21] gel-matrix pad dress, silicone 2 X 5.5 topical pads #4 ea 03/25/21 [Rx Confirmed 05/28/21] metoprolol succinate 50 mg tablet,extended release 24 hr 50 mg PO BID? tab 03/25/21 [History Confirmed 05/27/21] nitroglycerin 0.4 mg sublingual tablet (Nitrostat) 0.4 mg SUBLINGUAL Q5-15M PRN 03/25/21 [History Confirmed 05/27/21] pregabalin 100 mg capsule (Lyrica) 100 mg PO BID #180 cap 03/31/21 [Rx Confirmed 05/27/21] albuterol sulfate 90 mcg/actuation aerosol inhaler 2 puff INHALATION Q4H PRN #0 gram 05/19/21 [Rx Confirmed 05/27/21] Bleed in valve for CPAP connection to oxygen #1 ea 05/20/21 [Rx Confirmed 05/12 01/29] atorvastatin 40 mg tablet 40 mg PO Q OTHER DAY 05/27/21 [History Confirmed 05/27/21] calcium carbonate 600 mg (1,500 mg)-vitamin D3 200 unit tablet 1 tab PO DAILY 05/27/21 [History Confirmed 05/27/21] insulin glargine 100 unit/mL (3 mL) subcutaneous pen (Lantus Solostar U-100 Insulin) 15 unit SUBCUT BID 05/27/21 [History Confirmed 05/27/21] lorazepam 0.5 mg tablet (Ativan) 0.5 mg PO TID PRN 05/27/21 [History Confirmed 05/27/21] oxycodone-acetaminophen 5 mg-325 mg tablet 1 tab PO Q4H PRN 05/27/21 [History Confirmed 05/27/21] tramadol 50 mg tablet 50 mg PO TID 05/27/21 [History Confirmed 05/27/21] vitamin B complex (B Complex-Vitamin B12) 1 tab PO DAILY 05/27/21 [History Confirmed 05/27/21] Visit Medications (administered) Generic Name Dose Route Start Last Admin ? Trade Name Freq? PRN Reason Stop Dose Admin Albuterol/Ipratropium ?3 ml ?05/29/21 15:00 ?05/31/21 07:13 ? Albuterol/Ipratropium 3 Ml AmpulD ?INH ? ?3 ml ? ?[id number] JUAREZ ? ?Administration Apixaban ?5 mg ?05/30/21 21:00 ?05/31/21 08:53 ? Apixaban 5 Mg Tablet ?PO ? ?5 mg ? ?BID JUAREZ ? ?Administration Aspirin ?81 mg ?05/28/21 09:00 ?05/31/21 08:53 ? Aspirin Ec 81 Mg Tablet ?PO ? ?81 mg ? ?DAILY JUAREZ ? ?Administration Atorvastatin Calcium ?40 mg ?05/29/21 21:00 ?05/29/21 21:56 ? Atorvastatin 20 Mg Tablet ?PO ? ?40 mg ? ?Q48H JUAREZ ? ?Administration Budesonide ?0.5 mg ?05/28/21 08:00 ?05/31/21 07:13 ? Budesonide 0.5 Mg/2 Ml Neb ?INH ? ?0.5 mg ? ?RTBID JUAREZ ? ?Administration Dexamethasone ?6 mg ?05/28/21 09:45 ?05/31/21 08:53 ? Dexamethasone 4 Mg Tablet ?PO ?06/04/21 09:44 ?6 mg ? ?BID JUAREZ ? ?Administration Ferrous Sulfate ?325 mg ?05/28/21 09:00 ?05/31/21 08:53 ? Ferrous Sulfate 325 Mg Tablet ?PO ? ?325 mg ? ?DAILY JUAREZ ? ?Administration Azithromycin 500 mg/ Dextrose ?250 mls @ 250 mls/hr ?05/30/21 10:00 ?05/30/21 14:53 ? ?IV ?06/03/21 10:59 ?Infused ? ?Q24H JUAREZ ? ?Infusion Ceftriaxone Sodium 1,000 mg/ ?100 mls @ 200 mls/hr ?05/30/21 09:00 ?05/31/21 08:55 ? Sodium Chloride ?IV ?06/03/21 09:29 ?200 mls/hr ? ?Q24H JUAREZ ? ?Administration Insulin Glargine ?20 unit ?05/30/21 21:00 ?05/31/21 08:51 ? Insulin Glargine 100 Unit/Ml 3ml Pen ?SUBCUT ? ?20 unit ? ?BID JUAREZ ? ?Administration Insulin Human Lispro ?0 unit ?05/28/21 11:45 ?05/31/21 08:51 ? Insulin Lispro 100 Unit/Ml 3ml Vial ?SUBCUT ? ?2 unit ? ?ACHS JUAREZ ? ?Administration ? ?Protocol ? ? Lorazepam ?0.5 mg ?05/29/21 17:00 ?05/31/21 08:54 ? Lorazepam 0.5 Mg Tablet ?PO ? ?0.5 mg ? ?QID JUAREZ ? ?Administration Metoprolol Succinate ?50 mg ?05/28/21 09:00 ?05/31/21 08:53 ? Metoprolol Er 50 Mg Tablet ?PO ? ?50 mg ? ?BID JUAREZ ? ?Administration Morphine Sulfate ?4 mg ?05/29/21 13:32 ?05/30/21 13:52 ? Morphine 4 Mg/Ml Inj ?IV ? ?4 mg ? ?TID PRN ? ?Administration ? ?Shortness Of Breath Or Wheezing ? ? Tikosyn 125 Mcg ?125 mcg ?05/28/21 09:15 ?05/31/21 08:52 ? ?PO ? ?125 mcg ? ?BID JUAREZ ? ?Administration Oxycodone/Acetaminophen ?1 tab ?05/28/21 00:34 ?05/31/21 01:22 ? Oxycodone/Acetaminophen 5/325 Tablet ?PO ? ?1 tab ? ?Q4H PRN ? ?Administration ? ?Pain, Moderate ? ? Pantoprazole Sodium ?20 mg ?05/30/21 09:00 ?05/31/21 08:54 ? Pantoprazole 40 Mg Vial ?IV ? ?20 mg ? ?DAILY JUAREZ ? ?Administration Pregabalin ?100 mg ?05/28/21 09:00 ?05/31/21 08:53 ? Pregabalin 50 Mg Capsule ?PO ?B ?100 mg ? ?BID JUAREZ ? ?Administration Sodium Chloride ?10 ml ?05/28/21 19:33 ?05/30/21 05:52 ? Sodium Chloride 0.9% Flush ?IV ? ?10 ml ? ?PRN PRN ? ?Administration ? ?Flush ? ? Sodium Chloride ?10 ml ?05/28/21 21:00 ?05/31/21 08:52 ? Sodium Chloride 0.9% Flush ?IV ? ?10 ml ? ?BID JUAREZ ? ?Administration Tramadol HCl ?50 mg ?05/28/21 09:00 ?05/31/21 08:54 F ? Tramadol 50 Mg Tablet ?PO ? ?50 mg ? ?TID JUAREZ ? ?Administration Objective Labs Result Diagrams: 05/31/21 09:25? 05/30/21 05:09? Labs: Laboratory Results - last 24 hr ? 05/30/21 05/30/21 05/31/21 ? 13:40 16:32 09:25 WBC ? ? ?16.4 H RBC ? ? ?3.78 L Hgb ? ? ?10.7 L Hct ? ? ?32.5 L MCV ? ? ?86.0 MCH ? ? ?28.5 MCHC ? ? ?33.1 RDW ? ? ?14.6 Plt Count ? ? ?362 Neut % (Auto) ? ? ?92.9 H Lymph % (Auto) ? ? ?2.8 L [place] % (Auto) ? ? ?4.2 Eos % (Auto) ? ? ?0.0 L Baso % (Auto) ? ? ?0.1 Neut # (Auto) ? ? ?60480 H Lymph # (Auto) ? ? ?500 L [place] # (Auto) ? ? ?700 Eos # (Auto) ? ? ?0 Baso # (Auto) ? ? ?0 APTT ?30? D ? ? ABG pH ? ?7.46 H ? ABG pCO2 ? ?46.1 H ? ABG pO2 ? ?70 L ? ABG HCO3 ? ?33 H ? ABG Total CO2 ? ?34 H ? ABG O2 Saturation ? ?94 L ? ABG Base Excess ? ?9.0 H ? FiO2 ? ?60 ? Exam Vital Signs (past 8 hours): - ? 05/31/21 04:00 05/31/21 07:15 05/31/21 07:30 Temperature 97.7 F ? ? Pulse Rate 81 ? 64 Respiratory Rate 16 ? 20 Blood Pressure 97/57 L 97/57 L 97/57 L Pulse Oximetry 97 ? 91 ? 05/31/21 08:00 Temperature 98.1 F Pulse Rate 64 Respiratory Rate 18 Blood Pressure 109/61 Pulse Oximetry 93 Fraction of Inspired Oxygen ? 50? Oxygen Delivery Method? High Flow Nasal Cannula ? Oxygen Flow Rate? 50? Quality TeleICU VTE Deep Vein Thrombosis/Pulmonary Embolism Present on Admission: No Assessment & Plan Assessment & Plan narrative: Acute hypoxemic respiratory failure due to COVID-19 ROSA on CKD stage II steffanyley ATN 2/2 sepsis & COVIOD PNA H/o of PAF H/o of DMI Rec: Wean off Fio2 as tolerated , Goal sat 92, currntly of HFNC 50L, 90%, CPAP at night and as needed Continue dexamethasone and baricitinib ( watch LFT & GFR for dose adjustment or Dc if indicated) ,? off remdesivir bec of ROSA Cr improving yesterday, no labs today, IV lasix prn for goal of Neg balance, Di amox prn for metabolic alkalosis Continue to avoid nephrotoxic drugs, pharmacy to adjust meds doses to Crcl On metoprolol, Tikosyn & Apixaban On Azithromycin and Ceftrizxone, watch QTc ?Insulin sliding scale and lantus, BS better controlled today,adjust insulin dose as needed for BS control 120-180 Code status is DNR/DNI On PPI Plan discussed with RN Time Spent With Patient Critical Care time: I spent a total of [25] minutes of critical care time on this patient's care today; this time is exclusive of procedural time.
[2021-06-01] MEDS: AZITHROMYCIN 500 MG in DEXTROSE 5% IN WATER 250 ML IV (10:52)
[2021-06-01] MEDS: INSULIN LISPRO 100 UNIT/ML 3ML VIAL SUBCUT ×3 (12:31→21:02)
--- NOTE | 2021-06-01 17:38 | P.PN_ITS ---
Subjective Subjective Date Patient Seen: 06/01/21 Interval history: CONTINUES TO HAVE SOME SHORTNESS OF BREATH CONTINUED TO HAVE SOME DYSPNEA ON EXERTION WELL NO CHEST PAIN OR CHEST PALPITATION COUGH ALSO REPORTED Exam Vital Signs (past 8 hours): - 06/01/21 11:15 06/01/21 12:00 06/01/21 12:47 Temperature 97.3 F L Pulse Rate 65 64 Respiratory Rate 20 22 Blood Pressure 129/61 106/58 L Pulse Oximetry 94 94 96 06/01/21 13:04 06/01/21 16:00 Temperature 97.8 F Pulse Rate 65 64 Respiratory Rate 24 18 Blood Pressure 122/60 Pulse Oximetry 96 95 Fraction of Inspired Oxygen 0.70 Oxygen Delivery Method Heated High Flow Oxygen Flow Rate 50 Const General: cooperative HENMT Head: normocephalic Nose: external nose normal Eyes General: appearance normal, both eyes and all related structures Cornea: corneas normal EOM: EOM intact bilaterally Neck Neck: normal visual inspection Thyroid: thyroid normal Chest Chest: normal inspection of the chest Resp Effort & Inspection: cough and uses accessory muscles Auscultation: crackles, diminished lung sounds and wheezes Percussion: percussion normal Cardio Palpation: normal PMI Rate: regular rate Rhythm: abnormal rhythm irregularly irregular GI Inspection: normal to inspection and edema Skin General: no rashes or lesions noted and elasticity normal Neuro General: patient alert, patient awake, patient oriented x3 and CN's II-XI intact bilaterally Extrem General: normal to inspection and full ROM Psych Appearance: grossly normal Speech and Movement: speech and movement normal Objective Labs Result Diagrams: 05/31/21 09:25 05/31/21 09:25 [facility] Medical History Acne (Unknown) Actinic keratosis (~2018) Anemia Atrial fibrillation (Unknown) Chronic low back pain (Unknown) Closed compression fracture of third lumbar vertebra Coronary artery disease (Unknown) Diabetes (Unknown) GERD (gastroesophageal reflux disease) (Unknown) Hearing loss (Unknown) Hx of coronary angiogram (Unknown) Hyperlipemia (Unknown) Hypertension (Unknown) Keloid Osteoporosis Pacemaker Renal insufficiency Sarcoidosis (11/2007) Squamous cell carcinoma (Unknown) Visit for suture removal Surgical History H/O left wrist surgery H/O toe surgery History of arthroplasty of left shoulder (Unknown) History of arthroplasty of right shoulder (Unknown) History of fusion of thoracic spine History of lumbar fusion Hx of knee surgery (Unknown) Hx of left knee surgery Hx of prior ablation treatment (~05/2013) Status post lumbar and lumbosacral fusion by anterior technique Family History Father Diabetes mellitus Mother No problems noted. Social History household members: spouse and children Smoking Status: Never smoker second hand exposure: Yes alcohol intake: current substance use type: does not use Assessment & Plan Assessment & Plan narrative: PROBLEM LIST ACUTE HYPOXIC RESPIRATORY FAILURE COVID-19 PNEUMONIA /PNEUMONITIS ACUTE ON CHRONIC KIDNEY DISEASE STAGE III OVERWEIGHT REACTIVE LEUKOCYTOSIS PLAN CONTINUE TO CURRENT MANAGEMENT FOR NOW PATIENT IS STILL REQUIRING HIGH-FLOW PRECISION JIG GRINDER FROM CRITICAL CARE/ INTENSIVE IS GREATLY APPRECIATED AGGRESSIVE PULMONARY TOILETING NURSING TO ENCOURAGE PATIENT TO USE INCENTIVE SPIROMETER AWAKE REPEAT CHEST X-RAY AND ABG INDICATED CLINICALLY DAILY LABS TO FOLLOW STRICT INPUT AND OUTPUT AVOID ALL NEPHROTOXINS PHARMACY TO DOSE ALL MEDICATIONS FOR GFR ADDITIONAL MANAGEMENT INDICATED CLINICALLY PROGNOSIS IS GUARDED Time Spent With Patient Critical Care time: I spent a total of [] minutes of critical care time on this patient's care today; this time is exclusive of procedural time. Quality VTE Deep Vein Thrombosis/Pulmonary Embolism Present on Admission: No
--- NOTE | 2021-06-01 20:17 | PM.ICURNDS ---
- Note: Case d/w bedside nurse over the phone. Events noted, chart reviewed. Pt remains on HFNC, now 50L 65% due to ARDS from COVID. BG remains high. Would rec inc lantus from 30 -> 40u nightly and adding 3u regular insulin with his meals. Bedside nurse to discuss w Arlet Wiseman (VALERIE).
[2021-06-02] VITALS (46 sets, daily range): BP systolic 106–129; BP diastolic 57–79; PULSE 64–94; RESP 12–27; TEMP 31.1–36.6; O2SAT 86–97
[2021-06-02 05:24] LABS: Add Manual Diff / Slide Review NO; Basophils Absolute Auto 0 /uL (0-100); Eosinophils Absolute Auto 0 /uL (0-450); Hematocrit 31.4 % (41-53); Hemoglobin 10.3 g/dL (13.5-17.5); Lymphocytes Absolute Auto 500 /uL (1100-4500); Lymphocytes Percent Auto 3.4 % (25-40); Mean Corpuscular Hemoglobin 28.5 PG (26-34); Mean Corpuscular Volume 86.5 fL (80-100); Monocytes Absolute Auto 600 /uL (0-900); Monocytes Percent Auto 4.5 % (3-14); Neutrophils Absolute Auto 12900 /uL (1500-7000); Neutrophils Percent Auto 92.1 % (50-75); Platelet Count 319 X10^3/uL (150-400); Red Blood Cell Count 3.63 X10^6/uL (4.5-5.9); Red Cell Distribution Width 14.7 % (11.6-14.8)
[2021-06-02] MEDS: PANTOPRAZOLE DR 20 MG TABLET PO ×2 (05:30→06:59)
[2021-06-02 05:33] LABS: Albumin 2.9 g/dL (3.5-5.0); Blood Urea Nitrogen 39 mg/dL (9-20); Calcium 7.7 mg/dL (8.4-10.2); Carbon Dioxide 34 mmol/L (22-32); Chloride 99 mmol/L (98-107); Estimated Glomerular Filt Rate > 60.0 mL/min (>60); Glucose 161 mg/dL (80-110); HEMOLYSIS < 15 (0-50); Phosphorous 2.5 mg/dL (2.3-3.7); Potassium 4.5 mmol/L (3.4-5.1); Sodium 135 mmol/L (137-145)
[2021-06-02] MEDS: ALBUTEROL/IPRATROPIUM 3 ML AMPUL INH ×3 (05:58→20:04)
[2021-06-02] MEDS: BUDESONIDE 0.5 MG/2 ML NEB INH ×2 (06:00→20:04)
[2021-06-02] MEDS: TRAMADOL 50 MG TABLET PO ×4 (06:31→21:04)
[2021-06-02] MEDS: LORazepam 0.5 MG TABLET PO ×5 (06:32→21:03)
[2021-06-02] MEDS: INSULIN LISPRO 100 UNIT/ML 3ML VIAL SUBCUT ×4 (08:45→21:06)
[2021-06-02] MEDS: INSULIN REGULAR 100 UNIT/ML 3 ML VIAL SUBCUT ×3 (08:49→17:16)
[2021-06-02] MEDS: INSULIN GLARGINE 100 UNIT/ML 3ML PEN 40 UNIT SUBCUT ×2 (08:49→21:06)
[2021-06-02] MEDS: SUCRALFATE 1 GM TABLET PO (08:53)
[2021-06-02] MEDS: DOFETILIDE 125 MCG 125 EACH PO ×2 (08:53→21:02)
[2021-06-02] MEDS: cefTRIAXone 1,000 MG in SODIUM CHLORIDE 0.9% 100 ML 200 ML IV (08:54)
[2021-06-02] MEDS: polyethylene glycoL 3350 17 GM POWD.PACK PO (08:55)
[2021-06-02] MEDS: CHOLECALCIFEROL (VITAMIN D3) 400 UNIT TABLET PO ×2 (08:56→21:05)
[2021-06-02] MEDS: SENNOSIDES 8.6 MG TABLET 17.2 MG PO (08:56)
[2021-06-02] MEDS: APIXABAN 5 MG TABLET PO ×2 (08:56→21:03)
[2021-06-02] MEDS: BARICITINIB 2 MG TABLET PO (08:56)
[2021-06-02] MEDS: ASCORBIC ACID 500 MG TABLET PO ×2 (08:56→21:05)
[2021-06-02] MEDS: PREGABALIN 50 MG CAPSULE 100 MG PO ×2 (08:56→21:02)
[2021-06-02] MEDS: FAMOTIDINE 20 MG TABLET PO ×2 (08:56→21:03)
[2021-06-02] MEDS: dexAMETHasone 4 MG TABLET 6 MG PO ×2 (08:56→21:03)
[2021-06-02] MEDS: DOCUSATE 100 MG CAPSULE PO ×2 (08:57→21:03)
[2021-06-02] MEDS: ASPIRIN EC 81 MG TABLET PO (08:57)
[2021-06-02] MEDS: FERROUS SULFATE 325 MG TABLET PO (08:57)
[2021-06-02] MEDS: SODIUM CHLORIDE 0.9% FLUSH 10 ML IV ×2 (08:59→21:02)
[2021-06-02] MEDS: METOPROLOL ER 50 MG TABLET PO ×2 (08:59→21:04)
--- NOTE | 2021-06-02 09:59 | P.TELICUPN_ITS ---
Subjective Subjective :: This patient was seen via real time interactive two-way audiovisual telecommunication. 75 y.o. male with acute on chronic hypoxic respiratory failure due to COVID-19, ROSA superimposed on stage 3B CKD, and uncontrolled AF.? Has history of HFpEF, T2DM, pulmonary sarcoidosis on prednisone 10 mg. INTERIM EVENTS -Now on HFNC 50L & 65 %--has history of CPAP @ home -Cr level normalized Current Medications Current Medications Medications: Home Medications budesonide-formoterol HFA 160 mcg-4.5 mcg/actuation aerosol inhaler (Symbicort) 2 inh INH BID #1 inh 09/14/17 [Rx Confirmed 05/27/21] dofetilide 125 mcg capsule (Tikosyn) 125 mcg PO BID cap 08/03/18 [History Confirmed 05/27/21] Fast click lancet cartridge #1 ea 10/04/18 [Rx Confirmed 05/28/21] apixaban 5 mg tablet (Eliquis) 5 mg PO BID 01/03/19 [History Confirmed 05/27/21] epinephrine 0.3 mg/0.3 mL injection, auto-injector (EpiPen 2-Abhijeet) 0.3 mg (0.3 mL) IM ONCE #2 each 04/04/19 [Rx Confirmed 05/27/21] aspirin 81 mg tablet,delayed release 81 mg PO DAILY 08/02/19 [History Confirmed 05/27/21] torsemide 20 mg tablet 20 mg PO DAILY tab 12/25/19 [History Confirmed 05/27/21] alprazolam 0.5 mg tablet (Xanax) 0.25 mg PO BID PRN #60 tab 03/13/20 [Rx Confirmed 05/28/21] [Contour test strips] #300 each 08/20/20 [Rx Confirmed 05/28/21] pen needle, diabetic 29 gauge x 1/2 (BD Ultra-Fine Original Pen Needle) #30 eac h 09/17/20 [Rx Confirmed 05/28/21] Disabled Parking Permit #1 ea 10/22/20 [Rx Confirmed 05/28/21] Lactobacil rhamnosus GG 10 billion cell-inulin 200 mg sprinkle capsule ([employer]) See Rx Instructions .ROUTE .COMPLEX #100 cap 01/16/21 [Rx Confirmed 05/27/21] ferrous sulfate 325 mg (65 mg iron) tablet See Rx Instructions .ROUTE .COMPLEX #90 tab 03/10/21 [Rx Confirmed 05/27/21] gel-matrix pad dress, silicone 2 X 5.5 topical pads #4 ea 03/25/21 [Rx Confirmed 05/28/21] metoprolol succinate 50 mg tablet,extended release 24 hr 50 mg PO BID tab 03/25/21 [History Confirmed 05/27/21] nitroglycerin 0.4 mg sublingual tablet (Nitrostat) 0.4 mg SUBLINGUAL Q5-15M PRN 03/25/21 [History Confirmed 05/27/21] pregabalin 100 mg capsule (Lyrica) 100 mg PO BID #180 cap 03/31/21 [Rx Confirmed 05/27/21] albuterol sulfate 90 mcg/actuation aerosol inhaler 2 puff INHALATION Q4H PRN #0 gram 05/19/21 [Rx Confirmed 05/27/21] Bleed in valve for CPAP connection to oxygen #1 ea 05/20/21 [Rx Confirmed 05/28/21] atorvastatin 40 mg tablet 40 mg PO Q OTHER DAY 05/27/21 [History Confirmed 05/27/21] calcium carbonate 600 mg (1,500 mg)-vitamin D3 200 unit tablet 1 tab PO DAILY 05/27/21 [History Confirmed 05/27/21] insulin glargine 100 unit/mL (3 mL) subcutaneous pen (Lantus Solostar U-100 Insulin) 15 unit SUBCUT BID 05/27/21 [History Confirmed 05/27/21] lorazepam 0.5 mg tablet (Ativan) 0.5 mg PO TID PRN 05/27/21 [History Confirmed 05/27/21] oxycodone-acetaminophen 5 mg-325 mg tablet 1 tab PO Q4H PRN 05/27/21 [History Confirmed 05/27/21] tramadol 50 mg tablet 50 mg PO TID 05/27/21 [History Confirmed 05/27/21] vitamin B complex (B Complex-Vitamin B12) 1 tab PO DAILY 05/27/21 [History Confirmed 05/27/21] Visit Medications (administered) Generic Name Dose Route Start Last Admin Trade Name Freq PRN Reason Stop Dose Admin Albuterol/Ipratropium 3 ml 05/29/21 15:00 06/02/21 05:58 Albuterol/Ipratropium 3 Ml Ampul INH 3 ml [id number] JUAREZ Administration Apixaban 5 mg 05/30/21 21:00 06/02/21 08:56 Apixaban 5 Mg Tablet PO 5 mg BID JUAREZ Administration Ascorbic Acid 500 mg 06/02/21 09:00 06/02/21 08:56 Ascorbic Acid 500 Mg Tablet PO 500 mg BID JUAREZ Administration Aspirin 81 mg 05/28/21 09:00 06/02/21 08:57 Aspirin Ec 81 Mg Tablet PO 81 mg DAILY JUAREZ Administration Atorvastatin Calcium 40 mg 05/29/21 21:00 05/31/21 21:16 Atorvastatin 20 Mg Tablet PO 40 mg Q48H JUAREZ Administration Budesonide 0.5 mg 05/28/21 08:00 06/02/21 06:00 Budesonide 0.5 Mg/2 Ml Neb INH 0.5 mg RTBID JUAREZ Administration Dexamethasone 6 mg 05/28/21 09:45 06/02/21 08:56 Dexamethasone 4 Mg Tablet PO 06/04/21 09:44 6 mg BID JUAREZ Administration Docusate Sodium 100 mg 06/02/21 09:00 06/02/21 08:57 Docusate 100 Mg Capsule PO 100 mg BID JUAREZ Administration Famotidine 20 mg 06/02/21 09:00 06/02/21 08:56 Famotidine 20 Mg Tablet PO 20 mg BID JUAREZ Administration Ferrous Sulfate 325 mg 05/28/21 09:00 06/02/21 08:57 Ferrous Sulfate 325 Mg Tablet PO 325 mg DAILY JUAREZ Administration Azithromycin 500 mg/ Dextrose 250 mls @ 250 mls/hr 05/30/21 10:00 06/01/21 12:59 IV 06/03/21 10:59 Infused Q24H JUAREZ Infusion Ceftriaxone Sodium 1,000 mg/ 100 mls @ 200 mls/hr 05/30/21 09:00 06/02/21 09:26 Sodium Chloride IV 06/03/21 09:29 Infused Q24H JUAREZ Infusion Insulin Glargine 40 unit 06/02/21 09:00 06/02/21 08:49 Insulin Glargine 100 Unit/Ml 3ml Pen SUBCUT 40 unit BID JUAREZ Administration Insulin Human Lispro 0 unit 05/31/21 16:45 06/02/21 08:45 Insulin Lispro 100 Unit/Ml 3ml Vial SUBCUT 1 unit ACHS JUAREZ Administration Protocol Insulin Human Regular 3 unit 06/02/21 08:00 06/02/21 08:49 Insulin Regular 100 Unit/Ml 3 Ml Vial SUBCUT 3 unit TIDWM JUAREZ Administration Lorazepam 0.5 mg 05/29/21 17:00 06/02/21 08:56 Lorazepam 0.5 Mg Tablet PO 0.5 mg QID JUAREZ Administration Metoprolol Succinate 50 mg 05/28/21 09:00 06/02/21 08:59 Metoprolol Er 50 Mg Tablet PO 50 mg BID JUAREZ Administration Morphine Sulfate 4 mg 05/29/21 13:32 05/30/21 13:52 Morphine 4 Mg/Ml Inj IV 4 mg TID PRN Administration Shortness Of Breath Or Wheezing Tikosyn 125 Mcg 125 mcg 05/28/21 09:15 06/02/21 08:53 PO 125 mcg BID JUAREZ Administration Oxycodone/Acetaminophen 1 tab 05/28/21 00:34 05/31/21 01:22 Oxycodone/Acetaminophen 5/325 Tablet PO 1 tab Q4H PRN Administration Pain, Moderate Polyethylene Glycol 17 gm 06/02/21 09:00 06/02/21 08:55 Polyethylene Glycol 3350 17 Gm Powd.Pack PO 17 gm BID JUAREZ Administration Pregabalin 100 mg 05/28/21 09:00 06/02/21 08:56 Pregabalin 50 Mg Capsule PO 100 mg BID JUAREZ Administration Sennosides 17.2 mg 06/02/21 09:00 06/02/21 08:56 Sennosides 8.6 Mg Tablet PO 17.2 mg DAILY JUAREZ Administration Sodium Chloride 10 ml 05/28/21 19:33 05/30/21 05:52 Sodium Chloride 0.9% Flush IV 10 ml PRN PRN Administration Flush Sodium Chloride 10 ml 05/28/21 21:00 06/02/21 08:59 Sodium Chloride 0.9% Flush IV 10 ml BID JUAREZ Administration Sucralfate 1 gm 06/02/21 07:45 06/02/21 08:53 Sucralfate 1 Gm Tablet PO 1 gm ACHS JUAREZ Administration Tramadol HCl 50 mg 05/28/21 09:00 06/02/21 08:57 Tramadol 50 Mg Tablet PO 50 mg TID JUAREZ Administration Vitamin D 400 unit 06/02/21 09:00 06/02/21 08:56 Cholecalciferol (Vitamin D3) 400 Unit Tablet PO 400 unit BID JUAREZ Administration Objective Labs Result Diagrams: 06/02/21 05:02 06/02/21 05:02 Labs: Laboratory Results - last 24 hr 06/02/21 06/02/21 05:02 05:02 WBC 14.0 H RBC 3.63 L Hgb 10.3 L Hct 31.4 L MCV 86.5 MCH 28.5 MCHC 33.0 RDW 14.7 Plt Count 319 Neut % (Auto) 92.1 H Lymph % (Auto) 3.4 L Mower % (Auto) 4.5 Eos % (Auto) 0.0 L Baso % (Auto) 0.0 Neut # (Auto) 49943 H Lymph # (Auto) 500 L Mower # (Auto) 600 Eos # (Auto) 0 Baso # (Auto) 0 Sodium 135 L Potassium 4.5 Chloride 99 Carbon Dioxide 34 H BUN 39 H Creatinine 1.00 Estimated GFR > 60.0 BUN/Creatinine Ratio 39.0 H Glucose 161 H Calcium 7.7 L Phosphorus 2.5 Albumin 2.9 L Exam Vital Signs (past 8 hours): - 06/02/21 02:17 06/02/21 03:30 06/02/21 03:34 Temperature Pulse Rate 64 64 Respiratory Rate 17 20 Blood Pressure 106/62 123/60 123/70 Pulse Oximetry 93 94 06/02/21 04:15 06/02/21 06:10 06/02/21 06:12 Temperature 97.0 F L Pulse Rate 64 64 Respiratory Rate 20 20 Blood Pressure 123/70 Pulse Oximetry 94 94 06/02/21 08:00 Temperature 97.7 F Pulse Rate 94 H Respiratory Rate 18 Blood Pressure 124/79 Pulse Oximetry 92 Fraction of Inspired Oxygen 65 Oxygen Delivery Method Heated High Flow Oxygen Flow Rate 50 Quality TeleICU VTE Deep Vein Thrombosis/Pulmonary Embolism Present on Admission: No Assessment & Plan Assessment & Plan narrative: Assessment & Plan narrative: Acute hypoxemic respiratory failure due to COVID-19 ROSA on CKD stage II ainsley ATN 2/2 sepsis & COVIOD PNA H/o of PAF H/o of DMI Rec: Wean off Fio2 as tolerated , Goal sat 92, currntly of HFNC 50L, 65%, CPAP at nigh and as needed Continue dexamethasone and baricitinib ( watch LFT & GFR for dose adjustment as indicated) ,? remdesivir was stopped bec of ROSA Cr normalized, IV lasix prn for goal of Neg balance, Diamox prn for metabolic alkalosis Continue to avoid nephrotoxic drugs, pharmacy to adjust meds doses to Crcl On metoprolol, Tikosyn & Apixaban On Azithromycin and Ceftrizxone, watch QTc Adjust lantus and ISS for BS control 120-180 Code status is DNR/DNI On PPI Time Spent With Patient Critical Care time: I spent a total of [25] minutes of critical care time on this patient's care today; this time is exclusive of procedural time.
[2021-06-02] MEDS: AZITHROMYCIN 500 MG in DEXTROSE 5% IN WATER 250 ML IV (10:21)
--- NOTE | 2021-06-02 18:27 | PC.NURSE ---
Day Shift Note Pt reports feeling a little better today. On heated HFNC 50L and 40% FiO2 at this time (down from 70% this AM) and SpO2 96%, up to chair with SBA, did well. Desaturated to mid-80s and half an O2 flush administered. Now sitting up in chair with SpO2 93-96%. Lungs much clearer today, using IS independently. (Blanca) updated via phone per pt/ request. Call light within reach, using appropriately to make needs known.
--- NOTE | 2021-06-02 19:50 | PM.PN.1 ---
Subjective Subjective Date Patient Seen: 06/02/21 Interval history: NO SPECIFIC COMPLAINTS TODAY CONTINUED TO REPORT FEELING BETTER NURSING REPORTED PATIENT BEING STILL ON HIGH-FLOW Exam Vital Signs (past 8 hours): - 06/02/21 12:00 06/02/21 12:14 06/02/21 12:16 Temperature 97.8 F Pulse Rate 64 64 Respiratory Rate 18 16 Blood Pressure 110/57 L 124/74 Pulse Oximetry 94 97 93 06/02/21 14:15 06/02/21 16:00 06/02/21 17:09 Temperature 97.6 F Pulse Rate 64 66 64 Respiratory Rate 18 20 18 Blood Pressure 110/57 L 129/66 129/66 Pulse Oximetry 94 93 93 06/02/21 18:05 Temperature Pulse Rate 64 Respiratory Rate 18 Blood Pressure Pulse Oximetry 94 Fraction of Inspired Oxygen 0.40 Oxygen Delivery Method Heated High Flow Oxygen Flow Rate 50 Narrative Exam Narrative: NO ACUTE DISTRESS. PATIENT IS ALERT ORIENTED X3. VITAL SIGNS STABLE HEAD ATRAUMATIC NORMOCEPHALIC NECK : SUPPLE WITHOUT ADENOPATHY NO CAROTID BRUITS EYE: EOMI, PERRLA, NORMAL CONJUNCTIVA; NO JAUNDICE CHEST: REGULAR RATE. NO RUBS. PMI IS NON DISPLACED. NO MURMURS; NORMAL S1-S2 PULMONARY: DECREASED BS OVER THE BASES. MILD BIBASILAR CRACKLES NOTED; NO INCREASED DULLNESS TO PERCUSSION ABDOMEN: SOFT. NONTENDER. NONDISTENDED. BOWEL SOUNDS ARE PRESENT IN ALL 4 QUADRANTS. NO MASS. EXTREMITIES: NO EDEMA.. NO CYANOSIS CLUBBING NOTED. NEURO: CRANIAL NERVES 2-12 GROSSLY INTACT. NO FOCAL NEUROLOGICAL DEFICIT NOTED. MSK: NORMAL RANGE OF MOTION FOR AGE. NO JOINT EFFUSION. SKIN: NORMAL FOR ETHNICITY; NO ECCHYMOSIS. NO LESION. GOOD TURGOR.; NO RASHES : NORMAL EXTERNAL GENITALIA. PSYCH : APPROPRIATE MOOD AND AFFECT. ALERT AWAKE ORIENTED X3 Objective Labs Result Diagrams: 06/02/21 05:02 06/02/21 05:02 Labs: Laboratory Results - last 24 hr 06/02/21 06/02/21 05:02 05:02 WBC 14.0 H RBC 3.63 L Hgb 10.3 L Hct 31.4 L MCV 86.5 MCH 28.5 MCHC 33.0 RDW 14.7 Plt Count 319 Neut % (Auto) 92.1 H Lymph % (Auto) 3.4 L Vil[place] % (Auto) 4.5 Eos % (Auto) 0.0 L Baso % (Auto) 0.0 Neut # (Auto) 12761 H Lymph # (Auto) 500 L [place] # (Auto) 600 Eos # (Auto) 0 Baso # (Auto) 0 Sodium 135 L Potassium 4.5 Chloride 99 Carbon Dioxide 34 H BUN 39 H Creatinine 1.00 Estimated GFR > 60.0 BUN/Creatinine Ratio 39.0 H Glucose 161 H Calcium 7.7 L Phosphorus 2.5 Albumin 2.9 L PFSH Medical History Acne (Unknown) Actinic keratosis (~2018) Anemia Atrial fibrillation (Unknown) Chronic low back pain (Unknown) Closed compression fracture of third lumbar vertebra Coronary artery disease (Unknown) Diabetes (Unknown) GERD (gastroesophageal reflux disease) (Unknown) Hearing loss (Unknown) Hx of coronary angiogram (Unknown) Hyperlipemia (Unknown) Hypertension (Unknown) Keloid Osteoporosis Pacemaker Renal insufficiency Sarcoidosis (11/2007) Squamous cell carcinoma (Unknown) Visit for suture removal Surgical History H/O left wrist surgery H/O toe surgery History of arthroplasty of left shoulder (Unknown) History of arthroplasty of right shoulder (Unknown) History of fusion of thoracic spine History of lumbar fusion Hx of knee surgery (Unknown) Hx of left knee surgery Hx of prior ablation treatment (~05/2013) Status post lumbar and lumbosacral fusion by anterior technique Family History Father Diabetes mellitus Mother No problems noted. Social History household members: spouse and children Smoking Status: Never smoker second hand exposure: Yes alcohol intake: current substance use type: does not use Assessment & Plan Assessment & Plan narrative: [address] [address] Progress Note Patient: Berny Ott MR#: [id number] : 1945 Acct:[id number] Age/Sex: 75 / M ? Date of Service: 05/27/21 Provider:?Juan Portillo Subjective Subjective Date Patient Seen: 06/01/21 Interval history: ?CONTINUES TO HAVE SOME SHORTNESS OF BREATH ?CONTINUED TO HAVE SOME DYSPNEA ON EXERTION WELL ?NO CHEST PAIN OR CHEST PALPITATION ?COUGH ALSO REPORTED Exam Vital Signs (past 8 hours): - ? 06/01/21 11:15 06/01/21 12:00 06/01/21 12:47 Temperature ? 97.3 F L ? Pulse Rate 65 64 ? Respiratory Rate 20 22 ? Blood Pressure 129/61 106/58 L ? Pulse Oximetry 94 94 96 ? 06/01/21 13:04 06/01/21 16:00 Temperature ? 97.8 F Pulse Rate 65 64 Respiratory Rate 24 18 Blood Pressure ? 122/60 Pulse Oximetry 96 95 Fraction of Inspired Oxygen ? 0.70? Oxygen Delivery Method? Heated High Flow? Oxygen Flow Rate? 50? Const General: cooperative HENMT Head: normocephalic Nose: external nose normal Eyes General: appearance normal, both eyes and all related structures Cornea: corneas normal EOM: EOM intact bilaterally Neck Neck: normal visual inspection Thyroid: thyroid normal Chest Chest: normal inspection of the chest Resp Effort & Inspection: cough and uses accessory muscles Auscultation: crackles, diminished lung sounds and wheezes Percussion: percussion normal Cardio Palpation: normal PMI Rate: regular rate Rhythm: abnormal rhythm irregularly irregular GI Inspection: normal to inspection and edema Skin General: no rashes or lesions noted and elasticity normal Neuro General: patient alert, patient awake, patient oriented x3 and CN's II-XI intact bilaterally Extrem General: normal to inspection and full ROM Psych Appearance: grossly normal Speech and Movement: speech and movement normal Objective Labs Result Diagrams: 05/31/21 09:25? 05/31/21 09:25? PFSH Medical History? Acne (Unknown) Actinic keratosis (~2018) Anemia Atrial fibrillation (Unknown) Chronic low back pain (Unknown) Closed compression fracture of third lumbar vertebra Coronary artery disease (Unknown) Diabetes (Unknown) GERD (gastroesophageal reflux disease) (Unknown) Hearing loss (Unknown) Hx of coronary angiogram (Unknown) Hyperlipemia (Unknown) Hypertension (Unknown) Keloid Osteoporosis Pacemaker Renal insufficiency Sarcoidosis (11/2007) Squamous cell carcinoma (Unknown) Visit for suture removal Surgical History? H/O left wrist surgery H/O toe surgery History of arthroplasty of left shoulder (Unknown) History of arthroplasty of right shoulder (Unknown) History of fusion of thoracic spine History of lumbar fusion Hx of knee surgery (Unknown) Hx of left knee surgery Hx of prior ablation treatment (~05/2013) Status post lumbar and lumbosacral fusion by anterior technique Family History? Father?? Diabetes mellitusMother? No problems noted. Social History? household members:? spouse and children Smoking Status:? Never smoker second hand exposure:? Yes alcohol intake:? current substance use type:? does not use Assessment & Plan Assessment & Plan narrative: ?PROBLEM LIST ?ACUTE HYPOXIC RESPIRATORY FAILURE ?COVID-19 PNEUMONIA /PNEUMONITIS ?ACUTE ON CHRONIC KIDNEY DISEASE STAGE III ?OVERWEIGHT ?REACTIVE LEUKOCYTOSIS PLAN 06/02 PATIENT SHOWED SOME IMPROVEMENT HOWEVER REMAINED AND HIGH-FLOW CONTINUE CURRENT MANAGEMENT FOR NOW WE WILL REPEAT CHEST X-RAY IN THE MORNING CONSIDER ABG WELL IF INDICATED ADDITIONAL MEASURE PER CLINICAL COURSE 06/01 ?CONTINUE TO? CURRENT MANAGEMENT FOR NOW ?PATIENT IS STILL REQUIRING HIGH-FLOW ?SAP MANAGER FROM CRITICAL CARE/ INTENSIVE IS GREATLY APPRECIATED ?AGGRESSIVE PULMONARY TOILETING ?NURSING TO ENCOURAGE PATIENT TO USE INCENTIVE SPIROMETER AWAKE ?REPEAT CHEST X-RAY AND ABG INDICATED CLINICALLY ? DAILY LABS TO FOLLOW ?STRICT INPUT AND OUTPUT ?AVOID ALL NEPHROTOXINS ? PHARMACY TO DOSE ALL MEDICATIONS FOR GFR ?ADDITIONAL? MANAGEMENT INDICATED CLINICALLY Time Spent With Patient Critical Care time: I spent a total of [] minutes of critical care time on this patient's care today; this time is exclusive of procedural time. Quality VTE Deep Vein Thrombosis/Pulmonary Embolism Present on Admission: No
--- NOTE | 2021-06-02 20:11 | PM.ICURNDS ---
- Note: Pt remains on HFNC, but down to 40%, remains on 50L, BG better on higher dose lantus and meal insulin. d/w bedside nurse. will continue current care, pt slowly improving
[2021-06-03] VITALS (73 sets, daily range): BP systolic 110–149; BP diastolic 58–78; PULSE 64–75; RESP 11–28; TEMP 36.4–37.1; O2SAT 74–100
--- NOTE | 2021-06-03 05:00 | DI.RAD.S_ITS ---
PROCEDURE: XR CHEST 1V INDICATIONS: Pneumonia TECHNIQUE: One view of the chest was acquired. COMPARISON: [facility], CR, XR CHEST 1V, 05/29/2021, 9:03. FINDINGS: Surgical changes and devices: Partially visualized lumbar spinal fixation hardware. Dual lead cardiac pacer. Lungs and pleura: Small bilateral pleural effusions with adjacent atelectasis. Patchy consolidative right perihilar and retrocardiac opacities are unchanged. No definite new focal consolidation. However there are mild ground-glass opacities involving the right upper lobe which appears slightly increased. No pneumothorax. Mediastinum: Mediastinal contours appear normal. Heart size is normal. Bones and chest wall: No suspicious bony lesions. Overlying soft tissues appear unremarkable. IMPRESSION: Overall, minimally worsened ground-glass and mild opacities involving the right upper lobe otherwise unchanged examination since 05/29/21. Dictated by: Johann Wiseman M.D. on 06/03/2021 at 8:32 Approved by: Johann Wiseman M.D. on 06/03/2021 at 8:34
[2021-06-03 05:12] LABS: Add Manual Diff / Slide Review NO; Basophils Absolute Auto 0 /uL (0-100); Basophils Percent Auto 0.2 % (0-2); Eosinophils Absolute Auto 0 /uL (0-450); Hematocrit 32.7 % (41-53); Hemoglobin 10.9 g/dL (13.5-17.5); Lymphocytes Absolute Auto 500 /uL (1100-4500); Lymphocytes Percent Auto 3.3 % (25-40); Mean Corpuscular HGB Conc 33.3 % (30-36); Mean Corpuscular Hemoglobin 28.8 PG (26-34); Mean Corpuscular Volume 86.5 fL (80-100); Monocytes Absolute Auto 500 /uL (0-900); Monocytes Percent Auto 3.8 % (3-14); Neutrophils Absolute Auto 12700 /uL (1500-7000); Neutrophils Percent Auto 92.7 % (50-75); Platelet Count 317 X10^3/uL (150-400); Red Blood Cell Count 3.78 X10^6/uL (4.5-5.9); Red Cell Distribution Width 14.4 % (11.6-14.8); White Blood Cell Count 13.7 X10^3/uL (4.5-11.0)
[2021-06-03 05:28] LABS: Alanine Aminotransferase 20 IU/L (<50); Albumin 2.8 g/dL (3.5-5.0); Albumin Globulin Ratio 0.8 (1.0-2.8); Alkaline Phosphatase 85 U/L (38-126); Aspartate Aminotransferase 26 IU/L (17-59); Bilirubin Total 0.5 mg/dL (0.2-1.3); Blood Urea Nitrogen 32 mg/dL (9-20); Calcium 7.8 mg/dL (8.4-10.2); Carbon Dioxide 33 mmol/L (22-32); Chloride 99 mmol/L (98-107); Estimated Glomerular Filt Rate > 60.0 mL/min (>60); Globulin 3.4 g/dL (1.7-4.1); Glucose 145 mg/dL (80-110); HEMOLYSIS < 15 (0-50); Phosphorous 2.1 mg/dL (2.3-3.7); Potassium 4.5 mmol/L (3.4-5.1); Sodium 134 mmol/L (137-145); Total Protein 6.2 g/dL (6.3-8.2)
[2021-06-03] MEDS: INSULIN LISPRO 100 UNIT/ML 3ML VIAL SUBCUT ×3 (08:25→16:39)
[2021-06-03] MEDS: PREGABALIN 50 MG CAPSULE 100 MG PO ×2 (08:26→20:55)
[2021-06-03] MEDS: FERROUS SULFATE 325 MG TABLET PO (08:26)
[2021-06-03] MEDS: BARICITINIB 2 MG TABLET 4 MG PO (08:26)
[2021-06-03] MEDS: METOPROLOL ER 50 MG TABLET PO ×2 (08:26→20:56)
[2021-06-03] MEDS: FAMOTIDINE 20 MG TABLET PO ×2 (08:27→20:56)
[2021-06-03] MEDS: SUCRALFATE 1 GM TABLET PO ×4 (08:27→20:52)
[2021-06-03] MEDS: TRAMADOL 50 MG TABLET PO ×3 (08:27→20:56)
[2021-06-03] MEDS: ASPIRIN EC 81 MG TABLET PO (08:28)
[2021-06-03] MEDS: dexAMETHasone 4 MG TABLET 6 MG PO ×2 (08:28→20:55)
[2021-06-03] MEDS: APIXABAN 5 MG TABLET PO ×2 (08:28→20:53)
[2021-06-03] MEDS: DOCUSATE 100 MG CAPSULE PO ×2 (08:28→20:55)
[2021-06-03] MEDS: BUDESONIDE 0.5 MG/2 ML NEB INH ×2 (08:32→21:22)
[2021-06-03] MEDS: ALBUTEROL/IPRATROPIUM 3 ML AMPUL INH ×5 (08:32→22:50)
[2021-06-03] MEDS: INSULIN REGULAR 100 UNIT/ML 3 ML VIAL SUBCUT ×3 (09:13→16:31)
--- NOTE | 2021-06-03 09:32 | P.TELICUPN_ITS ---
Subjective Subjective :: This patient was seen via real time interactive two-way audiovisual telecommunication. 75 y.o. male with acute on chronic hypoxic respiratory failure due to COVID-19, ROSA superimposed on stage 3B CKD, and uncontrolled AF.? Has history of HFpEF, T2DM, pulmonary sarcoidosis on prednisone 10 mg. INTERIM EVENTS -Now on HFNC 50L & 40 %--has history of CPAP @ home Current Medications Current Medications Medications: Home Medications budesonide-formoterol HFA 160 mcg-4.5 mcg/actuation aerosol inhaler (Symbicort) 2 inh INH BID #1 inh 09/14/17 [Rx Confirmed 05/27/21] dofetilide 125 mcg capsule (Tikosyn) 125 mcg PO BID cap 08/03/18 [History Confirmed 05/27/21] Fast click lancet cartridge #1 ea 10/04/18 [Rx Confirmed 05/28/21] apixaban 5 mg tablet (Eliquis) 5 mg PO BID 01/03/19 [History Confirmed 05/27/21] epinephrine 0.3 mg/0.3 mL injection, auto-injector (EpiPen 2-Abhijeet) 0.3 mg (0.3 mL) IM ONCE #2 each 04/04/19 [Rx Confirmed 05/27/21] aspirin 81 mg tablet,delayed release 81 mg PO DAILY 08/02/19 [History Confirmed 05/27/21] torsemide 20 mg tablet 20 mg PO DAILY tab 12/25/19 [History Confirmed 05/27/21] alprazolam 0.5 mg tablet (Xanax) 0.25 mg PO BID PRN #60 tab 03/13/20 [Rx Confirmed 05/28/21] [Contour test strips] #300 each 08/20/20 [Rx Confirmed 05/28/21] pen needle, diabetic 29 gauge x 1/2 (BD Ultra-Fine Original Pen Needle) #30 each 09/17/20 [Rx Confirmed 05/28/21] Disabled Parking Permit #1 ea 10/22/20 [Rx Confirmed 05/28/21] Lactobacil rhamnosus GG 10 billion cell-inulin 200 mg sprinkle capsule (Inhale Digital) See Rx Instructions .ROUTE .COMPLEX #100 cap 01/16/21 [Rx Confirmed 05/27/21] ferrous sulfate 325 mg (65 mg iron) tablet See Rx Instructions .ROUTE .COMPLEX #90 tab 03/10/21 [Rx Confirmed 05/27/21] gel-matrix pad dress, silicone 2 X 5.5 topical pads #4 ea 03/25/21 [Rx Confirmed 05/28/21] metoprolol succinate 50 mg tablet,extended release 24 hr 50 mg PO BID tab 03/25/21 [History Confirmed 05/27/21] nitroglycerin 0.4 mg sublingual tablet (Nitrostat) 0.4 mg SUBLINGUAL Q5-15M PRN 03/25/21 [History Confirmed 05/27/21] pregabalin 100 mg capsule (Lyrica) 100 mg PO BID #180 cap 03/31/21 [Rx Confirmed 05/27/21] albuterol sulfate 90 mcg/actuation aerosol inhaler 2 puff INHALATION Q4H PRN #0 gram 05/19/21 [Rx Confirmed 05/27/21] Bleed in valve for CPAP connection to oxygen #1 ea 05/20/21 [Rx Confirmed 05/28/21] atorvastatin 40 mg tablet 40 mg PO Q OTHER DAY 05/27/21 [History Confirmed 05/27/21] calcium carbonate 600 mg (1,500 mg)-vitamin D3 200 unit tablet 1 tab PO DAILY 05/27/21 [History Confirmed 05/27/21] insulin glargine 100 unit/mL (3 mL) subcutaneous pen (Lantus Solostar U-100 Insulin) 15 unit SUBCUT BID 05/27/21 [History Confirmed 05/27/21] lorazepam 0.5 mg tablet (Ativan) 0.5 mg PO TID PRN 05/27/21 [History Confirmed 05/27/21] oxycodone-acetaminophen 5 mg-325 mg tablet 1 tab PO Q4H PRN 05/27/21 [History Confirmed 05/27/21] tramadol 50 mg tablet 50 mg PO TID 05/27/21 [History Confirmed 05/27/21] vitamin B complex (B Complex-Vitamin B12) 1 tab PO DAILY 05/27/21 [History Confirmed 05/27/21] Visit Medications (administered) Generic Name Dose Route Start Last Admin Trade Name Freq PRN Reason Stop Dose Admin Albuterol/Ipratropium 3 ml 05/29/21 15:00 06/03/21 08:32 Albuterol/Ipratropium 3 Ml Ampul INH 3 ml [id number] JUAREZ Administration Apixaban 5 mg 05/30/21 21:00 06/03/21 08:28 Apixaban 5 Mg Tablet PO 5 mg BID JUAREZ Administration Ascorbic Acid 500 mg 06/02/21 09:00 06/02/21 21:05 Ascorbic Acid 500 Mg Tablet PO 500 mg BID JUAREZ Administration Aspirin 81 mg 05/28/21 09:00 06/03/21 08:28 Aspirin Ec 81 Mg Tablet PO 81 mg DAILY JUAREZ Administration Atorvastatin Calcium 40 mg 05/29/21 21:00 06/03/21 07:43 Atorvastatin 20 Mg Tablet PO Not Given Q48H JUAREZ Budesonide 0.5 mg 05/28/21 08:00 06/03/21 08:32 Budesonide 0.5 Mg/2 Ml Neb INH 0.5 mg RTBID JUAREZ Administration Dexamethasone 6 mg 05/28/21 09:45 06/03/21 08:28 Dexamethasone 4 Mg Tablet PO 06/04/21 09:44 6 mg BID JUAREZ Administration Docusate Sodium 100 mg 06/02/21 09:00 06/03/21 08:28 Docusate 100 Mg Capsule PO 100 mg BID [facility] Administration Famotidine 20 mg 06/02/21 09:00 06/03/21 08:27 Famotidine 20 Mg Tablet PO 20 mg BID [facility] Administration Ferrous Sulfate 325 mg 05/28/21 09:00 06/03/21 08:26 Ferrous Sulfate 325 Mg Tablet PO 325 mg DAILY [facility] Administration Azithromycin 500 mg/ Dextrose 250 mls @ 250 mls/hr 05/30/21 10:00 06/02/21 17:07 IV 06/03/21 10:59 Infused Q24H JUAREZ Infusion Insulin Glargine 40 unit 06/02/21 09:00 06/02/21 21:06 Insulin Glargine 100 Unit/Ml 3ml Pen SUBCUT 40 unit BID [facility] Administration Insulin Human Lispro 0 unit 05/31/21 16:45 06/03/21 08:25 Insulin Lispro 100 Unit/Ml 3ml Vial SUBCUT 1 unit ACHS [facility] Administration Protocol Insulin Human Regular 3 unit 06/02/21 08:00 06/03/21 09:13 Insulin Regular 100 Unit/Ml 3 Ml Vial SUBCUT 3 unit TIDWM [facility] Administration Lorazepam 0.5 mg 05/29/21 17:00 06/02/21 21:03 Lorazepam 0.5 Mg Tablet PO 0.5 mg QID JUAREZ Administration Metoprolol Succinate 50 mg 05/28/21 09:00 06/03/21 08:26 Metoprolol Er 50 Mg Tablet PO 50 mg BID JUAREZ Administration Morphine Sulfate 4 mg 05/29/21 13:32 05/30/21 13:52 Morphine 4 Mg/Ml Inj IV 4 mg TID PRN Administration Shortness Of Breath Or Wheezing Tikosyn 125 Mcg 125 mcg 05/28/21 09:15 06/02/21 21:02 PO 125 mcg BID JUAREZ Administration Oxycodone/Acetaminophen 1 tab 05/28/21 00:34 05/31/21 01:22 Oxycodone/Acetaminophen 5/325 Tablet PO 1 tab Q4H PRN Administration Pain, Moderate Polyethylene Glycol 17 gm 06/02/21 09:00 06/03/21 02:43 Polyethylene Glycol 3350 17 Gm Powd.Pack PO Not Given BID [facility] Pregabalin 100 mg 05/28/21 09:00 06/03/21 08:26 Pregabalin 50 Mg Capsule PO 100 mg BID [facility] Administration Sennosides 17.2 mg 06/02/21 09:00 06/02/21 08:56 Sennosides 8.6 Mg Tablet PO 17.2 mg DAILY [facility] Administration Sodium Chloride 10 ml 05/28/21 19:33 05/30/21 05:52 Sodium Chloride 0.9% Flush IV 10 ml PRN PRN Administration Flush Sodium Chloride 10 ml 05/28/21 21:00 06/02/21 21:02 Sodium Chloride 0.9% Flush IV 10 ml BID JUAREZ Administration Sucralfate 1 gm 06/02/21 07:45 06/03/21 08:27 Sucralfate 1 Gm Tablet PO 1 gm ACHS JUAREZ Administration Tramadol HCl 50 mg 05/28/21 09:00 06/03/21 08:27 Tramadol 50 Mg Tablet PO 50 mg TID JUAREZ Administration Vitamin D 400 unit 06/02/21 09:00 06/02/21 21:05 Cholecalciferol (Vitamin D3) 400 Unit Tablet PO 400 unit BID JUAREZ Administration Objective Labs Result Diagrams: 06/03/21 04:33 06/03/21 04:33 Labs: Laboratory Results - last 24 hr 06/03/21 06/03/21 04:33 04:33 WBC 13.7 H RBC 3.78 L Hgb 10.9 L Hct 32.7 L MCV 86.5 MCH 28.8 MCHC 33.3 RDW 14.4 Plt Count 317 Neut % (Auto) 92.7 H Lymph % (Auto) 3.3 L [place] % (Auto) 3.8 Eos % (Auto) 0.0 L Baso % (Auto) 0.2 Neut # (Auto) 98256 H Lymph # (Auto) 500 L [place] # (Auto) 500 Eos # (Auto) 0 Baso # (Auto) 0 Sodium 134 L Potassium 4.5 Chloride 99 Carbon Dioxide 33 H BUN 32 H Creatinine 1.00 Estimated GFR > 60.0 BUN/Creatinine Ratio 32.0 H Glucose 145 H Calcium 7.8 L Phosphorus 2.1 L Total Bilirubin 0.5 AST 26 ALT 20 Alkaline Phosphatase 85 Total Protein 6.2 L Albumin 2.8 L Globulin 3.4 Albumin/Globulin Ratio 0.8 L Exam Vital Signs (past 8 hours): - 06/03/21 01:40 06/03/21 02:00 06/03/21 02:30 Temperature Pulse Rate 64 64 64 Respiratory Rate 12 15 12 Blood Pressure 119/63 Pulse Oximetry 92 92 92 06/03/21 03:00 06/03/21 03:09 06/03/21 03:18 Temperature 97.8 F Pulse Rate 64 67 64 Respiratory Rate 14 13 16 Blood Pressure 140/78 140/78 Pulse Oximetry 92 90 L 91 06/03/21 03:30 06/03/21 03:47 06/03/21 04:00 Temperature Pulse Rate 66 64 64 Respiratory Rate 18 14 13 Blood Pressure 140/78 Pulse Oximetry 93 86 L 06/03/21 04:30 06/03/21 05:00 06/03/21 05:30 Temperature Pulse Rate 64 64 64 Respiratory Rate 25 H 12 12 Blood Pressure Pulse Oximetry 91 94 94 06/03/21 05:41 06/03/21 06:00 06/03/21 06:30 Temperature Pulse Rate 64 64 64 Respiratory Rate 20 16 16 Blood Pressure 149/78 H Pulse Oximetry 92 91 89 L 06/03/21 07:00 06/03/21 07:27 06/03/21 07:30 Temperature Pulse Rate 64 64 64 Respiratory Rate 13 15 11 L Blood Pressure 123/71 Pulse Oximetry 93 95 94 06/03/21 07:50 06/03/21 08:26 06/03/21 08:56 Temperature 97.6 F Pulse Rate 64 64 Respiratory Rate 18 Blood Pressure 123/71 110/60 Pulse Oximetry Fraction of Inspired Oxygen 40 Oxygen Delivery Method Heated High Flow Oxygen Flow Rate 50 Quality TeleICU VTE Deep Vein Thrombosis/Pulmonary Embolism Present on Admission: No Assessment & Plan Assessment & Plan narrative: Acute hypoxemic respiratory failure due to COVID-19 ROSA on CKD stage II likley ATN 2/2 sepsis & COVIOD PNA H/o of PAF H/o of DMI Rec: Wean off Fio2 as tolerated , Goal sat 92, currntly of HFNC 50L, 40%, CPAP at nigh and as needed Continue dexamethasone and baricitinib ( watch LFT & GFR for dose adjustment as indicated) ,? remdesivir was stopped bec of ROSA Cr normalized, IV lasix prn for goal of Neg balance, Diamox prn for metabolic alkalosis Continue to avoid nephrotoxic drugs, pharmacy to adjust meds doses to Crcl On metoprolol, Tikosyn & Apixaban On Azithromycin and Ceftrizxone, watch QTc Adjust lantus and ISS for BS control 120-180 Code status is DNR/DNI On PPI Time Spent With Patient Critical Care time: I spent a total of [25] minutes of critical care time on this patient's care today; this time is exclusive of procedural time. Time Spent With Patient Critical Care time: I spent a total of [] minutes of critical care time on this patient's care today; this time is exclusive of procedural time.
[2021-06-03] MEDS: SENNOSIDES 8.6 MG TABLET 17.2 MG PO (09:55)
[2021-06-03] MEDS: polyethylene glycoL 3350 17 GM POWD.PACK PO ×2 (09:55→20:52)
[2021-06-03] MEDS: OXYCODONE/ACETAMINOPHEN 5/325 TABLET 1 TAB PO ×2 (09:55→16:31)
[2021-06-03] MEDS: LORazepam 0.5 MG TABLET PO ×3 (09:55→20:55)
[2021-06-03] MEDS: CHOLECALCIFEROL (VITAMIN D3) 400 UNIT TABLET PO ×2 (09:55→21:22)
[2021-06-03] MEDS: AZITHROMYCIN 500 MG in DEXTROSE 5% IN WATER 250 ML IV (09:56)
[2021-06-03] MEDS: ASCORBIC ACID 500 MG TABLET PO ×2 (09:56→21:22)
[2021-06-03] MEDS: INSULIN GLARGINE 100 UNIT/ML 3ML PEN 40 UNIT SUBCUT ×2 (09:57→21:23)
[2021-06-03] MEDS: SODIUM CHLORIDE 0.9% FLUSH 10 ML IV ×2 (10:01→21:04)
[2021-06-03] MEDS: cefTRIAXone 1,000 MG in SODIUM CHLORIDE 0.9% 100 ML 200 ML IV (10:02)
[2021-06-03] MEDS: DOFETILIDE 125 MCG 125 EACH PO ×2 (10:03→21:27)
--- NOTE | 2021-06-03 11:10 | DIET.PN1 ---
Dietary Progress Note RD Note: Covid+ pt on LOS day7 of hospitalization. Pts ROSA has resolved with Cr and eGFR WNL. Pts POs have been good throughout hospital stay ~50-100% with fluid restricted low sodium diet. Ht: 171.45 cm Wt: 79.2 kg BMI: 28.0 UBW: Last BM: 05/28/21 (05/28/21 13:40) MNA: Terry Score: 21 Diet: 05/27/21 Breakfast Fluid Restriction Diet Diet Modifications: Total fluid amount: 2,000 Amount allotted to patient trays: 100 Free water included in total: Yes Fluid in addition to trays: 5822-4693 amount: 850 [id number] amount: 850 Heart Healthy Diet Diet Modifications: Low Sodium Diet (2gm) Diet Modifications: Nutrition Percent Meal Consumed 100% 06/03/21 09:20 Percent Meal Consumed 50% 06/01/21 18:00 Percent Meal Consumed 25% 06/01/21 13:10 Labs: RBC 3.78 X10^6/uL (4.5-5.9) L 06/03/21 04:33 Hgb 10.9 g/dL (13.5-17.5) L 06/03/21 04:33 Hct 32.7 % (41-53) L 06/03/21 04:33 Creatinine 1.00 mg/dL (0.66-1.25) 06/03/21 04:33 Lactate 1.4 mmol/L (0.7-2.1) 05/28/21 05:00 Ferritin 2080 ng/mL (18-464) H 05/27/21 20:20 NT-Pro-B Natriuret Pep 5610 pg/mL (<125) H 05/28/21 05:00 Interventions: no need identified Electronically Signed by: Maria Del Rosario Luevano 06/03/21 11:10 Clinical Dietitian [id number] [place] [address]
[2021-06-03] MEDS: SODIUM,POTASSIUM PHOSPHATES PACKET 2 EACH PO (11:51)
--- NOTE | 2021-06-03 15:59 | PM.PN.1 ---
Subjective Subjective Date Patient Seen: 06/03/21 Interval history: NO SIGNIFICANT ISSUES REPORTED OVERNIGHT BY NURSING PATIENT STILL REQUIRING ABOVE 50% FIO2 ON HIGH-FLOW HE DID NOT HAVE ANY SIGNIFICANT COMPLAINTS Exam Vital Signs (past 8 hours): - 06/03/21 08:26 06/03/21 08:56 06/03/21 10:03 Temperature Pulse Rate 64 64 64 Respiratory Rate 20 Blood Pressure 123/71 110/60 Pulse Oximetry 89 L 06/03/21 12:00 06/03/21 12:08 06/03/21 15:46 Temperature 97.9 F 98 F Pulse Rate 64 64 64 Respiratory Rate 17 16 15 Blood Pressure 129/66 129/66 122/58 L Pulse Oximetry 89 L 92 92 Fraction of Inspired Oxygen 40 Oxygen Delivery Method Heated High Flow Oxygen Flow Rate 50 Narrative Exam Narrative: NO ACUTE DISTRESS.? PATIENT IS ALERT ORIENTED X3. VITAL SIGNS STABLE HEAD ATRAUMATIC NORMOCEPHALIC NECK : SUPPLE WITHOUT ADENOPATHY NO CAROTID BRUITS EYE:? EOMI, PERRLA, NORMAL CONJUNCTIVA; NO JAUNDICE CHEST:? REGULAR RATE.? ? NO RUBS.? PMI IS NON DISPLACED.? NO MURMURS; NORMAL S1-S2 PULMONARY:? DECREASED BS OVER THE BASES.? MILD BIBASILAR CRACKLES NOTED; NO INCREASED DULLNESS TO PERCUSSION ABDOMEN:? SOFT.? NONTENDER.? NONDISTENDED.? BOWEL SOUNDS ARE PRESENT IN ALL 4 QUADRANTS.? NO MASS. EXTREMITIES: NO EDEMA..? NO CYANOSIS CLUBBING NOTED. NEURO:? CRANIAL NERVES 2-12 GROSSLY INTACT. NO FOCAL NEUROLOGICAL DEFICIT NOTED. MSK:? NORMAL RANGE OF MOTION FOR AGE.? NO JOINT EFFUSION. SKIN:? NORMAL FOR ETHNICITY; NO ECCHYMOSIS.? NO LESION. ? GOOD? TURGOR.; NO RASHES :? NORMAL EXTERNAL GENITALIA. PSYCH :? APPROPRIATE MOOD AND AFFECT.? ALERT AWAKE ORIENTED X3 Objective Labs Result Diagrams: 06/03/21 04:33 06/03/21 04:33 Labs: Laboratory Results - last 24 hr 06/03/21 06/03/21 04:33 04:33 WBC 13.7 H RBC 3.78 L Hgb 10.9 L Hct 32.7 L MCV 86.5 MCH 28.8 MCHC 33.3 RDW 14.4 Plt Count 317 Neut % (Auto) 92.7 H Lymph % (Auto) 3.3 L [place] % (Auto) 3.8 Eos % (Auto) 0.0 L Baso % (Auto) 0.2 Neut # (Auto) 73333 H Lymph # (Auto) 500 L [place] # (Auto) 500 Eos # (Auto) 0 Baso # (Auto) 0 Sodium 134 L Potassium 4.5 Chloride 99 Carbon Dioxide 33 H BUN 32 H Creatinine 1.00 Estimated GFR > 60.0 BUN/Creatinine Ratio 32.0 H Glucose 145 H Calcium 7.8 L Phosphorus 2.1 L Total Bilirubin 0.5 AST 26 ALT 20 Alkaline Phosphatase 85 Total Protein 6.2 L Albumin 2.8 L Globulin 3.4 Albumin/Globulin Ratio 0.8 L PFSH Medical History Acne (Unknown) Actinic keratosis (~2017) Anemia Atrial fibrillation (Unknown) Chronic low back pain (Unknown) Closed compression fracture of third lumbar vertebra Coronary artery disease (Unknown) Diabetes (Unknown) GERD (gastroesophageal reflux disease) (Unknown) Hearing loss (Unknown) Hx of coronary angiogram (Unknown) Hyperlipemia (Unknown) Hypertension (Unknown) Keloid Osteoporosis Pacemaker Renal insufficiency Sarcoidosis (11/2007) Squamous cell carcinoma (Unknown) Visit for suture removal Surgical History H/O left wrist surgery H/O toe surgery History of arthroplasty of left shoulder (Unknown) History of arthroplasty of right shoulder (Unknown) History of fusion of thoracic spine History of lumbar fusion Hx of knee surgery (Unknown) Hx of left knee surgery Hx of prior ablation treatment (~05/2013) Status post lumbar and lumbosacral fusion by anterior technique Family History Father Diabetes mellitus Mother No problems noted. Social History household members: spouse and children Smoking Status: Never smoker second hand exposure: Yes alcohol intake: current substance use type: does not use Assessment & Plan Assessment & Plan narrative: PROBLEM LIST ACUTE HYPOXIC RESPIRATORY FAILURE ?COVID-19 PNEUMONIA /PNEUMONITIS ?ACUTE ON CHRONIC KIDNEY DISEASE STAGE III ?OVERWEIGHT ?REACTIVE LEUKOCYTOSIS PLAN PATIENT REMAINED ON HIGH-FLOW AND IN THE ICU APPLICATION SUPPORT TECHNICIAN ASSISTANCE CONTINUED TO BE GREATLY APPRECIATED DAILY LABS ORDERED MONITOR INPUT OUTPUT CLOSELY CONTINUE CURRENT ANTIBIOTICS FOR NOW LABS REMAINED STABLE THERE IS BC IS IMPROVING KIDNEY FUNCTION HOLDING WELL BUT KEEP IN ISOLATION PER HOSPITAL PROTOCOL SERIAL ABG AND CHEST X-RAY TO FOLLOW INDICATED PATIENT TO BE OUT OF BED WITH EACH MEAL ADDITIONAL MEASURE PER CLINICAL COURSE PROGNOSIS IS GUARDED 06/02 ?PATIENT SHOWED SOME IMPROVEMENT ?HOWEVER REMAINED AND HIGH-FLOW ?CONTINUE CURRENT MANAGEMENT FOR NOW ?WE WILL REPEAT CHEST X-RAY IN THE MORNING ?CONSIDER ABG WELL IF INDICATED ?ADDITIONAL MEASURE PER CLINICAL COURSE 06/01 ?CONTINUE TO? CURRENT MANAGEMENT FOR NOW ?PATIENT IS STILL REQUIRING HIGH-FLOW ?GAMBLING SUPERVISOR FROM CRITICAL CARE/ INTENSIVE IS GREATLY APPRECIATED ?AGGRESSIVE PULMONARY TOILETING ?NURSING TO ENCOURAGE PATIENT TO USE INCENTIVE SPIROMETER AWAKE ?REPEAT CHEST X-RAY AND ABG INDICATED CLINICALLY ? DAILY LABS TO FOLLOW ?STRICT INPUT AND OUTPUT ?AVOID ALL NEPHROTOXINS ? PHARMACY TO DOSE ALL MEDICATIONS FOR GFR Time Spent With Patient Critical Care time: I spent a total of [] minutes of critical care time on this patient's care today; this time is exclusive of procedural time. Quality VTE Deep Vein Thrombosis/Pulmonary Embolism Present on Admission: No
[2021-06-03] MEDS: MORPHINE 4 MG/ML INJ IV (23:39)
--- NOTE | 2021-06-03 23:46 | PM.ICURNDS ---
- Date Patient Seen: 06/03/21 Time Patient Seen: 20:12 :: This patient was seen via real time interactive two-way audiovisual telecommunication. Note: The patient has improved substantially since I last saw him. HFNC is down to 40 L/min and 50% FiO2. Renal function is improving and glycemic control is acceptable. Would consider tapering the dexamethasone after a 10 day course. Case discussed with RN.
[2021-06-04] VITALS (38 sets, daily range): BP systolic 105–141; BP diastolic 57–71; PULSE 64–69; RESP 11–26; TEMP 36.1–36.9; O2SAT 88–100
[2021-06-04 04:54] LABS: Add Manual Diff / Slide Review NO; Basophils Absolute Auto 0 /uL (0-100); Eosinophils Absolute Auto 0 /uL (0-450); Eosinophils Percent Auto 0.1 % (2-4); Hematocrit 31.9 % (41-53); Hemoglobin 10.4 g/dL (13.5-17.5); Lymphocytes Absolute Auto 400 /uL (1100-4500); Lymphocytes Percent Auto 2.9 % (25-40); Mean Corpuscular HGB Conc 32.6 % (30-36); Mean Corpuscular Hemoglobin 28.5 PG (26-34); Mean Corpuscular Volume 87.2 fL (80-100); Monocytes Absolute Auto 600 /uL (0-900); Monocytes Percent Auto 4.1 % (3-14); Neutrophils Absolute Auto 14100 /uL (1500-7000); Neutrophils Percent Auto 92.9 % (50-75); Platelet Count 300 X10^3/uL (150-400); Red Blood Cell Count 3.66 X10^6/uL (4.5-5.9); Red Cell Distribution Width 14.9 % (11.6-14.8); White Blood Cell Count 15.2 X10^3/uL (4.5-11.0)
[2021-06-04 04:58] LABS: Alanine Aminotransferase 20 IU/L (<50); Albumin 2.7 g/dL (3.5-5.0); Albumin Globulin Ratio 0.8 (1.0-2.8); Alkaline Phosphatase 79 U/L (38-126); Aspartate Aminotransferase 25 IU/L (17-59); BUN Creatinine Ratio 26.4 (6-22); Bilirubin Total 0.4 mg/dL (0.2-1.3); Blood Urea Nitrogen 28 mg/dL (9-20); Calcium 7.8 mg/dL (8.4-10.2); Carbon Dioxide 32 mmol/L (22-32); Chloride 100 mmol/L (98-107); Estimated Glomerular Filt Rate > 60.0 mL/min (>60); Globulin 3.2 g/dL (1.7-4.1); Glucose 148 mg/dL (80-110); HEMOLYSIS < 15 (0-50); Phosphorous 2.5 mg/dL (2.3-3.7); Potassium 4.8 mmol/L (3.4-5.1); Sodium 135 mmol/L (137-145); Total Protein 5.9 g/dL (6.3-8.2)
[2021-06-04] MEDS: ALBUTEROL/IPRATROPIUM 3 ML AMPUL INH ×4 (08:16→22:32)
[2021-06-04] MEDS: BUDESONIDE 0.5 MG/2 ML NEB INH ×2 (08:16→20:20)
--- NOTE | 2021-06-04 08:26 | PM.PN.1 ---
Subjective Subjective Date Patient Seen: 06/04/21 Interval history: DID NOT HAVE ANY SIGNIFICANT COMPLAINTS THIS MORNING HE FEELS THAT HE IS SLOWLY GETTING BETTER DENIES ANY CHEST PAIN. NO INCREASING SHORTNESS OF BREATH DENIED ANY CHANGE IN MENTATION. NO CONFUSION. NO SIGNIFICANT ISSUES REPORTED BY NURSING OVERNIGHT Exam Vital Signs (past 8 hours): - 06/04/21 00:30 06/04/21 01:00 06/04/21 01:23 Temperature Pulse Rate 64 64 Respiratory Rate 12 13 Blood Pressure 121/62 121/62 Pulse Oximetry 95 99 06/04/21 01:30 06/04/21 02:00 06/04/21 02:30 Temperature Pulse Rate 64 64 64 Respiratory Rate 12 12 12 Blood Pressure 116/64 Pulse Oximetry 100 99 100 06/04/21 03:00 06/04/21 03:30 06/04/21 04:00 Temperature 98.5 F Pulse Rate 64 64 64 Respiratory Rate 12 14 12 Blood Pressure 116/64 108/58 L Pulse Oximetry 97 96 96 06/04/21 04:30 06/04/21 05:00 06/04/21 05:30 Temperature Pulse Rate 64 64 64 Respiratory Rate 12 13 16 Blood Pressure 105/60 Pulse Oximetry 94 96 95 06/04/21 05:49 06/04/21 08:00 Temperature 97.4 F L Pulse Rate 64 64 Respiratory Rate 13 19 Blood Pressure 105/60 141/71 H Pulse Oximetry 92 96 Fraction of Inspired Oxygen 0.38 Oxygen Delivery Method CPAP Oxygen Flow Rate 60 Narrative Exam Narrative: NO ACUTE DISTRESS.? PATIENT IS ALERT ORIENTED X3. ON HIGH-FLOW VITAL SIGNS STABLE HEAD ATRAUMATIC NORMOCEPHALIC NECK : SUPPLE WITHOUT ADENOPATHY NO CAROTID BRUITS EYE:? EOMI, PERRLA, NORMAL CONJUNCTIVA; NO JAUNDICE CHEST:? REGULAR RATE.? ? NO RUBS.? PMI IS NON DISPLACED.? NORMAL S1-S2 PULMONARY:? DECREASED BS OVER THE BASES.? NO WHEEZING. BIBASILAR CRACKLES NOTED; NO INCREASED DULLNESS TO PERCUSSION. ON HIGH-FLOW ABDOMEN:? SOFT.? NONTENDER.? NONDISTENDED.? BOWEL SOUNDS ARE PRESENT IN ALL 4 QUADRANTS.? EXTREMITIES: 1+ NONPITTING EDEMA..? NO CYANOSIS CLUBBING NOTED. NEURO:? CRANIAL NERVES 2-12 GROSSLY INTACT. NO FOCAL NEUROLOGICAL DEFICIT NOTED. MSK:? NORMAL RANGE OF MOTION FOR AGE.? NO JOINT EFFUSION. POOR MUSCULATURE. NO SIGN OF TRAUMA SKIN:? FAIR SKIN TURGOR FOR AGE; NO ECCHYMOSIS.? NO LESION. ? NO RASHES :? NORMAL EXTERNAL GENITALIA. PSYCH :? APPROPRIATE MOOD AND AFFECT.? ALERT AWAKE ORIENTED X3. CALM. COOPERATIVE Objective Labs Result Diagrams: 06/04/21 04:20 06/04/21 04:20 Labs: Laboratory Results - last 24 hr 06/04/21 06/04/21 04:20 04:20 WBC 15.2 H RBC 3.66 L Hgb 10.4 L Hct 31.9 L MCV 87.2 MCH 28.5 MCHC 32.6 RDW 14.9 H Plt Count 300 Neut % (Auto) 92.9 H Lymph % (Auto) 2.9 L [place] % (Auto) 4.1 Eos % (Auto) 0.1 L Baso % (Auto) 0.0 Neut # (Auto) 58088 H Lymph # (Auto) 400 L [place] # (Auto) 600 Eos # (Auto) 0 Baso # (Auto) 0 Sodium 135 L Potassium 4.8 Chloride 100 Carbon Dioxide 32 BUN 28 H Creatinine 1.06 Estimated GFR > 60.0 BUN/Creatinine Ratio 26.4 H Glucose 148 H Calcium 7.8 L Phosphorus 2.5 Total Bilirubin 0.4 AST 25 ALT 20 Alkaline Phosphatase 79 Total Protein 5.9 L Albumin 2.7 L Globulin 3.2 Albumin/Globulin Ratio 0.8 L PFSH Medical History Acne (Unknown) Actinic keratosis (~2018) Anemia Atrial fibrillation (Unknown) Chronic low back pain (Unknown) Closed compression fracture of third lumbar vertebra Coronary artery disease (Unknown) Diabetes (Unknown) GERD (gastroesophageal reflux disease) (Unknown) Hearing loss (Unknown) Hx of coronary angiogram (Unknown) Hyperlipemia (Unknown) Hypertension (Unknown) Keloid Osteoporosis Pacemaker Renal insufficiency Sarcoidosis (11/2007) Squamous cell carcinoma (Unknown) Visit for suture removal Surgical History H/O left wrist surgery H/O toe surgery History of arthroplasty of left shoulder (Unknown) History of arthroplasty of right shoulder (Unknown) History of fusion of thoracic spine History of lumbar fusion Hx of knee surgery (Unknown) Hx of left knee surgery Hx of prior ablation treatment (~05/2013) Status post lumbar and lumbosacral fusion by anterior technique Family History Father Diabetes mellitus Mother No problems noted. Social History household members: spouse and children Smoking Status: Never smoker second hand exposure: Yes alcohol intake: current substance use type: does not use Assessment & Plan Assessment & Plan narrative: PROBLEM LIST ACUTE HYPOXIC RESPIRATORY FAILURE. ON HIGH-FLOW ?COVID-19 PNEUMONIA /PNEUMONITIS. SUPPORTIVE TREATMENT WITH ANTIBIOTICS WELL STEROIDS AND DUONEB TREATMENTS ?ACUTE ON CHRONIC KIDNEY DISEASE STAGE III. MONITOR CLOSELY ?OVERWEIGHT. CONSULT WILL BE GIVEN REGARDING LIFESTYLE CHANGES ONCE APPROPRIATE ?REACTIVE LEUKOCYTOSIS. ANTIBIOTICS PHYSICAL DECONDITIONING/DEBILITY. PT AND OT TO SEE ONCE INDICATED PLAN 06/04 PATIENT PROGRESS IS VERY SLOW STILL REQUIRING HIGH-FLOW WILL ADD STEROIDS AND ANTIBIOTICS TODAY WILL ALSO CONTINUE WITH DUONEB TREATMENT WELL PULMICORT REPEAT CHEST X-RAY IN THE MORNING NURSING TO CONTINUE TO ENCOURAGE PATIENT TO USE IC DEVICE ORDERED AGGRESSIVE PULMONARY TOILETING GET A ABG IF INDICATED ASSISTANCE FROM INTENSIVE CARE ATTENDING IS GREATLY APPRECIATED MOBILE PATIENT MUCH TOLERATED CONTINUE TO MAINTAIN PROPER PER HOSPITAL PROTOCOL CONTINUE TO FOLLOW LABS DAILY MONITOR INPUT AND OUTPUT CLOSELY ADDITIONAL MANAGEMENT PER CLINICAL COURSE PROGNOSIS REMAIN GUARDED 06/03 ?PATIENT REMAINED ON HIGH-FLOW AND IN THE ICU ?PERMIT COORDINATOR ASSISTANCE CONTINUED TO BE GREATLY APPRECIATED ?DAILY LABS ORDERED ?MONITOR INPUT OUTPUT CLOSELY ?CONTINUE CURRENT? ANTIBIOTICS FOR NOW ?LABS REMAINED STABLE ? THERE IS BC IS IMPROVING ?KIDNEY FUNCTION HOLDING WELL ?BUT KEEP IN ISOLATION PER HOSPITAL PROTOCOL ?SERIAL ABG AND CHEST X-RAY TO FOLLOW INDICATED ?PATIENT TO BE OUT OF BED WITH EACH MEAL ?ADDITIONAL MEASURE PER CLINICAL COURSE ?PROGNOSIS IS GUARDED 06/02 ?PATIENT SHOWED SOME IMPROVEMENT ?HOWEVER REMAINED AND HIGH-FLOW ?CONTINUE CURRENT MANAGEMENT FOR NOW ?WE WILL REPEAT CHEST X-RAY IN THE MORNING ?CONSIDER ABG WELL IF INDICATED ?ADDITIONAL MEASURE PER CLINICAL COURSE 06/01 ?CONTINUE TO? CURRENT MANAGEMENT FOR NOW ?PATIENT IS STILL REQUIRING HIGH-FLOW ?WATCH MANUFACTURING SUPERVISOR FROM CRITICAL CARE/ INTENSIVE IS GREATLY APPRECIATED ?AGGRESSIVE PULMONARY TOILETING ?NURSING TO ENCOURAGE PATIENT TO USE INCENTIVE SPIROMETER AWAKE ?REPEAT CHEST X-RAY AND ABG INDICATED CLINICALLY ? DAILY LABS TO FOLLOW ?STRICT INPUT AND OUTPUT ?AVOID ALL NEPHROTOXINS ? PHARMACY TO DOSE ALL MEDICATIONS FOR GFR Time Spent With Patient Critical Care time: I spent a total of [] minutes of critical care time on this patient's care today; this time is exclusive of procedural time. Quality VTE Deep Vein Thrombosis/Pulmonary Embolism Present on Admission: No
[2021-06-04] MEDS: INSULIN GLARGINE 100 UNIT/ML 3ML PEN 40 UNIT SUBCUT ×2 (08:48→21:02)
[2021-06-04] MEDS: INSULIN REGULAR 100 UNIT/ML 3 ML VIAL SUBCUT (08:50)
[2021-06-04] MEDS: ASCORBIC ACID 500 MG TABLET PO ×2 (08:52→20:58)
[2021-06-04] MEDS: ASPIRIN EC 81 MG TABLET PO (08:52)
[2021-06-04] MEDS: SUCRALFATE 1 GM TABLET PO ×4 (08:52→20:58)
[2021-06-04] MEDS: APIXABAN 5 MG TABLET PO ×2 (08:52→20:58)
[2021-06-04] MEDS: BARICITINIB 2 MG TABLET 4 MG PO (08:52)
[2021-06-04] MEDS: dexAMETHasone 4 MG TABLET 6 MG PO (08:53)
[2021-06-04] MEDS: CHOLECALCIFEROL (VITAMIN D3) 400 UNIT TABLET PO ×2 (08:53→21:00)
[2021-06-04] MEDS: DOCUSATE 100 MG CAPSULE PO ×2 (08:54→20:58)
[2021-06-04] MEDS: FAMOTIDINE 20 MG TABLET 40 MG PO (08:55)
[2021-06-04] MEDS: LORazepam 0.5 MG TABLET PO ×4 (08:55→21:00)
[2021-06-04] MEDS: DOXYCYCLINE HYCLATE 100 MG TABLET PO ×2 (08:55→20:58)
[2021-06-04] MEDS: FERROUS SULFATE 325 MG TABLET PO (08:55)
[2021-06-04] MEDS: MORPHINE 4 MG/ML INJ IV (08:56)
[2021-06-04] MEDS: metroNIDAZOLE 500 MG TABLET 250 MG PO ×3 (08:56→20:57)
[2021-06-04] MEDS: polyethylene glycoL 3350 17 GM POWD.PACK PO ×2 (08:58→21:01)
[2021-06-04] MEDS: SODIUM CHLORIDE 0.9% FLUSH 10 ML IV ×2 (08:59→21:00)
[2021-06-04] MEDS: DOFETILIDE 125 MCG 125 EACH PO ×2 (08:59→20:58)
[2021-06-04] MEDS: predniSONE 20 MG TABLET PO (08:59)
[2021-06-04] MEDS: PREGABALIN 50 MG CAPSULE 100 MG PO ×2 (08:59→20:59)
[2021-06-04] MEDS: TRAMADOL 50 MG TABLET PO ×3 (08:59→20:59)
[2021-06-04] MEDS: SENNOSIDES 8.6 MG TABLET 17.2 MG PO (08:59)
--- NOTE | 2021-06-04 10:28 | P.TELICUPN_ITS ---
Subjective Subjective :: This patient was seen via real time interactive two-way audiovisual telecommunication. ?75-year-old male chronically ill with sarcoidosis, diabetes mellitus type 2, chronic kidney disease, coronary artery disease, osteoporosis, hyperlipidemia, BLU on home CPAP, and congestive heart failure who presents now with COVID pneumonia.? He is fully immunized x3 with Moderna. Pt initially hospitalized 05/17-03/01 for COVID PNA and given decadron, Remdesivir, and Baricitinib. Pt. readmitted 05/27/21 for worsening hypoxic resp failure. CTA chest showed patchy bilateral periphery alveolar filling process, small bilateral pleural effusion, and no Pulm embolus. Pt. placed on HFNC. Recent events in last 24 hours: Patient switched from decadron 6 mg BID (from 05/28-) to Prednisone 20 mg daily today. Doxycycline, Flagyl and Levaquin was added yesterday. Current Medications Current Medications Medications: Home Medications budesonide-formoterol HFA 160 mcg-4.5 mcg/actuation aerosol inhaler (Symbicort) 2 inh INH BID #1 inh 09/14/17 [Rx Confirmed 05/27/21] dofetilide 125 mcg capsule (Tikosyn) 125 mcg PO BID cap 08/03/18 [History Confirmed 05/27/21] Fast click lancet cartridge #1 ea 10/04/18 [Rx Confirmed 05/28/21] apixaban 5 mg tablet (Eliquis) 5 mg PO BID 01/03/19 [History Confirmed 05/27/21] epinephrine 0.3 mg/0.3 mL injection, auto-injector (EpiPen 2-Abhijeet) 0.3 mg (0.3 mL) IM ONCE #2 each 04/04/19 [Rx Confirmed 05/27/21] aspirin 81 mg tablet,delayed release 81 mg PO DAILY 08/02/19 [History Confirmed 05/27/21] torsemide 20 mg tablet 20 mg PO DAILY tab 12/25/19 [History Confirmed 05/27/21] alprazolam 0.5 mg tablet (Xanax) 0.25 mg PO BID PRN #60 tab 03/13/20 [Rx Confirmed 05/28/21] [Contour test strips] #300 each 08/20/20 [Rx Confirmed 05/28/21] pen needle, diabetic 29 gauge x 1/2 (BD Ultra-Fine Original Pen Needle) #30 each 09/17/20 [Rx Confirmed 05/28/21] Disabled Parking Permit #1 ea 10/22/20 [Rx Confirmed 05/28/21] Lactobacil rhamnosus GG 10 billion cell-inulin 200 mg sprinkle capsule ([facility] [employer] [facility] [place]) See Rx Instructions .ROUTE .COMPLEX #100 cap 01/16/21 [Rx Confirmed 05/27/21] ferrous sulfate 325 mg (65 mg iron) tablet See Rx Instructions .ROUTE .COMPLEX #90 tab 03/10/21 [Rx Confirmed 05/27/21] gel-matrix pad dress, silicone 2 X 5.5 topical pads #4 ea 03/25/21 [Rx Confirmed 05/28/21] metoprolol succinate 50 mg tablet,extended release 24 hr 50 mg PO BID tab 03/25/21 [History Confirmed 05/27/21] nitroglycerin 0.4 mg sublingual tablet (Nitrostat) 0.4 mg SUBLINGUAL Q5-15M PRN 03/25/21 [History Confirmed 05/27/21] pregabalin 100 mg capsule (Lyrica) 100 mg PO BID #180 cap 03/31/21 [Rx Confirmed 05/27/21] albuterol sulfate 90 mcg/actuation aerosol inhaler 2 puff INHALATION Q4H PRN #0 gram 05/19/21 [Rx Confirmed 05/27/21] Bleed in valve for CPAP connection to oxygen #1 ea 05/20/21 [Rx Confirmed 05/28/21] atorvastatin 40 mg tablet 40 mg PO Q OTHER DAY 05/27/21 [History Confirmed 05/27/21] calcium carbonate 600 mg (1,500 mg)-vitamin D3 200 unit tablet 1 tab PO DAILY 05/27/21 [History Confirmed 05/27/21] insulin glargine 100 unit/mL (3 mL) subcutaneous pen (Lantus Solostar U-100 Insulin) 15 unit SUBCUT BID 05/27/21 [History Confirmed 05/27/21] lorazepam 0.5 mg tablet (Ativan) 0.5 mg PO TID PRN 05/27/21 [History Confirmed 05/27/21] oxycodone-acetaminophen 5 mg-325 mg tablet 1 tab PO Q4H PRN 05/27/21 [History Confirmed 05/27/21] tramadol 50 mg tablet 50 mg PO TID 05/27/21 [History Confirmed 05/27/21] vitamin B complex (B Complex-Vitamin B12) 1 tab PO DAILY 05/27/21 [History Confirmed 05/27/21] Visit Medications (administered) Generic Name Dose Route Start Last Admin Trade Name Ramin PRN Reason Stop Dose Admin Albuterol/Ipratropium 3 ml 05/29/21 15:00 06/04/21 08:16 Albuterol/Ipratropium 3 Ml Ampul INH 3 ml [id number] [facility] Administration Apixaban 5 mg 05/30/21 21:00 06/04/21 08:52 Apixaban 5 Mg Tablet PO 5 mg BID JUAREZ Administration Ascorbic Acid 500 mg 06/02/21 09:00 06/04/21 08:52 Ascorbic Acid 500 Mg Tablet PO 500 mg BID JUAREZ Administration Aspirin 81 mg 05/28/21 09:00 06/04/21 08:52 Aspirin Ec 81 Mg Tablet PO 81 mg DAILY [facility] Administration Atorvastatin Calcium 40 mg 05/29/21 21:00 06/03/21 07:43 Atorvastatin 20 Mg Tablet PO Not Given Q48H JUAREZ Budesonide 0.5 mg 05/28/21 08:00 06/04/21 08:16 Budesonide 0.5 Mg/2 Ml Neb INH 0.5 mg RTBID JUAREZ Administration Docusate Sodium 100 mg 06/02/21 09:00 06/04/21 08:54 Docusate 100 Mg Capsule PO 100 mg BID UJAREZ Administration Doxycycline Hyclate 100 mg 06/04/21 09:00 06/04/21 08:55 Doxycycline Hyclate 100 Mg Tablet PO 06/10/21 21:01 100 mg BID JUAREZ Administration Ferrous Sulfate 325 mg 05/28/21 09:00 06/04/21 08:55 Ferrous Sulfate 325 Mg Tablet PO 325 mg DAILY [facility] Administration Insulin Glargine 40 unit 06/02/21 09:00 06/04/21 08:48 Insulin Glargine 100 Unit/Ml 3ml Pen SUBCUT 40 unit BID JUAREZ Administration Insulin Human Lispro 0 unit 05/31/21 16:45 06/04/21 08:51 Insulin Lispro 100 Unit/Ml 3ml Vial SUBCUT Not Given ACHS [facility] Protocol Insulin Human Regular 3 unit 06/02/21 08:00 06/04/21 08:50 Insulin Regular 100 Unit/Ml 3 Ml Vial SUBCUT 3 unit TIDWM JUAREZ Administration Lorazepam 0.5 mg 05/29/21 17:00 06/04/21 08:55 Lorazepam 0.5 Mg Tablet PO 0.5 mg QID JUAREZ Administration Metoprolol Succinate 50 mg 05/28/21 09:00 06/04/21 09:25 Metoprolol Er 50 Mg Tablet PO Not Given BID JUAREZ Metronidazole 250 mg 06/04/21 09:00 06/04/21 08:56 Metronidazole 500 Mg Tablet PO 06/10/21 21:01 250 mg TID JUAREZ Administration Tikosyn 125 Mcg 125 mcg 05/28/21 09:15 06/04/21 08:59 PO 125 mcg BID JUAREZ Administration Oxycodone/Acetaminophen 1 tab 05/28/21 00:34 06/03/21 16:31 Oxycodone/Acetaminophen 5/325 Tablet PO 1 tab Q4H PRN Administration Pain, Moderate Polyethylene Glycol 17 gm 06/02/21 09:00 06/04/21 08:58 Polyethylene Glycol 3350 17 Gm Powd.Pack PO 17 gm BID JUAREZ Administration Prednisone 20 mg 06/04/21 09:00 06/04/21 08:59 Prednisone 20 Mg Tablet PO 20 mg DAILY JUAREZ Administration Pregabalin 100 mg 05/28/21 09:00 06/04/21 08:59 Pregabalin 50 Mg Capsule PO 100 mg BID JUAREZ Administration Sennosides 17.2 mg 06/02/21 09:00 06/04/21 08:59 Sennosides 8.6 Mg Tablet PO 17.2 mg DAILY JUAREZ Administration Sodium Chloride 10 ml 05/28/21 19:33 05/30/21 05:52 Sodium Chloride 0.9% Flush IV 10 ml PRN PRN Administration Flush Sodium Chloride 10 ml 05/28/21 21:00 06/04/21 08:59 Sodium Chloride 0.9% Flush IV 10 ml BID JUAREZ Administration Sucralfate 1 gm 06/02/21 07:45 06/04/21 08:52 Sucralfate 1 Gm Tablet PO 1 gm ACHS JUAREZ Administration Tramadol HCl 50 mg 05/28/21 09:00 06/04/21 08:59 Tramadol 50 Mg Tablet PO 50 mg TID JUAREZ Administration Vitamin D 400 unit 06/02/21 09:00 06/04/21 08:53 Cholecalciferol (Vitamin D3) 400 Unit Tablet PO 400 unit BID JUAREZ Administration Objective Labs Result Diagrams: 06/04/21 04:20 06/04/21 04:20 Labs: Laboratory Results - last 24 hr 06/04/21 06/04/21 04:20 04:20 WBC 15.2 H RBC 3.66 L Hgb 10.4 L Hct 31.9 L MCV 87.2 MCH 28.5 MCHC 32.6 RDW 14.9 H Plt Count 300 Neut % (Auto) 92.9 H Lymph % (Auto) 2.9 L [place] % (Auto) 4.1 Eos % (Auto) 0.1 L Baso % (Auto) 0.0 Neut # (Auto) 33420 H Lymph # (Auto) 400 L [place] # (Auto) 600 Eos # (Auto) 0 Baso # (Auto) 0 Sodium 135 L Potassium 4.8 Chloride 100 Carbon Dioxide 32 BUN 28 H Creatinine 1.06 Estimated GFR > 60.0 BUN/Creatinine Ratio 26.4 H Glucose 148 H Calcium 7.8 L Phosphorus 2.5 Total Bilirubin 0.4 AST 25 ALT 20 Alkaline Phosphatase 79 Total Protein 5.9 L Albumin 2.7 L Globulin 3.2 Albumin/Globulin Ratio 0.8 L Exam Vital Signs (past 8 hours): - 06/04/21 02:30 06/04/21 03:00 06/04/21 03:30 Temperature 98.5 F Pulse Rate 64 64 64 Respiratory Rate 12 12 14 Blood Pressure 116/64 Pulse Oximetry 100 97 96 06/04/21 04:00 06/04/21 04:30 06/04/21 05:00 Temperature Pulse Rate 64 64 64 Respiratory Rate 12 12 13 Blood Pressure 108/58 L 105/60 Pulse Oximetry 96 94 96 06/04/21 05:30 06/04/21 05:49 06/04/21 08:00 Temperature 97.4 F L Pulse Rate 64 64 64 Respiratory Rate 16 13 19 Blood Pressure 105/60 141/71 H Pulse Oximetry 95 92 96 06/04/21 08:35 06/04/21 08:37 06/04/21 09:25 Temperature Pulse Rate 64 64 Respiratory Rate 20 20 Blood Pressure 111/57 L Pulse Oximetry 94 94 Fraction of Inspired Oxygen 40 Oxygen Delivery Method Heated High Flow Oxygen Flow Rate 50 Quality TeleICU VTE Deep Vein Thrombosis/Pulmonary Embolism Present on Admission: No Assessment & Plan Assessment & Plan narrative: Assessment 75 yo COVID Vaccinated COVID PNA Sarcoidosis BLU on home CPAP HFpEF CKD DM chronic back pain NEURO: - continue Lyrica and Tramadol - prn Percocet RESP: # Acute hypoxemia respiratory failure -- Secondary to COVID pneumonia and query component pulm sarcoidosis exacerbation vs bacterial PNA -- On HFNC 50/60% -- COVID rx as below -- RT to titrate flow and FiO2 to maintain goal SpO2 > 88% # Sarcoidosis --completed 7 day course of decardron 6 mg BID 05/28- --Prednisone 20 mg Daily started 06/04 -if patient's respiratory status, consider increasing prednisone as there may be a component of pulm sarcoidosis exacerbatiobn CVS: # Hx of CHF -- lasix prn to maintain euvolemia -if BP drops consider increasing prednisone back up for relative adrenal insuf ficiency # Hx of A fib? -- continue apixiban and Tikosyn ID: WBC unchanged 13-15, no fevers #COVID Pneumonia -s/p Remdesivir course --continue baricitinib -- send sputum culture if patient produces sputum --send blood culture if patient spikes fever -- continue Levaquin, Flagyl, and Doxycycline for now and narrow abx based on culture resolts : # CKD --lasix prn to maintain euvolemia -- Avoid nephrotoxin agents -- Daily BMP -- Monitor UOP ENDO: --titrate insulin for Goal BS < 180 CCT spent 55 min Time Spent With Patient Critical Care time: I spent a total of [] minutes of critical care time on this patient's care today; this time is exclusive of procedural time.
[2021-06-04] MEDS: LACTOBACILLUS ACIDOPHILUS TABLET 1 EACH PO ×2 (12:42→17:16)
[2021-06-04] MEDS: ATORVASTATIN 20 MG TABLET 40 MG PO (20:58)
[2021-06-04] MEDS: METOPROLOL ER 50 MG TABLET PO (20:58)
[2021-06-04] MEDS: FAMOTIDINE 20 MG TABLET PO (21:00)
[2021-06-04] MEDS: ACETAMINOPHEN 325 MG TABLET 650 MG PO (21:33)
[2021-06-04] MEDS: OXYCODONE/ACETAMINOPHEN 5/325 TABLET 1 TAB PO (21:33)
--- NOTE | 2021-06-04 23:25 | PM.ICURNDS ---
- Date Patient Seen: 06/04/21 Time Patient Seen: 20:15 :: This patient was seen via real time interactive two-way audiovisual telecommunication. Note: Oxygenation has worsened. Now requiring 50 L 60%. Noctural CPAP at times. On lantus 40 BID with good control. He is being started on antibiotics in the morning.
[2021-06-05] VITALS (18 sets, daily range): BP systolic 118–130; BP diastolic 58–67; PULSE 64–76; RESP 13–25; TEMP 36.3–36.8; O2SAT 91–100
[2021-06-05 04:56] LABS: Add Manual Diff / Slide Review NO; Basophils Absolute Auto 0 /uL (0-100); Eosinophils Absolute Auto 100 /uL (0-450); Eosinophils Percent Auto 0.7 % (2-4); Hematocrit 34.6 % (41-53); Hemoglobin 11.4 g/dL (13.5-17.5); Lymphocytes Absolute Auto 2600 /uL (1100-4500); Lymphocytes Percent Auto 12.9 % (25-40); Mean Corpuscular HGB Conc 32.8 % (30-36); Mean Corpuscular Hemoglobin 28.7 PG (26-34); Mean Corpuscular Volume 87.3 fL (80-100); Monocytes Absolute Auto 1400 /uL (0-900); Monocytes Percent Auto 7.1 % (3-14); Neutrophils Absolute Auto 16000 /uL (1500-7000); Neutrophils Percent Auto 79.3 % (50-75); Platelet Count 445 X10^3/uL (150-400); Red Blood Cell Count 3.97 X10^6/uL (4.5-5.9); Red Cell Distribution Width 15.2 % (11.6-14.8); White Blood Cell Count 20.2 X10^3/uL (4.5-11.0)
[2021-06-05 05:17] LABS: Alanine Aminotransferase 22 IU/L (<50); Albumin 2.9 g/dL (3.5-5.0); Albumin Globulin Ratio 0.9 (1.0-2.8); Alkaline Phosphatase 78 U/L (38-126); Aspartate Aminotransferase 32 IU/L (17-59); BUN Creatinine Ratio 22.3 (6-22); Bilirubin Total 0.5 mg/dL (0.2-1.3); Blood Urea Nitrogen 25 mg/dL (9-20); Calcium 8.3 mg/dL (8.4-10.2); Carbon Dioxide 32 mmol/L (22-32); Chloride 101 mmol/L (98-107); Estimated Glomerular Filt Rate > 60.0 mL/min (>60); Globulin 3.3 g/dL (1.7-4.1); HEMOLYSIS < 15 (0-50); Phosphorous 2.6 mg/dL (2.3-3.7); Potassium 4.7 mmol/L (3.4-5.1); Sodium 136 mmol/L (137-145); Total Protein 6.2 g/dL (6.3-8.2)
[2021-06-05 05:45] LABS: Glucose 42 mg/dL (80-110)
--- NOTE | 2021-06-05 06:00 | DI.RAD.S_ITS ---
PROCEDURE: XR CHEST 1V INDICATIONS: COVID+, respiratory failure TECHNIQUE: One view of the chest was acquired. COMPARISON: [facility], CR, XR CHEST 1V, 05/29/2021, 9:03. [facility], CR, XR CHEST 1V, 06/03/2021, 5:31. FINDINGS: Surgical changes and devices: A pacer device is seen. The leads are seen in stable positions. Thoracolumbar fixation hardware is partially seen. Lungs and pleura: Bilateral patchy interstitial infiltrates are seen, which are slightly more prominent on the current study than on the prior. Small bilateral pleural effusions are seen. Low lung volumes are noted. This causes a crowded appearance to the lung markings and limits evaluation. Mediastinum: Cardiac and mediastinal silhouettes are partially obscured, yet are regarded to be stable. Atherosclerotic calcification of the aortic arch is noted. Bones and chest wall: No suspicious bony lesions. Age-appropriate bony degenerative changes are seen. Overlying soft tissues appear unremarkable. IMPRESSION: Bilateral interstitial type infiltrates are seen, which are slightly more prominent on the current study than on the prior. The appearance is consistent with the known clinical history of COVID pneumonia. Small bilateral pleural effusions. Postoperative and degenerative changes are seen. Dictated by: Efraín Briones M.D. on 06/05/2021 at 7:07 Approved by: Efraín Briones M.D. on 06/05/2021 at 7:08
--- NOTE | 2021-06-05 06:29 | PC.NURSE ---
Lab value glucose reported as critical low 42 this am, patient rouses easily and is oriented, apple juice given, CBG rechecked 1/2 later to be 62, now given chocolate pudding and 1/2 turkey sandwich, will recheck. HS CBG 164, 40 units scheduled Lantus given, no sliding scale coverage indicated at that time. Patient slept with C-pap on for abut 5 hours.
[2021-06-05] MEDS: ALBUTEROL/IPRATROPIUM 3 ML AMPUL INH ×4 (06:57→20:10)
[2021-06-05] MEDS: BUDESONIDE 0.5 MG/2 ML NEB INH ×2 (06:57→20:10)
--- NOTE | 2021-06-05 08:12 | P.PN_ITS ---
Subjective Subjective Interval history: This is a 75-year-old male being treated for COVID-19 pneumonia. Patient has been on high-flow the last few days. He denies any increasing shortness of breath no chest pain or chest palpitations continue to have some mild cough at times. Heating well spoke to Nursing regarding the case Exam Vital Signs (past 8 hours): - 06/05/21 01:32 06/05/21 03:33 06/05/21 04:20 Pulse Rate 72 Respiratory Rate 17 Blood Pressure 118/66 118/66 130/66 Pulse Oximetry 92 06/05/21 05:40 Pulse Rate Respiratory Rate 22 Blood Pressure Pulse Oximetry 94 Fraction of Inspired Oxygen 40 Oxygen Delivery Method Heated High Flow Oxygen Flow Rate 50 Narrative Exam Narrative: NO ACUTE DISTRESS.? PATIENT IS ALERT ORIENTED X3. ON HIGH-FLOW AT 40 L VITAL SIGNS STABLE HEAD ATRAUMATIC NORMOCEPHALIC NECK : SUPPLE WITHOUT ADENOPATHY NO CAROTID BRUITS EYE:? EOMI, PERRLA, NORMAL CONJUNCTIVA; NO JAUNDICE CHEST:? REGULAR RATE.? ? NO RUBS.? PMI IS NON DISPLACED.?? NORMAL S1-S2 PULMONARY:? DECREASED BS OVER THE BASES.? ? NO WHEEZING. BIBASILAR CRACKLES NOTED; NO INCREASED DULLNESS TO PERCUSSION.? ON? HIGH-FLOW AT 40 L. ABDOMEN:? SOFT.? NONTENDER.? NONDISTENDED.? BOWEL SOUNDS ARE PRESENT IN ALL 4 QUADRANTS.? EXTREMITIES: ? 1+ NONPITTING EDEMA..? NO CYANOSIS CLUBBING NOTED. NEURO:? CRANIAL NERVES 2-12 GROSSLY INTACT. NO FOCAL NEUROLOGICAL DEFICIT NOTED. MSK:? NORMAL RANGE OF MOTION FOR AGE.? NO JOINT EFFUSION. POOR MUSCULATURE.? NO SIGN OF TRAUMA SKIN:?? FAIR SKIN TURGOR FOR AGE; NO ECCHYMOSIS.? NO LESION. ? NO RASHES :? NORMAL EXTERNAL GENITALIA. PSYCH :? APPROPRIATE MOOD AND AFFECT.? ALERT AWAKE ORIENTED X3.? CALM.? COOPERATIVE Objective Labs Result Diagrams: 06/05/21 04:15 06/05/21 04:15 Labs: Laboratory Results - last 24 hr 06/05/21 06/05/21 04:15 04:15 WBC 20.2 H RBC 3.97 L Hgb 11.4 L Hct 34.6 L MCV 87.3 MCH 28.7 MCHC 32.8 RDW 15.2 H Plt Count 445 H Neut % (Auto) 79.3 H Lymph % (Auto) 12.9 L [place] % (Auto) 7.1 Eos % (Auto) 0.7 L Baso % (Auto) 0.0 Neut # (Auto) 37858 H Lymph # (Auto) 2600 [place] # (Auto) 1400 H Eos # (Auto) 100 Baso # (Auto) 0 Sodium 136 L Potassium 4.7 Chloride 101 Carbon Dioxide 32 BUN 25 H Creatinine 1.12 Estimated GFR > 60.0 BUN/Creatinine Ratio 22.3 H Glucose 42 L* D Calcium 8.3 L Phosphorus 2.6 Total Bilirubin 0.5 AST 32 ALT 22 Alkaline Phosphatase 78 Total Protein 6.2 L Albumin 2.9 L Globulin 3.3 Albumin/Globulin Ratio 0.9 L PFSH Medical History Acne (Unknown) Actinic keratosis (~2017) Anemia Atrial fibrillation (Unknown) Chronic low back pain (Unknown) Closed compression fracture of third lumbar vertebra Coronary artery disease (Unknown) Diabetes (Unknown) GERD (gastroesophageal reflux disease) (Unknown) Hearing loss (Unknown) Hx of coronary angiogram (Unknown) Hyperlipemia (Unknown) Hypertension (Unknown) Keloid Osteoporosis Pacemaker Renal insufficiency Sarcoidosis (11/2007) Squamous cell carcinoma (Unknown) Visit for suture removal Surgical History H/O left wrist surgery H/O toe surgery History of arthroplasty of left shoulder (Unknown) History of arthroplasty of right shoulder (Unknown) History of fusion of thoracic spine History of lumbar fusion Hx of knee surgery (Unknown) Hx of left knee surgery Hx of prior ablation treatment (~05/2013) Status post lumbar and lumbosacral fusion by anterior technique Family History Father Diabetes mellitus Mother No problems noted. Social History household members: spouse and children Smoking Status: Never smoker second hand exposure: Yes alcohol intake: current substance use type: does not use Assessment & Plan Assessment & Plan narrative: PROBLEM LIST ACUTE HYPOXIC RESPIRATORY FAILURE.? ON HIGH-FLOW AT 4OL THIS A.M. ?COVID-19 PNEUMONIA /PNEUMONITIS.? SUPPORTIVE TREATMENT WITH ANTIBIOTICS WELL STEROIDS AND DUONEB TREATMENTS ?ACUTE ON CHRONIC KIDNEY DISEASE STAGE III.? MONITOR CLOSELY ?OVERWEIGHT.? CONSULT WILL BE GIVEN? REGARDING LIFESTYLE CHANGES ONCE APPROPRIATE ?REACTIVE LEUKOCYTOSIS.? ON ANTIBIOTICS ?PHYSICAL DECONDITIONING/DEBILITY.? PT AND OT TO SEE ONCE INDICATED INSULIN-DEPENDENT DIABETES. HYPOGLYCEMIA NOTED OVERNIGHT PLAN 06/05 PATIENT IS NOT REPORTING ANY INCREASING SHORTNESS OF BREATH OR DYSPNEA ON EXERTION CLINICALLY HE APPEARS TO BE IMPROVING HYPOGLYCEMIA NOTED OVERNIGHT WILL HOLD LANTUS FOR NOW CONTINUE SLIDING SCALES ON THE WHOLE SCHEDULE T.I.D. POST MEAL REGULAR INSULIN WELL CONTINUE TO FOLLOW LABS CLOSELY WILL ALSO ORDER CHANGE TO PULSE OXIMETRY SINCE HIS TO CONFIRM CURRENT PULSE OXIMETRY READING ASSISTANCE FROM PULMONOLOGY /CRITICAL CARE CONTINUED TO BE GREATLY APPRECIATED AND DISCHARGE IN CASE CONTINUE AGGRESSIVE PULMONARY TOILETING PATIENT TO USE HIS INCENTIVE SPIROMETER DEVICE ORDERED REPEAT CHEST X-RAY WILL GET UA THIS MORNING WELL THE UVC CONTINUE TO INCREASE. THIS COULD BE ACUTE REACTIVE TO PREDNISONE WILL START TAPERING THE PREDNISONE THIS MORNING WELL THE PATIENT DOES NOT APPEAR TO BE TOXIC NO FEVER OR CHILLS REPORTED. MENTATION REMAINED ADEQUATE PATIENT TO BE OUT OF BED WITH EACH MEAL ADDITIONAL MANAGEMENT PER CLINICAL COURSE 06/04 ?PATIENT PROGRESS IS VERY SLOW ?STILL REQUIRING HIGH-FLOW ?WILL ADD STEROIDS AND ANTIBIOTICS TODAY ?WILL ALSO CONTINUE WITH DUONEB TREATMENT WELL PULMICORT ?REPEAT CHEST X-RAY IN THE MORNING ?NURSING TO CONTINUE TO ENCOURAGE PATIENT TO USE IC? DEVICE ORDERED ?AGGRESSIVE PULMONARY TOILETING ?GET A ABG? IF INDICATED ?ASSISTANCE FROM INTENSIVE CARE ATTENDING IS GREATLY APPRECIATED ?MOBILE? PATIENT MUCH TOLERATED ?CONTINUE TO MAINTAIN PROPER PER HOSPITAL PROTOCOL ?CONTINUE TO FOLLOW LABS DAILY ?MONITOR INPUT AND OUTPUT CLOSELY ?ADDITIONAL MANAGEMENT PER CLINICAL COURSE ?PROGNOSIS REMAIN GUARDED 06/03 ?PATIENT REMAINED ON HIGH-FLOW AND IN THE ICU ?CARGO AND CONTAINER INSPECTOR ASSISTANCE CONTINUED TO BE GREATLY APPRECIATED ?DAILY LABS ORDERED ?MONITOR INPUT OUTPUT CLOSELY ?CONTINUE CURRENT? ANTIBIOTICS FOR NOW ?LABS REMAINED STABLE ? THERE IS BC IS IMPROVING ?KIDNEY FUNCTION HOLDING WELL ?BUT KEEP IN ISOLATION PER HOSPITAL PROTOCOL ?SERIAL ABG AND CHEST X-RAY TO FOLLOW INDICATED ?PATIENT TO BE OUT OF BED WITH EACH MEAL ?ADDITIONAL MEASURE PER CLINICAL COURSE ?PROGNOSIS IS GUARDED 06/02 ?PATIENT SHOWED SOME IMPROVEMENT ?HOWEVER REMAINED AND HIGH-FLOW ?CONTINUE CURRENT MANAGEMENT FOR NOW ?WE WILL REPEAT CHEST X-RAY IN THE MORNING ?CONSIDER ABG WELL IF INDICATED ?ADDITIONAL MEASURE PER CLINICAL COURSE 06/01 ?CONTINUE TO? CURRENT MANAGEMENT FOR NOW ?PATIENT IS STILL REQUIRING HIGH-FLOW ?HOGSHEAD PACKER FROM CRITICAL CARE/ INTENSIVE IS GREATLY APPRECIATED ?AGGRESSIVE PULMONARY TOILETING ?NURSING TO ENCOURAGE PATIENT TO USE INCENTIVE SPIROMETER AWAKE ?REPEAT CHEST X-RAY AND ABG INDICATED CLINICALLY ? DAILY LABS TO FOLLOW ?STRICT INPUT AND OUTPUT ?AVOID ALL NEPHROTOXINS ? PHARMACY TO DOSE ALL MEDICATIONS FOR GFR Time Spent With Patient Critical Care time: I spent a total of [] minutes of critical care time on this patient's care today; this time is exclusive of procedural time. Quality VTE Deep Vein Thrombosis/Pulmonary Embolism Present on Admission: No
[2021-06-05] MEDS: SENNOSIDES 8.6 MG TABLET 17.2 MG PO (08:14)
[2021-06-05] MEDS: metroNIDAZOLE 500 MG TABLET 250 MG PO ×3 (08:14→20:49)
[2021-06-05] MEDS: ASPIRIN EC 81 MG TABLET PO (08:14)
[2021-06-05] MEDS: LACTOBACILLUS ACIDOPHILUS TABLET 1 EACH PO ×3 (08:15→17:35)
[2021-06-05] MEDS: PREGABALIN 50 MG CAPSULE 100 MG PO ×2 (08:15→20:42)
[2021-06-05] MEDS: ASCORBIC ACID 500 MG TABLET PO ×2 (08:15→20:46)
[2021-06-05] MEDS: BARICITINIB 2 MG TABLET 4 MG PO (08:15)
[2021-06-05] MEDS: DOCUSATE 100 MG CAPSULE PO ×2 (08:15→20:43)
[2021-06-05] MEDS: CHOLECALCIFEROL (VITAMIN D3) 400 UNIT TABLET PO ×2 (08:15→20:42)
[2021-06-05] MEDS: TRAMADOL 50 MG TABLET PO ×3 (08:15→20:42)
[2021-06-05] MEDS: DOXYCYCLINE HYCLATE 100 MG TABLET PO ×2 (08:16→20:42)
[2021-06-05] MEDS: METOPROLOL ER 50 MG TABLET PO ×2 (08:16→20:42)
[2021-06-05] MEDS: FAMOTIDINE 20 MG TABLET PO ×2 (08:16→20:42)
[2021-06-05] MEDS: APIXABAN 5 MG TABLET PO ×2 (08:16→20:43)
[2021-06-05] MEDS: SUCRALFATE 1 GM TABLET PO ×4 (08:16→20:41)
[2021-06-05] MEDS: polyethylene glycoL 3350 17 GM POWD.PACK PO ×2 (08:16→20:41)
[2021-06-05] MEDS: predniSONE 20 MG TABLET 10 MG PO (08:16)
[2021-06-05] MEDS: LORazepam 0.5 MG TABLET PO ×4 (08:16→20:41)
[2021-06-05] MEDS: FERROUS SULFATE 325 MG TABLET PO (08:16)
[2021-06-05] MEDS: DOFETILIDE 125 MCG 125 EACH PO ×2 (08:17→20:44)
[2021-06-05] MEDS: SODIUM CHLORIDE 0.9% FLUSH 10 ML IV ×2 (08:17→20:45)
--- NOTE | 2021-06-05 09:21 | P.TELICUPN_ITS ---
Subjective Subjective :: This patient was seen via real time interactive two-way audiovisual telecommunication. 75-year-old male chronically ill with sarcoidosis, diabetes mellitus type 2, chronic kidney disease, coronary artery disease, osteoporosis, hyperlipidemia, BLU on home CPAP, and congestive heart failure who presents now with COVID pneumonia.? He is fully immunized x3 with Moderna.? Pt initially hospitalized 05/17-03/01 for COVID PNA and given decadron, Remdesivir, and Baricitinib.? Pt. readmitted 05/27/21 for worsening hypoxic resp failure.? CTA chest showed patchy bilateral periphery alveolar filling process, small bilateral pleural effusion, and no Pulm embolus. Pt. placed on HFNC. 06/04:? Patient switched from decadron 6 mg BID (from 05/28-) to Prednisone 20 mg daily.? Doxycycline, Flagyl and Levaquin was added last 24 hours: HFNC requirements improved from 40L 60% to 40L 40%. No fever but WBC increased from 15 to 22 today. No bowel movement since 05/31/21. Current Medications Current Medications Medications: Home Medications budesonide-formoterol HFA 160 mcg-4.5 mcg/actuation aerosol inhaler (Symbicort) 2 inh INH BID #1 inh 09/14/17 [Rx Confirmed 05/27/21] dofetilide 125 mcg capsule (Tikosyn) 125 mcg PO BID cap 08/03/18 [History Confirmed 05/27/21] Fast click lancet cartridge #1 ea 10/04/18 [Rx Confirmed 05/28/21] apixaban 5 mg tablet (Eliquis) 5 mg PO BID 01/03/19 [History Confirmed 05/27/21] epinephrine 0.3 mg/0.3 mL injection, auto-injector (EpiPen 2-Abhijeet) 0.3 mg (0.3 mL) IM ONCE #2 each 04/04/19 [Rx Confirmed 05/27/21] aspirin 81 mg tablet,delayed release 81 mg PO DAILY 08/02/19 [History Confirmed 05/27/21] torsemide 20 mg tablet 20 mg PO DAILY tab 12/25/19 [History Confirmed 05/27/21] alprazolam 0.5 mg tablet (Xanax) 0.25 mg PO BID PRN #60 tab 03/13/20 [Rx Confirmed 05/28/21] [Contour test strips] #300 each 08/20/20 [Rx Confirmed 05/28/21] pen needle, diabetic 29 gauge x 1/2 (BD Ultra-Fine Original Pen Needle) #30 each 09/17/20 [Rx Confirmed 05/28/21] Disabled Parking Permit #1 ea 10/22/20 [Rx Confirmed 05/28/21] Lactobacil rhamnosus GG 10 billion cell-inulin 200 mg sprinkle capsule ([facility]) See Rx Instructions .ROUTE .COMPLEX #100 cap 01/16/21 [Rx Confirmed 05/27/21] ferrous sulfate 325 mg (65 mg iron) tablet See Rx Instructions .ROUTE .COMPLEX #90 tab 03/10/21 [Rx Confirmed 05/27/21] gel-matrix pad dress, silicone 2 X 5.5 topical pads #4 ea 03/25/21 [Rx Confirmed 05/28/21] metoprolol succinate 50 mg tablet,extended release 24 hr 50 mg PO BID tab 03/25/21 [History Confirmed 05/27/21] nitroglycerin 0.4 mg sublingual tablet (Nitrostat) 0.4 mg SUBLINGUAL Q5-15M PRN 03/25/21 [History Confirmed 05/27/21] pregabalin 100 mg capsule (Lyrica) 100 mg PO BID #180 cap 03/31/21 [Rx Confirmed 05/27/21] albuterol sulfate 90 mcg/actuation aerosol inhaler 2 puff INHALATION Q4H PRN #0 gram 05/19/21 [Rx Confirmed 05/27/21] Bleed in valve for CPAP connection to oxygen #1 ea 05/20/21 [Rx Confirmed 05/28/21] atorvastatin 40 mg tablet 40 mg PO Q OTHER DAY 05/27/21 [History Confirmed 05/27/21] calcium carbonate 600 mg (1,500 mg)-vitamin D3 200 unit tablet 1 tab PO DAILY 05/27/21 [History Confirmed 05/27/21] insulin glargine 100 unit/mL (3 mL) subcutaneous pen (Lantus Solostar U-100 Insulin) 15 unit SUBCUT BID 05/27/21 [History Confirmed 05/27/21] lorazepam 0.5 mg tablet (Ativan) 0.5 mg PO TID PRN 05/27/21 [History Confirmed 05/27/21] oxycodone-acetaminophen 5 mg-325 mg tablet 1 tab PO Q4H PRN 05/27/21 [History Confirmed 05/27/21] tramadol 50 mg tablet 50 mg PO TID 05/27/21 [History Confirmed 05/27/21] vitamin B complex (B Complex-Vitamin B12) 1 tab PO DAILY 05/27/21 [History Confirmed 05/27/21] Visit Medications (administered) Generic Name Dose Route Start Last Admin Trade Name Fre PRN Reason Stop Dose Admin Acetaminophen 650 mg 05/27/21 23:13 06/04/21 21:33 Acetaminophen 325 Mg Tablet PO 650 mg Q6HR PRN Administration Fever/Mild Pain (1-3) Albuterol/Ipratropium 3 ml 05/29/21 15:00 06/05/21 06:57 Albuterol/Ipratropium 3 Ml Ampul INH 3 ml [id number] JUAREZ Administration Apixaban 5 mg 05/30/21 21:00 06/05/21 08:16 Apixaban 5 Mg Tablet PO 5 mg BID JUAREZ Administration Ascorbic Acid 500 mg 06/02/21 09:00 06/05/21 08:15 Ascorbic Acid 500 Mg Tablet PO 500 mg BID JUAREZ Administration Aspirin 81 mg 05/28/21 09:00 06/05/21 08:14 Aspirin Ec 81 Mg Tablet PO 81 mg DAILY JUAREZ Administration Atorvastatin Calcium 40 mg 05/29/21 21:00 06/04/21 20:58 Atorvastatin 20 Mg Tablet PO 40 mg Q48H JUAREZ Administration Budesonide 0.5 mg 05/28/21 08:00 06/05/21 06:57 Budesonide 0.5 Mg/2 Ml Neb INH 0.5 mg RTBID JUAREZ Administration Docusate Sodium 100 mg 06/02/21 09:00 06/05/21 08:15 Docusate 100 Mg Capsule PO 100 mg BID JUAREZ Administration Doxycycline Hyclate 100 mg 06/04/21 09:00 06/05/21 08:16 Doxycycline Hyclate 100 Mg Tablet PO 06/10/21 21:01 100 mg BID JUAREZ Administration Famotidine 20 mg 06/04/21 21:00 06/05/21 08:16 Famotidine 20 Mg Tablet PO 20 mg BID JUAREZ Administration Ferrous Sulfate 325 mg 05/28/21 09:00 06/05/21 08:16 Ferrous Sulfate 325 Mg Tablet PO 325 mg DAILY JUAREZ Administration Insulin Glargine 40 unit 06/02/21 09:00 06/04/21 21:02 Insulin Glargine 100 Unit/Ml 3ml Pen SUBCUT 40 unit BID JUAREZ Administration Insulin Human Lispro 0 unit 05/31/21 16:45 06/05/21 08:17 Insulin Lispro 100 Unit/Ml 3ml Vial SUBCUT Not Given ACHS [facility] Protocol Insulin Human Regular 3 unit 06/02/21 08:00 06/04/21 17:23 Insulin Regular 100 Unit/Ml 3 Ml Vial SUBCUT Not Given TIDWM JUAREZ Lactobacillus Acidophilus 1 each 06/04/21 12:00 06/05/21 08:15 Lactobacillus Acidophilus Tablet PO 1 each TIDWM JUAREZ Administration Lorazepam 0.5 mg 05/29/21 17:00 06/05/21 08:16 Lorazepam 0.5 Mg Tablet PO 0.5 mg QID JUAREZ Administration Metoprolol Succinate 50 mg 05/28/21 09:00 06/05/21 08:16 Metoprolol Er 50 Mg Tablet PO 50 mg BID JUAREZ Administration Metronidazole 250 mg 06/04/21 09:00 06/05/21 08:14 Metronidazole 500 Mg Tablet PO 06/10/21 21:01 250 mg TID [facility] Administration Tikosyn 125 Mcg 125 mcg 05/28/21 09:15 06/05/21 08:17 PO 125 mcg BID JUAREZ Administration Oxycodone/Acetaminophen 1 tab 05/28/21 00:34 06/04/21 21:33 Oxycodone/Acetaminophen 5/325 Tablet PO 1 tab Q4H PRN Administration Pain, Moderate Polyethylene Glycol 17 gm 06/02/21 09:00 06/05/21 08:16 Polyethylene Glycol 3350 17 Gm Powd.Pack PO 17 gm BID JUAREZ Administration Pregabalin 100 mg 05/28/21 09:00 06/05/21 08:15 Pregabalin 50 Mg Capsule PO 100 mg BID JUAREZ Administration Sennosides 17.2 mg 06/02/21 09:00 06/05/21 08:14 Sennosides 8.6 Mg Tablet PO 17.2 mg DAILY JUAREZ Administration Sodium Chloride 10 ml 05/28/21 19:33 05/30/21 05:52 Sodium Chloride 0.9% Flush IV 10 ml PRN PRN Administration Flush Sodium Chloride 10 ml 05/28/21 21:00 06/05/21 08:17 Sodium Chloride 0.9% Flush IV 10 ml BID JUAREZ Administration Sucralfate 1 gm 06/02/21 07:45 06/05/21 08:16 Sucralfate 1 Gm Tablet PO 1 gm ACHS JUAREZ Administration Tramadol HCl 50 mg 05/28/21 09:00 06/05/21 08:15 Tramadol 50 Mg Tablet PO 50 mg TID JUAREZ Administration Vitamin D 400 unit 06/02/21 09:00 06/05/21 08:15 Cholecalciferol (Vitamin D3) 400 Unit Tablet PO 400 unit BID JUAREZ Administration Objective Labs Result Diagrams: 06/05/21 04:15 06/05/21 04:15 Labs: Laboratory Results - last 24 hr 06/05/21 06/05/21 04:15 04:15 WBC 20.2 H RBC 3.97 L Hgb 11.4 L Hct 34.6 L MCV 87.3 MCH 28.7 MCHC 32.8 RDW 15.2 H Plt Count 445 H Neut % (Auto) 79.3 H Lymph % (Auto) 12.9 L [place] % (Auto) 7.1 Eos % (Auto) 0.7 L Baso % (Auto) 0.0 Neut # (Auto) 62985 H Lymph # (Auto) 2600 [place] # (Auto) 1400 H Eos # (Auto) 100 Baso # (Auto) 0 Sodium 136 L Potassium 4.7 Chloride 101 Carbon Dioxide 32 BUN 25 H Creatinine 1.12 Estimated GFR > 60.0 BUN/Creatinine Ratio 22.3 H Glucose 42 L* D Calcium 8.3 L Phosphorus 2.6 Total Bilirubin 0.5 AST 32 ALT 22 Alkaline Phosphatase 78 Total Protein 6.2 L Albumin 2.9 L Globulin 3.3 Albumin/Globulin Ratio 0.9 L Exam Vital Signs (past 8 hours): - 06/05/21 01:32 06/05/21 03:33 06/05/21 04:20 Temperature Pulse Rate 72 Respiratory Rate 17 Blood Pressure 118/66 118/66 130/66 Pulse Oximetry 92 06/05/21 05:40 06/05/21 07:15 06/05/21 07:20 Temperature Pulse Rate 64 Respiratory Rate 22 18 Blood Pressure Pulse Oximetry 94 93 93 06/05/21 08:00 Temperature 97.3 F L Pulse Rate 69 Respiratory Rate 25 H Blood Pressure 126/62 Pulse Oximetry 97 Fraction of Inspired Oxygen 40 Oxygen Delivery Method Heated High Flow Oxygen Flow Rate 0 Quality TeleICU VTE Deep Vein Thrombosis/Pulmonary Embolism Present on Admission: No Assessment & Plan Assessment & Plan narrative: Assessment 75 yo COVID Vaccinated COVID PNA Sarcoidosis BLU on home CPAP HFpEF CKD DM chronic back pain Leukocytosis NEURO: - continue Lyrica and Tramadol - prn Percocet RESP: # Acute hypoxemia respiratory failure -- Secondary to COVID pneumonia and query component pulm sarcoidosis exacerbation vs bacterial PNA -- On HFNC 50/60% -- COVID rx as below -- RT to titrate flow and FiO2 to maintain goal SpO2 > 88% # Sarcoidosis --completed 7 day course of decardron 6 mg BID 05/28- --Prednisone 20 mg Daily started 06/04 -if patient's respiratory status, consider increasing prednisone as there may be a component of pulm sarcoidosis exacerbatiobn CVS: # Hx of CHF -- lasix prn to maintain euvolemia -if BP drops consider increasing prednisone back up for relative adrenal insufficiency # Hx of A fib? -- continue apixiban and Tikosyn ID: WBC unchanged 13-15, no fevers #COVID Pneumonia -s/p Remdesivir course --continue baricitinib -- send sputum culture if patient produces sputum --send blood culture if patient spikes fever -- continue Levaquin, Flagyl, and Doxycycline for now and narrow abx based on culture resolts --check procalcitonin GI: no bowel movement since 05/31/21 -currently getting senna and Miralax -if no response will try bisacodyl : # CKD --lasix prn to maintain euvolemia -- Avoid nephrotoxin agents -- Daily BMP -- Monitor UOP ENDO: --titrate insulin for Goal BS < 180 CCT spent 45 min Time Spent With Patient Critical Care time: I spent a total of [] minutes of critical care time on this patient's care today; this time is exclusive of procedural time.
[2021-06-05 11:46] LABS: Procalcitonin 0.06 ng/mL (<0.5)
[2021-06-05] MEDS: MORPHINE 4 MG/ML INJ IV (12:20)
[2021-06-05] MEDS: INSULIN LISPRO 100 UNIT/ML 3ML VIAL SUBCUT ×3 (12:24→20:55)
[2021-06-05 14:05] LABS: Appearance Urine UA CLEAR; Bilirubin Urine UA NEGATIVE (NEGATIVE); Color Urine UA YELLOW; Glucose Urine UA NEGATIVE (Negative); Ketones Urine UA NEGATIVE (NEGATIVE); Leukocyte Esterase Urine UA NEGATIVE (NEGATIVE); Nitrite Urine UA NEGATIVE (Negative); Occult Blood Urine UA NEGATIVE (Negative); Protein Urine UA TRACE (Negative); Urobilinogen Urine UA 0.2 E.U./dL (0.2)
[2021-06-05 14:37] LABS: Bacteria Urine None Seen; Culture Indicated Urine Cult Not Indicated; RBC Urine 0-1/HPF (0-5/HPF); WBC Urine 0-1/HPF (0-5/HPF)
[2021-06-05] MEDS: ACETAMINOPHEN 325 MG TABLET 650 MG PO (15:36)
[2021-06-05] MEDS: levoFLOXacin 250 MG TABLET 750 MG PO (15:37)
[2021-06-05] MEDS: BISACODYL 10 MG SUPP PR (15:37)
[2021-06-06] VITALS (16 sets, daily range): BP systolic 92–170; BP diastolic 52–74; PULSE 64–78; RESP 14–24; TEMP 36.5–37; O2SAT 92–100
[2021-06-06] MEDS: ALBUTEROL/IPRATROPIUM 3 ML AMPUL INH ×4 (00:18→17:30)
[2021-06-06 05:01] LABS: Add Manual Diff / Slide Review NO; Basophils Absolute Auto 0 /uL (0-100); Basophils Percent Auto 0.1 % (0-2); Eosinophils Absolute Auto 200 /uL (0-450); Eosinophils Percent Auto 1.4 % (2-4); Hematocrit 32.6 % (41-53); Hemoglobin 10.7 g/dL (13.5-17.5); Lymphocytes Absolute Auto 1300 /uL (1100-4500); Lymphocytes Percent Auto 9.3 % (25-40); Mean Corpuscular HGB Conc 32.8 % (30-36); Mean Corpuscular Hemoglobin 28.9 PG (26-34); Mean Corpuscular Volume 88.1 fL (80-100); Monocytes Absolute Auto 900 /uL (0-900); Neutrophils Absolute Auto 12000 /uL (1500-7000); Neutrophils Percent Auto 83.2 % (50-75); Platelet Count 330 X10^3/uL (150-400); Red Blood Cell Count 3.71 X10^6/uL (4.5-5.9); Red Cell Distribution Width 15.3 % (11.6-14.8); White Blood Cell Count 14.4 X10^3/uL (4.5-11.0)
[2021-06-06 05:10] LABS: Alanine Aminotransferase 25 IU/L (<50); Albumin 2.7 g/dL (3.5-5.0); Albumin Globulin Ratio 0.9 (1.0-2.8); Alkaline Phosphatase 84 U/L (38-126); Aspartate Aminotransferase 38 IU/L (17-59); BUN Creatinine Ratio 26.4 (6-22); Bilirubin Total 0.4 mg/dL (0.2-1.3); Blood Urea Nitrogen 23 mg/dL (9-20); Calcium 8.1 mg/dL (8.4-10.2); Carbon Dioxide 29 mmol/L (22-32); Chloride 104 mmol/L (98-107); Estimated Glomerular Filt Rate > 60.0 mL/min (>60); HEMOLYSIS < 15 (0-50); Phosphorous 1.9 mg/dL (2.3-3.7); Potassium 4.9 mmol/L (3.4-5.1); Sodium 135 mmol/L (137-145); Total Protein 5.7 g/dL (6.3-8.2)
[2021-06-06 05:24] LABS: Glucose 42 mg/dL (80-110)
[2021-06-06] MEDS: DEXTROSE 50 % IN WATER 25 GM/50 ML SYRINGE IV (05:27)
--- NOTE | 2021-06-06 05:52 | PC.NURSE ---
0530- Patient BG 42 this am. Some ventricular ectopy noted as well. Pacer engaged. Patient given D50 per order and Dr. Diaz notified no orders rec. Will monitor.
[2021-06-06 08:26] LABS: Hemoglobin A1C% w Est Avg Glu 6.2 % (4.0-6.0)
[2021-06-06] MEDS: BUDESONIDE 0.5 MG/2 ML NEB INH ×2 (08:41→17:30)
[2021-06-06] MEDS: FERROUS SULFATE 325 MG TABLET PO (08:51)
[2021-06-06] MEDS: LACTOBACILLUS ACIDOPHILUS TABLET 1 EACH PO ×3 (08:51→16:13)
[2021-06-06] MEDS: polyethylene glycoL 3350 17 GM POWD.PACK PO ×2 (08:51→20:04)
[2021-06-06] MEDS: ASPIRIN EC 81 MG TABLET PO (08:52)
[2021-06-06] MEDS: ASCORBIC ACID 500 MG TABLET PO ×2 (08:52→20:04)
[2021-06-06] MEDS: TRAMADOL 50 MG TABLET PO ×3 (08:52→20:02)
[2021-06-06] MEDS: predniSONE 20 MG TABLET 10 MG PO (08:52)
[2021-06-06] MEDS: SUCRALFATE 1 GM TABLET PO ×4 (08:52→20:03)
[2021-06-06] MEDS: CHOLECALCIFEROL (VITAMIN D3) 400 UNIT TABLET PO ×2 (08:52→20:02)
[2021-06-06] MEDS: SENNOSIDES 8.6 MG TABLET 17.2 MG PO (08:52)
[2021-06-06] MEDS: APIXABAN 5 MG TABLET PO ×2 (08:52→20:03)
[2021-06-06] MEDS: PREGABALIN 50 MG CAPSULE 100 MG PO ×2 (08:53→20:03)
[2021-06-06] MEDS: metroNIDAZOLE 500 MG TABLET 250 MG PO ×3 (08:53→23:59)
[2021-06-06] MEDS: DOXYCYCLINE HYCLATE 100 MG TABLET PO ×2 (08:53→20:02)
[2021-06-06] MEDS: LORazepam 0.5 MG TABLET PO ×3 (08:53→16:13)
[2021-06-06] MEDS: FAMOTIDINE 20 MG TABLET PO ×2 (08:53→20:03)
[2021-06-06] MEDS: BARICITINIB 2 MG TABLET 4 MG PO (08:53)
[2021-06-06] MEDS: METOPROLOL ER 50 MG TABLET PO ×2 (08:53→20:04)
[2021-06-06] MEDS: DOCUSATE 100 MG CAPSULE PO ×2 (08:53→20:03)
[2021-06-06] MEDS: SODIUM CHLORIDE 0.9% FLUSH 10 ML IV ×2 (08:54)
[2021-06-06] MEDS: SODIUM,POTASSIUM PHOSPHATES PACKET 2 EACH PO ×2 (08:59→12:54)
[2021-06-06] MEDS: DOFETILIDE 125 MCG 125 EACH PO ×2 (09:00→23:55)
--- NOTE | 2021-06-06 16:01 | CM.DPC ---
DCP Continued: Cm attempted to call patients room but patient stated he is not up to talking. CM called patient Nay and spoke with her about patients potential DC home tomorrow. Patients expressed concerns for patient returning home so quickly after being on high oxygen and after previous DC home where patient did not do so well. CM talked with patients about having [facility] at home and she stated that would be helpful. CM called [facility] at [phone] and they stated they can accept patient just need F2F and DC summary when patient leaves. CM Faxed [facility] [phone] signed F2F for them to start processing HH services. patients also expressed concerns for patient oxygenation needs at home. Currently they do have home oxygen concentrator from [place] that goes up to 5L that is located upstairs however the patient has 15 steps to go to his room and bathroom which are on the top floor but patients kitchen is on the bottom floor. YURIY recommended looking at SNF at discharge both patient and his said no to SNF option at DC do to a previous bad experience. YURIY asked MD to put in PT eval because patient has 15 stairs at home that he has to maneuver to go from his room to the kitchen and we will need to see how his oxygen saturation does with stairs prior to DC home with HH. Plan: Pending PT evaluation, home with [facility] when medically stable Lurdes Ayala RN Case Fazal
[2021-06-06] MEDS: levoFLOXacin 250 MG TABLET 750 MG PO (16:14)
--- NOTE | 2021-06-06 16:29 | PM.PN.1 ---
Subjective Subjective Date Patient Seen: 06/06/21 Interval history: 75-YEAR-OLD MALE BEING TREATED FOR COVID-19 PNEUMONIA. SHOWING SOME IMPROVEMENT. OFF HIGH-FLOW AND ON NASAL CANNULA TODAY PATIENT REPORTED SIGNIFICANT ANXIETY DENIES ANY INCREASING SHORTNESS OF BREATH HAVE SOME MILD COUGHING SPELLS DENIES ANY CHANGE OF MENTATION NO OTHER COMPLAINTS Exam Vital Signs (past 8 hours): - 06/06/21 08:40 06/06/21 08:58 06/06/21 12:00 Temperature 98.6 F Pulse Rate 67 64 Respiratory Rate 14 20 Blood Pressure 117/56 L Pulse Oximetry 99 100 100 06/06/21 13:43 06/06/21 14:40 Temperature 97.9 F Pulse Rate 66 Respiratory Rate 21 Blood Pressure 120/63 Pulse Oximetry 100 100 Fraction of Inspired Oxygen 38 Oxygen Delivery Method High Flow Nasal Cannula Oxygen Flow Rate 3 Narrative Exam Narrative: NO ACUTE DISTRESS.? PATIENT IS ALERT ORIENTED X3. ON HIGH-FLOW AT 40 L VITAL SIGNS STABLE HEAD ATRAUMATIC NORMOCEPHALIC NECK : SUPPLE WITHOUT ADENOPATHY NO CAROTID BRUITS EYE:? EOMI, PERRLA, NORMAL CONJUNCTIVA; NO JAUNDICE CHEST:? REGULAR RATE.? ? NO RUBS.? PMI IS NON DISPLACED.?? NORMAL S1-S2 PULMONARY:? DECREASED BS OVER THE BASES.? ? NO WHEEZING. BIBASILAR CRACKLES NOTED; NO INCREASED DULLNESS TO PERCUSSION.? ON? HIGH-FLOW AT 40 L. ABDOMEN:? SOFT.? NONTENDER.? NONDISTENDED.? BOWEL SOUNDS ARE PRESENT IN ALL 4 QUADRANTS.? EXTREMITIES: ? 1+ NONPITTING EDEMA..? NO CYANOSIS CLUBBING NOTED. NEURO:? CRANIAL NERVES 2-12 GROSSLY INTACT. NO FOCAL NEUROLOGICAL DEFICIT NOTED. MSK:? NORMAL RANGE OF MOTION FOR AGE.? NO JOINT EFFUSION. POOR MUSCULATURE.? NO SIGN OF TRAUMA SKIN:?? FAIR SKIN TURGOR FOR AGE; NO ECCHYMOSIS.? NO LESION. ? NO RASHES :? NORMAL EXTERNAL GENITALIA. PSYCH :? APPROPRIATE MOOD AND AFFECT.? ALERT AWAKE ORIENTED X3.? CALM.? COOPERATIVE Objective Labs Result Diagrams: 06/06/21 04:25 06/06/21 04:25 Labs: Laboratory Results - last 24 hr 06/06/21 06/06/21 06/06/21 04:25 04:25 04:25 WBC 14.4 H RBC 3.71 L Hgb 10.7 L Hct 32.6 L MCV 88.1 MCH 28.9 MCHC 32.8 RDW 15.3 H Plt Count 330 Neut % (Auto) 83.2 H Lymph % (Auto) 9.3 L [place] % (Auto) 6.0 Eos % (Auto) 1.4 L Baso % (Auto) 0.1 Neut # (Auto) 70385 H Lymph # (Auto) 1300 [place] # (Auto) 900 Eos # (Auto) 200 Baso # (Auto) 0 Sodium 135 L Potassium 4.9 Chloride 104 Carbon Dioxide 29 BUN 23 H Creatinine 0.87 Estimated GFR > 60.0 BUN/Creatinine Ratio 26.4 H Glucose 42 L* Hemoglobin A1c 6.2 H Calcium 8.1 L Phosphorus 1.9 L Total Bilirubin 0.4 AST 38 ALT 25 Alkaline Phosphatase 84 Total Protein 5.7 L Albumin 2.7 L Globulin 3.0 Albumin/Globulin Ratio 0.9 L PFSH Medical History Acne (Unknown) Actinic keratosis (~2017) Anemia Atrial fibrillation (Unknown) Chronic low back pain (Unknown) Closed compression fracture of third lumbar vertebra Coronary artery disease (Unknown) Diabetes (Unknown) GERD (gastroesophageal reflux disease) (Unknown) Hearing loss (Unknown) Hx of coronary angiogram (Unknown) Hyperlipemia (Unknown) Hypertension (Unknown) Keloid Osteoporosis Pacemaker Renal insufficiency Sarcoidosis (11/2007) Squamous cell carcinoma (Unknown) Visit for suture removal Surgical History H/O left wrist surgery H/O toe surgery History of arthroplasty of left shoulder (Unknown) History of arthroplasty of right shoulder (Unknown) History of fusion of thoracic spine History of lumbar fusion Hx of knee surgery (Unknown) Hx of left knee surgery Hx of prior ablation treatment (~05/2013) Status post lumbar and lumbosacral fusion by anterior technique Family History Father Diabetes mellitus Mother No problems noted. Social History household members: spouse and children Smoking Status: Never smoker second hand exposure: Yes alcohol intake: current substance use type: does not use Assessment & Plan Assessment & Plan narrative: PROBLEM LIST ACUTE HYPOXIC RESPIRATORY FAILURE.? ON HIGH-FLOW AT 4OL THIS A.M. ?COVID-19 PNEUMONIA /PNEUMONITIS.? SUPPORTIVE TREATMENT WITH ANTIBIOTICS WELL STEROIDS AND DUONEB TREATMENTS ?ACUTE ON CHRONIC KIDNEY DISEASE STAGE III.? MONITOR CLOSELY ?OVERWEIGHT.? CONSULT WILL BE GIVEN? REGARDING LIFESTYLE CHANGES ONCE APPROPRIATE ?REACTIVE LEUKOCYTOSIS.?? ON ANTIBIOTICS ?PHYSICAL DECONDITIONING/DEBILITY.? PT AND OT TO SEE ONCE INDICATED ?INSULIN-DEPENDENT DIABETES. ? HYPOGLYCEMIA NOTED OVERNIGHT POSSIBLE ANXIETY. POSSIBLE DEMENTIA. LIKELY VASCULAR. NO SIGNIFICANT BEHAVIOR DISTURBANCE HYPOGLYCEMIA. HISTORY OF DIABETES PLAN 06/05 PATIENT SHOWING SIGN OF SIGNIFICANT ANXIETY COULD BE PANIC ATTACK WELL WILL START ON ANTIDEPRESSANT CHANGE BENZODIAZEPINE TO SCHEDULE SUSPECT A COMPONENT OF DEMENTIA WELL WITH POSSIBLE SUNDOWNING WILL START ON SEROQUEL WELL RISPERDAL KEEP A LIGHT ON IN THE ROOM AT ALL TIME NURSING TO REORIENT 1 INCREASING CONFUSION STATE IS NOTED PATIENT STARTED ON BUSPAR WELL ZOLOFT TRAZODONE ADDED FOR NIGHTTIME WELL MELATONIN CONTINUE TO WORK WITH CASE MANAGEMENT ON DISCHARGE PLANNING FOLLOW LABS DAILY PATIENT HAD A COUPLE EVENTS OF HYPOGLYCEMIA NOTED FOR THE LAST 24 HOURS WILL STOP ALL INSULIN FOR NOW ADDITIONAL MANAGEMENT INDICATING COLI 06/05 ?PATIENT IS NOT REPORTING ANY INCREASING SHORTNESS OF BREATH OR DYSPNEA ON EXERTION ?CLINICALLY HE APPEARS TO BE IMPROVING ?HYPOGLYCEMIA NOTED OVERNIGHT ?WILL HOLD LANTUS FOR NOW ?CONTINUE SLIDING SCALES ON THE ?WHOLE SCHEDULE T.I.D. POST MEAL REGULAR INSULIN WELL ?CONTINUE TO FOLLOW LABS CLOSELY ?WILL ALSO ORDER CHANGE TO? PULSE OXIMETRY SINCE HIS TO CONFIRM CURRENT PULSE OXIMETRY READING ?ASSISTANCE FROM PULMONOLOGY /CRITICAL CARE CONTINUED TO BE GREATLY APPRECIATED AND DISCHARGE IN CASE ?CONTINUE AGGRESSIVE PULMONARY TOILETING ?PATIENT TO USE HIS INCENTIVE SPIROMETER DEVICE ORDERED ?REPEAT CHEST X-RAY ?WILL GET UA THIS MORNING WELL ?THE UVC CONTINUE TO INCREASE.? THIS COULD BE ACUTE REACTIVE TO PREDNISONE ?WILL START TAPERING THE PREDNISONE THIS MORNING WELL ?THE PATIENT DOES NOT APPEAR TO BE TOXIC ?NO FEVER OR CHILLS REPORTED.? MENTATION REMAINED ADEQUATE ?PATIENT TO BE OUT OF BED WITH EACH MEAL ?ADDITIONAL MANAGEMENT PER CLINICAL COURSE 06/04 ?PATIENT PROGRESS IS VERY SLOW ?STILL REQUIRING HIGH-FLOW ?WILL ADD STEROIDS AND ANTIBIOTICS TODAY ?WILL ALSO CONTINUE WITH DUONEB TREATMENT WELL PULMICORT ?REPEAT CHEST X-RAY IN THE MORNING ?NURSING TO CONTINUE TO ENCOURAGE PATIENT TO USE IC? DEVICE ORDERED ?AGGRESSIVE PULMONARY TOILETING ?GET A ABG? IF INDICATED ?ASSISTANCE FROM INTENSIVE CARE ATTENDING IS GREATLY APPRECIATED ?MOBILE? PATIENT MUCH TOLERATED ?CONTINUE TO MAINTAIN PROPER PER HOSPITAL PROTOCOL ?CONTINUE TO FOLLOW LABS DAILY ?MONITOR INPUT AND OUTPUT CLOSELY ?ADDITIONAL MANAGEMENT PER CLINICAL COURSE ?PROGNOSIS REMAIN GUARDED 06/03 ?PATIENT REMAINED ON HIGH-FLOW AND IN THE ICU ?UTILITY BILL COMPLAINTS INVESTIGATOR ASSISTANCE CONTINUED TO BE GREATLY APPRECIATED ?DAILY LABS ORDERED ?MONITOR INPUT OUTPUT CLOSELY ?CONTINUE CURRENT? ANTIBIOTICS FOR NOW ?LABS REMAINED STABLE ? THERE IS BC IS IMPROVING ?KIDNEY FUNCTION HOLDING WELL ?BUT KEEP IN ISOLATION PER HOSPITAL PROTOCOL ?SERIAL ABG AND CHEST X-RAY TO FOLLOW INDICATED ?PATIENT TO BE OUT OF BED WITH EACH MEAL ?ADDITIONAL MEASURE PER CLINICAL COURSE ?PROGNOSIS IS GUARDED 06/02 ?PATIENT SHOWED SOME IMPROVEMENT ?HOWEVER REMAINED AND HIGH-FLOW ?CONTINUE CURRENT MANAGEMENT FOR NOW ?WE WILL REPEAT CHEST X-RAY IN THE MORNING ?CONSIDER ABG WELL IF INDICATED ?ADDITIONAL MEASURE PER CLINICAL COURSE 06/01 ?CONTINUE TO? CURRENT MANAGEMENT FOR NOW ?PATIENT IS STILL REQUIRING HIGH-FLOW ?CLINICAL NURSING INTERN FROM CRITICAL CARE/ INTENSIVE IS GREATLY APPRECIATED ?AGGRESSIVE PULMONARY TOILETING ?NURSING TO ENCOURAGE PATIENT TO USE INCENTIVE SPIROMETER AWAKE ?REPEAT CHEST X-RAY AND ABG INDICATED CLINICALLY ? DAILY LABS TO FOLLOW ?STRICT INPUT AND OUTPUT ?AVOID ALL NEPHROTOXINS ? PHARMACY TO DOSE ALL MEDICATIONS FOR GFR Time Spent With Patient Critical Care time: I spent a total of [] minutes of critical care time on this patient's care today; this time is exclusive of procedural time. Quality VTE Deep Vein Thrombosis/Pulmonary Embolism Present on Admission: No
[2021-06-06] MEDS: MORPHINE 4 MG/ML INJ IV ×2 (20:15→23:53)
[2021-06-06] MEDS: risperiDONE 0.25 MG TABLET PO (23:54)
[2021-06-06] MEDS: SERTRALINE 50 MG TABLET PO (23:55)
[2021-06-06] MEDS: BUSPIRONE 5 MG TABLET 10 MG PO (23:56)
[2021-06-06] MEDS: MELATONIN 3 MG TABLET 6 MG PO (23:56)
[2021-06-06] MEDS: ATORVASTATIN 20 MG TABLET 40 MG PO (23:58)
[2021-06-07] VITALS (11 sets, daily range): BP systolic 92–136; BP diastolic 52–71; PULSE 66–104; RESP 17–22; TEMP 36–36.9; O2SAT 91–97
[2021-06-07] MEDS: TRAZODONE 50 MG TABLET 25 MG PO ×2 (00:01→22:15)
[2021-06-07 05:39] LABS: Add Manual Diff / Slide Review NO; Basophils Absolute Auto 0 /uL (0-100); Basophils Percent Auto 0.2 % (0-2); Eosinophils Absolute Auto 100 /uL (0-450); Eosinophils Percent Auto 0.7 % (2-4); Hemoglobin 10.6 g/dL (13.5-17.5); Lymphocytes Absolute Auto 1400 /uL (1100-4500); Lymphocytes Percent Auto 9.3 % (25-40); Mean Corpuscular HGB Conc 33.1 % (30-36); Mean Corpuscular Volume 87.6 fL (80-100); Monocytes Absolute Auto 900 /uL (0-900); Monocytes Percent Auto 5.8 % (3-14); Neutrophils Absolute Auto 12800 /uL (1500-7000); Platelet Count 295 X10^3/uL (150-400); Red Blood Cell Count 3.66 X10^6/uL (4.5-5.9); Red Cell Distribution Width 15.3 % (11.6-14.8); White Blood Cell Count 15.2 X10^3/uL (4.5-11.0)
[2021-06-07 05:46] LABS: Alanine Aminotransferase 25 IU/L (<50); Albumin 2.7 g/dL (3.5-5.0); Albumin Globulin Ratio 0.9 (1.0-2.8); Alkaline Phosphatase 87 U/L (38-126); Aspartate Aminotransferase 41 IU/L (17-59); BUN Creatinine Ratio 20.6 (6-22); Bilirubin Total 0.4 mg/dL (0.2-1.3); Blood Urea Nitrogen 22 mg/dL (9-20); Calcium 8.1 mg/dL (8.4-10.2); Carbon Dioxide 32 mmol/L (22-32); Chloride 102 mmol/L (98-107); Estimated Glomerular Filt Rate > 60.0 mL/min (>60); Globulin 2.9 g/dL (1.7-4.1); Glucose 62 mg/dL (80-110); HEMOLYSIS < 15 (0-50); Phosphorous 2.2 mg/dL (2.3-3.7); Potassium 4.6 mmol/L (3.4-5.1); Sodium 137 mmol/L (137-145); Total Protein 5.6 g/dL (6.3-8.2)
[2021-06-07] MEDS: BUDESONIDE 0.5 MG/2 ML NEB INH ×2 (09:49→20:20)
[2021-06-07] MEDS: ALBUTEROL/IPRATROPIUM 3 ML AMPUL INH ×3 (09:49→20:20)
[2021-06-07] MEDS: BUSPIRONE 5 MG TABLET 10 MG PO ×2 (10:41→22:00)
[2021-06-07] MEDS: BARICITINIB 2 MG TABLET 4 MG PO (10:41)
[2021-06-07] MEDS: ASCORBIC ACID 500 MG TABLET PO ×2 (10:41→22:31)
[2021-06-07] MEDS: APIXABAN 5 MG TABLET PO ×2 (10:41→22:12)
[2021-06-07] MEDS: ASPIRIN EC 81 MG TABLET PO (10:41)
[2021-06-07] MEDS: CHOLECALCIFEROL (VITAMIN D3) 400 UNIT TABLET PO ×2 (10:42→22:31)
[2021-06-07] MEDS: DOCUSATE 100 MG CAPSULE PO ×2 (10:42→22:18)
[2021-06-07] MEDS: FAMOTIDINE 20 MG TABLET PO ×2 (10:42→22:17)
[2021-06-07] MEDS: METOPROLOL ER 50 MG TABLET PO ×2 (10:42→22:13)
[2021-06-07] MEDS: FERROUS SULFATE 325 MG TABLET PO (10:42)
[2021-06-07] MEDS: DOXYCYCLINE HYCLATE 100 MG TABLET PO ×2 (10:42→22:17)
[2021-06-07] MEDS: CEFDINIR 300 MG CAPSULE PO ×2 (10:42→22:15)
[2021-06-07] MEDS: metroNIDAZOLE 500 MG TABLET 250 MG PO ×3 (10:43→22:30)
[2021-06-07] MEDS: polyethylene glycoL 3350 17 GM POWD.PACK PO ×2 (10:46→22:12)
[2021-06-07] MEDS: predniSONE 20 MG TABLET 10 MG PO (10:46)
[2021-06-07] MEDS: PREGABALIN 50 MG CAPSULE 100 MG PO ×2 (10:48→22:23)
[2021-06-07] MEDS: SENNOSIDES 8.6 MG TABLET 17.2 MG PO (10:48)
[2021-06-07] MEDS: TRAMADOL 50 MG TABLET PO ×3 (10:49→22:16)
[2021-06-07] MEDS: DOFETILIDE 125 MCG 125 EACH PO ×2 (10:49→22:11)
[2021-06-07] MEDS: SODIUM CHLORIDE 0.9% FLUSH 10 ML IV ×3 (10:50→22:35)
[2021-06-07] MEDS: risperiDONE 0.25 MG TABLET PO ×2 (10:52→22:39)
[2021-06-07] MEDS: MORPHINE 4 MG/ML INJ IV ×2 (10:55→22:11)
[2021-06-07] MEDS: LORazepam 0.5 MG TABLET PO ×2 (10:55→19:46)
--- NOTE | 2021-06-07 14:29 | P.PN_ITS ---
Subjective Subjective Date Patient Seen: 06/07/21 Interval history: ? 75-YEAR-OLD MALE BEING TREATED FOR COVID-19 PNEUMONIA.? ?SHOWING SOME IMPROVEMENT.? ON NASAL CANNULA VERY ANXIOUS. PANIC ATTACKS SUSPECTED WELL ?TODAY NO CHEST PAIN. NO INCREASING SHORTNESS OF BREATH. NO INCREASING DYSPNEA ON EXERTION APART FROM HIS USUAL. ANXIOUS. NO CHANGE IN VISION. NO CHANGE IN MENTATION. NO INCREASING CONFUSION Exam Vital Signs (past 8 hours): - 06/07/21 07:45 06/07/21 09:49 06/07/21 09:58 Temperature 98.4 F Pulse Rate 66 100 H 104 H Respiratory Rate 18 22 22 Blood Pressure 130/59 L Pulse Oximetry 97 92 Fraction of Inspired Oxygen 38 Oxygen Delivery Method High Flow Nasal Cannula Oxygen Flow Rate 8 Narrative Exam Narrative: NO ACUTE DISTRESS.? PATIENT IS ALERT ORIENTED X3. ON O2 PNC VITAL SIGNS STABLE HEAD ATRAUMATIC NORMOCEPHALIC NECK : SUPPLE WITHOUT ADENOPATHY NO CAROTID BRUITS EYE:? EOMI, PERRLA, NORMAL CONJUNCTIVA; NO JAUNDICE CHEST:? REGULAR RATE.? ? NO RUBS.? PMI IS NON DISPLACED.?? NORMAL S1-S2 PULMONARY:? DECREASED BS OVER THE BASES.? ? NO WHEEZING. BIBASILAR CRACKLES NOTED; NO INCREASED DULLNESS TO PERCUSSION.? EXTREMITIES: ? 1+ NONPITTING EDEMA..? NO CYANOSIS CLUBBING NOTED. NEURO:? CRANIAL NERVES 2-12 GROSSLY INTACT. NO FOCAL NEUROLOGICAL DEFICIT NOTED. MSK:? NORMAL RANGE OF MOTION FOR AGE.? NO JOINT EFFUSION. POOR MUSCULATURE.? NO SIGN OF TRAUMA SKIN:?? FAIR SKIN TURGOR FOR AGE; NO ECCHYMOSIS.? NO LESION. ? NO RASHES :? NORMAL EXTERNAL GENITALIA. PSYCH : ? ALERT AWAKE ORIENTED X3.? CALM.? COOPERATIVE Objective Labs Result Diagrams: 06/07/21 05:20 06/07/21 05:20 Labs: Laboratory Results - last 24 hr 06/07/21 06/07/21 05:20 05:20 WBC 15.2 H RBC 3.66 L Hgb 10.6 L Hct 32.0 L MCV 87.6 MCH 29.0 MCHC 33.1 RDW 15.3 H Plt Count 295 Neut % (Auto) 84.0 H Lymph % (Auto) 9.3 L [place] % (Auto) 5.8 Eos % (Auto) 0.7 L Baso % (Auto) 0.2 Neut # (Auto) 20416 H Lymph # (Auto) 1400 [place] # (Auto) 900 Eos # (Auto) 100 Baso # (Auto) 0 Sodium 137 Potassium 4.6 Chloride 102 Carbon Dioxide 32 BUN 22 H Creatinine 1.07 Estimated GFR > 60.0 BUN/Creatinine Ratio 20.6 Glucose 62 L Calcium 8.1 L Phosphorus 2.2 L Total Bilirubin 0.4 AST 41 ALT 25 Alkaline Phosphatase 87 Total Protein 5.6 L Albumin 2.7 L Globulin 2.9 Albumin/Globulin Ratio 0.9 L [facility] Medical History Acne (Unknown) Actinic keratosis (~2017) Anemia Atrial fibrillation (Unknown) Chronic low back pain (Unknown) Closed compression fracture of third lumbar vertebra Coronary artery disease (Unknown) Diabetes (Unknown) GERD (gastroesophageal reflux disease) (Unknown) Hearing loss (Unknown) Hx of coronary angiogram (Unknown) Hyperlipemia (Unknown) Hypertension (Unknown) Keloid Osteoporosis Pacemaker Renal insufficiency Sarcoidosis (11/2007) Squamous cell carcinoma (Unknown) Visit for suture removal Surgical History H/O left wrist surgery H/O toe surgery History of arthroplasty of left shoulder (Unknown) History of arthroplasty of right shoulder (Unknown) History of fusion of thoracic spine History of lumbar fusion Hx of knee surgery (Unknown) Hx of left knee surgery Hx of prior ablation treatment (~05/2013) Status post lumbar and lumbosacral fusion by anterior technique Family History Father Diabetes mellitus Mother No problems noted. Social History household members: spouse and children Smoking Status: Never smoker second hand exposure: Yes alcohol intake: current substance use type: does not use Assessment & Plan Assessment & Plan narrative: PROBLEM LIST ACUTE HYPOXIC RESPIRATORY FAILURE.? ON HIGH-FLOW AT 4OL THIS A.M. ?COVID-19 PNEUMONIA /PNEUMONITIS.? SUPPORTIVE TREATMENT WITH ANTIBIOTICS WELL STEROIDS AND DUONEB TREATMENTS ?ACUTE ON CHRONIC KIDNEY DISEASE STAGE III.? MONITOR CLOSELY ?OVERWEIGHT.? CONSULT WILL BE GIVEN? REGARDING LIFESTYLE CHANGES ONCE APPROPRIATE ?REACTIVE LEUKOCYTOSIS.?? ON ANTIBIOTICS ?PHYSICAL DECONDITIONING/DEBILITY.? PT AND OT TO SEE ONCE INDICATED ?INSULIN-DEPENDENT DIABETES. ? HYPOGLYCEMIA NOTED OVERNIGHT ?POSSIBLE ANXIETY. ON ANTIDEPRESSANT MEDICATIONS ? POSSIBLE DEMENTIA.? LIKELY VASCULAR.? NO SIGNIFICANT BEHAVIOR DISTURBANCE ?HYPOGLYCEMIA.? HISTORY OF DIABETES POSSIBLE SARCOIDOSIS PER HISTORY PLAN 06/07 PATIENT SHOWING IMPROVEMENT. MAINTAINING SATURATION ABOVE 90% ON 6 L PER NC HOWEVER PATIENT REMAINED SIGNIFICANTLY ANXIOUS THIS WILL BE A BARRIER FOR DISCHARGE PHYSICAL THERAPY TO EVALUATE PATIENT IN REGARD TO CAPACITY TO USE STAIRS AT HOME IN THE MEANWHILE CONTINUE CURRENT MANAGEMENT ADDITIONAL MANAGEMENT PER CLINICAL COURSE 06/06 ?PATIENT SHOWING SIGN OF SIGNIFICANT ANXIETY ?COULD BE PANIC ATTACK WELL ?WILL START ON ANTIDEPRESSANT ?CHANGE BENZODIAZEPINE TO SCHEDULE ?SUSPECT A? COMPONENT OF DEMENTIA WELL WITH POSSIBLE SUNDOWNING ?WILL START ON SEROQUEL WELL RISPERDAL ?KEEP A LIGHT ON IN THE ROOM AT ALL TIME ?NURSING TO REORIENT 1 INCREASING CONFUSION STATE IS NOTED ?PATIENT STARTED ON BUSPAR WELL ZOLOFT ?TRAZODONE ADDED FOR NIGHTTIME WELL MELATONIN ?CONTINUE TO WORK WITH CASE MANAGEMENT ON DISCHARGE PLANNING ?FOLLOW LABS DAILY ?PATIENT HAD A COUPLE EVENTS OF HYPOGLYCEMIA NOTED FOR THE LAST 24 HOURS ?WILL STOP ALL INSULIN ? FOR NOW ?ADDITIONAL MANAGEMENT INDICATING COLI 06/05 ?PATIENT IS NOT REPORTING ANY INCREASING SHORTNESS OF BREATH OR DYSPNEA ON EXERTION ?CLINICALLY HE APPEARS TO BE IMPROVING ?HYPOGLYCEMIA NOTED OVERNIGHT ?WILL HOLD LANTUS FOR NOW ?CONTINUE SLIDING SCALES ON THE ?WHOLE SCHEDULE T.I.D. POST MEAL REGULAR INSULIN WELL ?CONTINUE TO FOLLOW LABS CLOSELY ?WILL ALSO ORDER CHANGE TO? PULSE OXIMETRY SINCE HIS TO CONFIRM CURRENT PULSE OXIMETRY READING ?ASSISTANCE FROM PULMONOLOGY /CRITICAL CARE CONTINUED TO BE GREATLY APPRECIATED AND DISCHARGE IN CASE ?CONTINUE AGGRESSIVE PULMONARY TOILETING ?PATIENT TO USE HIS INCENTIVE SPIROMETER DEVICE ORDERED ?REPEAT CHEST X-RAY ?WILL GET UA THIS MORNING WELL ?THE UVC CONTINUE TO INCREASE.? THIS COULD BE ACUTE REACTIVE TO PREDNISONE ?WILL START TAPERING THE PREDNISONE THIS MORNING WELL ?THE PATIENT DOES NOT APPEAR TO BE TOXIC ?NO FEVER OR CHILLS REPORTED.? MENTATION REMAINED ADEQUATE ?PATIENT TO BE OUT OF BED WITH EACH MEAL ?ADDITIONAL MANAGEMENT PER CLINICAL COURSE 06/04 ?PATIENT PROGRESS IS VERY SLOW ?STILL REQUIRING HIGH-FLOW ?WILL ADD STEROIDS AND ANTIBIOTICS TODAY ?WILL ALSO CONTINUE WITH DUONEB TREATMENT WELL PULMICORT ?REPEAT CHEST X-RAY IN THE MORNING ?NURSING TO CONTINUE TO ENCOURAGE PATIENT TO USE IC? DEVICE ORDERED ?AGGRESSIVE PULMONARY TOILETING ?GET A ABG? IF INDICATED ?ASSISTANCE FROM INTENSIVE CARE ATTENDING IS GREATLY APPRECIATED ?MOBILE? PATIENT MUCH TOLERATED ?CONTINUE TO MAINTAIN PROPER PER HOSPITAL PROTOCOL ?CONTINUE TO FOLLOW LABS DAILY ?MONITOR INPUT AND OUTPUT CLOSELY ?ADDITIONAL MANAGEMENT PER CLINICAL COURSE ?PROGNOSIS REMAIN GUARDED 06/03 ?PATIENT REMAINED ON HIGH-FLOW AND IN THE ICU ?HOUSE SITTER ASSISTANCE CONTINUED TO BE GREATLY APPRECIATED ?DAILY LABS ORDERED ?MONITOR INPUT OUTPUT CLOSELY ?CONTINUE CURRENT? ANTIBIOTICS FOR NOW ?LABS REMAINED STABLE ? THERE IS BC IS IMPROVING ?KIDNEY FUNCTION HOLDING WELL ?BUT KEEP IN ISOLATION PER HOSPITAL PROTOCOL ?SERIAL ABG AND CHEST X-RAY TO FOLLOW INDICATED ?PATIENT TO BE OUT OF BED WITH EACH MEAL ?ADDITIONAL MEASURE PER CLINICAL COURSE ?PROGNOSIS IS GUARDED 06/02 ?PATIENT SHOWED SOME IMPROVEMENT ?HOWEVER REMAINED AND HIGH-FLOW ?CONTINUE CURRENT MANAGEMENT FOR NOW ?WE WILL REPEAT CHEST X-RAY IN THE MORNING ?CONSIDER ABG WELL IF INDICATED ?ADDITIONAL MEASURE PER CLINICAL COURSE 06/01 ?CONTINUE TO? CURRENT MANAGEMENT FOR NOW ?PATIENT IS STILL REQUIRING HIGH-FLOW ?NETWORK COMMUNICATIONS ENGINEER FROM CRITICAL CARE/ INTENSIVE IS GREATLY APPRECIATED ?AGGRESSIVE PULMONARY TOILETING ?NURSING TO ENCOURAGE PATIENT TO USE INCENTIVE SPIROMETER AWAKE ?REPEAT CHEST X-RAY AND ABG INDICATED CLINICALLY ? DAILY LABS TO FOLLOW ?STRICT INPUT AND OUTPUT ?AVOID ALL NEPHROTOXINS ? PHARMACY TO DOSE ALL MEDICATIONS FOR GFR Time Spent With Patient Critical Care time: I spent a total of [] minutes of critical care time on this patient's care tod ay; this time is exclusive of procedural time. Quality VTE Deep Vein Thrombosis/Pulmonary Embolism Present on Admission: No
--- NOTE | 2021-06-07 14:58 | PT.IIE ---
Current Diagnoses Type 2 diabetes mellitus with diabetic chronic kidney disease (05/27/21) Paroxysmal atrial fibrillation (05/27/21) Unspecified diastolic (congestive) heart failure (05/27/21) Pneumonia due to coronavirus disease 2019 (05/27/21) Acute respiratory failure with hypoxia (05/27/21) Acute and chronic respiratory failure with hypoxia (05/27/21) Acute kidney failure, unspecified (05/27/21) Chronic kidney disease, unspecified (05/27/21) COVID-19 (05/27/21) nursing home (current) use of insulin (05/27/21) Medical History (Last Reviewed 05/28/21 @ 07:00 [facility] Acne (Unknown) Actinic keratosis (~2017) Anemia Atrial fibrillation (Unknown) Chronic low back pain (Unknown) Closed compression fracture of third lumbar vertebra Coronary artery disease (Unknown) Diabetes (Unknown) GERD (gastroesophageal reflux disease) (Unknown) Hearing loss (Unknown) Hx of coronary angiogram (Unknown) Hyperlipemia (Unknown) Hypertension (Unknown) Keloid Osteoporosis Pacemaker Renal insufficiency Sarcoidosis (11/2007) Squamous cell carcinoma (Unknown) Visit for suture removal Physical Therapy Inpatient Evaluation/Re-Eval M1 PT/OT-IP Prior Functional Status Start: 06/07/21 08:38 Freq: Status: Active Protocol: Document 06/07/21 13:35 MB (Rec: 06/07/21 14:39 MB [id number]) Medical Review Prior Functional Status Medical History Reviewed Yes Communication WNLs Mobility and Gait Pt does not provide a clear history when asked about baseline. He lives with and son. is supportive. He has a flight of steps in the house to his room and 2-3 steps with one rail to enter home from garage. Activities of Daily Living and IADL's Unclear when asked, pt is anxious and does not provide a lot of information when asked questions Social History Household Members spouse,children Living Arrangements House Number of Floors (Floors) Two Floors Number of Stairs To Enter/Railing? 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 PT-IP Current Condition Start: 06/07/21 08:38 Freq: Status: Active Protocol: Document 06/07/21 13:35 MB (Rec: 06/07/21 14:39 MB [id number]) Physical Therapy Current Condition Current Condition Evaluation Date 06/07/21 Treatment Diagnosis Debility from COVID M3 PT-IP Subjective Start: 06/07/21 08:38 Freq: Status: Active Protocol: Document 06/07/21 13:35 MB (Rec: 06/07/21 14:39 MB [id number]) Subjective Physical Therapy Visit Type Type Initial Evaluation Visit Start Time 13:35 Visit Stop Time 13:55 Total Visit Minutes 20 Number of PULL THROUGH HOOKER Visits 0 Physical Therapy Visit Comments Patient Comments Pt states that he wants to talk with the nurse about lasix. Nurse had already indicated to PT that she had spoken with pt about this before PT arrival into room. Therapy Pain Assessment Pain When Pain Assessed At Rest Pain Present Pain Present Denied Pain M4 PT-IP Mobility and Gait Start: 06/07/21 08:38 Freq: Status: Active Protocol: Document 06/07/21 13:35 MB (Rec: 06/07/21 14:39 MB [id number]) PT-Bed Mobility Assessment Rolling Type of Rolling Roll to Right,Roll to Left Level of Assist Independent Supine to Sit Supine to Sit Independent,Head of Bed Elevated,Bedrails Sit to Supine Sit to Supine Independent,Head of Bed Elevated,Bedrails Scooting Scooting to Edge of Bed Standby Assistance PT-Transfer Assessment Sit to and From Stand Sit to and from Stand Contact Guard Assistance,1 Person Assistance,Use of Upper Extremities Equipment Transfer Assistive Device None Transfers Transfer Destination Bed,Chair Transfer Technique Stand Step Pivot Transfer Ability Level of Assist Contact Guard Assistance Comments Mobility Comments Pt presents with PAULA, increased anxiety, decreased receptiveness to PT ed about hand placement and using RW for transfer and short steps. He asks for urinal x2 and can urinate on the second trial. He reaches for side table, bed and chair for transfer and requires CGA and safety tips for STRAW HAT PRESSER from PT and not to reach for rolling table. Sats decrease to 88% on O2 with mobility and his HR increases to 111 BPM. O2 reader says 7- 9L on wall reading. Gait Assessment Gait Gait Assistance Required: Minimum Assistance Distance (Feet) 2 Assistive Devices Assistive Device None Gait Deviations General Gait Pattern Decreased Stride Length, Decreased Feet Clearance, Flexed Trunk Factors Limiting Gait Function Factors Limiting Gait Function Decreased Activity Tolerance, Decreased Strength,Difficulty Following Directions,Poor Balance,Poor Safety Awareness Comments Gait Comments Overall, anxiety and PAULA are biggest limiting factors for gait today. Pt is only agreeable to taking a few steps holding PT's hand with his right hand and he takes shuffling steps from the chair to the bed and back. He has decreased safety awareness, sitting close to EOB, and asking for rest break in that position. PT-Balance Assessment Sitting Balance and Reactions Static Sitting Balance Ability Fair Dynamic Sitting Balance Ability Fair Standing Balance and Reactions Static Standing Balance Ability Poor Dynamic Standing Balance Ability Poor M5 PT-IP Objective Assessments Start: 06/07/21 08:38 Freq: Status: Active Protocol: Document 06/07/21 13:35 MB (Rec: 06/07/21 14:39 MB [id number]) Orientation Orientation/Cognition Level of Alertness Alert Orientation Name,Age,Birthday,Month,Date, Year,Day of Week,Place, Situation Language Function Ability No Deficits Noted Safety Awareness Decreased Safety Awareness Comments It is hard to determine if pt has memory impairment or not. He does not clearly answer PLOF questions when PT asks him. Gross Range of Motion Upper Extremity ROM Assessment Within Functional Limits Lower Extremity ROM Assessment Within Functional Limits Strength Comments Strength Comments MMT deferred d/t PAULA and pt requiring rest breaks for functional activities and urgently needing the urinal x2 . Pt has a limited tolerance to PT interventions today. Coordination Assessment Gross Coordination Gross Coordination WNL Sensation Assessment Comments Sensation Comments Pt does not participate with sensory testing today. M7 PT-IP Assessment and Plan Start: 06/07/21 08:38 Freq: Status: Active Protocol: Document 06/07/21 13:35 MB (Rec: 06/07/21 14:58 MB [id number]) PT Summary Assessment and Plan Potential Rehabilitation Potential Fair Status of Condition at Evaluation Unstable Summary Impairments Strength,Balance,Coordination, Sensation,Bed Mobility, Transfers,Gait,Activity Tolerance Assessment Summary Pt is a 75 y/o male presenting with PAULA, anxiety, functional weakness and decreased mobility in setting of COVID pneumonia. Pt's O2 is high and his sats are 88-97% throughout treatment. He has a hard time communicating his baseline and following commands for transfers and gait today, mostly d/t anxiety . He will benefit from acute and post-acute PT to improve functional strength, transfers and gait. Goals Bed Mobility Goal Independent Transfer Goal Independent Gait Goal Independent Gait Distance 50, laps around room Other Goals Bed mobility goal is for I without rail and with bed flat . Ascend and descend step in room x2 with LRAD to allow home entrance. Days to Meet Goals 5 Frequency of Treatment Frequency Of Treatment Once a Day Treatment Plan Physical Therapy Treatment Plan Bed Mobility Training,Transfer Training,Gait Training, Therapeutic Exercise,Balance Retraining,Discharge Planning, Hot or Cold Pack,Neuromuscular Re-ed,Manual Therapy Precautions Other Precautions Only get up when staff in room Recommendations To Nursing Amount of Assist Needed 1 Person Assist Discharge Recommendations PT Discharge Recommendations SNF Rehab Transportation Needs at Discharge Private Vehicle
[2021-06-07] MEDS: SUCRALFATE 1 GM TABLET PO ×3 (15:43→22:39)
[2021-06-07] MEDS: SODIUM,POTASSIUM PHOSPHATES PACKET 2 EACH PO (15:45)
--- NOTE | 2021-06-07 16:04 | CM.DPC ---
DCP continued: CM spoke with PT after patients evaluation and PT is recommending SNF- CM spoke to patient and patients yesterday and he stated he never wants to go back to SNF again because of a previous incident. CM attempted to call patient in his room today with no answer- CM spoke with patients nurse today who stated patient is still on 8L of O2 per NC and patients home O2 only goes up to 5L per NC. Currently the plan of care is when patient is medically stable and on less then 5L o2 per NC patient [facility]. CM will continue to follow the patient to assist with any DC planning needs as they arrive. Lurdes casas RN Case manger
[2021-06-07] MEDS: SERTRALINE 50 MG TABLET PO (22:13)
[2021-06-07] MEDS: MELATONIN 3 MG TABLET 6 MG PO (22:13)
[2021-06-07] MEDS: QUETIAPINE 25 MG TABLET 12.5 MG PO (22:17)
[2021-06-08] VITALS (20 sets, daily range): BP systolic 96–131; BP diastolic 51–69; PULSE 64–87; RESP 17–28; TEMP 36.3–36.8; O2SAT 87–100
[2021-06-08 05:22] LABS: Add Manual Diff / Slide Review NO; Basophils Absolute Auto 0 /uL (0-100); Basophils Percent Auto 0.4 % (0-2); Eosinophils Absolute Auto 200 /uL (0-450); Eosinophils Percent Auto 1.6 % (2-4); Hematocrit 30.5 % (41-53); Hemoglobin 10.3 g/dL (13.5-17.5); Lymphocytes Absolute Auto 1300 /uL (1100-4500); Lymphocytes Percent Auto 12.5 % (25-40); Mean Corpuscular HGB Conc 33.7 % (30-36); Mean Corpuscular Hemoglobin 29.5 PG (26-34); Mean Corpuscular Volume 87.5 fL (80-100); Monocytes Absolute Auto 600 /uL (0-900); Monocytes Percent Auto 6.3 % (3-14); Neutrophils Absolute Auto 8200 /uL (1500-7000); Neutrophils Percent Auto 79.2 % (50-75); Platelet Count 280 X10^3/uL (150-400); Red Blood Cell Count 3.48 X10^6/uL (4.5-5.9); Red Cell Distribution Width 15.4 % (11.6-14.8); White Blood Cell Count 10.3 X10^3/uL (4.5-11.0)
[2021-06-08 05:41] LABS: Alanine Aminotransferase 27 IU/L (<50); Albumin 2.6 g/dL (3.5-5.0); Albumin Globulin Ratio 0.9 (1.0-2.8); Alkaline Phosphatase 71 U/L (38-126); Aspartate Aminotransferase 38 IU/L (17-59); BUN Creatinine Ratio 20.4 (6-22); Bilirubin Total 0.4 mg/dL (0.2-1.3); Blood Urea Nitrogen 20 mg/dL (9-20); Calcium 8.3 mg/dL (8.4-10.2); Carbon Dioxide 32 mmol/L (22-32); Chloride 104 mmol/L (98-107); Estimated Glomerular Filt Rate > 60.0 mL/min (>60); Globulin 2.9 g/dL (1.7-4.1); Glucose 49 mg/dL (80-110); HEMOLYSIS < 15 (0-50); Phosphorous 3.4 mg/dL (2.3-3.7); Potassium 4.9 mmol/L (3.4-5.1); Sodium 138 mmol/L (137-145); Total Protein 5.5 g/dL (6.3-8.2)
--- NOTE | 2021-06-08 05:54 | PC.NURSE ---
Patient on 7L of HF at beginning of shift. Patient on Bipap with 7L HF and sats up to 100%. Patient medicated with Morphine 4 mg at hs for back pain. Patient slept well until approximately 0500 and sats down to 88% when transferred to 9L HF. O2 increased to 9L sats at 90-91%. RT Isis notified of need to increase oxygen. Patient remains short of breath at rest. No overt anxiety noted at this time.
[2021-06-08] MEDS: DEXTROSE 50 % IN WATER 25 GM/50 ML SYRINGE IV (06:42)
[2021-06-08] MEDS: SODIUM CHLORIDE 0.9% FLUSH 10 ML IV ×2 (06:43→20:45)
--- NOTE | 2021-06-08 06:49 | PC.NURSE ---
Addendum entered by Rosi Ely R.N. 06/08/21 07:15: Pt's blood sugar recheck at 185. Report given to Carolyn SEAMAN. Patient remains alert and oriented. O2 at 11L sats 90%. Original Note: Patient's blood glucose per lab @ 49. D50/25Gms given. Patients O2 sats 93-94% on 11L. Patient states he was dozing when I came in to give him the D50.
[2021-06-08] MEDS: SUCRALFATE 1 GM TABLET PO ×3 (08:00→20:44)
[2021-06-08 08:16] LABS: COVID19 -Nasal RAPID Negative (Negative)
[2021-06-08] MEDS: BUSPIRONE 5 MG TABLET 10 MG PO ×2 (08:46→20:37)
[2021-06-08] MEDS: METOPROLOL ER 50 MG TABLET PO ×2 (08:46→20:42)
[2021-06-08] MEDS: FAMOTIDINE 20 MG TABLET PO ×2 (08:46→20:44)
[2021-06-08] MEDS: DOCUSATE 100 MG CAPSULE PO ×2 (08:47→20:38)
[2021-06-08] MEDS: APIXABAN 5 MG TABLET PO ×2 (08:47→20:43)
[2021-06-08] MEDS: ASPIRIN EC 81 MG TABLET PO (08:47)
[2021-06-08] MEDS: BARICITINIB 2 MG TABLET 4 MG PO (08:47)
[2021-06-08] MEDS: CEFDINIR 300 MG CAPSULE PO ×2 (08:48→20:39)
[2021-06-08] MEDS: OXYCODONE/ACETAMINOPHEN 5/325 TABLET 1 TAB PO (08:48)
[2021-06-08] MEDS: DOXYCYCLINE HYCLATE 100 MG TABLET PO ×2 (08:48→20:38)
[2021-06-08] MEDS: FERROUS SULFATE 325 MG TABLET PO (08:48)
[2021-06-08] MEDS: LORazepam 0.5 MG TABLET PO (08:48)
[2021-06-08] MEDS: CHOLECALCIFEROL (VITAMIN D3) 400 UNIT TABLET PO ×2 (08:48→20:44)
[2021-06-08] MEDS: TRAMADOL 50 MG TABLET PO ×3 (08:49→20:39)
[2021-06-08] MEDS: predniSONE 20 MG TABLET 10 MG PO (08:49)
[2021-06-08] MEDS: ASCORBIC ACID 500 MG TABLET PO ×2 (08:49→20:39)
[2021-06-08] MEDS: PREGABALIN 50 MG CAPSULE 100 MG PO ×2 (08:49→20:37)
[2021-06-08] MEDS: polyethylene glycoL 3350 17 GM POWD.PACK PO (08:50)
[2021-06-08] MEDS: DOFETILIDE 125 MCG 125 EACH PO ×2 (08:52→20:36)
[2021-06-08] MEDS: LACTOBACILLUS ACIDOPHILUS TABLET 1 EACH PO ×2 (08:53→16:26)
[2021-06-08] MEDS: ALBUTEROL/IPRATROPIUM 3 ML AMPUL INH ×5 (08:59→22:32)
[2021-06-08] MEDS: BUDESONIDE 0.5 MG/2 ML NEB INH ×2 (08:59→19:40)
[2021-06-08] MEDS: risperiDONE 0.25 MG TABLET PO ×2 (09:02→20:38)
[2021-06-08] MEDS: SENNOSIDES 8.6 MG TABLET 17.2 MG PO (09:02)
[2021-06-08] MEDS: metroNIDAZOLE 500 MG TABLET 250 MG PO ×3 (09:02→20:42)
--- NOTE | 2021-06-08 09:26 | DI.RAD.S_ITS ---
PROCEDURE: XR CHEST 1V INDICATIONS: PNEUMONIA TECHNIQUE: One view of the chest was acquired. COMPARISON: [facility], CR, XR CHEST 1V, 06/03/2021, 5:31. [facility], CR, XR CHEST 1V, 05/29/2021, 9:03. [facility], CR, XR CHEST 1V, 06/05/2021, 5:22. FINDINGS: Surgical changes and devices: A pacer device is seen. The leads are seen in stable positions. There is partial visualization of thoracolumbar fixation hardware. Lungs and pleura: The lungs are slightly better aerated on the current study than on the prior. Bilateral interstitial infiltrates are seen, which appears slightly improved compared to the prior. Small bilateral pleural effusions are seen. No pneumothorax is seen. Mediastinum: Mediastinal contours appear normal. Heart size is normal. Atherosclerotic calcification of the aortic arch is noted. Bones and chest wall: No suspicious bony lesions. Age-appropriate bony degenerative changes are seen. Overlying soft tissues appear unremarkable. IMPRESSION: Improved aeration, with mildly decreased prominence the interstitial infiltrates, which are consistent with the known clinical history of COVID pneumonia. Small bilateral pleural effusions. Postoperative and degenerative changes are seen. Dictated by: Efraín Briones M.D. on 06/08/2021 at 8:53 Approved by: Efraín Briones M.D. on 06/08/2021 at 8:54
--- NOTE | 2021-06-08 09:36 | PM.PN.1 ---
Subjective Subjective Date Patient Seen: 06/08/21 Interval history: BRIEF HPI ? 75-YEAR-OLD MALE BEING TREATED FOR COVID-19 PNEUMONIA.? ?SHOWING SOME IMPROVEMENT.?? REQUIRING BETWEEN 6- 10L /38% FIO2 ?VERY? ANXIOUS.? PANIC ATTACKS SUSPECTED? WELL RE-TESTED ON 06/08... COVID NEGATIVE ?TODAY PATIENT REPORTED HAVING SOME SHORTNESS OF BREATH THIS MORNING WITH MILD EXERTION ?NO CHEST PAIN.? NO CHEST PRESSURE NO SYNCOPAL SYMPTOMS NO CHANGE IN VISION.? NO CHANGE IN MENTATION.? NO INCREASING CONFUSION? Exam Vital Signs (past 8 hours): - 06/08/21 02:14 06/08/21 05:00 06/08/21 06:00 Temperature 97.4 F L Pulse Rate 65 69 Respiratory Rate 17 Blood Pressure 97/60 Pulse Oximetry 100 90 L 91 06/08/21 06:52 06/08/21 07:50 06/08/21 08:46 Temperature 98.2 F Pulse Rate 65 65 65 Respiratory Rate 22 Blood Pressure 103/59 L 103/57 L Pulse Oximetry 94 93 06/08/21 08:50 Temperature Pulse Rate 75 Respiratory Rate 24 Blood Pressure Pulse Oximetry 91 Fraction of Inspired Oxygen 38 Oxygen Delivery Method High Flow Nasal Cannula Oxygen Flow Rate 10 Narrative Exam Narrative: NO ACUTE DISTRESS.? PATIENT IS ALERT ORIENTED X3. ON HIGH-FLOW OXYGEN 10L/38% THIS MORNING. ANXIOUS HEAD ATRAUMATIC NORMOCEPHALIC NECK : SUPPLE WITHOUT ADENOPATHY NO CAROTID BRUITS EYE:? EOMI, PERRLA, NORMAL CONJUNCTIVA; NO JAUNDICE CHEST:? REGULAR RATE.? ? NO RUBS.? PMI IS NON DISPLACED.?? NORMAL S1-S2 PULMONARY:? DECREASED BS OVER THE BASES.? ? NO WHEEZING. BIBASILAR CRACKLES NOTED; NO INCREASED DULLNESS TO PERCUSSION.?? EXTREMITIES: ? 1+ NONPITTING EDEMA..? NO CYANOSIS CLUBBING NOTED. NEURO:? CRANIAL NERVES 2-12 GROSSLY INTACT. NO FOCAL NEUROLOGICAL DEFICIT NOTED. MSK:? NORMAL RANGE OF MOTION FOR AGE.? NO JOINT EFFUSION. POOR MUSCULATURE.? NO SIGN OF TRAUMA SKIN:?? FAIR SKIN TURGOR FOR AGE; NO ECCHYMOSIS.? NO LESION. ? NO RASHES :? NORMAL EXTERNAL GENITALIA. PSYCH : ? ALERT AWAKE ORIENTED X3.? ANXIOUS.? COOPERATIVE Objective Labs Result Diagrams: 06/08/21 05:03 06/08/21 05:03 Labs: Laboratory Results - last 24 hr 06/08/21 06/08/21 06/08/21 05:03 05:03 07:40 WBC 10.3 RBC 3.48 L Hgb 10.3 L Hct 30.5 L MCV 87.5 MCH 29.5 MCHC 33.7 RDW 15.4 H Plt Count 280 Neut % (Auto) 79.2 H Lymph % (Auto) 12.5 L Bulloch % (Auto) 6.3 Eos % (Auto) 1.6 L Baso % (Auto) 0.4 Neut # (Auto) 8200 H Lymph # (Auto) 1300 Bulloch # (Auto) 600 Eos # (Auto) 200 Baso # (Auto) 0 Sodium 138 Potassium 4.9 Chloride 104 Carbon Dioxide 32 BUN 20 Creatinine 0.98 Estimated GFR > 60.0 BUN/Creatinine Ratio 20.4 Glucose 49 L Calcium 8.3 L Phosphorus 3.4 D Total Bilirubin 0.4 AST 38 ALT 27 Alkaline Phosphatase 71 Total Protein 5.5 L Albumin 2.6 L Globulin 2.9 Albumin/Globulin Ratio 0.9 L SARS-CoV-2 (PCR) Negative [facility] Medical History Acne (Unknown) Actinic keratosis (~2017) Anemia Atrial fibrillation (Unknown) Chronic low back pain (Unknown) Closed compression fracture of third lumbar vertebra Coronary artery disease (Unknown) Diabetes (Unknown) GERD (gastroesophageal reflux disease) (Unknown) Hearing loss (Unknown) Hx of coronary angiogram (Unknown) Hyperlipemia (Unknown) Hypertension (Unknown) Keloid Osteoporosis Pacemaker Renal insufficiency Sarcoidosis (11/2007) Squamous cell carcinoma (Unknown) Visit for suture removal Surgical History H/O left wrist surgery H/O toe surgery History of arthroplasty of left shoulder (Unknown) History of arthroplasty of right shoulder (Unknown) History of fusion of thoracic spine History of lumbar fusion Hx of knee surgery (Unknown) Hx of left knee surgery Hx of prior ablation treatment (~05/2013) Status post lumbar and lumbosacral fusion by anterior technique Family History Father Diabetes mellitus Mother No problems noted. Social History household members: spouse and children Smoking Status: Never smoker second hand exposure: Yes alcohol intake: current substance use type: does not use Assessment & Plan Assessment & Plan narrative: PROBLEM LIST ACUTE HYPOXIC RESPIRATORY FAILURE.? ON? HIGH-FLOW OXYGEN PER NASAL CANNULA. 10 L/ 38 % FIO2 ?COVID-19 PNEUMONIA /PNEUMONITIS.? SUPPORTIVE TREATMENT WITH ANTIBIOTICS WELL STEROIDS AND DUONEB TREATMENTS ? POSSIBLE ACUTE KIDNEY INJURY. CHRONIC KIDNEY DISEASE IS UNLIKELY. CREATININE BACK TO WITHIN NORMAL LIMIT.? MONITOR CLOSELY. ?OVERWEIGHT.? CONSULT WILL BE GIVEN? REGARDING LIFESTYLE CHANGES ONCE APPROPRIATE ?REACTIVE LEUKOCYTOSIS.?? ON ANTIBIOTICS. RESOLVED ?PHYSICAL DECONDITIONING/DEBILITY.? PT AND OT TO SEE ONCE INDICATED ?INSULIN-DEPENDENT DIABETES. ? HYPOGLYCEMIA NOTED OVERNIGHT ?POSSIBLE ANXIETY. ON ANTIDEPRESSANT MEDICATIONS ? POSSIBLE DEMENTIA.? LIKELY VASCULAR.? NO SIGNIFICANT BEHAVIOR DISTURBANCE ?HYPOGLYCEMIA.? HISTORY OF DIABETES. CAUSE IS UNCLEAR ?POSSIBLE SARCOIDOSIS PER HISTORY. NO ACUTE TREATMENT INDICATED PLAN 06/08 PATIENT PUT BACK ON 10 L OFF OXYGEN THIS MORNING REPORTED SLIGHT INCREASE IN SHORTNESS OF BREATH /DYSPNEA ON EXERTION WILL GET A CHEST X-RAY I SUSPECT A COMPONENT OF ANXIETY/PANIC ATTACK HE IS ON TRAZODONE AND BUSPAR. ALSO ON RISPERDAL DUE TO SUSPECTED UNDERLYING DEMENTIA. PATIENT WITH TESTED THIS MORNING AND WAS COVID-19 NEGATIVE. ISOLATION DISCONTINUED PER HOSPITAL PROTOCOL CONTINUE HER OXYGEN THERAPY TO MAINTAIN PROPER OXYGEN SATURATION ABOVE 88% INCENTIVE SPIROMETER ORDERED CONTINUE CURRENT ANTIBIOTICS WELL STEROID AND BREATHING TREATMENTS PREVIOUSLY ORDERED SOME INSTANCE OF DECREASED BLOOD SUGAR NOTED OVERNIGHT OVER THE LAST COUPLE OF DAYS ALL INSULIN THERAPY HAS BEEN DISCONTINUED WILL CHANGE TO DIABETIC DIET WITH SNACKS TO BE GIVEN OVERNIGHT NO INDICATION FOR AN EXTENSIVE WORKUP AT THIS TIME ADDITIONAL MANAGEMENT PER CLINICAL COURSE PATIENT DIFFUSING PLACEMENT TO DETENTION FACILITY PLAN DISCHARGE TO HOME WITH ONCE CLINICALLY STABLE 06/07 ?PATIENT SHOWING IMPROVEMENT. ?MAINTAINING SATURATION ABOVE 90% ON 6 L PER NC ?HOWEVER PATIENT REMAINED SIGNIFICANTLY ANXIOUS ?THIS WILL BE A BARRIER FOR DISCHARGE ?PHYSICAL THERAPY TO EVALUATE PATIENT IN REGARD TO CAPACITY TO USE STAIRS AT HOME ?IN THE MEANWHILE CONTINUE CURRENT MANAGEMENT ?ADDITIONAL MANAGEMENT PER CLINICAL COURSE 06/06 ?PATIENT SHOWING SIGN OF SIGNIFICANT ANXIETY ?COULD BE PANIC ATTACK WELL ?WILL START ON ANTIDEPRESSANT ?CHANGE BENZODIAZEPINE TO SCHEDULE ?SUSPECT A? COMPONENT OF DEMENTIA WELL WITH POSSIBLE SUNDOWNING ?WILL START ON SEROQUEL WELL RISPERDAL ?KEEP A LIGHT ON IN THE ROOM AT ALL TIME ?NURSING TO REORIENT 1 INCREASING CONFUSION STATE IS NOTED ?PATIENT STARTED ON BUSPAR WELL ZOLOFT ?TRAZODONE ADDED FOR NIGHTTIME WELL MELATONIN ?CONTINUE TO WORK WITH CASE MANAGEMENT ON DISCHARGE PLANNING ?FOLLOW LABS DAILY ?PATIENT HAD A COUPLE EVENTS OF HYPOGLYCEMIA NOTED FOR THE LAST 24 HOURS ?WILL STOP ALL INSULIN ? FOR NOW ?ADDITIONAL MANAGEMENT INDICATING COLI 06/05 ?PATIENT IS NOT REPORTING ANY INCREASING SHORTNESS OF BREATH OR DYSPNEA ON EXERTION ?CLINICALLY HE APPEARS TO BE IMPROVING ?HYPOGLYCEMIA NOTED OVERNIGHT ?WILL HOLD LANTUS FOR NOW ?CONTINUE SLIDING SCALES ON THE ?WHOLE SCHEDULE T.I.D. POST MEAL REGULAR INSULIN WELL ?CONTINUE TO FOLLOW LABS CLOSELY ?WILL ALSO ORDER CHANGE TO? PULSE OXIMETRY SINCE HIS TO CONFIRM CURRENT PULSE OXIMETRY READING ?ASSISTANCE FROM PULMONOLOGY /CRITICAL CARE CONTINUED TO BE GREATLY APPRECIATED AND DISCHARGE IN CASE ?CONTINUE AGGRESSIVE PULMONARY TOILETING ?PATIENT TO USE HIS INCENTIVE SPIROMETER DEVICE ORDERED ?REPEAT CHEST X-RAY ?WILL GET UA THIS MORNING WELL ?THE UVC CONTINUE TO INCREASE.? THIS COULD BE ACUTE REACTIVE TO PREDNISONE ?WILL START TAPERING THE PREDNISONE THIS MORNING WELL ?THE PATIENT DOES NOT APPEAR TO BE TOXIC ?NO FEVER OR CHILLS REPORTED.? MENTATION REMAINED ADEQUATE ?PATIENT TO BE OUT OF BED WITH EACH MEAL ?ADDITIONAL MANAGEMENT PER CLINICAL COURSE 06/04 ?PATIENT PROGRESS IS VERY SLOW ?STILL REQUIRING HIGH-FLOW ?WILL ADD STEROIDS AND ANTIBIOTICS TODAY ?WILL ALSO CONTINUE WITH DUONEB TREATMENT WELL PULMICORT ?REPEAT CHEST X-RAY IN THE MORNING ?NURSING TO CONTINUE TO ENCOURAGE PATIENT TO USE IC? DEVICE ORDERED ?AGGRESSIVE PULMONARY TOILETING ?GET A ABG? IF INDICATED ?ASSISTANCE FROM INTENSIVE CARE ATTENDING IS GREATLY APPRECIATED ?MOBILE? PATIENT MUCH TOLERATED ?CONTINUE TO MAINTAIN PROPER PER HOSPITAL PROTOCOL ?CONTINUE TO FOLLOW LABS DAILY ?MONITOR INPUT AND OUTPUT CLOSELY ?ADDITIONAL MANAGEMENT PER CLINICAL COURSE ?PROGNOSIS REMAIN GUARDED 06/03 ?PATIENT REMAINED ON HIGH-FLOW AND IN THE ICU ?AUTOMATIC PRESSER ASSISTANCE CONTINUED TO BE GREATLY APPRECIATED ?DAILY LABS ORDERED ?MONITOR INPUT OUTPUT CLOSELY ?CONTINUE CURRENT? ANTIBIOTICS FOR NOW ?LABS REMAINED STABLE ? THERE IS BC IS IMPROVING ?KIDNEY FUNCTION HOLDING WELL ?BUT KEEP IN ISOLATION PER HOSPITAL PROTOCOL ?SERIAL ABG AND CHEST X-RAY TO FOLLOW INDICATED ?PATIENT TO BE OUT OF BED WITH EACH MEAL ?ADDITIONAL MEASURE PER CLINICAL COURSE ?PROGNOSIS IS GUARDED 06/02 ?PATIENT SHOWED SOME IMPROVEMENT ?HOWEVER REMAINED AND HIGH-FLOW ?CONTINUE CURRENT MANAGEMENT FOR NOW ?WE WILL REPEAT CHEST X-RAY IN THE MORNING ?CONSIDER ABG WELL IF INDICATED ?ADDITIONAL MEASURE PER CLINICAL COURSE 06/01 ?CONTINUE TO? CURRENT MANAGEMENT FOR NOW ?PATIENT IS STILL REQUIRING HIGH-FLOW ?UTILITY AIRCREWMAN FROM CRITICAL CARE/ INTENSIVE IS GREATLY APPRECIATED ?AGGRESSIVE PULMONARY TOILETING ?NURSING TO ENCOURAGE PATIENT TO USE INCENTIVE SPIROMETER AWAKE ?REPEAT CHEST X-RAY AND ABG INDICATED CLINICALLY ? DAILY LABS TO FOLLOW ?STRICT INPUT AND OUTPUT ?AVOID ALL NEPHROTOXINS ? PHARMACY TO DOSE ALL MEDICATIONS FOR GFR Time Spent With Patient Critical Care time: I spent a total of [] minutes of critical care time on this patient's care today; this time is exclusive of procedural time. Quality VTE Deep Vein Thrombosis/Pulmonary Embolism Present on Admission: No
[2021-06-08] MEDS: MORPHINE 4 MG/ML INJ IV ×2 (11:30→20:52)
--- NOTE | 2021-06-08 16:56 | PT.IPTN ---
Current Diagnoses Type 2 diabetes mellitus with diabetic chronic kidney disease (05/27/21) Paroxysmal atrial fibrillation (05/27/21) Unspecified diastolic (congestive) heart failure (05/27/21) Pneumonia due to coronavirus disease 2019 (05/27/21) Acute respiratory failure with hypoxia (05/27/21) Acute and chronic respiratory failure with hypoxia (05/27/21) Acute kidney failure, unspecified (05/27/21) Chronic kidney disease, unspecified (05/27/21) COVID-19 (05/27/21) penitentiary (current) use of insulin (05/27/21) Physical Therapy Treatment Note M2 PT-IP Current Condition Start: 06/07/21 08:38 Freq: Status: Active Protocol: Document 06/07/21 13:35 MB (Rec: 06/07/21 14:39 MB [id number]) Physical Therapy Current Condition Current Condition Evaluation Date 06/07/21 Treatment Diagnosis Debility from COVID M3 PT-IP Subjective Start: 06/07/21 08:38 Freq: Status: Active Protocol: Document 06/08/21 16:56 DLM (Rec: 06/08/21 17:34 DLM [id number]) Subjective Physical Therapy Visit Type Type Treatment Note Visit Start Time 16:25 Visit Stop Time 16:56 Total Visit Minutes 31 Number of CONSTRUCTION ELECTRICIAN Visits 0 Physical Therapy Visit Comments Patient Comments He is better today, still getting short of breath when he moves, sat up in the chair about 2 hours Patient Goals He doesn't want to go to SNF, wants to go home Therapy Pain Assessment Pain When Pain Assessed At Rest Pain Present Pain Present Pain Reported Location Back Intensity 4 Scale Used Numeric (0 - 10) Description Aching Pain Management Techniques Re-positioning M4 PT-IP Mobility and Gait Start: 06/07/21 08:38 Freq: Status: Active Protocol: Document 06/08/21 16:56 DLM (Rec: 06/08/21 17:34 DLM [id number]) PT-Bed Mobility Assessment Sit to Supine Sit to Supine Standby Assistance Scooting Scooting to Edge of Bed Independent Scooting Up and Down in Bed Minimal Assistance PT-Transfer Assessment Sit to and From Stand Sit to and from Stand Contact Guard Assistance, Minimal Assistance,Use of Upper Extremities Equipment Transfer Assistive Device Front Wheeled Walker Transfers Transfer Destination Bed Transfer Technique Stand Step Pivot Transfer Ability Level of Assist Contact Guard Assistance, Minimal Assistance,Use of Upper Extremities Comments Mobility Comments Pt up to recliner, transfering back to bed, nursing also present, pt got very short of breath during the transfer and needs extended time sitting edge of bed to manage is shortness of breath. Pt returned to supine but got short of breath again and needed extended time to recover. Educated pt in breathing techniques to improve use of oxygen in nasal cannula. Pt left resting in bed. He does not tolerate lying flat at this time due to his shortness of breath Gait Assessment Comments Gait Comments pt too short of breath after transfer to attempt gait Stair Climbing Assessment Comments Stair Climbing Comments he has a flight of stairs up to his bedroom at home, 2-3 steps to enter the house. He reports he can sleep in his recliner on the first floor when needed. PT-Balance Assessment Sitting Balance and Reactions Static Sitting Balance Ability Normal Dynamic Sitting Balance Ability Good Standing Balance and Reactions Static Standing Balance Ability Good Dynamic Standing Balance Ability Fair Device Used FWW M5 PT-IP Objective Assessments Start: 06/07/21 08:38 Freq: Status: Active Protocol: Document 06/07/21 13:35 MB (Rec: 06/07/21 14:39 MB [id number]) Orientation Orientation/Cognition Level of Alertness Alert Orientation Name,Age,Birthday,Month,Date, Year,Day of Week,Place, Situation Language Function Ability No Deficits Noted Safety Awareness Decreased Safety Awareness Comments It is hard to determine if pt has memory impairment or not. He does not clearly answer PLOF questions when PT asks him. Gross Range of Motion Upper Extremity ROM Assessment Within Functional Limits Lower Extremity ROM Assessment Within Functional Limits Strength Comments Strength Comments MMT deferred d/t PAULA and pt requiring rest breaks for functional activities and urgently needing the urinal x2 . Pt has a limited tolerance to PT interventions today. Coordination Assessment Gross Coordination Gross Coordination WNL Sensation Assessment Comments Sensation Comments Pt does not participate with sensory testing today. M6 PT-IP Treatment Start: 06/07/21 08:38 Freq: Status: Active Protocol: Document 06/08/21 16:56 DLM (Rec: 06/08/21 17:34 DLM [id number]) Physical Therapy Treatment Exercises Exercises Ankle Pumps,Heel Slides,Supine Hip Abduction,Shoulder Flexion Education Education Provided Safety Other Treatments Other Treatment Performed education to do exercises slowly and manage his shortness of breath, pt has significant crepitus right shoulder that limits the reps he can do with right UE. M7 PT-IP Assessment and Plan Start: 06/07/21 08:38 Freq: Status: Active Protocol: Document 06/08/21 16:56 DLM (Rec: 06/08/21 17:34 DLM [id number]) PT Summary Assessment and Plan Summary Berny appears to be slowly improving today. His activity tolerance is still low but he was able to sit up in his recliner today and participate in some exercises in bed. He gets very short of breath with all activity with supplemental oxygen. He will need to progress his standing and gait slowly to manage his respiratory issues. He was less anxious moving today. He needs extended rest breaks between activity to recover due to his shortness of breath. He is currently declining SNF and wants to return home. Concerned that his activity tolerance is very low to tolerate home activities. He could benefit from SNF rehab at discharge. If he goes home I recommend sleeping arrangements be made on the first floor so he does not have to go up and down a flight of steps. Impairments Pain,Strength,Balance, Coordination,Sensation,Bed Mobility,Transfers,Gait, Activity Tolerance Progress Towards Goals Slow Progress due to Medical Issues,Slow Progress due to Activity Tolerance Goals Bed Mobility Goal Independent Transfer Goal Independent Gait Goal Independent Gait Distance 50 feet Other Goals Bed mobility goal is for I without rail and with bed flat . Ascend and descend step x2 with LRAD to allow home entrance. Days to Meet Goals 5 Frequency of Treatment Frequency Of Treatment Once a Day Treatment Plan Physical Therapy Treatment Plan Bed Mobility Training,Transfer Training,Gait Training, Therapeutic Exercise,Balance Retraining,Discharge Planning, Neuromuscular Re-ed Precautions Other Precautions monitor oxygen needs Pt is now testing negative for COVID-19 Recommendations To Nursing Amount of Assist Needed 1 Person Assist Discharge Recommendations PT Discharge Recommendations SNF Rehab Other Discharge Recommendations pt is declining SNF and wants home with [facility]. Transportation Needs at Discharge Private Vehicle
[2021-06-08] MEDS: MELATONIN 3 MG TABLET 6 MG PO (20:37)
[2021-06-08] MEDS: SERTRALINE 50 MG TABLET PO (20:40)
[2021-06-08] MEDS: QUETIAPINE 25 MG TABLET 12.5 MG PO (20:41)
[2021-06-08] MEDS: TRAZODONE 50 MG TABLET 25 MG PO (20:43)
[2021-06-08] MEDS: ATORVASTATIN 20 MG TABLET 40 MG PO (20:48)
[2021-06-09] VITALS (18 sets, daily range): BP systolic 107–134; BP diastolic 49–63; PULSE 67–83; RESP 15–22; TEMP 35.8–36.8; O2SAT 92–97
[2021-06-09 05:29] LABS: Add Manual Diff / Slide Review NO; Basophils Absolute Auto 0 /uL (0-100); Basophils Percent Auto 0.3 % (0-2); Eosinophils Absolute Auto 100 /uL (0-450); Eosinophils Percent Auto 1.4 % (2-4); Hematocrit 29.1 % (41-53); Hemoglobin 9.7 g/dL (13.5-17.5); Lymphocytes Absolute Auto 1300 /uL (1100-4500); Lymphocytes Percent Auto 13.6 % (25-40); Mean Corpuscular HGB Conc 33.2 % (30-36); Mean Corpuscular Hemoglobin 29.1 PG (26-34); Mean Corpuscular Volume 87.7 fL (80-100); Monocytes Absolute Auto 700 /uL (0-900); Monocytes Percent Auto 6.8 % (3-14); Neutrophils Absolute Auto 7500 /uL (1500-7000); Neutrophils Percent Auto 77.9 % (50-75); Platelet Count 261 X10^3/uL (150-400); Red Blood Cell Count 3.32 X10^6/uL (4.5-5.9); Red Cell Distribution Width 15.2 % (11.6-14.8); White Blood Cell Count 9.7 X10^3/uL (4.5-11.0)
[2021-06-09 05:42] LABS: Alanine Aminotransferase 27 IU/L (<50); Albumin 2.5 g/dL (3.5-5.0); Alkaline Phosphatase 68 U/L (38-126); Aspartate Aminotransferase 36 IU/L (17-59); Bilirubin Total 0.3 mg/dL (0.2-1.3); Blood Urea Nitrogen 23 mg/dL (9-20); Carbon Dioxide 33 mmol/L (22-32); Chloride 104 mmol/L (98-107); Estimated Glomerular Filt Rate 58.8 mL/min (>60); Globulin 2.6 g/dL (1.7-4.1); Glucose 86 mg/dL (80-110); HEMOLYSIS < 15 (0-50); Phosphorous 3.2 mg/dL (2.3-3.7); Potassium 5.2 mmol/L (3.4-5.1); Sodium 136 mmol/L (137-145); Total Protein 5.1 g/dL (6.3-8.2)
[2021-06-09] MEDS: LORazepam 0.5 MG TABLET PO (06:43)
[2021-06-09] MEDS: ALBUTEROL/IPRATROPIUM 3 ML AMPUL INH ×5 (08:15→22:31)
[2021-06-09] MEDS: BUDESONIDE 0.5 MG/2 ML NEB INH ×2 (08:22→19:47)
[2021-06-09] MEDS: ASPIRIN EC 81 MG TABLET PO (09:50)
[2021-06-09] MEDS: DOCUSATE 100 MG CAPSULE PO ×2 (09:50→21:15)
[2021-06-09] MEDS: risperiDONE 0.25 MG TABLET PO ×2 (09:50→21:18)
[2021-06-09] MEDS: LACTOBACILLUS ACIDOPHILUS TABLET 1 EACH PO ×3 (09:50→16:50)
[2021-06-09] MEDS: PREGABALIN 50 MG CAPSULE 100 MG PO ×2 (09:50→21:14)
[2021-06-09] MEDS: SENNOSIDES 8.6 MG TABLET 17.2 MG PO (09:51)
[2021-06-09] MEDS: BARICITINIB 2 MG TABLET 4 MG PO (09:51)
[2021-06-09] MEDS: TRAMADOL 50 MG TABLET PO ×3 (09:51→21:18)
[2021-06-09] MEDS: DOXYCYCLINE HYCLATE 100 MG TABLET PO ×2 (09:51→21:19)
[2021-06-09] MEDS: CEFDINIR 300 MG CAPSULE PO ×2 (09:51→21:15)
[2021-06-09] MEDS: FERROUS SULFATE 325 MG TABLET PO (09:51)
[2021-06-09] MEDS: metroNIDAZOLE 500 MG TABLET 250 MG PO ×3 (09:51→21:16)
[2021-06-09] MEDS: METOPROLOL ER 50 MG TABLET PO ×2 (09:52→21:16)
[2021-06-09] MEDS: FAMOTIDINE 20 MG TABLET PO ×2 (09:52→21:19)
[2021-06-09] MEDS: predniSONE 20 MG TABLET 10 MG PO (09:52)
[2021-06-09] MEDS: APIXABAN 5 MG TABLET PO ×2 (09:52→21:15)
[2021-06-09] MEDS: ASCORBIC ACID 500 MG TABLET PO ×2 (09:52→21:15)
[2021-06-09] MEDS: BUSPIRONE 5 MG TABLET 10 MG PO ×2 (09:52→21:15)
[2021-06-09] MEDS: SODIUM CHLORIDE 0.9% FLUSH 10 ML IV ×2 (09:53→21:20)
[2021-06-09] MEDS: CHOLECALCIFEROL (VITAMIN D3) 400 UNIT TABLET PO ×2 (09:54→21:15)
[2021-06-09] MEDS: DOFETILIDE 125 MCG 125 EACH PO ×2 (09:54→21:14)
[2021-06-09] MEDS: SUCRALFATE 1 GM TABLET PO ×3 (12:19→21:18)
--- NOTE | 2021-06-09 14:35 | PT.IPTN ---
Current Diagnoses Type 2 diabetes mellitus with diabetic chronic kidney disease (05/27/21) Paroxysmal atrial fibrillation (05/27/21) Unspecified diastolic (congestive) heart failure (05/27/21) Pneumonia due to coronavirus disease 2019 (05/27/21) Acute respiratory failure with hypoxia (05/27/21) Acute and chronic respiratory failure with hypoxia (05/27/21) Acute kidney failure, unspecified (05/27/21) Chronic kidney disease, unspecified (05/27/21) COVID-19 (05/27/21) halfway (current) use of insulin (05/27/21) Physical Therapy Treatment Note M2 PT-IP Current Condition Start: 06/07/21 08:38 Freq: Status: Active Protocol: Document 06/07/21 13:35 MB (Rec: 06/07/21 14:39 MB [id number]) Physical Therapy Current Condition Current Condition Evaluation Date 06/07/21 Treatment Diagnosis Debility from COVID M3 PT-IP Subjective Start: 06/07/21 08:38 Freq: Status: Active Protocol: Document 06/09/21 14:02 KS (Rec: 06/09/21 15:49 KS [id number]) Subjective Physical Therapy Visit Type Type Treatment Note Visit Start Time 14:02 Visit Stop Time 14:35 Total Visit Minutes 33 Notes Pts present during second half of treatment. Number of TRANSFER AND LINE UP WORKER Visits 1 Physical Therapy Visit Comments Patient Comments Pt agreeable to work with PT. Patient Goals He doesn't want to go to SNF, wants to go home M4 PT-IP Mobility and Gait Start: 06/07/21 08:38 Freq: Status: Active Protocol: Document 06/09/21 14:02 KS (Rec: 06/09/21 15:49 KS [id number]) PT-Bed Mobility Assessment Scooting Scooting to Edge of Bed Standby Assistance PT-Transfer Assessment Sit to and From Stand Sit to and from Stand Contact Guard Assistance,1 Person Assistance,Use of Upper Extremities Equipment Transfer Assistive Device Front Wheeled Walker Transfers Transfer Destination Chair Transfer Technique sit<>Stand Transfer Ability Level of Assist Contact Guard Assistance, Minimal Assistance,Use of Upper Extremities Comments Mobility Comments Pt in chair upon arrival from therapy on 7LO2 95%. SBA for scooting EOC. CGA and cues for hand placement for sit<>Stand w/ FWW. Upon standing, pts O2 decreased to 88%, able to recover to 91% w/ cues for diaphragmatic breathing. Pt reported SOB and fatigue and requested to sit back down. Pt took 3 min seated rest break, O2 increased to 10LO2. Pt performed second sit<>Stand W/ CGA and FWW able to maintain O2 92-94% while performing ~[address] CGA and cues for stand<>sit. Pt then completed 1x10 bilateral ankle pumps, LAQ, seated marches, and glute sets. O2 decreased to 7LO2 following exercise and 94-97%. Pt left in chair w/ all needs in reach . Gait Assessment Comments Gait Comments Pt desatting and reporting SOB and anxiety, able to perform short bout of marching in place but not able to progress gait training today. Will plan to attempt tomorrow. Stair Climbing Assessment Comments Stair Climbing Comments Pts confirms 3STE w/ bilateral handrails and 15 steps to second floor. Pt able to stay on first level for limited time due to no shower. Once upstairs, pt has all needs and will not need to descend stairs. PT-Balance Assessment Sitting Balance and Reactions Static Sitting Balance Ability Normal Dynamic Sitting Balance Ability Good Standing Balance and Reactions Static Standing Balance Ability Good Dynamic Standing Balance Ability Fair Device Used FWW M5 PT-IP Objective Assessments Start: 06/07/21 08:38 Freq: Status: Active Protocol: Document 06/07/21 13:35 MB (Rec: 06/07/21 14:39 MB [id number]) Orientation Orientation/Cognition Level of Alertness Alert Orientation Name,Age,Birthday,Month,Date, Year,Day of Week,Place, Situation Language Function Ability No Deficits Noted Safety Awareness Decreased Safety Awareness Comments It is hard to determine if pt has memory impairment or not. He does not clearly answer PLOF questions when PT asks him. Gross Range of Motion Upper Extremity ROM Assessment Within Functional Limits Lower Extremity ROM Assessment Within Functional Limits Strength Comments Strength Comments MMT deferred d/t PAULA and pt requiring rest breaks for functional activities and urgently needing the urinal x2 . Pt has a limited tolerance to PT interventions today. Coordination Assessment Gross Coordination Gross Coordination WNL Sensation Assessment Comments Sensation Comments Pt does not participate with sensory testing today. M6 PT-IP Treatment Start: 06/07/21 08:38 Freq: Status: Active Protocol: Document 06/09/21 14:02 KS (Rec: 06/09/21 15:49 KS [id number]) Physical Therapy Treatment Exercises Exercises Ankle Pumps,Gluteal Sets Education Education Provided Safety Other Treatments Other Treatment Performed LAQ, seated marching M7 PT-IP Assessment and Plan Start: 06/07/21 08:38 Freq: Status: Active Protocol: Document 06/09/21 14:02 KS (Rec: 06/09/21 15:49 KS [id number]) PT Summary Assessment and Plan Potential Rehabilitation Potential Good Status of Condition at Evaluation Evolving Summary Impairments Pain,Strength,Balance, Coordination,Sensation,Bed Mobility,Transfers,Gait, Activity Tolerance Progress Towards Goals Slow Progress due to Medical Issues,Slow Progress due to Activity Tolerance Assessment Summary Pt remains limited in mobility by oxygen desaturation, weakness, and anxiety. O2 raised to 10L for mobility. Able to complete 2x sit<>stand w/ FWW CGA and cues. Completed [address] following second sit<> Stand w/ quick approach to fatigue. Able to tolerate LE exercises to promote blood flow and strengthening. Will continue to assess pt progress , may require SNF to improve strength and functional mobility independence. If returning home, will require 24/7 assist and need to complete caregiver training and stair training. Goals Bed Mobility Goal Independent Transfer Goal Independent Gait Goal Independent Gait Distance 50 feet Other Goals Bed mobility goal is for I without rail and with bed flat . Ascend and descend step x2 with LRAD to allow home entrance. Days to Meet Goals 5 Frequency of Treatment Frequency Of Treatment Once a Day Treatment Plan Physical Therapy Treatment Plan Bed Mobility Training,Transfer Training,Gait Training, Therapeutic Exercise,Balance Retraining,Discharge Planning, Neuromuscular Re-ed Other Recommendations and Next Treatment Increase amb distance w/ FWW, Focus stair training when appropriate. Precautions Other Precautions monitor oxygen needs Pt is now testing negative for COVID-19 7LO2 06/09 Recommendations To Nursing Amount of Assist Needed 1 Person Assist Discharge Recommendations PT Discharge Recommendations Home with 24/7 Assist Available,Home Health,SNF Rehab Other Discharge Recommendations pt is declining SNF and wants home with [facility]. Transportation Needs at Discharge Private Vehicle
--- NOTE | 2021-06-09 15:30 | CM.DPC ---
DCP Cont: Spoke to Pari at [place]. Latest COVID is noted to be negative. Patient is on 7 liters, slow to taper down. Pari suggested faxing over referral and she will review. P.T is recommending care home. Patient indicated that he does not want skilled, but not able to speak to patient today. Will have Pari review. Patient's initial goal is home with [facility]. P: DCP to continue to follow. Pari will review in case patient is in need of skilled before going home. Faxed over face sheet, H&P, med sheets. Nay Miller RN/Butt Maker
--- NOTE | 2021-06-09 16:36 | PM.PN.1 ---
Subjective Subjective Date Patient Seen: 06/09/21 Interval history: 75-year-old male admitted to the hospital with acute hypoxic respiratory failure secondary to COVID pneumonia. He has made significant improvement. His COVID PCR is now negative. He is requiring high-flow oxygen. He has been titrated down to 10 L. he continues to feel weak. He short of breath with minimal activity. Exam Vital Signs (past 8 hours): - 06/09/21 08:42 06/09/21 09:00 06/09/21 11:37 Temperature 96.9 F L Pulse Rate 69 75 Respiratory Rate 16 18 Blood Pressure 110/54 L Pulse Oximetry 96 97 97 06/09/21 11:53 06/09/21 12:54 Temperature 97.4 F L Pulse Rate 74 Respiratory Rate 15 Blood Pressure 117/49 L Pulse Oximetry 93 95 Fraction of Inspired Oxygen 38 Oxygen Delivery Method High Flow Nasal Cannula Oxygen Flow Rate 10 Narrative Exam Narrative: Pleasant male in no acute distress Resp Other: Lungs decreased breath sounds with scattered crackles/rhonchi bilaterally Cardio Other: Cardiac exam: Regular rate and rhythm normal S1-S2 GI Other: Abdomen: Soft nontender nondistended Extrem Other: Extremities: No edema Objective Labs Result Diagrams: 06/09/21 05:19 06/09/21 05:19 Labs: Laboratory Results - last 24 hr 06/09/21 06/09/21 05:19 05:19 WBC 9.7 RBC 3.32 L Hgb 9.7 L Hct 29.1 L MCV 87.7 MCH 29.1 MCHC 33.2 RDW 15.2 H Plt Count 261 Neut % (Auto) 77.9 H Lymph % (Auto) 13.6 L [place] % (Auto) 6.8 Eos % (Auto) 1.4 L Baso % (Auto) 0.3 Neut # (Auto) 7500 H Lymph # (Auto) 1300 [place] # (Auto) 700 Eos # (Auto) 100 Baso # (Auto) 0 Sodium 136 L Potassium 5.2 H Chloride 104 Carbon Dioxide 33 H BUN 23 H Creatinine 1.21 Estimated GFR 58.8 L BUN/Creatinine Ratio 19.0 Glucose 86 Calcium 8.0 L Phosphorus 3.2 Total Bilirubin 0.3 AST 36 ALT 27 Alkaline Phosphatase 68 Total Protein 5.1 L Albumin 2.5 L Globulin 2.6 Albumin/Globulin Ratio 1.0 [facility] Medical History Acne (Unknown) Actinic keratosis (~2018) Anemia Atrial fibrillation (Unknown) Chronic low back pain (Unknown) Closed compression fracture of third lumbar vertebra Coronary artery disease (Unknown) Diabetes (Unknown) GERD (gastroesophageal reflux disease) (Unknown) Hearing loss (Unknown) Hx of coronary angiogram (Unknown) Hyperlipemia (Unknown) Hypertension (Unknown) Keloid Osteoporosis Pacemaker Renal insufficiency Sarcoidosis (11/2007) Squamous cell carcinoma (Unknown) Visit for suture removal Surgical History H/O left wrist surgery H/O toe surgery History of arthroplasty of left shoulder (Unknown) History of arthroplasty of right shoulder (Unknown) History of fusion of thoracic spine History of lumbar fusion Hx of knee surgery (Unknown) Hx of left knee surgery Hx of prior ablation treatment (~05/2013) Status post lumbar and lumbosacral fusion by anterior technique Family History Father Diabetes mellitus Mother No problems noted. Social History household members: spouse and children Smoking Status: Never smoker second hand exposure: Yes alcohol intake: current substance use type: does not use Assessment & Plan Assessment & Plan narrative: 1. Acute hypoxic respiratory failure -secondary to COVID pneumonia -patient has completed his initial treatment, he continues to be hypoxic -will continue to taper oxygen as tolerated -patient may be eligible to discharge to [place] if he can tolerate 10 L of oxygen or less 2. Type 2 diabetes -continue insulin -will adjust based on blood sugars 3. Anxiety/depression -continue usual medication 4. Sarcoidosis -continue oxygen and monitoring 5. Deconditioning -continue PT OT I have utilized all available methods to review update and confirm current medications Time Spent With Patient Critical Care time: I spent a total of [] minutes of critical care time on this patient's care today; this time is exclusive of procedural time. Quality VTE Deep Vein Thrombosis/Pulmonary Embolism Present on Admission: No
[2021-06-09] MEDS: MELATONIN 3 MG TABLET 6 MG PO (21:14)
[2021-06-09] MEDS: SERTRALINE 50 MG TABLET PO (21:17)
[2021-06-09] MEDS: QUETIAPINE 25 MG TABLET 12.5 MG PO (21:18)
[2021-06-09] MEDS: TRAZODONE 50 MG TABLET 25 MG PO (21:19)
[2021-06-09] MEDS: polyethylene glycoL 3350 17 GM POWD.PACK PO (21:20)
[2021-06-09] MEDS: MORPHINE 4 MG/ML INJ IV (22:40)
[2021-06-10] VITALS (13 sets, daily range): BP systolic 101–130; BP diastolic 52–77; PULSE 53–99; RESP 16–23; TEMP 36.2–37.2; O2SAT 90–100
[2021-06-10 05:04] LABS: Add Manual Diff / Slide Review NO; Basophils Absolute Auto 0 /uL (0-100); Basophils Percent Auto 0.1 % (0-2); Eosinophils Absolute Auto 200 /uL (0-450); Eosinophils Percent Auto 1.5 % (2-4); Hematocrit 28.7 % (41-53); Hemoglobin 9.5 g/dL (13.5-17.5); Lymphocytes Absolute Auto 1100 /uL (1100-4500); Lymphocytes Percent Auto 10.1 % (25-40); Mean Corpuscular HGB Conc 33.3 % (30-36); Mean Corpuscular Hemoglobin 29.3 PG (26-34); Mean Corpuscular Volume 88.1 fL (80-100); Monocytes Absolute Auto 800 /uL (0-900); Monocytes Percent Auto 7.6 % (3-14); Neutrophils Absolute Auto 8700 /uL (1500-7000); Neutrophils Percent Auto 80.7 % (50-75); Platelet Count 252 X10^3/uL (150-400); Red Blood Cell Count 3.26 X10^6/uL (4.5-5.9); Red Cell Distribution Width 15.4 % (11.6-14.8); White Blood Cell Count 10.8 X10^3/uL (4.5-11.0)
[2021-06-10 05:17] LABS: Alanine Aminotransferase 27 IU/L (<50); Albumin 2.5 g/dL (3.5-5.0); Albumin Globulin Ratio 0.9 (1.0-2.8); Alkaline Phosphatase 88 U/L (38-126); Aspartate Aminotransferase 33 IU/L (17-59); BUN Creatinine Ratio 20.9 (6-22); Bilirubin Total 0.3 mg/dL (0.2-1.3); Blood Urea Nitrogen 24 mg/dL (9-20); Calcium 8.2 mg/dL (8.4-10.2); Carbon Dioxide 32 mmol/L (22-32); Chloride 105 mmol/L (98-107); Estimated Glomerular Filt Rate > 60.0 mL/min (>60); Globulin 2.8 g/dL (1.7-4.1); Glucose 112 mg/dL (80-110); HEMOLYSIS < 15 (0-50); Potassium 4.6 mmol/L (3.4-5.1); Sodium 138 mmol/L (137-145); Total Protein 5.3 g/dL (6.3-8.2)
[2021-06-10] MEDS: ALBUTEROL/IPRATROPIUM 3 ML AMPUL INH ×4 (07:42→19:24)
[2021-06-10] MEDS: BUDESONIDE 0.5 MG/2 ML NEB INH ×2 (07:42→19:24)
--- NOTE | 2021-06-10 09:13 | PC.NURSE ---
alert and oriented. uses call light appropriately. tolerating 7Lpm hi jordan o2. desats w/ exertion. recovers slowly. cpox on. 1 SBA cares and transfers/mobility. pain controlled w/ routine lyrica and tramadol. PRN morphine for noc. glucose 310 at HS. insulin on hold after low glucose on days yesterday of 40. tele NSR BBB w/ prolonged QT
[2021-06-10] MEDS: CEFDINIR 300 MG CAPSULE PO ×2 (10:25→21:06)
[2021-06-10] MEDS: polyethylene glycoL 3350 17 GM POWD.PACK PO (10:25)
[2021-06-10] MEDS: SENNOSIDES 8.6 MG TABLET 17.2 MG PO (10:26)
[2021-06-10] MEDS: PREGABALIN 50 MG CAPSULE 100 MG PO ×2 (10:26→21:06)
[2021-06-10] MEDS: CHOLECALCIFEROL (VITAMIN D3) 400 UNIT TABLET PO ×2 (10:28→21:06)
[2021-06-10] MEDS: DOCUSATE 100 MG CAPSULE PO ×2 (10:28→21:07)
[2021-06-10] MEDS: APIXABAN 5 MG TABLET PO ×2 (10:29→21:07)
[2021-06-10] MEDS: FERROUS SULFATE 325 MG TABLET PO (10:29)
[2021-06-10] MEDS: DOXYCYCLINE HYCLATE 100 MG TABLET PO ×2 (10:29→21:07)
[2021-06-10] MEDS: ASPIRIN EC 81 MG TABLET PO (10:29)
[2021-06-10] MEDS: TRAMADOL 50 MG TABLET PO ×3 (10:29→21:06)
[2021-06-10] MEDS: BUSPIRONE 5 MG TABLET 10 MG PO ×2 (10:29→21:06)
[2021-06-10] MEDS: FAMOTIDINE 20 MG TABLET PO ×2 (10:29→21:06)
[2021-06-10] MEDS: predniSONE 20 MG TABLET 10 MG PO (10:30)
[2021-06-10] MEDS: DOFETILIDE 125 MCG 125 EACH PO ×2 (10:31→21:07)
[2021-06-10] MEDS: LACTOBACILLUS ACIDOPHILUS TABLET 1 EACH PO ×3 (10:32→15:40)
[2021-06-10] MEDS: METOPROLOL ER 50 MG TABLET PO ×2 (10:36→21:06)
[2021-06-10] MEDS: ASCORBIC ACID 500 MG TABLET PO ×2 (10:36→21:06)
[2021-06-10] MEDS: SODIUM CHLORIDE 0.9% FLUSH 10 ML IV ×2 (10:37→21:08)
--- NOTE | 2021-06-10 10:42 | CM.DANOTE ---
Addendum entered by Nay Miller R.N. 06/10/21 15:30: Pari at [facility] called back and stated she will review insurance, should be able to accept. Let her know that patient will be discussing with his spouse. Addendum entered by Nay Miller R.N. 06/10/21 11:28: Called patient in his room, he had his phone nearby, and discussed [facility]. Let him know that this facility takes people with COVID. Stated that if they can accept him, he would be able to get some rehab with the goal of going home with home health. He asked where [facility] is, and let him know that they are in [place]. He stated he will discuss with his . Original Note: DCP Cont: Spoke to aPri at [facility], and she is reviewing and will run it by her employment supervisor, and will attempt to see if they can accept. This case operator will attempt to reach patient today when his phone is near him, and Dr. Brewer will also speak to patient about going to [facility], for patient is still on high flow oxygen. P: DCP to continue to follow and will follow up with [facility] and patient. Nay Miller RN/Basic Sciences Professor
[2021-06-10] MEDS: risperiDONE 0.25 MG TABLET PO ×2 (10:47→21:07)
[2021-06-10] MEDS: metroNIDAZOLE 500 MG TABLET 250 MG PO ×3 (10:47→21:07)
[2021-06-10 11:52] LABS: COVID19 - ADMIT (NP swab/PCR) POSITIVE (Negative)
--- NOTE | 2021-06-10 13:40 | PT-IP ANOTE ---
Pt refused PT this PM stating he is just too fatigued and feels like he can barely breathe and is in pain. RN notified.
[2021-06-10] MEDS: SUCRALFATE 1 GM TABLET PO ×3 (13:41→21:06)
[2021-06-10] MEDS: OXYCODONE/ACETAMINOPHEN 5/325 TABLET 1 TAB PO (13:46)
[2021-06-10] MEDS: LORazepam 0.5 MG TABLET PO (15:42)
--- NOTE | 2021-06-10 17:15 | PM.PN.1 ---
Subjective Subjective Date Patient Seen: 06/10/21 Interval history: 75 y/o male admitted to the hospital with respiratory failure secondary to Covid-19 Pneumonia. He is complaining of feeling weak. He has been able to taper down off the oxygen. Exam Vital Signs (past 8 hours): - 06/10/21 10:36 06/10/21 12:18 06/10/21 15:00 Temperature 97.9 F Pulse Rate 81 81 75 Respiratory Rate 16 19 Blood Pressure 113/52 L Pulse Oximetry 92 95 06/10/21 15:15 Temperature Pulse Rate 76 Respiratory Rate 16 Blood Pressure Pulse Oximetry 97 Fraction of Inspired Oxygen 38 Oxygen Delivery Method High Flow Nasal Cannula Oxygen Flow Rate 5 Narrative Exam Narrative: ill appearing male who appears tired Resp Other: Lungs: decreased breath sounds, some end expiratory wheezing Cardio Other: Cardiac: RRR nl Sl S2 GI Other: Abd: soft/ non tender/ non distended Extrem Other: no edema Objective Labs Result Diagrams: 06/10/21 04:43 06/10/21 04:43 Labs: Laboratory Results - last 24 hr 06/10/21 06/10/21 06/10/21 04:43 04:43 10:33 WBC 10.8 RBC 3.26 L Hgb 9.5 L Hct 28.7 L MCV 88.1 MCH 29.3 MCHC 33.3 RDW 15.4 H Plt Count 252 Neut % (Auto) 80.7 H Lymph % (Auto) 10.1 L [place] % (Auto) 7.6 Eos % (Auto) 1.5 L Baso % (Auto) 0.1 Neut # (Auto) 8700 H Lymph # (Auto) 1100 [place] # (Auto) 800 Eos # (Auto) 200 Baso # (Auto) 0 Sodium 138 Potassium 4.6 Chloride 105 Carbon Dioxide 32 BUN 24 H Creatinine 1.15 Estimated GFR > 60.0 BUN/Creatinine Ratio 20.9 Glucose 112 H Calcium 8.2 L Phosphorus 3.0 Total Bilirubin 0.3 AST 33 ALT 27 Alkaline Phosphatase 88 Total Protein 5.3 L Albumin 2.5 L Globulin 2.8 Albumin/Globulin Ratio 0.9 L SARS-CoV-2 (PCR) Positive H [facility] Medical History Acne (Unknown) Actinic keratosis (~2018) Anemia Atrial fibrillation (Unknown) Chronic low back pain (Unknown) Closed compression fracture of third lumbar vertebra Coronary artery disease (Unknown) Diabetes (Unknown) GERD (gastroesophageal reflux disease) (Unknown) Hearing loss (Unknown) Hx of coronary angiogram (Unknown) Hyperlipemia (Unknown) Hypertension (Unknown) Keloid Osteoporosis Pacemaker Renal insufficiency Sarcoidosis (11/2007) Squamous cell carcinoma (Unknown) Visit for suture removal Surgical History H/O left wrist surgery H/O toe surgery History of arthroplasty of left shoulder (Unknown) History of arthroplasty of right shoulder (Unknown) History of fusion of thoracic spine History of lumbar fusion Hx of knee surgery (Unknown) Hx of left knee surgery Hx of prior ablation treatment (~05/2013) Status post lumbar and lumbosacral fusion by anterior technique Family History Father Diabetes mellitus Mother No problems noted. Social History household members: spouse and children Smoking Status: Never smoker second hand exposure: Yes alcohol intake: current substance use type: does not use Assessment & Plan Assessment & Plan narrative: Acute hypoxic respiratory failure -secondary to COVID pneumonia -patient has completed his initial treatment, he continues to be hypoxic -will continue to taper oxygen as tolerated -patient may be eligible to discharge to [place] if he can tolerate 10 L of oxygen or less -currently on 5.5 Liters, will continue to taper -maybe able to discharge home if can manage on 4 liters of oxygen or less 2. Type 2 diabetes -continue insulin -will adjust based on blood sugars 3. Anxiety/depression -continue usual medication 4. Sarcoidosis -continue oxygen and monitoring 5. Deconditioning -continue PT OT Time Spent With Patient Critical Care time: I spent a total of [] minutes of critical care time on this patient's care today; this time is exclusive of procedural time. Quality VTE Deep Vein Thrombosis/Pulmonary Embolism Present on Admission: No
[2021-06-10] MEDS: MELATONIN 3 MG TABLET 6 MG PO (21:06)
[2021-06-10] MEDS: SERTRALINE 50 MG TABLET PO (21:07)
[2021-06-10] MEDS: TRAZODONE 50 MG TABLET 25 MG PO (21:08)
[2021-06-10] MEDS: QUETIAPINE 25 MG TABLET 12.5 MG PO (21:08)
[2021-06-10] MEDS: ATORVASTATIN 20 MG TABLET 40 MG PO (21:10)
--- NOTE | 2021-06-10 22:12 | PC.NURSE ---
Patient is alert and oriented. Breath sounds diminished right more so than left. Is on oxygen at 5.5L/min per HFNC with sat of 92%. When back in bed placed on CPAP with oxygen bled in for sleep. Is SOB with even minimal exertion/conversation. Intermittent, dry, non productive cough. HRR w/telemetry reading of SR w/BBB. Denies nausea. BT present and had XL BM. Voiding per urinal; denies dysuria, frequency or urgency. Is able to move himself in bed. Does need 1 assist to transfer from bed to recliner and back. Complains of 4/10 bilateral hip/back pain which is chronic; medicated with scheduled Tramadol. Bilateral calf SCD's applied once back in bed. Fall risk score is moderate and bed alarm is activated.
[2021-06-11] VITALS (11 sets, daily range): BP systolic 102–144; BP diastolic 60–78; PULSE 65–99; RESP 16–26; TEMP 36.3–36.7; O2SAT 88–99
[2021-06-11] MEDS: ALBUTEROL/IPRATROPIUM 3 ML AMPUL INH ×3 (08:04→17:13)
[2021-06-11] MEDS: BUDESONIDE 0.5 MG/2 ML NEB INH ×2 (08:04→17:14)
[2021-06-11] MEDS: LACTOBACILLUS ACIDOPHILUS TABLET 1 EACH PO ×3 (09:45→17:05)
[2021-06-11] MEDS: BUSPIRONE 5 MG TABLET 10 MG PO ×2 (09:45→21:15)
[2021-06-11] MEDS: SUCRALFATE 1 GM TABLET PO ×4 (09:45→21:15)
[2021-06-11] MEDS: APIXABAN 5 MG TABLET PO ×2 (09:45→21:16)
[2021-06-11] MEDS: SENNOSIDES 8.6 MG TABLET 17.2 MG PO (09:46)
[2021-06-11] MEDS: FAMOTIDINE 20 MG TABLET PO ×2 (09:46→21:15)
[2021-06-11] MEDS: METOPROLOL ER 50 MG TABLET PO ×2 (09:46→21:16)
[2021-06-11] MEDS: DOCUSATE 100 MG CAPSULE PO ×2 (09:46→21:15)
[2021-06-11] MEDS: predniSONE 20 MG TABLET 10 MG PO (09:46)
[2021-06-11] MEDS: ASCORBIC ACID 500 MG TABLET PO ×2 (09:47→21:15)
[2021-06-11] MEDS: TRAMADOL 50 MG TABLET PO ×3 (09:47→21:16)
[2021-06-11] MEDS: OXYCODONE/ACETAMINOPHEN 5/325 TABLET 1 TAB PO (09:47)
[2021-06-11] MEDS: FERROUS SULFATE 325 MG TABLET PO (09:47)
[2021-06-11] MEDS: ASPIRIN EC 81 MG TABLET PO (09:47)
[2021-06-11] MEDS: polyethylene glycoL 3350 17 GM POWD.PACK PO (09:48)
[2021-06-11] MEDS: DOFETILIDE 125 MCG 125 EACH PO ×2 (09:49→21:21)
[2021-06-11] MEDS: SODIUM CHLORIDE 0.9% FLUSH 10 ML IV ×2 (09:49→21:21)
[2021-06-11] MEDS: CEFDINIR 300 MG CAPSULE PO (09:57)
[2021-06-11] MEDS: CHOLECALCIFEROL (VITAMIN D3) 400 UNIT TABLET PO ×2 (09:57→21:15)
[2021-06-11] MEDS: risperiDONE 0.25 MG TABLET PO ×2 (09:57→21:15)
[2021-06-11] MEDS: PREGABALIN 50 MG CAPSULE 100 MG PO ×2 (09:57→21:16)
--- NOTE | 2021-06-11 11:41 | CM.DPC ---
DCP SNF Planning: Per MD, pt making slow progress and required increased oxygen overnight (but likely somewhat due to anxiety) but currently down to 5-7LO2. Per PT/OT, pt has been able to participate in standing and seated exercises but fatigues quickly and sats drop. Recommending SNF prior to return home where pt has a few steps to enter and then 15 steps up to bedroom and shower. SW confirmed with [facility] admissions Pari that they can accept pt at d/c, especially tomorrow 06/12/21 since pt still needs updated longer PCR COVID swab showing pt is still positive (pt has had one positive, one negative, and one positive swab so far) and would need pt to arrive on or before 1430. PETER updated MD who feels pt likely will be stable for d/c to SNF tomorrow and ordered the PCR COVID swab and RN now going into pt room to swab for PCR test. SW called into pt room and discussed SNF recommendation and acceptance at [facility] the only COVID+ SNF at this time and pt confirms that he feels his needs are too high for safe d/c home with spouse but pt ideal preference would be to remain at [facility] until he is fully recovered from COVID. SW discussed that once he is medically stable for a lower level of care, he cannot just remain in the hospital but d/c to home with HH or SNF. SW discussed HH services and frequency and he confirms that would not be enough assist at home at this time with his fatigue and oxygen needs. Pt states he is agreeable to SW providing this info to his but he is willing to go to SNF but would prefer to remain at [facility]. PETER called pt's spouse and updated on above and acceptance at [facility] and ultimately spouse is agreeable to SNF and feel its needed until pt improves for safe d/c home with HH. Spouse also states pt's specialists doctors Dr. Arrieta and Dr. Smith are both right there at [facility] which is across the street from [facility] and feels [facility] would be a good place for pt to continue his COVID recovery. PETER called into pt's room and updated him on his feeling [facility] is the preference for d/c and both spouse and pt aware that MD feels pt MAY be stable for d/c tomorrow to SNF. OSVALDO Tubbs kindly printed off pt's copy of COVID vax status (received 2 doses plus booster) and PASRR completed and SW completed BLS form for [facility] transport due to COVID+ precautions and oxygen needs and CC Suly kindly set up for 1100 transport with [facility] for tomorrow 06/12/21 to [facility]. SW updated RN, MD, and [facility] admissions Pari. PETER also called and left ms for [facility] with update on likely d/c to [facility] and potential need of HH after SNF. Plan: SW to follow closely for PCR COVID swab return to fax to [facility] and if pt stable for tentative plan of d/c to [facility] via [facility] 1100 tomorrow 06/12/21. KIERA Waddell
--- NOTE | 2021-06-11 11:54 | CM.DPNOTE ---
Called and spoke with Irma at Ambulance for , 06/12/21, BLS transport to [facility] at 1100, per Neema. I let Irma know pt. is Covid positive and is on oxygen. Suly Farrell CM Asst.
[2021-06-11] MEDS: LORazepam 0.5 MG TABLET PO ×2 (12:16→17:05)
--- NOTE | 2021-06-11 12:30 | PT.IPTN ---
Current Diagnoses Type 2 diabetes mellitus with diabetic chronic kidney disease (05/27/21) Paroxysmal atrial fibrillation (05/27/21) Unspecified diastolic (congestive) heart failure (05/27/21) Pneumonia due to coronavirus disease 2019 (05/27/21) Acute respiratory failure with hypoxia (05/27/21) Acute and chronic respiratory failure with hypoxia (05/27/21) Acute kidney failure, unspecified (05/27/21) Chronic kidney disease, unspecified (05/27/21) COVID-19 (05/27/21) care home (current) use of insulin (05/27/21) Physical Therapy Treatment Note M2 PT-IP Current Condition Start: 06/07/21 08:38 Freq: Status: Active Protocol: Document 06/11/21 11:56 SP (Rec: 06/11/21 14:23 SP [id number]) Physical Therapy Current Condition Current Condition Evaluation Date 06/07/21 Treatment Diagnosis Debility from COVID M3 PT-IP Subjective Start: 06/07/21 08:38 Freq: Status: Active Protocol: Document 06/11/21 11:56 SP (Rec: 06/11/21 14:23 SP [id number]) Subjective Physical Therapy Visit Type Type Treatment Note Visit Start Time 11:56 Visit Stop Time 12:30 Total Visit Minutes 34 Number of RN QUALITY Visits 2 Physical Therapy Visit Comments Patient Comments Pt agreeable to work with PT. Patient Goals Pt reported prefers to go home , understands may need go to rehab to get stronger to complete stairs before going home. Therapy Pain Assessment Pain Present Pain Present Denied Pain M4 PT-IP Mobility and Gait Start: 06/07/21 08:38 Freq: Status: Active Protocol: Document 06/11/21 11:56 SP (Rec: 06/11/21 14:23 SP [id number]) PT-Transfer Assessment Sit to and From Stand Sit to and from Stand Contact Guard Assistance,1 Person Assistance,Use of Upper Extremities Equipment Transfer Assistive Device Gait Belt,Front Wheeled Walker Orthotic/Prosthetic Devices or Brace: No Transfers Transfer Destination Chair Transfer Technique sit<>Stand and ambulate using FWW Transfer Ability Level of Assist Contact Guard Assistance,1 Person Assistance,Use of Upper Extremities Comments Mobility Comments Pt up in chair when arrived Stable vitals in sitting: BP 94/57 SaO2 94% on 7 L at rest, Sit<>stand CGA w/ UE and FWW, standing BP 115/68 SaO2 84% on 7 L + SOB, cued for breath not recoverying requested seated rest stand>sit CGA with cues for HP slow descent, difficulty recoverying sitting increased O2 7L to 10L ed diaphramatic breath then use of inspirometer improved to 93 %. Sit>stand CGA able to gait to EObed and pivot turn back approx 16 ft total using fWW CGA- Min A during turns and noted unsteady BLE mod UE WB on FWW, cued upright posture and pt reported need sit legs not feeling very strong, Pt returned to chair CGA w/ use FWW, maintained 89-91% on 10 L with short distance gait, improved mid 90% back to 7L in sitting after 4 min rest and ed use of inspirometer. UNable to assess portable step needed to assess enter home, decreased strength and unsafe SaO2 saturation with mobility. Pt had call light, chair alarm donned for safety with call light and all needs in reach before left. Gait Assessment Gait Gait Assistance Required: Contact Guard Assist,Minimum Assistance,1 Person Assist Distance (Feet) 12 Able to Maintain Weight Bearing Status Yes During Gait Assistive Devices Assistive Device Gait Belt,Front Wheeled Walker Orthotic/Prosthetic Devices or Brace: No Gait Deviations General Gait Pattern Decreased Stride Length, Decreased Feet Clearance, Flexed Trunk,Narrow Based Gait Factors Limiting Gait Function Factors Limiting Gait Function Decreased Activity Tolerance, Decreased Strength,Poor Balance,Poor Safety Awareness, Respiratory Distress Comments Gait Comments Pt desatting and reporting SOB and anxiety, able to perform short bout of gait on 10L with FWW CGA- Min A. Recovered in sitting mid 90s back down to 7L as when arrived. Stair Climbing Assessment Comments Stair Climbing Comments Pt has 3 steps w/ B HR enter, 15 steps to 2nd floor per note yesterday tx. Pt unable to assess stairs due to unsteady BLE during gait using FWW and desaturation safety. PT-Balance Assessment Sitting Balance and Reactions Static Sitting Balance Ability Normal Dynamic Sitting Balance Ability Good Standing Balance and Reactions Static Standing Balance Ability Good Dynamic Standing Balance Ability Fair Device Used FWW M5 PT-IP Objective Assessments Start: 06/07/21 08:38 Freq: Status: Active Protocol: Document 06/07/21 13:35 MB (Rec: 06/07/21 14:39 MB [id number]) Orientation Orientation/Cognition Level of Alertness Alert Orientation Name,Age,Birthday,Month,Date, Year,Day of Week,Place, Situation Language Function Ability No Deficits Noted Safety Awareness Decreased Safety Awareness Comments It is hard to determine if pt has memory impairment or not. He does not clearly answer PLOF questions when PT asks him. Gross Range of Motion Upper Extremity ROM Assessment Within Functional Limits Lower Extremity ROM Assessment Within Functional Limits Strength Comments Strength Comments MMT deferred d/t PAULA and pt requiring rest breaks for functional activities and urgently needing the urinal x2 . Pt has a limited tolerance to PT interventions today. Coordination Assessment Gross Coordination Gross Coordination WNL Sensation Assessment Comments Sensation Comments Pt does not participate with sensory testing today. M6 PT-IP Treatment Start: 06/07/21 08:38 Freq: Status: Active Protocol: Document 06/11/21 11:56 SP (Rec: 06/11/21 14:23 SP [id number]) Physical Therapy Treatment Exercises Exercises Ankle Pumps,Seated Knee Flexion/Extension Education Education Provided Safety Other Treatments Other Treatment Performed AP, LAQ pre mobility. M7 PT-IP Assessment and Plan Start: 06/07/21 08:38 Freq: Status: Active Protocol: Document 06/11/21 11:56 SP (Rec: 06/11/21 14:23 SP [id number]) PT Summary Assessment and Plan Potential Rehabilitation Potential Good Status of Condition at Evaluation Evolving Summary Impairments Pain,Strength,Balance, Coordination,Sensation,Bed Mobility,Transfers,Gait, Activity Tolerance Progress Towards Goals Slow Progress due to Medical Issues,Slow Progress due to Activity Tolerance Assessment Summary Pt remains limited in mobility by oxygen desaturation, weakness, and anxiety. O2 raised to 10L for mobility. Able to complete 2x sit<>stand and short distance gait 12 ft in room w/ FWW CGA and cues. sit<>Stand w/ quick approach to fatigue initially. Able to tolerate LE exercises to promote blood flow and strengthening. Will continue to assess pt progress, may require SNF to improve strength and functional mobility independence. If returning home, will require 24/7 assist and need to complete caregiver training and stair training. Goals Bed Mobility Goal Independent Transfer Goal Independent Gait Goal Independent Gait Distance 50 feet Other Goals Bed mobility goal is for I without rail and with bed flat . Ascend and descend step x2 with LRAD to allow home entrance. Days to Meet Goals 5 Frequency of Treatment Frequency Of Treatment Once a Day Treatment Plan Physical Therapy Treatment Plan Bed Mobility Training,Transfer Training,Gait Training, Therapeutic Exercise,Balance Retraining,Discharge Planning, Neuromuscular Re-ed Other Recommendations and Next Treatment Increase amb distance w/ FWW, Focus stair training when appropriate. Precautions Other Precautions Monitor Oxygen needs. Pt tested Covid- 19 + 06/11 at 11: 59. Recommendations To Nursing Amount of Assist Needed 1 Person Assist Discharge Recommendations PT Discharge Recommendations Home with 01/02 Assist Available,Home Health,SNF Rehab Other Discharge Recommendations pt prefers to go home [facility] but is welcome to SNF recommendations. Transportation Needs at Discharge Private Vehicle,Wheelchair/ Cabulance
[2021-06-11 14:12] LABS: COVID19 - ADMIT (NP swab/PCR) POSITIVE (Negative)
[2021-06-11] MEDS: INSULIN LISPRO 100 UNIT/ML 3ML VIAL SUBCUT ×2 (17:06→21:17)
--- NOTE | 2021-06-11 17:31 | PM.PN.1 ---
Subjective Subjective Date Patient Seen: 06/11/21 Interval history: 75-year-old male admitted to the hospital with acute hypoxic respiratory failure secondary to COVID pneumonia, patient does have a prior diagnosis of sarcoidosis as well. He continues to have intermittent shortness of breath. He has had to have his oxygen increased substantially. The patient was able to be titrated down to 3-4 L to maintain a sat of 94%. He continues to complain of significant weakness Exam Vital Signs (past 8 hours): - 06/11/21 09:46 06/11/21 12:20 06/11/21 15:00 Temperature 97.3 F L Pulse Rate 81 65 Respiratory Rate 16 Blood Pressure 122/70 104/61 Pulse Oximetry 98 94 06/11/21 16:45 Temperature 97.5 F L Pulse Rate 78 Respiratory Rate 19 Blood Pressure 102/60 Pulse Oximetry 98 Fraction of Inspired Oxygen 38 Oxygen Delivery Method High Flow Nasal Cannula Oxygen Flow Rate 10 Narrative Exam Narrative: Ill-appearing male sitting in a chair Resp Other: Lungs decreased breath sounds with scattered rhonchi, end-expiratory wheezing bilaterally Cardio Other: Cardiac exam: Regular rate and rhythm normal S1-S2 GI Other: Abdomen: Soft nontender nondistended Extrem Other: Extremities: No edema Objective Labs Result Diagrams: 06/10/21 04:43 06/10/21 04:43 Labs: Laboratory Results - last 24 hr 06/11/21 11:45 SARS-CoV-2 (PCR) Positive H [facility] Medical History Acne (Unknown) Actinic keratosis (~2017) Anemia Atrial fibrillation (Unknown) Chronic low back pain (Unknown) Closed compression fracture of third lumbar vertebra Coronary artery disease (Unknown) Diabetes (Unknown) GERD (gastroesophageal reflux disease) (Unknown) Hearing loss (Unknown) Hx of coronary angiogram (Unknown) Hyperlipemia (Unknown) Hypertension (Unknown) Keloid Osteoporosis Pacemaker Renal insufficiency Sarcoidosis (11/2007) Squamous cell carcinoma (Unknown) Visit for suture removal Surgical History H/O left wrist surgery H/O toe surgery History of arthroplasty of left shoulder (Unknown) History of arthroplasty of right shoulder (Unknown) History of fusion of thoracic spine History of lumbar fusion Hx of knee surgery (Unknown) Hx of left knee surgery Hx of prior ablation treatment (~05/2013) Status post lumbar and lumbosacral fusion by anterior technique Family History Father Diabetes mellitus Mother No problems noted. Social History household members: spouse and children Smoking Status: Never smoker second hand exposure: Yes alcohol intake: current substance use type: does not use Assessment & Plan Assessment & Plan narrative: Acute hypoxic respiratory failure -secondary to COVID pneumonia -patient has completed his initial treatment, he continues to be hypoxic -will continue to taper oxygen as tolerated -patient may be eligible to discharge to [place] if he can tolerate 10 L of oxygen or less -currently on 5.5 Liters, will continue to taper -maybe able to discharge home if can manage on 4 liters of oxygen or less -given persistent wheezing will try short burst of prednisone 40 mg daily for 5 days 2. Type 2 diabetes -continue insulin -will adjust based on blood sugars 3. Anxiety/depression -continue usual medication 4. Sarcoidosis -continue oxygen and monitoring 5. Deconditioning -continue PT OT Time Spent With Patient Critical Care time: I spent a total of [] minutes of critical care time on this patient's care today; this time is exclusive of procedural time. Quality VTE Deep Vein Thrombosis/Pulmonary Embolism Present on Admission: No
[2021-06-11] MEDS: MELATONIN 3 MG TABLET 6 MG PO (21:15)
[2021-06-11] MEDS: SERTRALINE 50 MG TABLET PO (21:16)
[2021-06-11] MEDS: INSULIN GLARGINE 100 UNIT/ML 3ML PEN 20 UNIT SUBCUT (21:17)
[2021-06-11] MEDS: TRAZODONE 50 MG TABLET 25 MG PO (21:19)
[2021-06-11] MEDS: QUETIAPINE 25 MG TABLET 12.5 MG PO (21:20)
[2021-06-11] MEDS: MORPHINE 4 MG/ML INJ IV (21:26)
[2021-06-12] VITALS (20 sets, daily range): BP systolic 103–131; BP diastolic 58–73; PULSE 69–95; RESP 15–30; TEMP 36.3–36.9; O2SAT 88–99
--- NOTE | 2021-06-12 00:13 | PC.NURSE ---
Addendum entered by Zakiya Lewis R.N. 06/12/21 07:54: late entry: during time where O2 sat was low patient's HR was flucutating up into 120's. Conferred with T[employer]OR[employer]ORAT[employer] SUPERVISOR, Maris, who confirmed patient was in afib. Addendum entered by Zakiya Lewis R.N. 06/12/21 07:11: Assisted patient to transfer from bed to recliner after which O2 sat dropped down to 83%. Over next 20 minutes worked at increasing O2 to get sat > 90%. Ended up increasing to 13L/min and sat up to 90% for 2 minutes and then started dropping down again into low->mid 80's so increased to 15L/min and administered Morphine and RT contacted. By the time RT arrived patient was 89-91% so was placed on NRB and is now at 99%. Addendum entered by Zakiya Lewis R.N. 06/12/21 06:04: This morning patient took off CPAP and was placed back on oxygen per [facility]NC with sat ranging from 86-88%. Oxygen was increased to 10L/min to get sat > 90%. Ativan was administered also. RT contacted and came to give neb Rx after which she attempted to titrate O2 down but was only able to decrease to 8L/min to maintain sat > 90%. Currently patient is asleep and sat is 93%. Original Note: Patient is alert and oriented. Breath sounds diminished but CTA. Continues to be SOB with minimal exertion and needs > 10 minutes to recover after activity. Was on oxygen at 3L/min at shift change but when up to bathroom sat dropped down to upper 80's so oxygen was increased to 5L/min with sat improving to 92%. Is using CPAP with O2 bled in for sleep and has continuous pulse oximetry on. Intermittent non-productive cough. HRR with telemetry reading of SR w/BBB and PAC's. Denied nausea. BT present and had large, soft, brown stool. Voiding per urinal and denies dysuria. Is able to move himself in bed. Transfers bed to chair and back with 1 assist. Bilateral calf SCD's applied when gotten back to bed. Remains on COVID precautions. Complained of chronic back/hip pain and was medicated with scheduled Tramadol. Was also given Morphine per patient request to aid his breathing and is currently asleep. Fall risk score is moderate but calls appropriately for assistance so alarm is not activated. Remains on fluid restriction.
[2021-06-12] MEDS: LORazepam 0.5 MG TABLET PO ×2 (05:05→10:44)
[2021-06-12] MEDS: BUDESONIDE 0.5 MG/2 ML NEB INH ×2 (05:22→21:13)
[2021-06-12] MEDS: ALBUTEROL/IPRATROPIUM 3 ML AMPUL INH ×4 (05:22→21:13)
[2021-06-12] MEDS: MORPHINE 4 MG/ML INJ IV ×2 (06:44→13:33)
--- NOTE | 2021-06-12 08:34 | DI.RAD.S_ITS ---
PROCEDURE: XR CHEST 1V INDICATIONS: increase in o2 demand TECHNIQUE: One view of the chest was acquired. COMPARISON: [facility], CT, CT ANGIO CHEST PE PROTOCOL, 05/27/2021, 22:37. [facility], CR, XR CHEST 1V, 06/08/2021, 9:26. [facility], CR, XR CHEST 1V, 06/05/2021, 5:22. FINDINGS: Surgical changes and devices: Left pacemaker. Spine fixation hardware. Lungs and pleura: Low lung volumes. Similar bibasilar airspace opacity. A similar opacity in the right upper lobe. Minimal airspace opacity in the left upper lobe, appear slightly increased. Small right pleural effusion is similar to the prior exam. Possible left pleural effusion. No pneumothorax. Mediastinum: Mediastinal contours appear normal. Heart size is normal. Bones and chest wall: No suspicious bony lesions. Overlying soft tissues appear unremarkable. IMPRESSION: Overall there is slight interval increase in left upper lobe opacity. Right upper lobe opacity is not significantly changed. Right pleural effusion is not significantly changed. Dictated by: Young Mcneill M.D. on 06/12/2021 at 9:15 Approved by: Young Mcneill M.D. on 06/12/2021 at 9:18
[2021-06-12] MEDS: ASPIRIN EC 81 MG TABLET PO (09:51)
[2021-06-12] MEDS: SUCRALFATE 1 GM TABLET PO ×4 (09:51→21:40)
[2021-06-12] MEDS: FAMOTIDINE 20 MG TABLET PO ×2 (09:51→21:21)
[2021-06-12] MEDS: METOPROLOL ER 50 MG TABLET PO ×2 (09:51→21:29)
[2021-06-12] MEDS: LACTOBACILLUS ACIDOPHILUS TABLET 1 EACH PO ×2 (09:51→12:12)
[2021-06-12] MEDS: FERROUS SULFATE 325 MG TABLET PO (09:51)
[2021-06-12] MEDS: ASCORBIC ACID 500 MG TABLET PO (09:51)
[2021-06-12] MEDS: DOCUSATE 100 MG CAPSULE PO ×2 (09:51→21:25)
[2021-06-12] MEDS: APIXABAN 5 MG TABLET PO ×2 (09:51→21:33)
[2021-06-12] MEDS: BUSPIRONE 5 MG TABLET 10 MG PO ×2 (09:51→21:24)
[2021-06-12] MEDS: predniSONE 20 MG TABLET 40 MG PO (09:52)
[2021-06-12] MEDS: PREGABALIN 50 MG CAPSULE 100 MG PO ×2 (09:52→21:44)
[2021-06-12] MEDS: polyethylene glycoL 3350 17 GM POWD.PACK PO (09:52)
[2021-06-12] MEDS: SODIUM CHLORIDE 0.9% FLUSH 10 ML IV ×3 (09:53→21:34)
[2021-06-12] MEDS: DOFETILIDE 125 MCG 125 EACH PO ×2 (09:53→21:21)
[2021-06-12] MEDS: TRAMADOL 50 MG TABLET PO ×3 (09:53→21:24)
[2021-06-12] MEDS: SENNOSIDES 8.6 MG TABLET 17.2 MG PO (09:53)
[2021-06-12] MEDS: risperiDONE 0.25 MG TABLET PO (09:53)
[2021-06-12] MEDS: CHOLECALCIFEROL (VITAMIN D3) 400 UNIT TABLET PO ×2 (10:02→21:26)
[2021-06-12] MEDS: INSULIN LISPRO 100 UNIT/ML 3ML VIAL SUBCUT ×4 (10:03→21:38)
--- NOTE | 2021-06-12 11:02 | CM.DPNOTE ---
Called [facility] to cancel transport for 1100 per Lurdes. Called at approx. 1035. I also called and spoke to charge nurse [place] re: cancellation. Suly Farrell CM Asst.
--- NOTE | 2021-06-12 14:15 | PT.IPTN ---
Current Diagnoses Type 2 diabetes mellitus with diabetic chronic kidney disease (05/27/21) Paroxysmal atrial fibrillation (05/27/21) Unspecified diastolic (congestive) heart failure (05/27/21) Pneumonia due to coronavirus disease 2019 (05/27/21) Acute respiratory failure with hypoxia (05/27/21) Acute and chronic respiratory failure with hypoxia (05/27/21) Acute kidney failure, unspecified (05/27/21) Chronic kidney disease, unspecified (05/27/21) COVID-19 (05/27/21) detention (current) use of insulin (05/27/21) Physical Therapy Treatment Note M2 PT-IP Current Condition Start: 06/07/21 08:38 Freq: Status: Active Protocol: Document 06/11/21 11:56 SP (Rec: 06/11/21 14:23 SP [id number]) Physical Therapy Current Condition Current Condition Evaluation Date 06/07/21 Treatment Diagnosis Debility from COVID M3 PT-IP Subjective Start: 06/07/21 08:38 Freq: Status: Active Protocol: Document 06/12/21 14:00 KS (Rec: 06/12/21 14:32 KS [id number]) Subjective Physical Therapy Visit Type Type Treatment Note Visit Start Time 14:00 Visit Stop Time 14:15 Total Visit Minutes 15 Number of PELOTA MAKER Visits 3 Physical Therapy Visit Comments Patient Comments Pt agreeable to work with PT. Patient Goals Pt reported prefers to go home , understands may need go to rehab to get stronger to complete stairs before going home. M4 PT-IP Mobility and Gait Start: 06/07/21 08:38 Freq: Status: Active Protocol: Document 06/12/21 14:00 KS (Rec: 06/12/21 14:32 KS [id number]) PT-Transfer Assessment Sit to and From Stand Sit to and from Stand Contact Guard Assistance,1 Person Assistance,Use of Upper Extremities Equipment Transfer Assistive Device Gait Belt,Front Wheeled Walker Orthotic/Prosthetic Devices or Brace: No Transfers Transfer Destination Chair Transfer Technique sit<>Stand and ambulate using FWW Transfer Ability Level of Assist Contact Guard Assistance,1 Person Assistance,Use of Upper Extremities Comments Mobility Comments Pt in chair upon arrival on 6LO2 at 94%. Pt sit<>stand w/ FWW CGA. Able to maintain standing balance 1 min, perform [address] and take 3 steps forward and back w/ FWW CGA. Pts O2 dropped to 88% and his breathing became labored. CGA for stand<>sit. O2 increased to 9L for recovery, pts O2 increased to 94%, slowly decreased O2 to 6.5L. Pt left in chair w/ all needs in reach on 6.5L O2 at 94-95%. Gait Assessment Gait Gait Assistance Required: Contact Guard Assist,Minimum Assistance,1 Person Assist Distance (Feet) 3 Able to Maintain Weight Bearing Status Yes During Gait Assistive Devices Assistive Device Gait Belt,Front Wheeled Walker Orthotic/Prosthetic Devices or Brace: No Gait Deviations General Gait Pattern Decreased Stride Length, Decreased Feet Clearance, Flexed Trunk,Narrow Based Gait Factors Limiting Gait Function Factors Limiting Gait Function Decreased Activity Tolerance, Decreased Strength,Poor Balance,Poor Safety Awareness, Respiratory Distress Comments Gait Comments Please refer to mobility section for details. Stair Climbing Assessment Comments Stair Climbing Comments Pt has 3 steps w/ B HR enter, 15 steps to 2nd floor per note yesterday tx. Pt unable to assess stairs due to unsteady BLE during gait using FWW and desaturation safety. PT-Balance Assessment Sitting Balance and Reactions Static Sitting Balance Ability Normal Dynamic Sitting Balance Ability Good Standing Balance and Reactions Static Standing Balance Ability Good Dynamic Standing Balance Ability Fair Device Used FWW M5 PT-IP Objective Assessments Start: 06/07/21 08:38 Freq: Status: Active Protocol: Document 06/07/21 13:35 MB (Rec: 06/07/21 14:39 MB [id number]) Orientation Orientation/Cognition Level of Alertness Alert Orientation Name,Age,Birthday,Month,Date, Year,Day of Week,Place, Situation Language Function Ability No Deficits Noted Safety Awareness Decreased Safety Awareness Comments It is hard to determine if pt has memory impairment or not. He does not clearly answer PLOF questions when PT asks him. Gross Range of Motion Upper Extremity ROM Assessment Within Functional Limits Lower Extremity ROM Assessment Within Functional Limits Strength Comments Strength Comments MMT deferred d/t PAULA and pt requiring rest breaks for functional activities and urgently needing the urinal x2 . Pt has a limited tolerance to PT interventions today. Coordination Assessment Gross Coordination Gross Coordination WNL Sensation Assessment Comments Sensation Comments Pt does not participate with sensory testing today. M6 PT-IP Treatment Start: 06/07/21 08:38 Freq: Status: Active Protocol: Document 06/12/21 14:00 KS (Rec: 06/12/21 14:32 KS [id number]) Physical Therapy Treatment Education Education Provided Safety M7 PT-IP Assessment and Plan Start: 06/07/21 08:38 Freq: Status: Active Protocol: Document 06/12/21 14:00 KS (Rec: 06/12/21 14:32 KS [id number]) PT Summary Assessment and Plan Potential Rehabilitation Potential Good Status of Condition at Evaluation Evolving Summary Impairments Pain,Strength,Balance, Coordination,Sensation,Bed Mobility,Transfers,Gait, Activity Tolerance Progress Towards Goals Slow Progress due to Medical Issues,Slow Progress due to Activity Tolerance Assessment Summary Pt continues to reqire CGA for mobility w/ FWW but remains limited due to oxygen desaturation. Pt on 6L upon arrival, but with mobility desat to 88% needing increase to 9L to recover. Able to decreased to 6.5L w/ O2 at 94- 95%. Pt will benefit from SNF to improve tolerance for activity and energy conservation techniques. Goals Bed Mobility Goal Independent Transfer Goal Independent Gait Goal Independent Gait Distance 50 feet Other Goals Bed mobility goal is for I without rail and with bed flat . Ascend and descend step x2 with LRAD to allow home entrance. Days to Meet Goals 5 Frequency of Treatment Frequency Of Treatment Once a Day Treatment Plan Physical Therapy Treatment Plan Bed Mobility Training,Transfer Training,Gait Training, Therapeutic Exercise,Balance Retraining,Discharge Planning, Neuromuscular Re-ed Other Recommendations and Next Treatment Increase amb distance w/ FWW, Focus stair training when appropriate. Precautions Other Precautions Monitor Oxygen needs. Pt tested Covid- 19 + 06/11 at 11: 59. Recommendations To Nursing Amount of Assist Needed 1 Person Assist Discharge Recommendations PT Discharge Recommendations Home with 24/7 Assist Available,Home Health,SNF Rehab Other Discharge Recommendations [facility]. Transportation Needs at Discharge Private Vehicle,Wheelchair/ Cabulance
--- NOTE | 2021-06-12 15:06 | PM.PN.1 ---
Subjective Subjective Date Patient Seen: 06/12/21 Interval history: Patient is a 75-year-old male on with sarcoidosis admitted to the hospital with acute respiratory failure due to COVID pneumonia. Patient does have some anxiety, he also has atrial fibrillation. Patient does get air hunger, anxious, and his oxygen has been increased substantially. However with being calm blood oxygenation improved significantly. He continues to feel poorly, he feels fatigued. And at times feels short of breath Patient had a repeat chest x-ray this reveals slight interval increase in the left for a upper lobe opacity, otherwise bibasilar airspace opacity remains. Exam Vital Signs (past 8 hours): - 06/12/21 07:25 06/12/21 08:30 06/12/21 08:35 Temperature 97.9 F Pulse Rate 94 H 88 89 Respiratory Rate 25 H 17 Blood Pressure 110/68 Pulse Oximetry 94 96 91 06/12/21 12:35 06/12/21 12:45 Temperature 97.4 F L Pulse Rate 89 85 Respiratory Rate 15 24 Blood Pressure 103/59 L Pulse Oximetry 98 94 Fraction of Inspired Oxygen 38 Oxygen Delivery Method High Flow Nasal Cannula Oxygen Flow Rate 13 Objective Labs Result Diagrams: 06/10/21 04:43 06/10/21 04:43 [facility] Medical History Acne (Unknown) Actinic keratosis (~2017) Anemia Atrial fibrillation (Unknown) Chronic low back pain (Unknown) Closed compression fracture of third lumbar vertebra Coronary artery disease (Unknown) Diabetes (Unknown) GERD (gastroesophageal reflux disease) (Unknown) Hearing loss (Unknown) Hx of coronary angiogram (Unknown) Hyperlipemia (Unknown) Hypertension (Unknown) Keloid Osteoporosis Pacemaker Renal insufficiency Sarcoidosis (11/2007) Squamous cell carcinoma (Unknown) Visit for suture removal Surgical History H/O left wrist surgery H/O toe surgery History of arthroplasty of left shoulder (Unknown) History of arthroplasty of right shoulder (Unknown) History of fusion of thoracic spine History of lumbar fusion Hx of knee surgery (Unknown) Hx of left knee surgery Hx of prior ablation treatment (~05/2013) Status post lumbar and lumbosacral fusion by anterior technique Family History Father Diabetes mellitus Mother No problems noted. Social History household members: spouse and children Smoking Status: Never smoker second hand exposure: Yes alcohol intake: current substance use type: does not use Assessment & Plan Assessment & Plan narrative: 1. Acute hypoxic respiratory failure -likely multifactorial, secondary to COVID-19 pneumonia -with underlying sarcoidosis -patient placed on a prednisone taper -will continue to taper oxygen -will schedule Klonopin 1 mg twice daily -will schedule morphine q.2 hours as needed for air hunger -anticipate discharge to [place] for rehabilitation once oxygenation has been stable on 10 L or less 2. Type 2 diabetes -will continue basal bolus insulin 3. Anxiety and depression -scheduled Klonopin 1 mg twice daily 4. Sarcoidosis -steroid, and oxygen as above Time Spent With Patient Critical Care time: I spent a total of [] minutes of critical care time on this patient's care today; this time is exclusive of procedural time. Quality VTE Deep Vein Thrombosis/Pulmonary Embolism Present on Admission: No
--- NOTE | 2021-06-12 16:52 | CM.DPC ---
DCP Continued: YURIY spoke with Pari at [facility] in [place] letting them know that the DC plan was canceled for today since the patient wasn't able to DC due to needing 15L of high flow oxygen last night and remained on 13L today. CM asked if Pari will still have a bed when the patient is ready for DC. Pari stated she will keep a bed for him and that they have several beds available. CM will follow to update Pari at [facility] when he is stable for DC. YURIY called and LVM for patients to let her know that the patient wasn't DC today but we will continue to keep her updated on her husbands condition. Lurdes Ayala RN Case Manger
[2021-06-12] MEDS: TRAZODONE 50 MG TABLET 25 MG PO (21:21)
[2021-06-12] MEDS: MELATONIN 3 MG TABLET 6 MG PO (21:22)
[2021-06-12] MEDS: QUETIAPINE 25 MG TABLET 12.5 MG PO (21:23)
[2021-06-12] MEDS: SERTRALINE 50 MG TABLET PO (21:23)
[2021-06-12] MEDS: clonazePAM 0.5 MG TABLET 1 MG PO (21:25)
[2021-06-12] MEDS: ATORVASTATIN 20 MG TABLET 40 MG PO (21:35)
[2021-06-12] MEDS: INSULIN GLARGINE 100 UNIT/ML 3ML PEN 20 UNIT SUBCUT (21:36)
[2021-06-13] VITALS (16 sets, daily range): BP systolic 106–119; BP diastolic 58–82; PULSE 66–108; RESP 16–27; TEMP 36.4–37.3; O2SAT 93–97
[2021-06-13] MEDS: LORazepam 0.5 MG TABLET PO (04:55)
[2021-06-13 04:58] LABS: Add Manual Diff / Slide Review NO; Basophils Absolute Auto 0 /uL (0-100); Basophils Percent Auto 0.3 % (0-2); Eosinophils Absolute Auto 200 /uL (0-450); Eosinophils Percent Auto 1.6 % (2-4); Hematocrit 28.6 % (41-53); Hemoglobin 9.8 g/dL (13.5-17.5); Lymphocytes Absolute Auto 800 /uL (1100-4500); Lymphocytes Percent Auto 7.7 % (25-40); Mean Corpuscular HGB Conc 34.3 % (30-36); Mean Corpuscular Hemoglobin 30.2 PG (26-34); Monocytes Absolute Auto 1000 /uL (0-900); Neutrophils Absolute Auto 8700 /uL (1500-7000); Neutrophils Percent Auto 81.4 % (50-75); Platelet Count 239 X10^3/uL (150-400); Red Blood Cell Count 3.25 X10^6/uL (4.5-5.9); Red Cell Distribution Width 16.3 % (11.6-14.8); White Blood Cell Count 10.7 X10^3/uL (4.5-11.0)
[2021-06-13 05:01] LABS: BUN Creatinine Ratio 21.5 (6-22); Blood Urea Nitrogen 20 mg/dL (9-20); Calcium 8.7 mg/dL (8.4-10.2); Carbon Dioxide 33 mmol/L (22-32); Chloride 106 mmol/L (98-107); Estimated Glomerular Filt Rate > 60.0 mL/min (>60); Glucose 55 mg/dL (80-110); HEMOLYSIS < 15 (0-50); Potassium 4.6 mmol/L (3.4-5.1); Sodium 140 mmol/L (137-145)
[2021-06-13 05:10] LABS: NT-proBNP (BNP-Adult 18+) 3040 pg/mL (<125)
--- NOTE | 2021-06-13 05:28 | PC.NURSE ---
Pt. was anxious this morning 5 liters of SPO2 @ 80-87%. RT. notified changed pulse ox. probe to his left ear lobe, all fingers are very cold, warm blanket applied. With 5 liters flow cannula SPO2 now is 95-96%. Medicated with oral Lorazepam 0.5 mg. Lab glucose this morning only 55, given some snacks & apple juice. Will cont. POC & monitor.
[2021-06-13] MEDS: BUDESONIDE 0.5 MG/2 ML NEB INH ×2 (07:06→20:01)
[2021-06-13] MEDS: ALBUTEROL/IPRATROPIUM 3 ML AMPUL INH ×4 (07:06→20:01)
[2021-06-13] MEDS: MORPHINE 4 MG/ML INJ IV ×6 (08:24→21:27)
[2021-06-13] MEDS: SENNOSIDES 8.6 MG TABLET 17.2 MG PO (10:00)
[2021-06-13] MEDS: ASPIRIN EC 81 MG TABLET PO (10:01)
[2021-06-13] MEDS: SUCRALFATE 1 GM TABLET PO ×2 (10:01→21:22)
[2021-06-13] MEDS: clonazePAM 0.5 MG TABLET 1 MG PO (10:01)
[2021-06-13] MEDS: BUSPIRONE 5 MG TABLET 10 MG PO ×2 (10:01→21:20)
[2021-06-13] MEDS: FERROUS SULFATE 325 MG TABLET PO (10:01)
[2021-06-13] MEDS: predniSONE 20 MG TABLET 40 MG PO (10:02)
[2021-06-13] MEDS: polyethylene glycoL 3350 17 GM POWD.PACK PO ×2 (10:02→21:19)
[2021-06-13] MEDS: DOCUSATE 100 MG CAPSULE PO ×2 (10:02→21:22)
[2021-06-13] MEDS: TRAMADOL 50 MG TABLET PO ×2 (10:02→21:24)
[2021-06-13] MEDS: APIXABAN 5 MG TABLET PO ×2 (10:03→21:23)
[2021-06-13] MEDS: FAMOTIDINE 20 MG TABLET PO ×2 (10:04→21:23)
[2021-06-13] MEDS: METOPROLOL ER 50 MG TABLET PO ×2 (10:04→21:26)
[2021-06-13] MEDS: CHOLECALCIFEROL (VITAMIN D3) 400 UNIT TABLET PO ×2 (10:07→21:24)
[2021-06-13] MEDS: DOFETILIDE 125 MCG 125 EACH PO ×2 (10:07→21:20)
[2021-06-13] MEDS: SODIUM CHLORIDE 0.9% FLUSH 10 ML IV ×2 (10:08→21:37)
--- NOTE | 2021-06-13 12:57 | DI.RAD.S_ITS ---
PROCEDURE: XR CHEST 1V INDICATIONS: decline TECHNIQUE: One view of the chest was acquired. COMPARISON: [facility], CR, XR CHEST 1V, 06/12/2021, 8:52. [facility], CR, XR CHEST 1V, 06/08/2021, 9:26. [facility], CR, XR CHEST 1V, 06/05/2021, 5:22. [facility], CT, CT ANGIO CHEST PE PROTOCOL, 05/27/2021, 22:37. FINDINGS: Surgical changes and devices: A pacer device is seen. The leads are seen in stable positions. Thoracolumbar fixation hardware is partially seen. Lungs and pleura: Low lung volumes are seen. Bilateral interstitial type infiltrates are seen, which are more prominent on the current study than on the prior. Small bilateral pleural effusions are seen. No large pneumothorax is seen on this semiupright study. Mediastinum: Mediastinal contours appear normal. Heart size is normal. Atherosclerotic calcification of the aortic arch is noted. Bones and chest wall: No suspicious bony lesions. Age-appropriate bony degenerative changes are seen. Overlying soft tissues appear unremarkable. IMPRESSION: Worsening bilateral interstitial type infiltrates are seen. There is strong imaging concern for worsening COVID pneumonia. Small bilateral pleural effusions are seen. Postoperative and degenerative changes are seen. Dictated by: Efraín Briones M.D. on 06/13/2021 at 12:26 Approved by: Efraín Briones M.D. on 06/13/2021 at 12:28
--- NOTE | 2021-06-13 13:02 | PT-IP ANOTE ---
Per RN, hold PT today. Pt not appropriate and unable to tolerate. Will attempt again tomorrow.
[2021-06-13] MEDS: FUROSEMIDE 20 MG/2 ML VIAL IV (13:26)
[2021-06-13] MEDS: methylPREDNISolone 125 MG/2 ML VIAL 60 MG IV ×2 (13:27→21:21)
--- NOTE | 2021-06-13 13:42 | PC.NURSE ---
1310- MODEL MAKER PLASTER notified RT of pt with sats 84% and increased work of breathing. This RN assisted primary RN with assessment. Pt is noted to be dyspneic, using accessory muscles to breath, abdominal and open mouth breathing at a rate of 35-40 breaths per minute. Pt is audibly wheezy. He awakens easily to verbal and is able to answer simple questions but becomes dyspneic with talking. Pt sats cont to decrease to low 80s% despite upward titration of nasal cannula. Placed on NRB 15L with improvement in sats but no change in dyspnea. Dr. Brewer to bedside to assess pt. Orders received for CXR, ABG, solumedrol, morphine, lasix, and abx. Dr. Brewer spoke with tele-ICU who suggested goals of care conference. Dr. Brewer gives verbal order to place pt on bipap temporarily while she gets in touch with family regarding goals of care. After Dr. Breewr spoke with spouse, states pt will not transfer to ICU or be intubated- further goals to be assessed during care conference.
--- NOTE | 2021-06-13 14:47 | PM.PN.1 ---
Subjective Subjective Date Patient Seen: 06/13/21 Interval history: The patient is a 75-year-old male admitted to the hospital with acute respiratory failure secondary to COVID pneumonia and sarcoidosis. The patient has been hospitalized for 17 days. Despite that initially he was making progress however over last night the patient has gotten progressively worse. He is more short of breath, increasing work of breathing, at times desaturating. The patient's oxygen had to be increased significantly. And he ultimately was placed on high-flow nasal cannula at 9 L. the patient is struggling to breathe. He was at 1 point hypoxic. Attempts were made to improve oxygenation with BiPAP. The patient is DNR. I discussed plan of care with his , durable power of business attorney. Her recommendations at this time was to focus on comfort as the patient would not want to be intubated. Exam Vital Signs (past 8 hours): - 06/13/21 07:20 06/13/21 09:00 06/13/21 10:04 Temperature 98.0 F Pulse Rate 89 87 87 Respiratory Rate 27 H 24 Blood Pressure 111/63 111/63 Pulse Oximetry 93 95 06/13/21 12:00 Temperature 98.2 F Pulse Rate 90 Respiratory Rate 24 Blood Pressure 119/69 Pulse Oximetry 93 Fraction of Inspired Oxygen 38 Oxygen Delivery Method High Flow Nasal Cannula Oxygen Flow Rate 9 Narrative Exam Narrative: Ill-appearing male short of breath lying in bed Resp Other: Coarse breath sounds bilaterally, diffuse end-expiratory wheezing, stridor bilaterally Cardio Other: Cardiac exam: Regular rate and rhythm normal S1-S2 GI Other: Abdomen: Soft nontender nondistended Extrem Other: Extremities: No edema Objective Labs Result Diagrams: 06/13/21 04:36 06/13/21 04:36 Labs: Laboratory Results - last 24 hr 06/13/21 06/13/21 04:36 04:36 WBC 10.7 RBC 3.25 L Hgb 9.8 L Hct 28.6 L MCV 88.0 MCH 30.2 MCHC 34.3 RDW 16.3 H Plt Count 239 Neut % (Auto) 81.4 H Lymph % (Auto) 7.7 L [place] % (Auto) 9.0 Eos % (Auto) 1.6 L Baso % (Auto) 0.3 Neut # (Auto) 8700 H Lymph # (Auto) 800 L [place] # (Auto) 1000 H Eos # (Auto) 200 Baso # (Auto) 0 Sodium 140 Potassium 4.6 Chloride 106 Carbon Dioxide 33 H BUN 20 Creatinine 0.93 Estimated GFR > 60.0 BUN/Creatinine Ratio 21.5 Glucose 55 L Calcium 8.7 NT-Pro-B Natriuret Pep 3040 H COUNT INCLUDES THE [facility] Medical History Acne (Unknown) Actinic keratosis (~2018) Anemia Atrial fibrillation (Unknown) Chronic low back pain (Unknown) Closed compression fracture of third lumbar vertebra Coronary artery disease (Unknown) Diabetes (Unknown) GERD (gastroesophageal reflux disease) (Unknown) Hearing loss (Unknown) Hx of coronary angiogram (Unknown) Hyperlipemia (Unknown) Hypertension (Unknown) Keloid Osteoporosis Pacemaker Renal insufficiency Sarcoidosis (11/2007) Squamous cell carcinoma (Unknown) Visit for suture removal Surgical History H/O left wrist surgery H/O toe surgery History of arthroplasty of left shoulder (Unknown) History of arthroplasty of right shoulder (Unknown) History of fusion of thoracic spine History of lumbar fusion Hx of knee surgery (Unknown) Hx of left knee surgery Hx of prior ablation treatment (~05/2013) Status post lumbar and lumbosacral fusion by anterior technique Family History Father Diabetes mellitus Mother No problems noted. Social History household members: spouse and children Smoking Status: Never smoker second hand exposure: Yes alcohol intake: current substance use type: does not use Assessment & Plan Assessment & Plan narrative: 1. Acute hypoxic respiratory failure -multifactorial, secondary to COVID pneumonia, and complicated by sarcoidosis -repeat chest x-ray confirms worsening bilateral infiltrate, suggestive of worsening COVID pneumonia -patient was empirically placed on meropenem for bacterial superinfection -prednisone discontinued and started on IV methylprednisolone given his baseline sarcoidosis -patient on high-flow oxygen, alternating with BiPAP -we have increased morphine 4 mg IV q.4 hours as needed for comfort given his increased work of breathing -Ativan 1 mg q.4 hours as needed -patient has had progression of his respiratory failure despite maximum therapy, as he is DNR DNI we have provided maximum treatment -unfortunately the patient is failing therapy, have discussed with his , plans are underway to continue to focus on comfort -his would like to discuss with him discontinuation of all therapies. In the interim will continue steroids antibiotics and morphine for comfort 2. Type 2 diabetes -insulin will be discontinued the patient is not eating and was hypoglycemic earlier -will defer tight glucose control as efforts are made more towards comfort 3. Anxiety and depression -continue Ativan Overall prognosis is poor, patient has failed treatment, anticipate he will undoubtedly succumb to his respiratory failure Will continue full support at this time, patient is DNR DNI, will continue with morphine and Ativan for comfort 40 minutes critical care time was spent with this patient today Time Spent With Patient Critical Care time: I spent a total of [] minutes of critical care time on this patient's care today; this time is exclusive of procedural time. Quality VTE Deep Vein Thrombosis/Pulmonary Embolism Present on Admission: No
[2021-06-13] MEDS: MEROPENEM 1 GM in SODIUM CHLORIDE 0.9% 100 ML 200 ML IV ×2 (15:00→21:24)
[2021-06-13 15:15] LABS: Fractionated Inspired Oxygen 100; HCO3 ABG 29 mmol/L (22-26); Oxygen Saturation ABG 93 % (95-100); PCO2 ABG 54.2 mmHg (35-45); PO2 ABG 73 mmHg (80-100); TCO2 ABG 31 mmol/L (21-31); pH ABG 7.34 (7.35-7.45)
--- NOTE | 2021-06-13 19:35 | PC.NURSE ---
Pt's visiting this afternoon to discuss plan of care goals. Assisting patient to chair. He is sitting up for several hours this afternoon. He declined catheter insertion this afternoon, due to tenderness and redness around penis. is very supportive and assisting him to take a couple bites this evening. She states he would like to continue treatemnt if there is hope for improvement but does not wish to be intubated. Continuous monitoring.
[2021-06-13] MEDS: MELATONIN 3 MG TABLET 6 MG PO (21:21)
[2021-06-13] MEDS: PREGABALIN 25 MG CAPSULE 100 MG PO (21:22)
[2021-06-13] MEDS: TRAZODONE 50 MG TABLET 25 MG PO (21:23)
[2021-06-13] MEDS: QUETIAPINE 25 MG TABLET 12.5 MG PO (21:23)
[2021-06-13] MEDS: SERTRALINE 50 MG TABLET PO (21:24)
[2021-06-13] MEDS: INSULIN GLARGINE 100 UNIT/ML 3ML PEN 20 UNIT SUBCUT (21:31)
[2021-06-14] VITALS (16 sets, daily range): BP systolic 116–153; BP diastolic 61–79; PULSE 70–103; RESP 16–29; TEMP 30.1–36.6; O2SAT 89–98
[2021-06-14] MEDS: MORPHINE 4 MG/ML INJ IV ×11 (01:19→23:50)
[2021-06-14] MEDS: methylPREDNISolone 125 MG/2 ML VIAL 60 MG IV ×3 (05:21→21:33)
[2021-06-14] MEDS: MEROPENEM 1 GM in SODIUM CHLORIDE 0.9% 100 ML 200 ML IV ×3 (05:22→21:35)
[2021-06-14] MEDS: SODIUM CHLORIDE 0.9% FLUSH 10 ML IV ×3 (06:39→21:35)
[2021-06-14] MEDS: BUDESONIDE 0.5 MG/2 ML NEB INH (07:44)
[2021-06-14] MEDS: ALBUTEROL/IPRATROPIUM 3 ML AMPUL INH ×3 (07:44→19:46)
[2021-06-14] MEDS: PREGABALIN 25 MG CAPSULE 100 MG PO (09:30)
[2021-06-14] MEDS: BUSPIRONE 5 MG TABLET 10 MG PO (09:30)
[2021-06-14] MEDS: DOFETILIDE 125 MCG 125 EACH PO (09:30)
[2021-06-14] MEDS: polyethylene glycoL 3350 17 GM POWD.PACK PO (09:30)
[2021-06-14] MEDS: FAMOTIDINE 20 MG TABLET PO (10:09)
[2021-06-14] MEDS: TRAMADOL 50 MG TABLET PO ×3 (10:09→21:30)
[2021-06-14] MEDS: ASPIRIN EC 81 MG TABLET PO (10:10)
[2021-06-14] MEDS: SENNOSIDES 8.6 MG TABLET 17.2 MG PO (10:10)
[2021-06-14] MEDS: APIXABAN 5 MG TABLET PO (10:11)
[2021-06-14] MEDS: METOPROLOL ER 50 MG TABLET PO (10:11)
[2021-06-14] MEDS: DOCUSATE 100 MG CAPSULE PO (10:11)
[2021-06-14] MEDS: FERROUS SULFATE 325 MG TABLET PO (10:12)
[2021-06-14] MEDS: SUCRALFATE 1 GM TABLET PO ×2 (10:22→13:37)
[2021-06-14] MEDS: CHOLECALCIFEROL (VITAMIN D3) 400 UNIT TABLET PO (10:22)
--- NOTE | 2021-06-14 14:25 | PT.IPTN ---
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 (05/27/21) Paroxysmal atrial fibrillation (05/27/21) Unspecified diastolic (congestive) heart failure (05/27/21) Pneumonia due to coronavirus disease 2019 (05/27/21) Acute respiratory failure with hypoxia (05/27/21) Acute and chronic respiratory failure with hypoxia (05/27/21) Acute kidney failure, unspecified (05/27/21) Chronic kidney disease, unspecified (05/27/21) COVID-19 (05/27/21) care home (current) use of insulin (05/27/21) Physical Therapy Treatment Note M2 PT-IP Current Condition Start: 06/07/21 08:38 Freq: Status: Active Protocol: Document 06/11/21 11:56 SP (Rec: 06/11/21 14:23 SP [id number]) Physical Therapy Current Condition Current Condition Evaluation Date 06/07/21 Treatment Diagnosis Debility from COVID M3 PT-IP Subjective Start: 06/07/21 08:38 Freq: Status: Active Protocol: Document 06/14/21 14:25 AB (Rec: 06/14/21 14:26 AB [id number]) Subjective Physical Therapy Visit Type Type Administrative Note Notes per Rounds meeting: pt is not medically stable and may go into comfort measures. To d/c PT. M7 PT-IP Assessment and Plan Start: 06/07/21 08:38 Freq: Status: Active Protocol: Document 06/14/21 14:25 AB (Rec: 06/14/21 14:25 AB [id number]) PT Summary Assessment and Plan Frequency of Treatment Frequency Of Treatment Discharge
--- NOTE | 2021-06-14 18:44 | P.PN_ITS ---
Subjective Subjective Interval history: Patient reports understanding that his respiratory and oxygenation status is not improving. He is continuing to consider pursuit of comfort care measures. Exam Vital Signs (past 8 hours): - 06/14/21 13:00 06/14/21 13:27 06/14/21 16:06 Temperature 98 F Pulse Rate 85 85 79 Respiratory Rate 20 22 Blood Pressure 143/79 H 143/79 H Pulse Oximetry 95 97 06/14/21 16:50 Temperature 98 F Pulse Rate 87 Respiratory Rate 22 Blood Pressure 146/76 H Pulse Oximetry 93 Fraction of Inspired Oxygen 75 Oxygen Delivery Method High Flow Nasal Cannula Oxygen Flow Rate 15 Const Other: Patient is sitting up in bed, appears ill, but is in no apparent acute distress. Eyes Other: No scleral icterus appreciated. Resp Other: Diminished breath sounds bilaterally, with poor air exchange, and coarse breath sounds throughout. No wheezing appreciated. Cardio Other: Regular rate and rhythm. S1 and S2 heart sounds auscultated, with no extra heart sounds or murmurs appreciated. No peripheral edema. GI Other: Soft, non-distended, non-tender. Bowel sounds present. Extrem Other: Palpable and equal radial and dorsalis pedis pulses bilaterally. Objective Labs Result Diagrams: 06/13/21 04:36 06/13/21 04:36 [facility] Medical History Acne (Unknown) Actinic keratosis (~2017) Anemia Atrial fibrillation (Unknown) Chronic low back pain (Unknown) Closed compression fracture of third lumbar vertebra Coronary artery disease (Unknown) Diabetes (Unknown) GERD (gastroesophageal reflux disease) (Unknown) Hearing loss (Unknown) Hx of coronary angiogram (Unknown) Hyperlipemia (Unknown) Hypertension (Unknown) Keloid Osteoporosis Pacemaker Renal insufficiency Sarcoidosis (11/2007) Squamous cell carcinoma (Unknown) Visit for suture removal Surgical History H/O left wrist surgery H/O toe surgery History of arthroplasty of left shoulder (Unknown) History of arthroplasty of right shoulder (Unknown) History of fusion of thoracic spine History of lumbar fusion Hx of knee surgery (Unknown) Hx of left knee surgery Hx of prior ablation treatment (~05/2013) Status post lumbar and lumbosacral fusion by anterior technique Family History Father Diabetes mellitus Mother No problems noted. Social History household members: spouse and children Smoking Status: Never smoker second hand exposure: Yes alcohol intake: current substance use type: does not use Assessment & Plan Assessment & Plan narrative: 1. Acute hypoxic respiratory failure secondary to severe COVID-19 pneumonia -multifactorial, secondary to COVID-19 pneumonia, and complicated by sarcoidosis -repeat chest x-ray confirms worsening bilateral infiltrate, suggestive of worsening COVID pneumonia -patient was empirically placed on meropenem for bacterial superinfection -prednisone discontinued and started on IV methylprednisolone given his baseline sarcoidosis -patient on high-flow oxygen, alternating with BiPAP -we have increased morphine 4 mg IV q 4 hours as needed for comfort given his increased work of breathing -Ativan 1 mg q.4 hours as needed -patient has had progression of his respiratory failure despite maximum therapy, as he is DNR DNI we have provided maximum treatment -unfortunately the patient is failing therapy, have discussed with his , plans are underway to continue to focus on comfort -his would like to discuss with him discontinuation of all therapies. In the interim, will continue steroids antibiotics and morphine for comfort 2. Type 2 diabetes -insulin will be discontinued the patient is not eating and was hypoglycemic earlier -will defer tight glucose control as efforts are made more towards comfort 3. Anxiety and depression -continue Ativan Overall prognosis is poor, patient has failed treatment, anticipate he will undoubtedly succumb to his respiratory failure. Will continue full support at this time, patient is DNR DNI, will continue with morphine and Ativan for comfort. Time Spent With Patient Critical Care time: I spent a total of [] minutes of critical care time on this patient's care today; this time is exclusive of procedural time. Quality VTE Deep Vein Thrombosis/Pulmonary Embolism Present on Admission: No
[2021-06-14] MEDS: MELATONIN 3 MG TABLET 6 MG PO (21:29)
[2021-06-14] MEDS: TRAZODONE 50 MG TABLET 25 MG PO (21:32)
[2021-06-14] MEDS: QUETIAPINE 25 MG TABLET 12.5 MG PO (21:32)
[2021-06-14] MEDS: INSULIN GLARGINE 100 UNIT/ML 3ML PEN 20 UNIT SUBCUT (21:32)
[2021-06-14] MEDS: LORazepam 2 MG/ML INJ 1 MG IV (21:34)
[2021-06-15] VITALS (9 sets, daily range): BP systolic 104–120; BP diastolic 68–83; PULSE 83–103; RESP 16–24; TEMP 29.8–36.8; O2SAT 88–98
[2021-06-15] MEDS: LORazepam 2 MG/ML INJ 1 MG IV ×4 (02:43→12:55)
[2021-06-15] MEDS: SODIUM CHLORIDE 0.9% FLUSH 10 ML IV ×2 (02:44→09:49)
[2021-06-15] MEDS: MORPHINE 4 MG/ML INJ IV ×5 (04:08→12:50)
[2021-06-15] MEDS: methylPREDNISolone 125 MG/2 ML VIAL 60 MG IV ×2 (06:03→12:10)
[2021-06-15] MEDS: MEROPENEM 1 GM in SODIUM CHLORIDE 0.9% 100 ML 200 ML IV (06:03)
[2021-06-15] MEDS: BUDESONIDE 0.5 MG/2 ML NEB INH (08:22)
[2021-06-15] MEDS: ALBUTEROL/IPRATROPIUM 3 ML AMPUL INH ×2 (08:22→11:49)
--- NOTE | 2021-06-15 13:26 | CM.DPC ---
DCP Cont: Discussed patient during team rounds. Patient not improving, and hospitalist will be contacting spouse, Nay, to discuss comfort care. Nurse, Marcy, came by the care management office and indicated that family will be coming to see patient before his oxygen is discontinued. Patient may be expiring here at the hospital. Nay Miller RN/[employer]
[2021-06-15] MEDS: MORPHINE 2 MG/ML INJ 4 MG IV ×2 (13:40→14:28)
[2021-06-15] MEDS: LORazepam 2 MG/ML INJ IV (13:52)
[2021-06-15] MEDS: SCOPOLAMINE 1 PATCH TOP (14:28)
--- NOTE | 2021-06-15 15:44 | PM.PN.1 ---
Subjective Subjective Interval history: Patient's breathing is significantly labored today, to the point of being unable to answer questions fully. I informed the patient that I'll be contacting his , Exam Vital Signs (past 8 hours): - 06/15/21 08:45 06/15/21 12:00 Temperature 96.6 F L Pulse Rate 96 H 103 H Respiratory Rate 24 21 Blood Pressure 120/83 Pulse Oximetry 88 L 89 L Fraction of Inspired Oxygen 100 Oxygen Delivery Method BiPAP Oxygen Flow Rate 16 Narrative Exam Narrative: Const Other: Patient is sitting up in bed, ill, with labored breathing. Eyes Other: No scleral icterus appreciated. Resp Other: Diminished breath sounds bilaterally, with poor air exchange, and coarse breath sounds throughout. No wheezing appreciated. Labored breathing noted. Cardio Other: Regular rate and rhythm. S1 and S2 heart sounds auscultated, with no extra heart sounds or murmurs appreciated. No peripheral edema. GI Other: Soft, non-distended, non-tender. Bowel sounds present. Extrem Other: Palpable and equal radial and dorsalis pedis pulses bilaterally. Objective Labs Result Diagrams: 06/13/21 04:36 06/13/21 04:36 [facility] Medical History Acne (Unknown) Actinic keratosis (~2017) Anemia Atrial fibrillation (Unknown) Chronic low back pain (Unknown) Closed compression fracture of third lumbar vertebra Coronary artery disease (Unknown) Diabetes (Unknown) GERD (gastroesophageal reflux disease) (Unknown) Hearing loss (Unknown) Hx of coronary angiogram (Unknown) Hyperlipemia (Unknown) Hypertension (Unknown) Keloid Osteoporosis Pacemaker Renal insufficiency Sarcoidosis (11/2007) Squamous cell carcinoma (Unknown) Visit for suture removal Surgical History H/O left wrist surgery H/O toe surgery History of arthroplasty of left shoulder (Unknown) History of arthroplasty of right shoulder (Unknown) History of fusion of thoracic spine History of lumbar fusion Hx of knee surgery (Unknown) Hx of left knee surgery Hx of prior ablation treatment (~05/2013) Status post lumbar and lumbosacral fusion by anterior technique Family History Father Diabetes mellitus Mother No problems noted. Social History household members: spouse and children Smoking Status: Never smoker second hand exposure: Yes alcohol intake: current substance use type: does not use Assessment & Plan Assessment & Plan narrative: 1. Acute hypoxic respiratory failure secondary to severe COVID-19 pneumonia -multifactorial, secondary to COVID-19 pneumonia, and complicated by sarcoidosis -repeat chest x-ray confirms worsening bilateral infiltrate, suggestive of worsening COVID pneumonia -patient was empirically placed on meropenem for bacterial superinfection -prednisone discontinued and started on IV methylprednisolone given his baseline sarcoidosis -patient on high-flow oxygen, alternating with BiPAP -we have increased morphine 4 mg IV q 4 hours as needed for comfort given his increased work of breathing -Ativan 1 mg q.4 hours as needed -patient has had progression of his respiratory failure despite maximum therapy, as he is DNR DNI we have provided maximum treatment - agrees that withdrawal of care with institution of comfort care measures is the approach to take 2. Type 2 diabetes -insulin will be discontinued the patient is not eating -will defer tight glucose control as efforts are made more towards comfort 3. Anxiety and depression -continue Ativan Overall, prognosis is poor, patient has failed treatment, anticipate he will undoubtedly succumb to his respiratory failure. Withdrawal of care begun, with comfort care measures. Time Spent With Patient Critical Care time: I spent a total of [] minutes of critical care time on this patient's care today; this time is exclusive of procedural time. Quality VTE Deep Vein Thrombosis/Pulmonary Embolism Present on Admission: No
--- NOTE | 2021-06-15 15:56 | PC.NURSE ---
Postmortem care including bed bath performed with URSZULA Velez.
--- NOTE | 2021-06-15 16:02 | PC.NURSE ---
Addendum entered by Rosie Figueroa R.N. 06/15/21 16:41: Home here to take Pt. Disposition of Remains Release form signed. Pt transferred [facility] and Pt out via [facility] to [facility] by [place] [facility]. Original Note: Pt with very labored breathing today. Spoke with Nay his about goals of care. Spouse stated she had talked with Pt on Wednesday and was ready for him to be changed to comfort care and be allowed to pass as comfortably as possible. Spouse asked if she would be able to be here with Pt's son to say their goodbyes. Spoke with Dr. Garcia about Spouse's wishes and gave him the number to contact Nay to discuss this. Pt was unable to speak or swallow and appeared very distressed with work of breathing. Dr. Garcia notified me that we were converting to comfort care and when the family was present and ready to remove Pt's bipap. Family arrived and gowned and masked up and spent some time talking with Pt and saying goodbye. RN stayed present in the room to support Pt and family. Morphine 4mg IV given at 1210/1250/1428, Lorazepam 2mg IV given at 1255/1352 and dose scanned and preparing to give at 1445 but Pt ceased breathing at that time and the dose was wasted with 2nd RN verification. Pt tachypneac during this time and using accessory muscles for air movement. Removed BIPAP at approx 1300 and stayed in room with family. Family stated they had contacted [facility] to make arrangements. Pt's family visited with Pt for a brief time after Pt ceased breathing and then said their goodbyes and took Pt belongings with them. Pt was bathed and new brief and gowned placed on Pt. [facility] contacted by Coordinator and Pt awaiting [facility].
--- NOTE | 2021-06-15 17:36 | PM.DDS.1 ---
Discharge Summary History of Illness Chief Complaint: Shortness of Breath/Dyspnea Narrative: 75yo male with a hx of atrial fibrillation and severe pulmonary sarcoidosis that presented in acute hypoxic respiratory failure seondary to COVID-19 pneumonia. The patient did not improve with standard COVID-19 treatment. He also did not improve with aggressive respiratory support. He endorsed wanting to be DNR/DNI throughout his stay. He was covered with empirical abx coverage inpatient, in case there was a superimposed bacterial pneumonia, too. However, as he failed standard therapy, the patient, his , and his family decided to pursue comfort care. Withdrawal of care with full institution of comfort care was started on June 15. Patient on June 15, 2021 at 1445 with and son at bedside. Hospital Course Date of Admission: 05/27/21 23:04 Primary care provider: Alvaro Palomares DO Consults: 05/27/21 23:28 Consult to Respiratory Therapy Evaluate & Treat Comment: Covid pneumonia acute on chronic resp failure Physician Instructions: Evaluate and treat 06/06/21 16:24 Consult to Physical Therapy Evaluate & Treat Comment: Physician Instructions: Evaluate and Treat Discharge provider: Dr. Garcia Discharge Diagnosis: Acute hypoxic respiratory failure secondary to severe COVID-19 pneumonia in the setting of severe pulmonary sarcoidosis. Hospital Course: 75yo male with a hx of atrial fibrillation and severe pulmonary sarcoidosis that presented in acute hypoxic respiratory failure seondary to COVID-19 pneumonia. The patient did not improve with standard COVID-19 treatment. He also did not improve with aggressive respiratory support. He endorsed wanting to be DNR/DNI throughout his stay. He was covered with empirical abx coverage inpatient, in case there was a superimposed bacterial pneumonia, too. However, as he failed standard therapy, the patient, his , and his family decided to pursue comfort care. Withdrawal of care with full institution of comfort care was started on June 15. Patient on June 15, 2021 at 1445 with and son at bedside. Objective Labs Result Diagrams: 06/13/21 04:36 06/13/21 04:36
== END 2021-06-15 17:38 | disposition expired | DRG 177 ==
LOC: ED 20:34 → AC 23:06 → ICU 05-28 06:17 → AC 06-06 14:21
PROVIDERS: Hospitalist; Internal Medicine; Admitting Provider Nurse Practitioner Family; Emergency Provider Emergency Medicine; PCP Family Medicine; Referring Provider Emergency Medicine; Visit Provider Nurse Practitioner Family
DX: U07.1 COVID-19 (principal); J12.82 Pneumonia due to coronavirus disease 2019; I50.33 Acute on chronic diastolic (congestive) heart failure; J18.9 Pneumonia, unspecified organism; J80 Acute respiratory distress syndrome; I13.0 Hypertensive heart and chronic kidney disease with heart failure and stage 1 through stage 4 chronic kidney disease, or unspecified chronic kidney disease; I48.0 Paroxysmal atrial fibrillation; D86.0 Sarcoidosis of lung; N18.32 Chronic kidney disease, stage 3b; E11.22 Type 2 diabetes mellitus with diabetic chronic kidney disease; E11.649 Type 2 diabetes mellitus with hypoglycemia without coma; F03.90 Unspecified dementia, unspecified severity, without behavioral disturbance, psychotic disturbance, mood disturbance, and anxiety; F41.9 Anxiety disorder, unspecified; E78.5 Hyperlipidemia, unspecified; I25.10 Atherosclerotic heart disease of native coronary artery without angina pectoris; G47.33 Obstructive sleep apnea (adult) (pediatric); K21.9 Gastro-esophageal reflux disease without esophagitis; Z79.4 Long term (current) use of insulin; Z66 Do not resuscitate; Z51.5 Encounter for palliative care; Z95.0 Presence of cardiac pacemaker
CPT/HCPCS: 36415; 36600; 71045; 71275; 80048; 80053; 80069; 81001; 82550; 82728; 82805; 82962; 83036; 83605; 83615; 83735; 83880; 84100; 84145; 84484; 85025; 85379; 85610; 85730; 86140; 87040; 87633; 87635; 87797; 93005; 93970; 94640; 94660; 94760; 94762; 96365; 96367; 96368; 96375; 97110; 97161; 97530; 99285; C9803; A9270; C9113; J0696; J1100; J1644; J1815; J1940; J2060; J2185; J2270; J2930; Q9967